=== PATIENT | female | born 1950 | race Caucasian/White ===

== ENCOUNTER 2016-09-19 14:07 | Emergency (ER) | payer OTHER ==
[2016-09-19 14:28] VITALS: BMI 34.7
--- NOTE | 2016-09-19 16:42 | PDOC ---
History of Present Illness - General History Source: Patient, Old Records, Primary Care Provider Exam Limitations: No Limitations - History of Present Illness Initial Comments: 09/19/16 17:47 The patient is a 65 year old female, with a significant past medical history of asthma, hypertension, hyperlipidemia, diabetes, pulmonary hypertension, COPD, coronary artery disease, Hodgkins lymphoma s/p chemotherapy and radiation, endometrial CA s/p chemotherapy and radiation, diabetic neuropathy, spinal stenosis, chronic back pain and carpal tunnel syndrome (wrists), who presents to the emergency department sent in by Dr. Santo with back pain for the past two months but worsening in the past week. The patient has a known compression fracture at L1, L3. The patient states that the pain initially started as dull and has now progressed to sharp. The patient reports that the back pain is exacerbated by any movement especially the twisting motion. The patient denies any radiation of the pain down her legs. The patient denies any saddle anesthesia. The patient denies any extremity weakness/numbness/tingling. The patient denies nausea, vomiting, diarrhea, constipation or abdominal pain. The patient has been taking Percocet every 4 hours for pain, with minimal relief. The patient reports that she uses a walker at baseline, but has been having difficulty ambulating over the past week. Allergies: Penicillins, Ibuprofen. Past Surgical History: Appendectomy. Social History: Non smoker. Denies alcohol or drug use. PCP: NORMAN Castillo Oncologist: Dr. Hansa Bee Open Developer Operator: Dr. Marcellus Meléndez <Fatmata Iqbal - Last Filed: 09/19/16 17:50> <Marylu Gallagher - Last Filed: 09/22/16 07:40> - General Chief Complaint: Back Pain Stated Complaint: LOWER BACK PAIN Time Seen by Provider: 09/19/16 16:14 Past History <Fatmata Iqbal - Last Filed: 09/19/16 17:50> - Past Medical History Anemia: No Asthma: Yes Cancer: Yes (Hodkins Lymphoma,uterine ca) Cardiac Disorders: Yes (tachycardia) CVA: No COPD: Yes (EMPHYSEMA.) CHF: No Dementia: No Diabetes: Yes GI Disorders: No Disorders: Yes (URGE INCONTINENCE) HTN: Yes (PULMONARY Hypertension) Hypercholesterolemia: Yes Kidney Stones: Yes Liver Disease: No Seizures: No Thyroid Disease: Yes (enlarged thyroid) - Surgical History Abdominal Surgery: Yes Appendectomy: Yes (AT 15 YRS OLD) Cardiac Surgery: No Cholecystectomy: No (gallstones) Lung Surgery: No Neurologic Surgery: No Orthopedic Surgery: No - Immunization History Td Vaccination: No Immunization Up to Date: Yes - Psycho/Social/Smoking Cessation Hx Anxiety: No Suicidal Ideation: No Smoking Status: Yes Smoking History: Never smoked Years of Tobacco Use: 40 Have you smoked in the past 12 months: No Number of Cigarettes Smoked Daily: 0 If you are a former smoker, when did you quit?: December 2013 Information on smoking cessation initiated: No 'Breaking Loose' booklet given: 11/10/13 Hx Alcohol Use: No Drug/Substance Use Hx: No Substance Use Type: None Hx Substance Use Treatment: No <Marylu Gallagher - Last Filed: 09/22/16 07:40> - Past Medical History Allergies/Adverse Reactions: Allergies Allergy/AdvReac Type Severity Reaction Status Date / Time Penicillins Allergy Verified 09/19/16 14:23 ibuprofen [From Motrin] AdvReac Verified 09/19/16 14:23 Home Medications: Ambulatory Orders Amlodipine Besylate [Norvasc -] 2.5 mg PO DAILY #0 tablet 12/20/12 Pantoprazole Sodium [Protonix -] 40 mg PO DAILY #30 tablet.ec 02/23/14 Aspirin [Aspirin EC] 81 mg PO DAILY #30 tablet. 04/23/14 Ondansetron [Zofran -] 8 mg PO Q6H PRN 04/29/15 Magnesium Oxide 800 mg PO BID 05/24/15 Bacitracin 1 applic TD DAILY 07/05/15 Cyclobenzaprine HCl [Flexeril -] 10 mg PO TID PRN #0 07/29/15 Sucralfate Oral Suspension [Carafate Oral Suspension -] 2 gm NR BID #1250 ml Oxycodone HCl/Acetaminophen [Percocet 5-325 mg Tablet] 1 - 2 tab PO Q6H #20 tablet MDD 4 09/19/16 Review of Systems - Review of Systems Able to Perform ROS?: Yes Comments:: 09/19/16 17:22 GENERAL/CONSTITUTIONAL: No fever or chills. No weakness. HEAD, EYES, EARS, NOSE AND THROAT: No change in vision. No ear pain or discharge. No sore throat. CARDIOVASCULAR: No chest pain or shortness of breath. RESPIRATORY: No cough, wheezing, or hemoptysis. GASTROINTESTINAL: No nausea, vomiting, diarrhea or constipation. GENITOURINARY: No dysuria, frequency, or change in urination. MUSCULOSKELETAL: +Back pain. No joint or muscle swelling or pain. No neck pain. SKIN: No rash. NEUROLOGIC: No headache, vertigo, loss of consciousness, or change in strength/ sensation. ENDOCRINE: No increased thirst. No abnormal weight change. HEMATOLOGIC/LYMPHATIC: No anemia, easy bleeding, or history of blood clots. ALLERGIC/IMMUNOLOGIC: No hives or skin allergy. <Fatmata Iqbal - Last Filed: 09/19/16 17:50> *Physical Exam - Vital Signs Last Vital Signs Temp Pulse Resp BP Pulse Ox 98.4 F 126 H 18 150/80 96 09/19/16 14:24 09/19/16 14:24 09/19/16 14:24 09/19/16 14:24 09/19/16 14:24 - Physical Exam Comments: 09/19/16 17:45 GENERAL: Awake, alert, and fully oriented, in no acute distress. HEAD: No signs of trauma. EYES: PERRLA, EOMI, sclera anicteric, conjunctiva clear. ENT: Auricles normal inspection, hearing grossly normal, nares patent, oropharynx clear without exudates. Moist mucosa. NECK: Normal ROM, supple, no lymphadenopathy, JVD, or masses. LUNGS: Breath sounds equal, clear to auscultation bilaterally. No wheezes, and no crackles. HEART: Regular rate and rhythm, normal S1 and S2, no murmurs, rubs or gallops. ABDOMEN: Soft, nontender, normoactive bowel sounds. No guarding, no rebound. No masses. SPINE: Tenderness to the L spine from L1-L3 in the midline. EXTREMITIES: 2+ pitting edema to the bilateral lower extremities. Normal range of motion. No clubbing or cyanosis. No cords, erythema, or tenderness. NEUROLOGICAL: Cranial nerves II through XII intact. Normal speech, gait deferred. SKIN: Warm, dry, normal turgor, no rashes or lesions noted. <Fatmata Iqbal - Last Filed: 09/19/16 17:50> - Vital Signs Last Vital Signs Temp Pulse Resp BP Pulse Ox 98.4 F 126 H 18 150/80 96 09/19/16 14:24 09/19/16 14:24 09/19/16 14:24 09/19/16 14:24 09/19/16 14:24 <Marylu Gallagher - Last Filed: 09/22/16 07:40> Heart Score/ECG Review - ECG Impressions Comment:: EKG read 17:42- NSR 90 bpm, no acute ST/T changes. +Motion artifact. <Marylu Gallagher - Last Filed: 09/22/16 07:40> ED Treatment Course - LABORATORY CBC & Chemistry Diagram: 09/19/16 17:30 09/19/16 17:30 <Fatmata Iqbal - Last Filed: 09/19/16 17:50> - LABORATORY CBC & Chemistry Diagram: 09/19/16 17:30 09/19/16 17:30 <Marylu Gallagher - Last Filed: 09/22/16 07:40> Medical Decision Making - Medical Decision Making 09/19/16 17:30 Connected and case discussed with Dr. Santo at 17:27. <Fatmata Iqbal - Last Filed: 09/19/16 17:50> - Medical Decision Making 09/19/16 19:[address] Levin at shift change. She was sent by Dr. Santo, she has history of compression fractures in the spine, has been unable to ambulate without a walker, has been unable to get to any appointments. She has been having progressively worsening low back pain since her diagnosis (rather than improving), and now radiating to the groin. Recommended CT a/p to r/o lymphadenopathy, concern for recurrence of cancer. <Marylu Gallagher - Last Filed: 09/22/16 07:40> *DC/Admit/Observation/Transfer - Attestations Scribe Attestion: 09/19/16 17:22 Documentation prepared by Fatmata Iqbal, acting as certified medical technician for Marylu Gallagher MD. <Fatmata Iqbal - Last Filed: 09/19/16 17:50> <Marylu Gallagher - Last Filed: 09/22/16 07:40> Diagnosis at time of Disposition: Back pain Qualifiers: Back pain location: low back pain Chronicity: chronic Back pain laterality: midline Sciatica presence: without sciatica Qualified Code(s): M54.5 - Low back pain - Discharge Dispostion Disposition: HOME Condition at time of disposition: Stable - Prescriptions Prescriptions: Oxycodone HCl/Acetaminophen [Percocet 5-325 mg Tablet] 1 - 2 tab PO Q6H #20 tablet MDD 4 - Referrals Referrals: Kyra Castillo [Primary Care Provider] - - Patient Instructions Printed Discharge Instructions: DI for Low Back Pain
[2016-09-19 17:39] LABS: BASOPHIL 0.7 % (0-2.0); EOSINOPHIL 5.9 % (0-4.5); MCH 29.9 pg (25.7-33.7); MCHC 32.7 g/dl (32.0-36.0); MEAN CELL VOLUME 91.3 fl (80-96); MEAN PLT VOLUME 8.2 fl (7.5-11.1); NEUTROPHILS 69.7 % (42.8-82.8); PLATELET COUNT 203 K/MM3 (134-434); RDW 14.4 % (11.6-15.6); WHITE BLOOD COUNT 6.3 K/mm3 (4.0-10.0)
[2016-09-19] MEDS ORDERED: morphine CARPU-JECT 2 MG/1 ML DISP.SYRIN ONE (17:45)
[2016-09-19] MEDS: morphine CARPU-JECT 2 MG/1 ML DISP.SYRIN IVPUSH ONE ×2 (17:46→17:55)
[2016-09-19] MEDS ORDERED: OXYCODONE/APAP 5/325MG COMBO TABLET PO ONE (17:48)
[2016-09-19 17:51] LABS: INR 1.13 (0.82-1.09); PROTHROMBIN TIME (PATIENT) 12.5 SEC (9.98-11.88)
[2016-09-19] MEDS ORDERED: OXYCODONE/APAP 5/325MG COMBO TABLET ONE (17:52)
[2016-09-19 18:10] LABS: ALBUMIN 3.9 g/dl (3.4-5.0); BILIRUBIN,TOTAL 0.6 mg/dL (0.2-1.0); CALCIUM 9.1 mg/dL (8.5-10.1); CREATININE 1.2 mg/dL (0.55-1.02); TOT PROT 6.9 g/dl (6.4-8.2)
[2016-09-19] MEDS ORDERED: methylPREDNISolone NA SUCC 125 MG/2 ML VIAL IVPB ONE (21:01)
--- NOTE | 2016-09-19 21:07 | PDOC ---
*Physical Exam - Vital Signs Last Vital Signs Temp Pulse Resp BP Pulse Ox 98.4 F 80 16 157/76 100 09/19/16 14:24 09/19/16 18:04 09/19/16 18:04 09/19/16 18:04 09/19/16 19:45 ED Treatment Course - LABORATORY CBC & Chemistry Diagram: 09/19/16 17:30 09/19/16 17:30 - ADDITIONAL ORDERS Additional order review: Laboratory Results 09/19/16 09/19/16 17:30 17:30 INR 1.13 Sodium 143 Potassium 3.6 Chloride 106 Carbon Dioxide 29 Anion Gap 8 BUN 20 H D Creatinine 1.2 H D Creat Clearance w eGFR 44.81 Random Glucose 104 D Calcium 9.1 Total Bilirubin 0.6 D AST 10 L ALT 13 Alkaline Phosphatase 122 H D Total Protein 6.9 D Albumin 3.9 D 09/19/16 17:30 RBC 3.48 L D MCV 91.3 MCHC 32.7 RDW 14.4 MPV 8.2 D Neutrophils % 69.7 D Lymphocytes % 17.8 D Monocytes % 5.9 Eosinophils % 5.9 H Basophils % 0.7 - Medications Given in the ED: ED Medications Discontinued Medications Generic Name Dose Route Start Last Admin Trade Name Freq PRN Reason Stop Dose Admin Morphine Sulfate 2 mg 09/19/16 17:43 09/19/16 17:55 Morphine Injection - IVPUSH 09/19/16 17:44 Not Given ONCE ONE Oxycodone/Acetaminophen 1 combo 09/19/16 17:48 09/19/16 17:54 Percocet 5/325 - PO 09/19/16 17:49 1 combo ONCE ONE Administration Medical Decision Making - Medical Decision Making 09/19/16 21:04 Pt told she was going to be admitted for procedure, but not arrangements made for the admission. Attempted to contact Dr. Santo, she couldn't be reached. spoke to Dr. Gravin, he had no idea of patient. Pt will go home and make arrangements for another day. for procedure *DC/Admit/Observation/Transfer Diagnosis at time of Disposition: Back pain Qualifiers: Back pain location: low back pain Chronicity: chronic Back pain laterality: midline Sciatica presence: without sciatica Qualified Code(s): M54.5 - Low back pain; G89.29 - Other chronic pain - Discharge Dispostion Disposition: HOME Condition at time of disposition: Stable Admit: No - Prescriptions Prescriptions: Oxycodone HCl/Acetaminophen [Percocet 5-325 mg Tablet] 1 - 2 tab PO Q6H #20 tablet MDD 4 - Referrals Referrals: Kyra Castillo [Primary Care Provider] - - Patient Instructions Printed Discharge Instructions: DI for Low Back Pain - Post Discharge Activity
[2016-09-19] MEDS ORDERED: methylPREDNISolone NA SUCC 125 MG/2 ML VIAL ONE (21:14)
[2016-09-19 21:18] VITALS: BP 154/80; PULSE 82; TEMP 98.2
--- NOTE | 2016-09-20 11:03 | EKG ---
Test Reason : Blood Pressure : / mmHG Vent. Rate : 090 BPM Atrial Rate : 090 BPM P-R Int : 146 ms QRS Dur : 074 ms QT Int : 362 ms P-R-T Axes : 094 -05 025 degrees QTc Int : 442 ms POOR DATA QUALITY, INTERPRETATION MAY BE ADVERSELY AFFECTED NORMAL SINUS RHYTHM NORMAL ECG WHEN COMPARED WITH ECG OF 12-OCT-2015 15:20, NO SIGNIFICANT CHANGE WAS FOUND Confirmed by SHELLY NATION MD ([id number]) on 09/20/2016 11:02:45 AM Referred By: Confirmed By:SHELLY NATION MD
== END 2016-09-19 21:27 | disposition home or self-care (01) ==
LOC: JER 14:07
PROC: 3E0333Z Introduction of Anti-inflammatory into Peripheral Vein, Percutaneous Approach (ICD-10-PCS; principal; 2016-09-19)
PROC: 3E033NZ Introduction of Analgesics, Hypnotics, Sedatives into Peripheral Vein, Percutaneous Approach (ICD-10-PCS; 2016-09-19)
DX: M54.5 Low back pain (principal); G89.29 Other chronic pain; Z87.311 Personal history of (healed) other pathological fracture; Z85.71 Personal history of Hodgkin lymphoma; Z85.41 Personal history of malignant neoplasm of cervix uteri; I10 Essential (primary) hypertension; E11.9 Type 2 diabetes mellitus without complications; J44.9 Chronic obstructive pulmonary disease, unspecified; J43.8 Other emphysema; E78.00 Pure hypercholesterolemia, unspecified; I27.2 Other secondary pulmonary hypertension
CPT/HCPCS: 36415; 74176-TC; 80053; 85025; 85610; 93005; 93010; 96374; 96375; 99283-25

== ENCOUNTER 2016-09-26 15:33 | Inpatient (IN) | payer OTHER ==
[2016-09-26 15:42] VITALS: BMI 33.9
[2016-09-26] MEDS ORDERED: HYDROmorphone HCL CARPU-JECT 2 MG/1 ML DISP.SYRIN IVPUSH ONE (16:19)
--- NOTE | 2016-09-26 16:53 | PDOC ---
History of Present Illness - General Chief Complaint: Back Pain Stated Complaint: BACK PAIN, PCP SENT FOR ADMIN Time Seen by Provider: 09/26/16 15:50 History Source: Patient Exam Limitations: No Limitations - History of Present Illness Initial Comments: 09/26/16 16:03 65-year-old female with history of Hodgkin's lymphoma, endometrial cancer , and compression fracture presents with worsening low back pain that radiates to her right groin and right leg for the past 2 months unrelieved with Percocet. Patient was due for an MRI today to rule out metastasis but was unable to sit more than 2 minutes for the exam and was told by her oncologist to go straight to the ER for admission under the hospitalist service for intractable back pain. Patient denies worsening incontinence, saddle anesthesia, or paresthesia distally. Occurred: reports: other Severity: reports: severe Pain Location: reports: back Method of Injury: Yes: unknown Modifying Factors: improves with: None Associated Symptoms (Fall): trouble walking Past History - Past Medical History Allergies/Adverse Reactions: Allergies Allergy/AdvReac Type Severity Reaction Status Date / Time Penicillins Allergy Verified 09/26/16 15:39 ibuprofen [From Motrin] AdvReac Verified 09/26/16 15:39 Home Medications: Ambulatory Orders Amlodipine Besylate [Norvasc -] 2.5 mg PO DAILY #0 tablet 12/20/12 Pantoprazole Sodium [Protonix -] 40 mg PO DAILY #30 tablet.ec 02/23/14 Aspirin [Aspirin EC] 81 mg PO DAILY #30 tablet. 04/23/14 Ondansetron [Zofran -] 8 mg PO Q6H PRN 04/29/15 Magnesium Oxide 800 mg PO BID 05/24/15 Bacitracin 1 applic TD DAILY 07/05/15 Cyclobenzaprine HCl [Flexeril -] 10 mg PO TID PRN #0 07/29/15 Sucralfate Oral Suspension [Carafate Oral Suspension -] 2 gm NR BID #1250 ml Oxycodone HCl/Acetaminophen [Percocet 5-325 mg Tablet] 1 - 2 tab PO Q6H #20 tablet MDD 4 09/19/16 Anemia: No Asthma: Yes Cancer: Yes (Hodkins Lymphoma,uterine ca) Cardiac Disorders: Yes (tachycardia) CVA: No COPD: Yes (EMPHYSEMA.) CHF: No Dementia: No Diabetes: Yes GI Disorders: No Disorders: Yes (URGE INCONTINENCE) HTN: Yes (PULMONARY Hypertension) Hypercholesterolemia: Yes Kidney Stones: Yes Liver Disease: No Seizures: No Thyroid Disease: Yes (enlarged thyroid) - Surgical History Abdominal Surgery: Yes Appendectomy: Yes (AT 15 YRS OLD) Cardiac Surgery: No Cholecystectomy: No (gallstones) Lung Surgery: No Neurologic Surgery: No Orthopedic Surgery: No - Immunization History Td Vaccination: No Immunization Up to Date: Yes - Psycho/Social/Smoking Cessation Hx Anxiety: No Suicidal Ideation: No Smoking Status: Yes Smoking History: Former smoker Years of Tobacco Use: 40 Have you smoked in the past 12 months: No Number of Cigarettes Smoked Daily: 0 If you are a former smoker, when did you quit?: December 2013 Information on smoking cessation initiated: No 'Breaking Loose' booklet given: 11/10/13 Hx Alcohol Use: No Drug/Substance Use Hx: No Substance Use Type: None Hx Substance Use Treatment: No Patient Lives Alone: No Review of Systems - Review of Systems Able to Perform ROS?: Yes Constitutional: No: Symptoms Reported HEENTM: No: Symptoms Reported Respiratory: No: Symptoms reported Cardiac (ROS): No: Symptoms Reported ABD/GI: No: Symptoms Reported : No: Symptoms Reported Musculoskeletal: Yes: Back Pain Integumentary: No: Symptoms Reported Neurological: No: Numbness, Paresthesia, Dizziness Hematologic/Lymphatic: Yes: See HPI *Physical Exam - Vital Signs Last Vital Signs Temp Pulse Resp BP Pulse Ox 99.1 F 113 H 24 149/81 97 09/26/16 15:39 09/26/16 15:39 09/26/16 15:39 09/26/16 15:39 09/26/16 15:39 - Physical Exam General Appearance: Yes: Nourished, Appropriately Dressed, Mild Distress Neck: positive: Supple. negative: Tender, Decreased range of motion Respiratory/Chest: positive: Lungs Clear, Normal Breath Sounds. negative: Chest Tender, Respiratory Distress, Accessory Muscle Use Cardiovascular: positive: Regular Rhythm, Tachycardia. negative: Murmur Gastrointestinal/Abdominal: positive: Soft. negative: Tenderness Musculoskeletal: negative: Vertebral Tenderness (no midline tenderness) Extremity: positive: Normal Capillary Refill, Normal Inspection, Normal Range of Motion. negative: Tender Integumentary: positive: Normal Color, Warm, Moist. negative: Rash Neurologic: positive: Normal Mood/Affect, Motor Strength 5/5 Heart Score/ECG Review - ECG Intrepretation Rhythm: Regular Rhythm (achycardia at 103. no ST-T wave abnormality) ED Treatment Course - RADIOLOGY Radiology Studies Ordered: Category Date Time Status CHEST X-RAY PORTABLE* [RAD] Stat Radiology 09/26/16 16:19 Taken Medical Decision Making - Medical Decision Making 09/26/16 16:58 Patient with history of Hodgkin's lymphoma was sent here by her oncologist for admission secondary to intractable back pain despite being on Percocet. Patient was due for an MRI today which she was unable to sit still for. Patient ordered for admission labs including Tylenol ordered IV. Patient also will be rescheduled for MRI today at around 8 PM as per [facility] technician terminal and repeater. Case discussed with hospitalist and accepted to service. *DC/Admit/Observation/Transfer Diagnosis at time of Disposition: Intractable back pain Hodgkin lymphoma Qualifiers: Hodgkin lymphoma type: unspecified type Lymphoma site: unspecified region Qualified Code(s): C81.90 - Hodgkin lymphoma, unspecified, unspecified site - Discharge Dispostion Admit: Yes
[2016-09-26] MEDS ORDERED: HYDROmorphone HCL CARPU-JECT 1 MG/1 ML DISP.SYRIN ONE ×2 (16:54→19:42)
--- NOTE | 2016-09-26 17:12 | HP ---
CHIEF COMPLAINT: I have back pain PCP: NORMAN [place]unac: Dr. Santo HISTORY OF PRESENT ILLNESS: 65 yo F h/o asthma, HTN, HLD, diet controlled diabetes, pulmonary hypertension, COPD, CAD, Hodgkins lymphoma and endometrial CA s/p chemotherapy (last 08/2015) and radiation (last 10/2015), diabetic neuropathy, spinal stenosis, chronic back pain and carpal tunnel syndrome, who presents to the emergency department sent in by Dr. Santo with back pain for the past two months but worsening in the past 2 week. The patient has a known compression fracture at L1, L3. Patient stated that the back pain started 2 months ago in the LL back medial to spine, stabbing like, used to be 10/10, constant, migrated from lower left back to lower right back 2 weeks ago now radiates to her R groin area, not relieved with percocet or rest, worse with lying on her L. Denies any radiation of the pain down her legs, saddle anesthesia, extremity weakness/numbness/tingling, nausea, vomiting, diarrhea, constipation or abdominal pain. ER course was notable for: (1) Dilaudid 0.5mg given for pain relief Recent Travel: Denies PAST MEDICAL HISTORY: As above PAST SURGICAL HISTORY: Hysterectomy Left leg femoral bypass (Dr. Quiroz) Social History: Smoking: Denies Alcohol: Denies Drugs: Denies Family History: Non-contributory Allergies Penicillins Allergy (Verified 09/26/16 15:39) ibuprofen [From Motrin] Adverse Reaction (Verified 09/26/16 15:39) HOME MEDICATIONS: Home Medications Medication Instructions Recorded Amlodipine Besylate [Norvasc -] 2.5 mg PO DAILY #0 tablet 12/20/12 Pantoprazole Sodium [Protonix -] 40 mg PO DAILY #30 tablet.ec 02/23/14 Aspirin [Aspirin EC] 81 mg PO DAILY #30 tablet. 04/23/14 Ondansetron [Zofran -] 8 mg PO Q6H PRN 04/29/15 Magnesium Oxide 800 mg PO BID 05/24/15 Bacitracin 1 applic TD DAILY 07/05/15 Cyclobenzaprine HCl [Flexeril -] 10 mg PO TID PRN #0 07/29/15 Sucralfate Oral Suspension 2 gm NR BID #1250 ml 10/15/15 [Carafate Oral Suspension -] Oxycodone HCl/Acetaminophen 1 - 2 tab PO Q6H #20 tablet MDD 4 09/19/16 [Percocet 5-325 mg Tablet] REVIEW OF SYSTEMS CONSTITUTIONAL: Absent: fever, chills, diaphoresis, generalized weakness, malaise, loss of appetite, weight change HEENT: Absent: rhinorrhea, nasal congestion, throat pain, throat swelling, difficulty swallowing, mouth swelling, ear pain, eye pain, visual changes CARDIOVASCULAR: Absent: chest pain, syncope, palpitations, irregular heart rate, lightheadedness , peripheral edema RESPIRATORY: Absent: cough, shortness of breath, dyspnea with exertion, orthopnea, wheezing, stridor, hemoptysis GASTROINTESTINAL: Absent: abdominal pain, abdominal distension, nausea, vomiting, diarrhea, constipation, melena, hematochezia GENITOURINARY: Absent: dysuria, frequency, urgency, hesitancy, hematuria, flank pain, genital pain MUSCULOSKELETAL: back pain Absent: myalgia, arthralgia, joint swelling, neck pain SKIN: non-healing blisters on b/l lower legs Absent: rash, itching, pallor HEMATOLOGIC/IMMUNOLOGIC: Absent: easy bleeding, easy bruising, lymphadenopathy, frequent infections ENDOCRINE: Absent: unexplained weight gain, unexplained weight loss, heat intolerance, cold intolerance NEUROLOGIC: Absent: headache, focal weakness or paresthesias, dizziness, unsteady gait, seizure, mental status changes, bladder or bowel incontinence PSYCHIATRIC: Absent: anxiety, depression, suicidal or homicidal ideation, hallucinations. PHYSICAL EXAMINATION Last Vital Signs Temp Pulse Resp BP Pulse Ox 99.1 F 113 H 24 149/81 97 09/26/16 15:39 09/26/16 15:39 09/26/16 15:39 09/26/16 15:39 09/26/16 15:39 GENERAL: AAO x 3, Not in any distress HEAD: Normal with no signs of trauma. EYES: Pupils equal, round and reactive to light, EARS, NOSE, THROAT: oropharynx clear without exudates NECK: Normal range of motion, supple without lymphadenopathy LUNGS: Breath sounds equal, clear to auscultation bilaterally. No wheezes, and no crackles. No accessory muscle use. HEART: Regular rate and rhythm, normal S1 and S2 without murmur, rub or gallop. ABDOMEN: Soft, nontender, not distended, normoactive bowel sounds, no guarding, no rebound, no masses. Surgical scar. MUSCULOSKELETAL: Lower R back tenderness upon pressing around L1-L5 LOWER EXTREMITIES: Surgical scar on L medial leg, deborah bandages wrap around bilateral lower legs NEUROLOGICAL: Cranial nerves II-XII intact. Gait not observed ASSESSMENT/PLAN: 65 yo F h/o asthma, HTN, HLD, diet controlled diabetes, pulmonary hypertension, COPD, CAD, Hodgkins lymphoma and endometrial CA s/p chemotherapy (last 08/2015) and radiation (last 10/2015), diabetic neuropathy, spinal stenosis, chronic back pain and carpal tunnel syndrome admitted for acute on chronic back pain. Acute on chronic back pain - Mets vs. L1-L2 compression fracture vs. worsening spinal stenosis - MRI w and w/o contrast - Dilaudid 0.5mg Q4H PRN for pain relief - Neurology and neurosurgery consults Hodgkin's lymphoma and endometrial CA - s/p radiation and chemotherapy - Outpatient management by Dr. Santo h/o CAD - Cont. asa HTN - Cont. norvasc Diet controlled DM2 - Sliding scale - BGM FEN - IVF not indicated - Cont. to monitor lytes - Diabetic diet Prophylaxis - DVT: heparin SQ - GI: on home protonix Disposition - Admit to med-surg Code status - Full code Visit type - Emergency Visit Emergency Visit: Yes Care time: The patient presented to the Emergency Department on the above date and was hospitalized for further evaluation of their emergent condition. - New Patient This patient is new to me today: Yes Date on this admission: 09/26/16 - Critical Care Critical Care patient: No
[2016-09-26 17:20] LABS: BASOPHIL 0.5 % (0-2.0); EOSINOPHIL 6.4 % (0-4.5); MCH 29.8 pg (25.7-33.7); MCHC 32.4 g/dl (32.0-36.0); MEAN CELL VOLUME 91.8 fl (80-96); MEAN PLT VOLUME 8.1 fl (7.5-11.1); NEUTROPHILS 71.3 % (42.8-82.8); PLATELET COUNT 236 K/MM3 (134-434); RDW 14.7 % (11.6-15.6); WHITE BLOOD COUNT 7.1 K/mm3 (4.0-10.0)
[2016-09-26 17:22] LABS: URINE APPEARANCE CLOUDY; URINE BILIRUBIN NEGATIVE (NEGATIVE); URINE COLOR AMBER; URINE GLUCOSE (UA) NEGATIVE (NEGATIVE); URINE KETONE TRACE (NEGATIVE); URINE NITRITE NEGATIVE (NEGATIVE); URINE UROBILINOGEN 2.0 E.U/dl E.U./dl (0.2-1.0)
[2016-09-26 17:41] LABS: ALBUMIN 3.7 g/dl (3.4-5.0); CALCIUM 9.1 mg/dL (8.5-10.1); COCKROFT - GAULT 51.306; CREATININE 1.6 mg/dL (0.55-1.02)
[2016-09-26 17:42] LABS: BILIRUBIN,TOTAL 0.9 mg/dL (0.2-1.0); TOT PROT 6.9 g/dl (6.4-8.2)
[2016-09-26] MEDS ORDERED: ONDANSETRON 4 MG TABLET PO PRN (17:43)
[2016-09-26 17:44] LABS: URINE BLOOD 1+ (NEGATIVE); URINE LEUK ESTERASE 3+ (NEGATIVE); URINE PROTEIN 2+ (NEGATIVE)
[2016-09-26 17:44] LABS: MAGNESIUM 1.8 mg/dL (1.8-2.4)
[2016-09-26 17:45] LABS: URINE BACTERIA RARE /hpf (NONE SEEN); URINE MUCUS RARE; URINE RBC 4 /hpf (0-3); URINE WBC 443 /hpf (3-5)
[2016-09-26 18:01] LABS: INR 1.14 (0.82-1.09); PROTHROMBIN TIME (PATIENT) 12.6 SEC (9.98-11.88)
--- NOTE | 2016-09-26 18:07 | PN ---
Teaching Attending Note Name of Resident: Juan Ortiz ATTENDING PHYSICIAN STATEMENT I saw and evaluated the patient. I reviewed the resident's note and discussed the case with the resident. I agree with the resident's findings and plan as documented. SUBJECTIVE: This is a 65-year-old woman with a history of Hodgkin lymphoma, metastatic endometrial cancer, L1 and L3 compression fractures, HTN, pulmonary HTN, essential tremor, CAD, spinal stenosis, neurogenic bladder, type 2 DM with neuropathy, RA, depression, anxiety, PAD, COPD, anemia, hypothyroidism, stage 3 CKD who presents to the ER complaining of worsening low back pain radiating to her right groin and down her right leg. She went for an MRI today but could not do it because of the pain, so she was advised to go to the ER. OBJECTIVE: Vital Signs Period Temp Pulse Resp BP Sys/Peguero Pulse Ox Last 24 Hr 99.1 F 113 24 149/81 97 HEART: S1S2, tachycardic LUNGS: Clear ABDOMEN: Obese, soft, non-tender, non-distended, normal BS EXTREMITIES: Both legs wrapped BACK: Right lumbar paraspinal tenderness ASSESSMENT AND PLAN: This is a 65-year-old woman with a history of Hodgkin lymphoma, metastatic endometrial cancer, L1 and L3 compression fractures, HTN, pulmonary HTN, essential tremor, CAD, spinal stenosis, neurogenic bladder, type 2 DM with neuropathy, RA, depression, anxiety, PAD, COPD, anemia, hypothyroidism, stage 3 CKD who came to the ER with worsening low back pain radiating to her right groin and down her right leg. 1. Low back pain with right lumbar radiculopathy, likely secondary to lumbar compression fractures and spinal stenosis, possibly metastatic disease - MRI of LS-spine - Pain control - Continue Flexeril as needed 2. Metastatic endometrial cancer 3. Hodgkin lymphoma 4. HTN - Continue Norvasc 5. CAD - Continue aspirin 6. Pulmonary HTN 7. Type 2 DM with diabetic peripheral neuropathy and neurogenic bladder - Diet controlled - Fingersticks with Novolog sliding scale 8. RA 9. Depression and anxiety 10. Hypothyroidism 11. Stage 3 CKD 12. COPD 13. PAD 14. Anemia
--- NOTE | 2016-09-26 18:27 | PDOC ---
*Physical Exam - Vital Signs Last Vital Signs Temp Pulse Resp BP Pulse Ox 99.1 F 113 H 24 149/81 97 09/26/16 15:39 09/26/16 15:39 09/26/16 15:39 09/26/16 15:39 09/26/16 15:39 ED Treatment Course - LABORATORY CBC & Chemistry Diagram: 09/26/16 16:52 09/27/16 07:03 - ADDITIONAL ORDERS Additional order review: Laboratory Results 09/26/16 09/26/16 09/26/16 16:52 16:52 16:50 INR 1.14 Sodium 140 Potassium 4.4 D Chloride 104 Carbon Dioxide 25 Anion Gap 11 BUN 17 Creatinine 1.6 H D Creat Clearance w eGFR 32.15 Random Glucose 133 H D Calcium 9.1 Magnesium 1.8 Total Bilirubin 0.9 D AST 19 D ALT 12 Alkaline Phosphatase 109 Total Protein 6.9 Albumin 3.7 Urine Color Rosalva Urine Appearance Cloudy Urine pH 5.0 Urine Protein 2+ H Urine Glucose (UA) Negative Urine Ketones Trace H Urine Blood 1+ H Urine Nitrite Negative Urine Bilirubin Negative Urine Urobilinogen 2.0 e.u/dl H Ur Leukocyte Esterase 3+ H Urine RBC 4 Urine WBC 443 Ur Epithelial Cells Rare Urine Bacteria Rare Urine Mucus Rare 09/26/16 16:52 RBC 3.67 MCV 91.8 MCHC 32.4 RDW 14.7 MPV 8.1 Neutrophils % 71.3 Lymphocytes % 13.9 D Monocytes % 7.9 Eosinophils % 6.4 H Basophils % 0.5 - Medications Given in the ED: ED Medications Discontinued Medications Generic Name Dose Route Start Last Admin Trade Name Nanette PRN Reason Stop Dose Admin Hydromorphone HCl 0.5 mg 09/26/16 16:19 09/26/16 17:04 Dilaudid Injection - IVPUSH 09/26/16 16:20 0.5 mg ONCE ONE Administration Medical Decision Making - Medical Decision Making 09/26/16 18:26 Pt seen by Midlevel Provider under my direct supervision Ancillary studies reviewed I agree with plan as outlined by Midlevel Provider *DC/Admit/Observation/Transfer Diagnosis at time of Disposition: Intractable back pain Hodgkin lymphoma Qualifiers: Hodgkin lymphoma type: unspecified type Lymphoma site: unspecified region Qualified Code(s): C81.90 - Hodgkin lymphoma, unspecified, unspecified site
[2016-09-26] MEDS: HYDROmorphone HCL CARPU-JECT 1 MG/1 ML DISP.SYRIN IVPB PRN (19:50)
[2016-09-26] MEDS: MAGNESIUM OXIDE 400 MG TABLET (FP) PO SCH (22:50)
[2016-09-26] MEDS: CYCLOBENZAPRINE HCL 10 MG TABLET (FP) PO PRN (22:50)
[2016-09-26] MEDS: INSULIN SLIDING SCALE (NOVOLOG) 1 VIAL SQ SCH (22:51)
[2016-09-26] MEDS: SUCRALFATE 1 GM/10 ML UNIT DOSE CUPS PO SCH (22:59)
[2016-09-26] MEDS: HEPARIN NA (PORCINE) 5,000 UNITS/ML 1ML VIAL SQ SCH (23:00)
[2016-09-27] MEDS: HEPARIN NA (PORCINE) 5,000 UNITS/ML 1ML VIAL SQ SCH ×3 (06:19→22:26)
[2016-09-27] MEDS: INSULIN SLIDING SCALE (NOVOLOG) 1 VIAL SQ SCH ×4 (06:19→21:30)
[2016-09-27] MEDS ORDERED: LORAZEPAM CARPU-JECT 2 MG/ML DISP.SYRIN IVPUSH ONE ×2 (07:48→18:30)
--- NOTE | 2016-09-27 08:32 | PN ---
Progress Note (short form) - Note Progress Note: NEUROSURGERY CONSULT DICTATED Chart reviewed CT/MRI Spine reviewed Pt examined h/o asthma, HTN, HLD, DM, neuropathy (chemo vs DM), pulmonary hypertension, COPD, CAD, Hodgkins lymphoma and endometrial CA s/p chemotherapy in 2016, spinal stenosis, chronic back pain c/o two months of increased LBP which accelerated in the past 2 week. The patient has a known compression fracture at L1 and L3 from a July MRI. Patient stated that the back pain started 2 months ago radiating to her R groin area and ant thigh. Pain now also goes down below her R knee. H/O R sciatica for 6 + years. No B/B incontinence. Unable to get to PT because of lack of transportation PE: Tmax 98.2, VSS; sitting up in commode HEENT- NC/AT; Neck- supple; Cor- RR; Lungs- CTA B; Abd-benign, obese; Ext- B LE edema- symmetric, negative Beverley's Back- tender R > L LB A/A/Ox4 CN- intact; Motor- 5/5 except R EHL/in 3- and R TA/ev/Quad 4; Sensation- intact LT/vibration; DTR- hyporeflexic WBC 7.1; INR 1.14; Cr 1.6 LS spine MRI (07/2016): L1 and L3 acute compression fx, L1 sup and inf endplate fx and L3 sup endplate fx; L4-5 grade I spondylolisthesis with facet hypertrophy and marked central canal and lateral recess stenosis; multilevel DDD CT Abd- lymphadenopathy; L adrenal adenoma; chornic L1 (slightly progressed as expected since July) and L3 fx; osteoporosis L4-5 spondylolisthesis/stenosis with R L4-5 radiculopathy including R DF weakness L1 and L3 compression fx (osteoporotic and post-radiation), with possible worsening of L1 fracture Concur with repeat LS spine MRI (contrast held given borderline Cr and eGFR) Start Lyrica Pain management, seen Dr Job Tolentino previously PT Pros and cons of treatment options discussed No neurosurgical intervention recommended given extensive medical co-morbidities
[2016-09-27 08:54] LABS: CALCIUM 8.5 mg/dL (8.5-10.1); COCKROFT - GAULT 54.723; CREATININE 1.5 mg/dL (0.55-1.02); PHOSPHOROUS 3.2 mg/dL (2.5-4.9)
[2016-09-27] MEDS ORDERED: PT OWN MED DRAWER 7, Y5N ONE (10:10)
[2016-09-27] MEDS: MAGNESIUM OXIDE 400 MG TABLET (FP) PO SCH ×2 (10:13→22:30)
[2016-09-27] MEDS: ASPIRIN COATED 81 MG TABLET.EC PO SCH (10:13)
[2016-09-27] MEDS: amLODIPine BESYLATE 2.5 MG TABLET (FP) PO SCH (10:13)
[2016-09-27] MEDS: SUCRALFATE 1 GM/10 ML UNIT DOSE CUPS PO SCH ×2 (10:14→22:29)
[2016-09-27] MEDS: BACITRACIN 15 GM TUBE TOPICAL OINTMENT TP SCH (10:29)
[2016-09-27] MEDS: HYDROmorphone HCL CARPU-JECT 1 MG/1 ML DISP.SYRIN IVPB PRN ×2 (12:48→18:58)
--- NOTE | 2016-09-27 13:27 | EKG ---
Test Reason : Blood Pressure : / mmHG Vent. Rate : 102 BPM Atrial Rate : 102 BPM P-R Int : 140 ms QRS Dur : 074 ms QT Int : 346 ms P-R-T Axes : 059 005 031 degrees QTc Int : 450 ms SINUS TACHYCARDIA WITH PREMATURE ATRIAL COMPLEXES OTHERWISE NORMAL ECG WHEN COMPARED WITH ECG OF 19-SEP-2016 17:33, PREMATURE ATRIAL COMPLEXES ARE NOW PRESENT Confirmed by RIOS BROWN, SHELLY ([id number]) on 09/27/2016 1:27:41 PM Referred By: Confirmed By:SHELLY NATION MD
--- NOTE | 2016-09-27 14:34 | CONS ---
DATE OF CONSULTATION: 09/27/2016 CHIEF COMPLAINT: Lower back pain, right lower extremity radiculopathy. REFERRING PHYSICIANS: Benny Forst MD, and Hansa Bee MD HISTORY OF PRESENT ILLNESS: The patient is a 65-year-old right-handed female with a history of endometrial CA status post chemotherapy and radiation treatment in 2016, a history of Hodgkin lymphoma, COPD, pulmonary hypertension, hypertension, coronary artery disease, hypercholesterolemia, diabetes and lumbar spinal stenosis. She has complained of 2+-month history of increasing right-sided lower back pain radiating down her right groin and right lower abdomen. The pain also radiates down to the tops of her thighs. Over the past 2 weeks, the pain has intensified. For the past couple of days, the pain has been radiating down below the right knee. The patient has a history of lower back pain and sciatica of the right lower extremity in the past secondary to lumbar spinal stenosis. She had prior CT scan and MRI examinations dating back at least 6 years showing the same. Because of her increased pain 2 months ago, she had an MRI examination in July which demonstrated, in addition to the chronic degenerative changes, an L4-L5 spondylolisthesis and L1 and L3 acute compression fractures. Presently, the patient denies any leg weakness, numbness or tingling. She has no bowel or bladder incontinence. Her pain is worse with straining. PAST MEDICAL HISTORY: Significant for diabetes, hypertension, coronary artery disease, pulmonary hypertension, Hodgkin lymphoma, endometrial CA, COPD, asthma, peripheral neuropathy. CURRENT MEDICATIONS: Zofran, bacitracin, subcutaneous heparin, Flexeril, Norvasc, insulin, Ecotrin, hydrocodone and sucralfate. ALLERGIES: PENICILLIN and IBUPROFEN. SOCIAL HISTORY: She lives at home alone. She smoked until 2013 when she quit. She was a 1 pack-a-day smoker. She drinks alcohol socially. She is retired. REVIEW OF SYSTEMS: Otherwise negative for other major cardiovascular, pulmonary , gastrointestinal, genitourinary, endocrinologic, neurologic or psychologic problems. FAMILY HISTORY: Noncontributory in terms of spinal disease. PHYSICAL EXAMINATION: Vital Signs: Temperature is 98.2, blood pressure is 145/66 with a pulse rate of 81, O2 saturation 94% on room air. HEENT: Examination shows her to be normocephalic, atraumatic, anicteric. Neck: Supple with no carotid bruit. Coronary: Examination demonstrated a regular rhythm. Lungs: Clear to auscultation bilaterally. Abdomen: Obese but benign. Extremities: Examination shows 1-2+ edema of both lower extremities distally. She had a negative Homans sign. Neurologic: She is awake and alert and oriented x4. Cranial nerve examination is intact 2-12. Motor examination shows 5/5 strength through the upper and lower extremities, except the right extensor hallucis longus has inversion which is 4 - and right tibialis anterior full eversion right quadriceps which is 4/5. Sensory examination intact to light touch and vibratory sensation. Deep tendon reflexes are hypo-reflexive throughout. There is no pathological long tract sign. Examination of the lower back shows tenderness on the right side of the spine and the mid lower lumbar spine. There is mild to moderate paraspinal muscle spasm. Cerebellar exam today shows a mild resting bilateral tremor. She has an intact [id number] examination. LABORATORY EXAMINATION: Shows the white blood cell count to be 7100, hemoglobin is 10.9, platelet count is 236,000. INR is 1.14. Serum sodium is 140, potassium is 4.4, BUN is 17, creatinine is 1.6, estimated GFR is 32.15, random glucose 133. CT scan of the lumbar spine from 2012 demonstrated grade 1 L4-L5 spondylolisthesis with facet hypertrophy. There is marked central canal lateral recess stenosis. There is facet hypertrophy at multiple levels. An MRI of the lumbar spine from July of this year demonstrated L4-L5 spondylolisthesis with marked canal recess and foraminal stenosis. There was also facet hypertrophy at multiple levels, including L3-L4, with mild lateral recess stenosis at this level. There are associated acute L1 and L3 compression fractures with the L1 compression fracture being more notable. There was no significant retropulsion in the bone fragments of the spinal canal at that time. MRI of the thoracic spine demonstrated degenerative kyphosis with degenerative disk disease but there is significant canal compromise. CT scan of the abdomen and pelvis performed one week earlier demonstrated some abdominal lymphadenopathy and a small, stable, left adrenal adenoma. There is chronic diverticulosis as well as a small to moderate ventral hernia. The CT scan also demonstrates the previously mentioned L1 to L3 vertebral compression fractures with the L1 fracture being slightly more compressed than it was previously. There was slight retropulsion of the superior end-plate at L1. The L4-L5 spondylolisthesis was once again demonstrated. There is osteopenia throughout the entire visualized spine in the lower thoracic and lumber regions. IMPRESSION: 1. Chronic L4-L5 grade 1 spondylolisthesis with marked spinal stenosis and a history of right-hand lower extremity radiculopathy, predominantly L4 and L5. 2. L1 and L3 fractures, osteoporotic and post-radiation. 3. Diabetes. 4. History of endometrial cancer status post chemotherapy and radiation. 5. Hodgkin lymphoma. 6. Hypertension/coronary artery disease. 7. Chronic obstructive pulmonary disease. RECOMMENDATIONS: The patient presents with a 2-month history of increasing back pain, likely initially secondary to her fractures at L1 and L3. She also had a preexisting condition of L4-L5 spondylolisthesis with spinal stenosis. She had been intermittently symptomatic from that condition in the past. On my examination today, she has weakness in right foot dorsiflexion more likely related to the L4-L5 spondylolisthesis. That may be the generator of her pain at this time. She previously complained of increasing pain to the right groin and right abdomen which could be related to the L1 fracture. The patient has been treated in the past by Dr. Clifford Tolentino, her pain management physician, and plans to follow up with him. An MRI of the lumbar spine with and without gadolinium would be ideal but the patient has borderline renal function likely secondary to her diabetes. She also has peripheral neuropathy, likely as a complication of her diabetes and her prior chemotherapy regimen. I took the liberty of putting her on Lyrica 20 mg p.o. t.i.d. She already has peripheral neuropathy and Lyrica would be preferred over Neurontin at this time. She has also been ordered to undergo a lower extremity Doppler to rule out DVT, which is reasonable, given her immobility and higher propensity of developing DVTs. No neurosurgical intervention is recommended at this time, even though the patient does have some neurological deficit with right foot dorsiflexion related to the L4 and L5 distribution. This might have been chronic and the patient had not noticed the weakness herself. The above was discussed with the patient at the bedside. The pros and cons of the different treatment approaches were discussed, including physical therapy and pain management injections, especially in light of her extensive medical history. ROSE MARIE TOLENTINO M.D. [id number] MTDD
[2016-09-27] MEDS: PREGABALIN 25 MG CAPSULE PO SCH ×2 (14:45→22:30)
--- NOTE | 2016-09-27 17:53 | PN ---
Teaching Attending Note Name of Resident: Juan Ortiz ATTENDING PHYSICIAN STATEMENT I saw and evaluated the patient. I reviewed the resident's note and discussed the case with the resident. I agree with the resident's findings and plan as documented. SUBJECTIVE: Patient complains of back and right leg pain. OBJECTIVE: Vital Signs Period Temp Pulse Resp BP Sys/Peguero Pulse Ox Last 24 Hr 97.9 F-98.7 F 81-95 18-22 138-148/58-78 94-97 HEART: S1S2, tachycardic LUNGS: Clear ABDOMEN: Obese, soft, non-tender, non-distended, normal BS EXTREMITIES: Both legs wrapped BACK: Right lumbar paraspinal tenderness ASSESSMENT AND PLAN: This is a 65-year-old woman with a history of Hodgkin lymphoma, metastatic endometrial cancer, L1 and L3 compression fractures, HTN, pulmonary HTN, essential tremor, CAD, spinal stenosis, neurogenic bladder, type 2 DM with neuropathy, RA, depression, anxiety, PAD, COPD, anemia, hypothyroidism, stage 3 CKD who came to the ER with worsening low back pain radiating to her right groin and down her right leg. 1. Low back pain with right lumbar radiculopathy, likely secondary to lumbar compression fractures and spinal stenosis, possibly metastatic disease - MRI of LS-spine pending - Pain control - Continue Flexeril as needed - Neurosurgery consult appreciated - Start Lyrica 2. Metastatic endometrial cancer 3. Hodgkin lymphoma 4. HTN - Continue Norvasc 5. CAD - Continue aspirin 6. Pulmonary HTN 7. Type 2 DM with diabetic peripheral neuropathy and neurogenic bladder - Diet controlled - Fingersticks with Novolog sliding scale 8. RA 9. Depression and anxiety 10. Hypothyroidism 11. Stage 3 CKD 12. COPD 13. PAD 14. Anemia
[2016-09-27] MEDS: CYCLOBENZAPRINE HCL 10 MG TABLET (FP) PO PRN (20:41)
--- NOTE | 2016-09-27 20:52 | CONSULT ---
Consult - text type - Consultation Consultation Note: NEUROLOGY CONSULTATION is greatly appreciated: Events reviewed, Patient examined. Case discussed with Dr. Senior. This 65 yo RH woman has PMH sig for DM, HTN, Chol, GERD, PVD and is s/p Fem-Pop bypass. On insulins, norvasc, zofran, Lyrica, cyclobenzaprine and dilaudid. Complicated oncological history of Hodgekins Lymphoma and Endometrial Ca. Followed by me as outPt with: Migraine headaches, peripheral neuropathy, LS spinal stenosis and severe Right carpal tunnel syndrome. Chronic back and leg pains, worst at night and with prolonged sitting. Back and leg pains increased a few months ago and MRI of LS spine (08/07/16) showed chronic L1 and partial L3 vertebral collapse. Now admitted for pain management. Repeat MRI of thoracic and LS spine just completed and reviewed by me: No change from the prior study of 08/07/16. Pt found sitting comfortably after dilaudid Rx. In NAD. Neg SLR. Diffuse spinal and muscle palpation tenderness. Atrophic changes both legs. Decreased distal pusles. NEURO: Awake, alert cooperative. Concerned about inconveniencing her son. MS/ Speech: Normal. CN II-XII: Normal Motor: + sustention tremor. No cogwheeling. Normal strength except R APB (atrophic). Normal KJ's. Absent AJ's. Plantars silent. Coord: No FTN dystaxia Sensory: Slight reduced vib fet. Romberg -. Decreased pin R median distribution. Gait: Shuffling gait. IMP: L1 vertebral collapse. (No change from July, but not given contrast for today's study). Moderate peripheral neuropathy (Diabetes +/- ChemoRx). R Carpal Tunnel syndrome. Migraine Headaches. Possible contribution of RLS to chronic pain. Depression. SUGGEST: Check B12, TSH, CRP, ESR, Fe++, TIBC, Ferritin Continue dilaudid for now. Add pramipexole 0.125 mg BID after food x 2 days then .25 mg PO BID after food. Add wellbutrin XL 150 mg PO q AM. Neuro f/u as out patient. Thank you very much, Florentino Chao MD
--- NOTE | 2016-09-27 23:43 | PN ---
Physical Exam: SUBJECTIVE: Patient seen and examined at bedside. Patient c/o new onset of L leg pain. Denies fever, chills, sob, chest pain, urinary or bowel sx. OBJECTIVE: Vital Signs Period Temp Pulse Resp BP Sys/Peguero Pulse Ox Last 24 Hr 97.9 F-98.7 F 81-95 18-21 124-148/66-95 97-98 GENERAL: AAO x 3, Not in any distress HEAD: Normal with no signs of trauma. EYES: Pupils equal, round and reactive to light, EARS, NOSE, THROAT: oropharynx clear without exudates NECK: Normal range of motion, supple without lymphadenopathy LUNGS: Breath sounds equal, clear to auscultation bilaterally. No wheezes, and no crackles. No accessory muscle use. HEART: Regular rate and rhythm, normal S1 and S2 without murmur, rub or gallop. ABDOMEN: Soft, nontender, not distended, normoactive bowel sounds, no guarding, no rebound, no masses. Surgical scar. MUSCULOSKELETAL: Lower R back tenderness upon pressing around L1-L5 LOWER EXTREMITIES: Surgical scar on L medial leg; bilateral leg swelling with erythema NEUROLOGICAL: Cranial nerves II-XII intact. Gait not observed Laboratory Results - last 24 hr 09/27/16 09/27/16 09/27/16 05:59 07:03 11:42 Sodium 143 Potassium 3.4 L D Chloride 105 Carbon Dioxide 27 Anion Gap 11 BUN 17 Creatinine 1.5 H POC Glucometer 111 108 Random Glucose 99 D Calcium 8.5 Phosphorus 3.2 09/27/16 09/27/16 16:41 20:52 Sodium Potassium Chloride Carbon Dioxide Anion Gap BUN Creatinine POC Glucometer 107 137 Random Glucose Calcium Phosphorus Active Medications Generic Name Dose Route Start Last Admin Trade Name Freq PRN Reason Stop Dose Admin Amlodipine Besylate 2.5 mg 09/27/16 10:00 09/27/16 10:13 Norvasc - PO 2.5 mg DAILY CRISTOFER Administration Aspirin 81 mg 09/27/16 10:00 09/27/16 10:13 Ecotrin - PO 81 mg DAILY CRISTOFER Administration Bacitracin 1 applic 09/27/16 10:00 09/27/16 10:29 Bacitracin - TP 1 applic DAILY CRISTOFER Administration Cyclobenzaprine HCl 10 mg 09/26/16 17:43 09/27/16 20:41 Flexeril - PO 10 mg TID PRN Administration BACK PAIN Heparin Sodium (Porcine) 5,000 unit 09/26/16 22:00 09/27/16 22:26 Heparin - SQ 5,000 unit TID CRISTOFER Administration Hydromorphone HCl 0.5 mg 09/26/16 17:39 09/27/16 18:58 Dilaudid Injection - IVPB 0.5 mg Q4H PRN Administration PAIN Insulin Aspart 1 vial 09/26/16 22:00 09/27/16 21:30 Novolog Vial Sliding Scale - SQ Not Given ACHS [facility] Protocol Magnesium Oxide 800 mg 09/26/16 22:00 09/27/16 22:30 Mag-Ox - PO Not Given BID [facility] Ondansetron HCl 8 mg 09/26/16 17:43 Zofran - PO Q6H PRN NAUSEA AND/OR VOMITING Pregabalin 25 mg 09/27/16 14:00 09/27/16 22:30 Lyrica - PO Not Given TID [facility] Sucralfate 2 gm 09/26/16 22:00 09/27/16 22:29 Carafate Oral Suspension - PO Not Given BID [facility] Imaging Duplex lower extremity on 09/27: negative for DVT ASSESSMENT/PLAN: 65 yo F h/o asthma, HTN, HLD, diet controlled diabetes, pulmonary hypertension, COPD, CAD, Hodgkins lymphoma and endometrial CA s/p chemotherapy (last 08/2015) and radiation (last 10/2015), diabetic neuropathy, spinal stenosis, chronic back pain and carpal tunnel syndrome admitted for acute on chronic back pain. Acute on chronic back pain - Likely 2/2 L1-L3 compression fracture - F/u official report on MRI - Dilaudid 0.5mg Q4H PRN for pain relief - No surgical intervention per neurosurgery Hodgkin's lymphoma and endometrial CA - s/p radiation and chemotherapy - Outpatient management by Dr. Santo Depression - Start wellbutrin XL 150 mg PO q AM - Start pramipexole 0.125 mg BID x 2 days then .25 mg PO BID h/o CAD - Cont. asa HTN - Cont. norvasc Diet controlled DM2 - Sliding scale - BGM FEN - IVF not indicated - Cont. to monitor lytes - Diabetic diet Prophylaxis - DVT: heparin SQ - GI: on home protonix Disposition - Discharge planning Code status - Full code Visit type - Emergency Visit Emergency Visit: No - New Patient This patient is new to me today: No - Critical Care Critical Care patient: No
--- NOTE | 2016-09-28 00:01 | PN ---
Progress Note (short form) - Note Progress Note: 65 yo F h/o asthma, HTN, HLD, diet controlled diabetes, pulmonary hypertension, COPD, CAD, Hodgkins lymphoma and endometrial CA s/p chemotherapy (last 08/2015) and radiation (last 10/2015), diabetic neuropathy, spinal stenosis, chronic back pain and carpal tunnel syndrome, who presents to the emergency department with back pain for the past two months but worsening in the past 2 week. The patient has a known compression fracture at L1, L3. Patient stated that the back pain started 2 months ago in the LL back medial to spine, stabbing like, used to be 10/10, constant, migrated from lower left back to lower right back 2 weeks ago now radiates to her R groin area, not relieved with percocet or rest, worse with lying on her L. Denies any radiation of the pain down her legs, saddle anesthesia, extremity weakness/numbness/tingling, nausea, vomiting, diarrhea, constipation or abdominal pain. She was asked to be admitted on several occasions in the past for pain control. Patient finally came in 10days ago to the ER. CT revealed chronic compression. she was discharged home. She comes back with severe pain, uncontrolled . PAST MEDICAL HISTORY: Obesity Osteoarthritis DJD Hodgkins disease endometrial cancer Hyperlipidemia HTN DM PVD PAST SURGICAL HISTORY: Hysterectomy Left leg femoral bypass (Dr. Quiroz) Social History: Smoking: Denies Alcohol: Denies Drugs: Denies Family History: Non-contributory Allergies Penicillins Allergy (Verified 09/26/16 15:39) ibuprofen [From Motrin] Adverse Reaction (Verified 09/26/16 15:39) HOME MEDICATIONS: Home Medications Medication Instructions Recorded Amlodipine Besylate [Norvasc -] 2.5 mg PO DAILY #0 tablet 12/20/12 Pantoprazole Sodium [Protonix -] 40 mg PO DAILY #30 tablet.ec 02/23/14 Aspirin [Aspirin EC] 81 mg PO DAILY #30 tablet. 04/23/14 Ondansetron [Zofran -] 8 mg PO Q6H PRN 04/29/15 Magnesium Oxide 800 mg PO BID 05/24/15 Bacitracin 1 applic TD DAILY 07/05/15 Cyclobenzaprine HCl [Flexeril -] 10 mg PO TID PRN #0 07/29/15 Sucralfate Oral Suspension 2 gm NR BID #1250 ml 10/15/15 [Carafate Oral Suspension -] Oxycodone HCl/Acetaminophen 1 - 2 tab PO Q6H #20 tablet MDD 4 09/19/16 [Percocet 5-325 mg Tablet] Current Medications Generic Name Dose Route Start Last Admin Trade Name Freq PRN Reason Stop Dose Admin Amlodipine Besylate 2.5 mg 09/27/16 10:00 09/27/16 10:13 Norvasc - PO 2.5 mg DAILY [facility] Administration Aspirin 81 mg 09/27/16 10:00 09/27/16 10:13 Ecotrin - PO 81 mg DAILY [facility] Administration Bacitracin 1 applic 09/27/16 10:00 09/27/16 10:29 Bacitracin - TP 1 applic DAILY [facility] Administration Bupropion HCl 150 mg 09/28/16 10:00 Wellbutrin Xl - PO DAILY [facility] Cyclobenzaprine HCl 10 mg 09/26/16 17:43 09/28/16 05:45 Flexeril - PO 10 mg TID PRN Administration BACK PAIN Heparin Sodium (Porcine) 5,000 unit 09/26/16 22:00 09/28/16 05:43 Heparin - SQ 5,000 unit TID [facility] Administration Hydromorphone HCl 0.5 mg 09/26/16 17:39 09/28/16 03:14 Dilaudid Injection - IVPB 0.5 mg Q4H PRN Administration PAIN Insulin Aspart 1 vial 09/26/16 22:00 09/28/16 06:15 Novolog Vial Sliding Scale - SQ Not Given ACHS [facility] Protocol Magnesium Oxide 800 mg 09/26/16 22:00 09/27/16 22:30 Mag-Ox - PO Not Given BID [facility] Ondansetron HCl 8 mg 09/26/16 17:43 Zofran - PO Q6H PRN NAUSEA AND/OR VOMITING Pramipexole Dihydrochloride 0.125 mg 09/28/16 10:00 Mirapex - PO 09/29/16 22:01 BID [facility] Pramipexole Dihydrochloride 0.25 mg 09/30/16 10:00 Mirapex - PO BID [facility] Pregabalin 25 mg 09/27/16 14:00 09/27/16 22:30 Lyrica - PO Not Given TID [facility] Sucralfate 2 gm 09/26/16 22:00 09/27/16 22:29 Carafate Oral Suspension - PO Not Given BID [facility] Last Vital Signs Temp Pulse Resp BP Pulse Ox 98.0 F 96 H 20 156/84 98 09/28/16 06:00 09/28/16 06:00 09/28/16 06:00 09/28/16 06:00 09/27/16 20:34 Cor: RSR, No murmurs, No gallops Lungs: Clear to P&A Abd: Soft, Normal bowel sounds, No organomegaly Ext:No significant edema Abnormal Lab Results 09/27/16 07:03 Potassium 3.4 L D Creatinine 1.5 H ASSESSMENT/PLAN: 65 yo F h/o asthma, HTN, HLD, diet controlled diabetes, pulmonary hypertension, COPD, CAD, Hodgkins lymphoma and endometrial CA s/p chemotherapy (last 08/2015) and radiation (last 10/2015), diabetic neuropathy, spinal stenosis, chronic back pain and carpal tunnel syndrome admitted for acute on chronic back pain. ? compression fx CT a/o showed no obvious recurrence of disease Neurology/neurosurgery input appreciated f/u MRI check CT rt. hip/lower extremity check bone scan pain control physical therapy check CA 125
[2016-09-28] MEDS: HYDROmorphone HCL CARPU-JECT 1 MG/1 ML DISP.SYRIN IVPB PRN ×2 (03:14→15:20)
[2016-09-28] MEDS: HEPARIN NA (PORCINE) 5,000 UNITS/ML 1ML VIAL SQ SCH ×3 (05:43→21:51)
[2016-09-28] MEDS: CYCLOBENZAPRINE HCL 10 MG TABLET (FP) PO PRN ×2 (05:45→21:51)
[2016-09-28] MEDS: INSULIN SLIDING SCALE (NOVOLOG) 1 VIAL SQ SCH ×4 (06:15→21:52)
[2016-09-28 08:34] LABS: C-REACTIVE PROTEIN 2.2 MG/DL (0.00-0.3); CALCIUM 8.5 mg/dL (8.5-10.1)
[2016-09-28 08:45] LABS: COCKROFT - GAULT 63.138; CREATININE 1.3 mg/dL (0.55-1.02); FERRITIN 378.262 ng/ml (6.9-282.5); THYROID STIMULATING HORMONE 0.87 uIU/ml (0.358-3.74)
[2016-09-28] MEDS ORDERED: PRAMIPEXOLE DIHYDROCHLORIDE 0.125 MG TABLET PO SCH (10:00)
[2016-09-28] MEDS ORDERED: PT OWN MED DRAWER 7, Y5N ONE ×2 (11:13→12:23)
[2016-09-28] MEDS: amLODIPine BESYLATE 2.5 MG TABLET (FP) PO SCH (11:15)
[2016-09-28] MEDS: SUCRALFATE 1 GM/10 ML UNIT DOSE CUPS PO SCH ×2 (11:16→21:50)
[2016-09-28] MEDS: ASPIRIN COATED 81 MG TABLET.EC PO SCH (11:16)
[2016-09-28] MEDS: PRAMIPEXOLE DIHYDROCHLORIDE 0.125 MG TABLET PO SCH ×2 (11:17→22:25)
[2016-09-28] MEDS: BACITRACIN 15 GM TUBE TOPICAL OINTMENT TP SCH (11:26)
[2016-09-28] MEDS: MAGNESIUM OXIDE 400 MG TABLET (FP) PO SCH ×2 (11:26→22:20)
--- NOTE | 2016-09-28 11:43 | PN ---
Physical Exam: SUBJECTIVE: Patient seen and examined at bedside. Patient still c/o R leg pain, radiates from R knee to foot, stabbing like, continuous. Denies fever, chills, sob, chest pain, urinary or bowel sx. OBJECTIVE: Vital Signs Period Temp Pulse Resp BP Sys/Peguero Pulse Ox Last 24 Hr 97.9 F-98.4 F 92-98 20-21 124-156/71-95 98-98 GENERAL: AAO x 3, Not in any distress HEAD: Normal with no signs of trauma. EYES: Pupils equal, round and reactive to light, EARS, NOSE, THROAT: oropharynx clear without exudates NECK: Normal range of motion, supple without lymphadenopathy LUNGS: Breath sounds equal, clear to auscultation bilaterally. No wheezes, and no crackles. No accessory muscle use. HEART: Regular rate and rhythm, normal S1 and S2 without murmur, rub or gallop. ABDOMEN: Soft, nontender, not distended, normoactive bowel sounds, no guarding, no rebound, no masses. Surgical scar. MUSCULOSKELETAL: Lower R back tenderness upon pressing around L1-L5 LOWER EXTREMITIES: Surgical scar on L medial leg; bilateral leg swelling with erythema NEUROLOGICAL: Cranial nerves II-XII intact. Gait not observed CMP Sodium 142 mmol/L (136-145) 09/28/16 06:30 Potassium 4.0 mmol/L (3.5-5.1) 09/28/16 06:30 Chloride 102 mmol/L (98-107) 09/28/16 06:30 Carbon Dioxide 29 mmol/L (21-32) 09/28/16 06:30 Anion Gap 11 (8-16) 09/28/16 06:30 BUN 16 mg/dL (7-18) 09/28/16 06:30 Creatinine 1.3 mg/dL (0.55-1.02) H 09/28/16 06:30 Creat Clearance w eGFR 32.15 (>60) 09/26/16 16:52 Calcium 8.5 mg/dL (8.5-10.1) 09/28/16 06:30 Total Bilirubin 0.9 mg/dL (0.2-1.0) D 09/26/16 16:52 AST 19 U/L (15-37) D 09/26/16 16:52 ALT 12 U/L (12-78) 09/26/16 16:52 Alkaline Phosphatase 109 U/L (45-117) 09/26/16 16:52 Total Protein 6.9 g/dl (6.4-8.2) 09/26/16 16:52 Albumin 3.7 g/dl (3.4-5.0) 09/26/16 16:52 Active Medications Generic Name Dose Route Start Last Admin Trade Name Freq PRN Reason Stop Dose Admin Amlodipine Besylate 2.5 mg 09/27/16 10:00 09/28/16 11:15 Norvasc - PO 2.5 mg DAILY [facility] Administration Aspirin 81 mg 09/27/16 10:00 09/28/16 11:16 Ecotrin - PO 81 mg DAILY [facility] Administration Bacitracin 1 applic 09/27/16 10:00 09/28/16 11:26 Bacitracin - TP 1 applic DAILY [facility] Administration Bupropion HCl 150 mg 09/28/16 10:00 09/28/16 11:15 Wellbutrin Xl - PO 150 mg DAILY [facility] Administration Cyclobenzaprine HCl 10 mg 09/26/16 17:43 09/28/16 05:45 Flexeril - PO 10 mg TID PRN Administration BACK PAIN Heparin Sodium (Porcine) 5,000 unit 09/26/16 22:00 09/28/16 05:43 Heparin - SQ 5,000 unit TID [facility] Administration Hydromorphone HCl 0.5 mg 09/26/16 17:39 09/28/16 03:14 Dilaudid Injection - IVPB 0.5 mg Q4H PRN Administration PAIN Insulin Aspart 1 vial 09/26/16 22:00 09/28/16 06:15 Novolog Vial Sliding Scale - SQ Not Given ACHS [facility] Protocol Magnesium Oxide 800 mg 09/26/16 22:00 09/28/16 11:26 Mag-Ox - PO 800 mg BID [facility] Administration Ondansetron HCl 8 mg 09/26/16 17:43 Zofran - PO Q6H PRN NAUSEA AND/OR VOMITING Pramipexole Dihydrochloride 0.125 mg 09/28/16 10:00 09/28/16 11:17 Mirapex - PO 09/29/16 22:01 0.125 mg BID [facility] Administration Pramipexole Dihydrochloride 0.25 mg 09/30/16 10:00 Mirapex - PO BID [facility] Pregabalin 25 mg 09/27/16 14:00 09/27/16 22:30 Lyrica - PO Not Given TID [facility] Sucralfate 2 gm 09/26/16 22:00 09/28/16 11:16 Carafate Oral Suspension - PO Not Given BID [facility] Imaging MRI thoracic spine on 09/27: No acute compression deformities are seen. No evidence of bone marrow edema. T9-T10. Broad-based disc protrusion is seen on the sagittal images encroaching on the ventral subarachnoid space, without mass effect on the spinal cord, or cord compression. MRI lumbar spine on 09/27: L1. Subacute compression fracture of L1 vertebral body with progressive loss of vertical height, retropulsion of the superior posterior corner. Overall decreased signal intensity of the bone marrow is seen on T1-weighted images with bone marrow edema on STIR. L3. Compression deformity involving the superior endplate of L3 vertebral body is noted with resolved bone marrow edema. The posterior cortex is intact. No evidence of retropulsion. No new compression deformities are seen Duplex lower extremity on 09/27: negative for DVT ASSESSMENT/PLAN: 65 yo F h/o asthma, HTN, HLD, diet controlled diabetes, pulmonary hypertension, COPD, CAD, Hodgkins lymphoma and endometrial CA s/p chemotherapy (last 08/2015) and radiation (last 10/2015), diabetic neuropathy, spinal stenosis, chronic back pain and carpal tunnel syndrome admitted for acute on chronic back pain. Acute on chronic back pain - MRI confirms L1, L3 compression fracture - Dilaudid 0.5mg Q4H PRN for pain relief - Patient refuses lyrica - Pending neurosurgery re-eval R leg pain - Duplex negative for DVT - F/u CT scan - Consider vascular consult if not improving Hodgkin's lymphoma and endometrial CA - s/p radiation and chemotherapy - F/u bone scan Depression - Patient refuses wellbutrin XL and pramipexole h/o CAD - Cont. asa HTN - Cont. norvasc Diet controlled DM2 - Sliding scale - BGM FEN - IVF not indicated - Cont. to monitor lytes - Diabetic diet Prophylaxis - DVT: heparin SQ - GI: on home protonix Disposition - Awaits bone scan and CT scan of R leg Code status - Full code Visit type - Emergency Visit Emergency Visit: No - New Patient This patient is new to me today: No - Critical Care Critical Care patient: No
--- NOTE | 2016-09-28 13:53 | PN ---
Progress Note (short form) - Note Progress Note: NEUROSURGERY Some back pain and sciatica Does not look uncomfortable PE: Tmax 98.2, VSS; sitting up in commode HEENT- NC/AT; Neck- supple; Cor- RR; Lungs- CTA B; Abd-benign, obese; Ext- B LE edema- symmetric, negative Beverley's A/A/Ox4 CN- intact; Motor- 5/5 except R EHL/in 3- and R TA/ev/Quad 4; Sensation- intact LT/vibration; DTR- hyporeflexic WBC 7.1; INR 1.14; Cr 1.6 LS spine MRI (07/2016): L1 and L3 acute compression fx, L1 sup and inf endplate fx and L3 sup endplate fx; L4-5 grade I spondylolisthesis with facet hypertrophy and marked central canal and lateral recess stenosis; multilevel DDD CT Abd- lymphadenopathy; L adrenal adenoma; chornic L1 (slightly progressed as expected since July) and L3 fx; osteoporosis L4-5 spondylolisthesis/stenosis with R L4-5 radiculopathy including R DF weakness L1 and L3 compression fx (osteoporotic and post-radiation), with possible worsening of L1 fracture New MRI- T9-10 disc bulge, kyphosis; no cord impingement; L1 subacute sup endplate fx with mild retropulsion; L3 subacute sup endplate fx without canal involvement Started Lyrica Pros and cons of treatment options discussed No neurosurgical intervention recommended given extensive medical co-morbidities
--- NOTE | 2016-09-28 17:23 | PN ---
Teaching Attending Note Name of Resident: Juan Ortiz ATTENDING PHYSICIAN STATEMENT I saw and evaluated the patient. I reviewed the resident's note and discussed the case with the resident. I agree with the resident's findings and plan as documented. SUBJECTIVE: Patient complains of pain down her right leg. OBJECTIVE: Vital Signs Period Temp Pulse Resp BP Sys/Peguero Pulse Ox Last 24 Hr 98.0 F-98.4 F 96-98 20-20 135-156/71-84 98-98 HEART: S1S2, RRR LUNGS: Clear ABDOMEN: Obese, soft, non-tender, non-distended, normal BS EXTREMITIES: Both legs wrapped BACK: Right lumbar paraspinal tenderness ASSESSMENT AND PLAN: This is a 65-year-old woman with a history of Hodgkin lymphoma, metastatic endometrial cancer, L1 and L3 compression fractures, HTN, pulmonary HTN, essential tremor, CAD, spinal stenosis, neurogenic bladder, type 2 DM with neuropathy, RA, depression, anxiety, PAD, COPD, anemia, hypothyroidism, stage 3 CKD who came to the ER with worsening low back pain radiating to her right groin and down her right leg. 1. Low back pain with right lumbar radiculopathy, likely secondary to lumbar compression fractures and spinal stenosis, possibly metastatic disease - MRI of LS-spine pending - Pain control - Continue Flexeril as needed - Neurosurgery and neurology consults appreciated - Patient refused Lyrica - MRI thoracic spine: No acute compression deformities are seen. No evidence of bone marrow edema. T9-T10. Broad-based disc protrusion is seen on the sagittal images encroaching on the ventral subarachnoid space, without mass effect on the spinal cord, or cord compression. - MRI lumbar spine: Subacute compression fracture of L1 vertebral body with progressive loss of vertical height, retropulsion of the superior posterior corner. Overall decreased signal intensity of the bone marrow is seen on T1- weighted images with bone marrow edema on STIR. L3. Compression deformity involving the superior endplate of L3 vertebral body is noted with resolved bone marrow edema. The posterior cortex is intact. No evidence of retropulsion. No new compression deformities are seen 2. Possible RLS - Mirapex started 3. Metastatic endometrial cancer 4. Hodgkin lymphoma 5. HTN - Continue Norvasc 6. CAD - Continue aspirin 7. Pulmonary HTN 8. Type 2 DM with diabetic peripheral neuropathy and neurogenic bladder - Diet controlled - Fingersticks with Novolog sliding scale 9. RA 10. Depression and anxiety - Wellbutrin started 11. Hypothyroidism 12. Stage 3 CKD - Stable 13. COPD - Stable 14. PAD 15. Anemia secondary to chronic illness - Hemoglobin stable
[2016-09-28] MEDS ORDERED: INSULIN (NOVOLOG) ASPART 100 UNITS/ML 10ML VIAL ONE (18:44)
--- NOTE | 2016-09-28 21:16 | PN ---
Progress Note (short form) - Note Progress Note: 65 yo F h/o asthma, HTN, HLD, diet controlled diabetes, pulmonary hypertension, COPD, CAD, Hodgkins lymphoma and endometrial CA s/p chemotherapy (last 08/2015) and radiation (last 10/2015), diabetic neuropathy, spinal stenosis, chronic back pain and carpal tunnel syndrome, who presents to the emergency department with back pain for the past two months but worsening in the past 2 week. The patient has a known compression fracture at L1, L3. Patient stated that the back pain started 2 months ago in the LL back medial to spine, stabbing like, used to be 10/10, constant, migrated from lower left back to lower right back 2 weeks ago now radiates to her R groin area, not relieved with percocet or rest, worse with lying on her L. Denies any radiation of the pain down her legs, saddle anesthesia, extremity weakness/numbness/tingling, nausea, vomiting, diarrhea, constipation or abdominal pain. She was asked to be admitted on several occasions in the past for pain control. Patient finally came in 10days ago to the ER. CT revealed chronic compression. she was discharged home. She comes back with severe pain, uncontrolled . PAST MEDICAL HISTORY: Obesity Osteoarthritis DJD Hodgkins disease endometrial cancer Hyperlipidemia HTN DM PVD PAST SURGICAL HISTORY: Hysterectomy Left leg femoral bypass (Dr. Quiroz) Social History: Smoking: Denies Alcohol: Denies Drugs: Denies Family History: Non-contributory Allergies Penicillins Allergy (Verified 09/26/16 15:39) ibuprofen [From Motrin] Adverse Reaction (Verified 09/26/16 15:39) HOME MEDICATIONS: Home Medications Medication Instructions Recorded Amlodipine Besylate [Norvasc -] 2.5 mg PO DAILY #0 tablet 12/20/12 Pantoprazole Sodium [Protonix -] 40 mg PO DAILY #30 tablet.ec 02/23/14 Aspirin [Aspirin EC] 81 mg PO DAILY #30 tablet. 04/23/14 Ondansetron [Zofran -] 8 mg PO Q6H PRN 04/29/15 Magnesium Oxide 800 mg PO BID 05/24/15 Bacitracin 1 applic TD DAILY 07/05/15 Cyclobenzaprine HCl [Flexeril -] 10 mg PO TID PRN #0 07/29/15 Sucralfate Oral Suspension 2 gm NR BID #1250 ml 10/15/15 [Carafate Oral Suspension -] Oxycodone HCl/Acetaminophen 1 - 2 tab PO Q6H #20 tablet MDD 4 09/19/16 [Percocet 5-325 mg Tablet] Current Medications Generic Name Dose Route Start Last Admin Trade Name Freq PRN Reason Stop Dose Admin Amlodipine Besylate 2.5 mg 09/27/16 10:00 09/27/16 10:13 Norvasc - PO 2.5 mg DAILY [facility] Administration Aspirin 81 mg 09/27/16 10:00 09/27/16 10:13 Ecotrin - PO 81 mg DAILY [facility] Administration Bacitracin 1 applic 09/27/16 10:00 09/27/16 10:29 Bacitracin - TP 1 applic DAILY [facility] Administration Bupropion HCl 150 mg 09/28/16 10:00 Wellbutrin Xl - PO DAILY [facility] Cyclobenzaprine HCl 10 mg 09/26/16 17:43 09/28/16 05:45 Flexeril - PO 10 mg TID PRN Administration BACK PAIN Heparin Sodium (Porcine) 5,000 unit 09/26/16 22:00 09/28/16 05:43 Heparin - SQ 5,000 unit TID [facility] Administration Hydromorphone HCl 0.5 mg 09/26/16 17:39 09/28/16 03:14 Dilaudid Injection - IVPB 0.5 mg Q4H PRN Administration PAIN Insulin Aspart 1 vial 09/26/16 22:00 09/28/16 06:15 Novolog Vial Sliding Scale - SQ Not Given ACHS [facility] Protocol Magnesium Oxide 800 mg 09/26/16 22:00 09/27/16 22:30 Mag-Ox - PO Not Given BID [facility] Ondansetron HCl 8 mg 09/26/16 17:43 Zofran - PO Q6H PRN NAUSEA AND/OR VOMITING Pramipexole Dihydrochloride 0.125 mg 09/28/16 10:00 Mirapex - PO 09/29/16 22:01 BID [facility] Pramipexole Dihydrochloride 0.25 mg 09/30/16 10:00 Mirapex - PO BID [facility] Pregabalin 25 mg 09/27/16 14:00 09/27/16 22:30 Lyrica - PO Not Given TID [facility] Sucralfate 2 gm 09/26/16 22:00 09/27/16 22:29 Carafate Oral Suspension - PO Not Given BID [facility] Last Vital Signs Temp Pulse Resp BP Pulse Ox 98.0 F 96 H 20 156/84 98 09/28/16 06:00 09/28/16 06:00 09/28/16 06:00 09/28/16 06:00 09/27/16 20:34 Cor: RSR, No murmurs, No gallops Lungs: Clear to P&A Abd: Soft, Normal bowel sounds, No organomegaly Ext:No significant edema Abnormal Lab Results 09/27/16 07:03 Potassium 3.4 L D Creatinine 1.5 H ASSESSMENT/PLAN: 65 yo F h/o asthma, HTN, HLD, diet controlled diabetes, pulmonary hypertension, COPD, CAD, Hodgkins lymphoma and endometrial CA s/p chemotherapy (last 08/2015) and radiation (last 10/2015), diabetic neuropathy, spinal stenosis, chronic back pain and carpal tunnel syndrome admitted for acute on chronic back pain. ? compression fx CT a/o showed no obvious recurrence of disease Neurology/neurosurgery input appreciated f/u MRI check CT rt. hip/lower extremity check bone scan pain control physical therapy check CA 125
--- NOTE | 2016-09-28 23:16 | PN ---
Progress Note (short form) - Note Progress Note: Patient seen and examined severe back pain ASSESSMENT/PLAN: 65 yo F h/o asthma, HTN, HLD, diet controlled diabetes, pulmonary hypertension, COPD, CAD, Hodgkins lymphoma and endometrial CA s/p chemotherapy (last 08/2015) and radiation (last 10/2015), diabetic neuropathy, spinal stenosis, chronic back pain and carpal tunnel syndrome admitted for acute on chronic back pain. ? compression fx CT and mri /bone scan showed no obvious recurrence of disease Neurology/neurosurgery input appreciated mri discussed with dr. marvin ----l1 fx with post. displacement, chronic l3 fx. no obvious mets. osteoporosis check CT rt. hip/lower extremity pain control physical therapy CA 125 is normal Bone scan no definite e/o metastatic disease, needs f/u on rt. sacroiliac joint Would consider rehab placement discussed with neurosurgery will discuss with neurology --- ?? benefit of steroid shots
[2016-09-29] MEDS: HYDROmorphone HCL CARPU-JECT 1 MG/1 ML DISP.SYRIN IVPB PRN ×3 (05:51→20:30)
[2016-09-29] MEDS: HEPARIN NA (PORCINE) 5,000 UNITS/ML 1ML VIAL SQ SCH ×3 (05:52→21:30)
[2016-09-29] MEDS: CYCLOBENZAPRINE HCL 10 MG TABLET (FP) PO PRN (05:52)
[2016-09-29 06:07] LABS: SERUM IRON 28 ug/dL (27-139); TOTAL IRON BINDING CAPACITY 138 ug/dL (250-450); UIBC 110 ug/dL (118-369)
[2016-09-29] MEDS: INSULIN SLIDING SCALE (NOVOLOG) 1 VIAL SQ SCH ×4 (06:26→21:32)
[2016-09-29 07:59] LABS: CALCIUM 8.5 mg/dL (8.5-10.1)
[2016-09-29] MEDS ORDERED: PT OWN MED DRAWER 7, Y5N ONE ×2 (09:36→20:45)
[2016-09-29] MEDS: MAGNESIUM OXIDE 400 MG TABLET (FP) PO SCH ×2 (09:38→21:35)
[2016-09-29] MEDS: SUCRALFATE 1 GM/10 ML UNIT DOSE CUPS PO SCH ×2 (09:38→21:34)
[2016-09-29] MEDS: amLODIPine BESYLATE 2.5 MG TABLET (FP) PO SCH (09:39)
[2016-09-29] MEDS: PRAMIPEXOLE DIHYDROCHLORIDE 0.125 MG TABLET PO SCH ×2 (09:39→21:32)
[2016-09-29] MEDS: BACITRACIN 15 GM TUBE TOPICAL OINTMENT TP SCH (09:40)
--- NOTE | 2016-09-29 11:37 | PN ---
Physical Exam: SUBJECTIVE: Patient seen and examined at bedside. R leg pain still not improving. Denies fever, chills, sob, chest pain, urinary or bowel sx. OBJECTIVE: Vital Signs Period Temp Pulse Resp BP Sys/Peguero Pulse Ox Last 24 Hr 98.4 F-98.5 F 89-102 18-20 135-149/54-80 100 GENERAL: AAO x 3, Not in any distress HEAD: Normal with no signs of trauma. EYES: Pupils equal, round and reactive to light, EARS, NOSE, THROAT: oropharynx clear without exudates NECK: Normal range of motion, supple without lymphadenopathy LUNGS: Breath sounds equal, clear to auscultation bilaterally. No wheezes, and no crackles. No accessory muscle use. HEART: Regular rate and rhythm, normal S1 and S2 without murmur, rub or gallop. ABDOMEN: Soft, nontender, not distended, normoactive bowel sounds, no guarding, no rebound, no masses. Surgical scar. MUSCULOSKELETAL: Lower R back tenderness upon pressing around L1-L5 LOWER EXTREMITIES: Surgical scar on L medial leg; bilateral leg swelling with erythema NEUROLOGICAL: Cranial nerves II-XII intact. Gait not observed CMP Sodium 141 mmol/L (136-145) 09/29/16 06:00 Potassium 4.1 mmol/L (3.5-5.1) 09/29/16 06:00 Chloride 102 mmol/L (98-107) 09/29/16 06:00 Carbon Dioxide 28 mmol/L (21-32) 09/29/16 06:00 Anion Gap 11 (8-16) 09/29/16 06:00 BUN 15 mg/dL (7-18) 09/29/16 06:00 Creatinine 1.0 mg/dL (0.55-1.02) D 09/29/16 06:00 Creat Clearance w eGFR 32.15 (>60) 09/26/16 16:52 Calcium 8.5 mg/dL (8.5-10.1) 09/29/16 06:00 Total Bilirubin 0.9 mg/dL (0.2-1.0) D 09/26/16 16:52 AST 19 U/L (15-37) D 09/26/16 16:52 ALT 12 U/L (12-78) 09/26/16 16:52 Alkaline Phosphatase 109 U/L (45-117) 09/26/16 16:52 Total Protein 6.9 g/dl (6.4-8.2) 09/26/16 16:52 Albumin 3.7 g/dl (3.4-5.0) 09/26/16 16:52 Active Medications Generic Name Dose Route Start Last Admin Trade Name Freq PRN Reason Stop Dose Admin Amlodipine Besylate 2.5 mg 09/27/16 10:00 09/29/16 09:39 Norvasc - PO 2.5 mg DAILY [facility] Administration Aspirin 81 mg 09/27/16 10:00 09/28/16 11:16 Ecotrin - PO 81 mg DAILY [facility] Administration Bacitracin 1 applic 09/27/16 10:00 09/29/16 09:40 Bacitracin - TP Not Given DAILY [facility] Bupropion HCl 150 mg 09/28/16 10:00 09/29/16 09:39 Wellbutrin Xl - PO 150 mg DAILY [facility] Administration Cyclobenzaprine HCl 10 mg 09/26/16 17:43 09/29/16 05:52 Flexeril - PO 10 mg TID PRN Administration BACK PAIN Heparin Sodium (Porcine) 5,000 unit 09/26/16 22:00 09/29/16 05:52 Heparin - SQ 5,000 unit TID [facility] Administration Hydromorphone HCl 0.5 mg 09/26/16 17:39 09/29/16 05:51 Dilaudid Injection - IVPB 0.5 mg Q4H PRN Administration PAIN Insulin Aspart 1 vial 09/26/16 22:00 09/29/16 06:26 Novolog Vial Sliding Scale - SQ Not Given ACHS [facility] Protocol Magnesium Oxide 800 mg 09/26/16 22:00 09/29/16 09:38 Mag-Ox - PO Not Given BID [facility] Ondansetron HCl 8 mg 09/26/16 17:43 Zofran - PO Q6H PRN NAUSEA AND/OR VOMITING Pramipexole Dihydrochloride 0.125 mg 09/28/16 10:00 09/29/16 09:39 Mirapex - PO 09/29/16 22:01 0.125 mg BID [facility] Administration Pramipexole Dihydrochloride 0.25 mg 09/30/16 10:00 Mirapex - PO BID [facility] Pregabalin 25 mg 09/27/16 14:00 09/27/16 22:30 Lyrica - PO Not Given TID [facility] Sucralfate 2 gm 09/26/16 22:00 09/29/16 09:38 Carafate Oral Suspension - PO Not Given BID [facility] Imaging Bone scan on 09/28: There is no definite scintigraphic pattern of osteoblastic bony metastasis. Degenerative uptake in the thoracolumbar spine and both knees. Mild uptake in L1 and L3 vertebral bodies corresponding to areas of fractures seen on MRI and CT scan suggestive of subacute to chronic process. Focal uptake in the anterior right seventh rib corresponding to an old fracture seen on CT scan of September 19, 2016. Mild asymmetric uptake in the right sacroiliac joint region is possibly positional however early metastatic process, felt unlikely, cannot be completely excluded MRI thoracic spine on 09/27: No acute compression deformities are seen. No evidence of bone marrow edema. T9-T10. Broad-based disc protrusion is seen on the sagittal images encroaching on the ventral subarachnoid space, without mass effect on the spinal cord, or cord compression. MRI lumbar spine on 09/27: L1. Subacute compression fracture of L1 vertebral body with progressive loss of vertical height, retropulsion of the superior posterior corner. Overall decreased signal intensity of the bone marrow is seen on T1-weighted images with bone marrow edema on STIR. L3. Compression deformity involving the superior endplate of L3 vertebral body is noted with resolved bone marrow edema. The posterior cortex is intact. No evidence of retropulsion. No new compression deformities are seen Duplex lower extremity on 09/27: negative for DVT ASSESSMENT/PLAN: 65 yo F h/o asthma, HTN, HLD, diet controlled diabetes, pulmonary hypertension, COPD, CAD, Hodgkins lymphoma and endometrial CA s/p chemotherapy (last 08/2015) and radiation (last 10/2015), diabetic neuropathy, spinal stenosis, chronic back pain and carpal tunnel syndrome admitted for acute on chronic back pain. UTI, uncomplicated - Lower abd tenderness - UC grew siu-sensitive E. coli - Start levaquin 500mg PO x 3 days Acute on chronic back pain - MRI confirms L1, L3 compression fracture - Dilaudid 0.5mg Q4H PRN for pain relief - Neurology followup R leg pain - Duplex negative for DVT - F/u CT scan - Consider vascular consult if not improving Hodgkin's lymphoma and endometrial CA - s/p radiation and chemotherapy - Bone scan cannot r/o mets Depression - On wellbutrin XL and pramipexole h/o CAD - Cont. asa HTN - Cont. norvasc Diet controlled DM2 - Sliding scale - BGM FEN - IVF not indicated - Cont. to monitor lytes - Diabetic diet Prophylaxis - DVT: heparin SQ - GI: on home protonix Disposition - Awaits bone scan and CT scan of R leg and neurology input - Discharge planning Code status - Full code Visit type - Emergency Visit Emergency Visit: No - New Patient This patient is new to me today: No - Critical Care Critical Care patient: No
[2016-09-29] MEDS: LEVOFLOXACIN 500 MG TABLET (FP) PO SCH (16:03)
--- NOTE | 2016-09-29 17:00 | PN ---
Teaching Attending Note Name of Resident: Juan Ortiz ATTENDING PHYSICIAN STATEMENT I saw and evaluated the patient. I reviewed the resident's note and discussed the case with the resident. I agree with the resident's findings and plan as documented. SUBJECTIVE: Patient continues to complain of low back pain radiating to her right groin and down her right leg. OBJECTIVE: Vital Signs Period Temp Pulse Resp BP Sys/Peguero Pulse Ox Last 24 Hr 98.4 F-98.5 F 76-102 18-20 135-149/54-80 100-100 HEART: S1S2, RRR LUNGS: Clear ABDOMEN: Obese, soft, non-tender, non-distended, normal BS EXTREMITIES: 1+ edema ASSESSMENT AND PLAN: This is a 65-year-old woman with a history of Hodgkin lymphoma, metastatic endometrial cancer, L1 and L3 compression fractures, HTN, pulmonary HTN, essential tremor, CAD, spinal stenosis, neurogenic bladder, type 2 DM with neuropathy, RA, depression, anxiety, PAD, COPD, anemia, hypothyroidism, stage 3 CKD who came to the ER with worsening low back pain radiating to her right groin and down her right leg. 1. Low back pain with right lumbar radiculopathy secondary to lumbar compression fractures and spinal stenosis - No evidence of metastatic disease on MRI - Bone scan:There is no definite scintigraphic pattern of osteoblastic bony metastasis. Degenerative uptake in the thoracolumbar spine and both knees. Mild uptake in L1 and L3 vertebral bodies corresponding to areas of fractures seen on MRI and CT scan suggestive of subacute to chronic process. Focal uptake in the anterior right seventh rib corresponding to an old fracture seen on CT scan of September 19, 2016. Mild asymmetric uptake in the right sacroiliac joint region is possibly positional however early metastatic process, felt unlikely, cannot be completely excluded - Continue Dilaudid as needed for pain - Continue Flexeril as needed - Continue Wellbutrin - Refused Lyrica - IR evaluation for kyphoplasty 2. UTI - Urine culture growing gram negative rods - Levaquin started 3. Possible RLS - Continue Mirapex 4. Metastatic endometrial cancer 5. Hodgkin lymphoma 6. HTN - Continue Norvasc 7. CAD - Continue aspirin 8. Pulmonary HTN 9. 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 RA 11. Depression and anxiety - Continue Wellbutrin 12. Hypothyroidism 13. Stage 3 CKD - Stable 14. COPD - Stable 15. PAD 16. Anemia secondary to chronic illness - Hemoglobin stable 17. Hypokalemia - Improved 18. Osteoporosis 19. Osteoarthritis
--- NOTE | 2016-09-29 18:49 | PN ---
Progress Note (short form) - Note Progress Note: Patient seen and examined. Still complains of lower radiating back pain. ?? of vertebroplasty being entertained Last Vital Signs Temp Pulse Resp BP Pulse Ox 98.4 F 76 20 135/70 100 09/29/16 14:00 09/29/16 14:00 09/29/16 14:00 09/29/16 09:42 09/29/16 10:00 HEENT: ROBER, EOM Intact Oropharynx: No thrush, No mucositis Cor: RSR, No murmurs, No gallops Lungs: Clear to P&A Abd: Soft, Normal bowel sounds, No organomegaly Ext:LE edema, erythema Skin: No rashes, Integument intact CBC, BMP 09/26/16 16:52 09/29/16 06:00 Current Medications Generic Name Dose Route Start Last Admin Trade Name Freq PRN Reason Stop Dose Admin Amlodipine Besylate 2.5 mg 09/27/16 10:00 09/29/16 09:39 Norvasc - PO 2.5 mg DAILY [facility] Administration Aspirin 81 mg 09/27/16 10:00 09/28/16 11:16 Ecotrin - PO 81 mg DAILY [facility] Administration Bacitracin 1 applic 09/27/16 10:00 09/29/16 09:40 Bacitracin - TP Not Given DAILY [facility] Bupropion HCl 150 mg 09/28/16 10:00 09/29/16 09:39 Wellbutrin Xl - PO 150 mg DAILY [facility] Administration Cephalexin HCl 500 mg 09/29/16 11:45 Keflex - PO 09/30/16 11:44 BID [facility] Cyclobenzaprine HCl 10 mg 09/26/16 17:43 09/29/16 05:52 Flexeril - PO 10 mg TID PRN Administration BACK PAIN Heparin Sodium (Porcine) 5,000 unit 09/26/16 22:00 09/29/16 13:28 Heparin - SQ 5,000 unit TID [facility] Administration Hydromorphone HCl 0.5 mg 09/26/16 17:39 09/29/16 13:29 Dilaudid Injection - IVPB 0.5 mg Q4H PRN Administration PAIN Insulin Aspart 1 vial 09/26/16 22:00 09/29/16 16:05 Novolog Vial Sliding Scale - SQ Not Given ACHS [facility] Protocol Levofloxacin 500 mg 09/29/16 15:00 09/29/16 16:03 Levaquin - PO 09/30/16 14:59 500 mg DAILY@0600 [facility] Administration Magnesium Oxide 800 mg 09/26/16 22:00 09/29/16 09:38 Mag-Ox - PO Not Given BID [facility] Ondansetron HCl 8 mg 09/26/16 17:43 Zofran - PO Q6H PRN NAUSEA AND/OR VOMITING Pramipexole Dihydrochloride 0.125 mg 09/28/16 10:00 09/29/16 09:39 Mirapex - PO 09/29/16 22:01 0.125 mg BID [facility] Administration Pramipexole Dihydrochloride 0.25 mg 09/30/16 10:00 Mirapex - PO BID [facility] Pregabalin 25 mg 09/27/16 14:00 09/27/16 22:30 Lyrica - PO Not Given TID [facility] Sucralfate 2 gm 09/26/16 22:00 09/29/16 09:38 Carafate Oral Suspension - PO Not Given BID [facility] Impression: Hx of Hodgkins/endometrial ca Compression FX seem to be osteoporotic , not metastatic Back pains Plan:: ??vertebroplasy
[2016-09-29] MEDS: CEPHALEXIN MONOHYDRATE 500 MG CAPSULE (UD) PO SCH (21:31)
[2016-09-30] MEDS: LEVOFLOXACIN 500 MG TABLET (FP) PO SCH (05:44)
[2016-09-30] MEDS: HEPARIN NA (PORCINE) 5,000 UNITS/ML 1ML VIAL SQ SCH ×3 (05:44→22:12)
[2016-09-30] MEDS: CYCLOBENZAPRINE HCL 10 MG TABLET (FP) PO PRN ×2 (05:46→22:12)
[2016-09-30] MEDS: INSULIN SLIDING SCALE (NOVOLOG) 1 VIAL SQ SCH ×4 (06:35→22:06)
[2016-09-30] MEDS ORDERED: PT OWN MED DRAWER 7, Y5N ONE (10:34)
[2016-09-30] MEDS: BACITRACIN 15 GM TUBE TOPICAL OINTMENT TP SCH (10:38)
[2016-09-30] MEDS: CEPHALEXIN MONOHYDRATE 500 MG CAPSULE (UD) PO SCH ×2 (10:39→22:12)
[2016-09-30] MEDS: SUCRALFATE 1 GM/10 ML UNIT DOSE CUPS PO SCH ×2 (10:39→22:06)
[2016-09-30] MEDS: MAGNESIUM OXIDE 400 MG TABLET (FP) PO SCH ×2 (10:39→22:21)
[2016-09-30] MEDS: PRAMIPEXOLE DIHYDROCHLORIDE 0.25 MG TABLET PO SCH ×2 (10:39→22:20)
[2016-09-30] MEDS: amLODIPine BESYLATE 2.5 MG TABLET (FP) PO SCH (10:39)
--- NOTE | 2016-09-30 11:16 | PN ---
Physical Exam: SUBJECTIVE: Patient seen and examined. Back and right leg pain are less severe. OBJECTIVE: Vital Signs Period Temp Pulse Resp BP Sys/Peguero Pulse Ox Last 24 Hr 98.2 F-98.4 F 76-109 19-20 138-148/75-76 100-100 GENERAL: The patient is awake, alert, and fully oriented, in no acute distress. LUNGS: Breath sounds equal, clear to auscultation bilaterally, no wheezes, no crackles, no accessory muscle use. HEART: Regular rate and rhythm, S1, S2 without murmur, rub or gallop. ABDOMEN: Obese, soft, nontender, nondistended, normoactive bowel sounds, no guarding, no rebound, no hepatosplenomegaly, no masses. EXTREMITIES: 2+ pulses, warm, well-perfused, trace edema. Laboratory Results - last 24 hr 09/29/16 09/29/16 09/29/16 11:56 16:04 21:12 POC Glucometer 90 95 106 09/30/16 05:30 POC Glucometer 91 Active Medications Generic Name Dose Route Start Last Admin Trade Name Freq PRN Reason Stop Dose Admin Amlodipine Besylate 2.5 mg 09/27/16 10:00 09/30/16 10:39 Norvasc - PO 2.5 mg DAILY [facility] Administration Aspirin 81 mg 09/27/16 10:00 09/28/16 11:16 Ecotrin - PO 81 mg DAILY [facility] Administration Bacitracin 1 applic 09/27/16 10:00 09/30/16 10:38 Bacitracin - TP Not Given DAILY [facility] Bupropion HCl 150 mg 09/28/16 10:00 09/30/16 10:39 Wellbutrin Xl - PO 150 mg DAILY [facility] Administration Cephalexin HCl 500 mg 09/29/16 22:00 09/30/16 10:39 Keflex - PO 500 mg BID [facility] Administration Cyclobenzaprine HCl 10 mg 09/26/16 17:43 09/30/16 05:46 Flexeril - PO 10 mg TID PRN Administration BACK PAIN Heparin Sodium (Porcine) 5,000 unit 09/26/16 22:00 09/30/16 05:44 Heparin - SQ 5,000 unit TID [facility] Administration Hydromorphone HCl 0.5 mg 09/26/16 17:39 09/29/16 20:30 Dilaudid Injection - IVPB 0.5 mg Q4H PRN Administration PAIN Insulin Aspart 1 vial 09/26/16 22:00 09/30/16 06:35 Novolog Vial Sliding Scale - SQ Not Given ACHS [facility] Protocol Levofloxacin 500 mg 09/29/16 15:00 09/30/16 05:44 Levaquin - PO 09/30/16 14:59 500 mg DAILY@0600 [facility] Administration Magnesium Oxide 800 mg 09/26/16 22:00 09/30/16 10:39 Mag-Ox - PO 800 mg BID [facility] Administration Ondansetron HCl 8 mg 09/26/16 17:43 Zofran - PO Q6H PRN NAUSEA AND/OR VOMITING Pramipexole Dihydrochloride 0.25 mg 09/30/16 10:00 09/30/16 10:39 Mirapex - PO 0.25 mg BID [facility] Administration Pregabalin 25 mg 09/27/16 14:00 09/27/16 22:30 Lyrica - PO Not Given TID [facility] Sucralfate 2 gm 09/26/16 22:00 09/30/16 10:39 Carafate Oral Suspension - PO Not Given BID [facility] ASSESSMENT/PLAN: This is a 65-year-old woman with a history of Hodgkin lymphoma, metastatic endometrial cancer, L1 and L3 compression fractures, HTN, pulmonary HTN, essential tremor, CAD, spinal stenosis, neurogenic bladder, type 2 DM with neuropathy, RA, depression, anxiety, PAD, COPD, anemia, hypothyroidism, stage 3 CKD who came to the ER with worsening low back pain radiating to her right groin and down her right leg. 1. Low back pain with right lumbar radiculopathy secondary to lumbar compression fractures and spinal stenosis - No evidence of metastatic disease on MRI - Continue Dilaudid as needed for pain - Continue Flexeril as needed - Continue Wellbutrin - Refused Lyrica - IR evaluation for kyphoplasty - Physical therapy 2. E. coli UTI - Continue Keflex (day 2) 3. Possible RLS - Continue Mirapex 4. Metastatic endometrial cancer - Bone scan: There is no definite scintigraphic pattern of osteoblastic bony metastasis. Degenerative uptake in the thoracolumbar spine and both knees. Mild uptake in L1 and L3 vertebral bodies corresponding to areas of fractures seen on MRI and CT scan suggestive of subacute to chronic process. Focal uptake in the anterior right seventh rib corresponding to an old fracture seen on CT scan of September 19, 2016. Mild asymmetric uptake in the right sacroiliac joint region is possibly positional however early metastatic process, felt unlikely, cannot be completely excluded 5. Hodgkin lymphoma 6. HTN - Continue Norvasc 7. CAD - Continue aspirin 8. Pulmonary HTN 9. 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 RA 11. Depression and anxiety - Continue Wellbutrin 12. Hypothyroidism 13. Stage 3 CKD - Stable 14. COPD - Stable 15. PAD 16. Anemia secondary to chronic illness - Hemoglobin stable 17. Hypokalemia - Improved 18. Osteoporosis 19. Osteoarthritis Visit type - Emergency Visit Emergency Visit: Yes ED Registration Date: 09/26/16 Care time: The patient presented to the Emergency Department on the above date and was hospitalized for further evaluation of their emergent condition. - New Patient This patient is new to me today: No - Critical Care Critical Care patient: No - Discharge Referral Referred to [facility] Med P.C.: No
[2016-09-30] MEDS: HYDROmorphone HCL CARPU-JECT 1 MG/1 ML DISP.SYRIN IVPB PRN ×2 (15:00→22:13)
--- NOTE | 2016-09-30 15:48 | PN ---
Progress Note (short form) - Note Progress Note: Progress Note: Patient seen in follow up. No events overnight. Ongoing pain/discomfort, with some relief from Dilaudid. Meds reviewed. Current Medications Generic Name Dose Route Start Last Admin Trade Name Freq PRN Reason Stop Dose Admin Amlodipine Besylate 2.5 mg 09/27/16 10:00 09/30/16 10:39 Norvasc - PO 2.5 mg DAILY [facility] Administration Aspirin 81 mg 09/27/16 10:00 09/28/16 11:16 Ecotrin - PO 81 mg DAILY [facility] Administration Bacitracin 1 applic 09/27/16 10:00 09/30/16 10:38 Bacitracin - TP Not Given DAILY [facility] Bupropion HCl 150 mg 09/28/16 10:00 09/30/16 10:39 Wellbutrin Xl - PO 150 mg DAILY [facility] Administration Cephalexin HCl 500 mg 09/29/16 22:00 09/30/16 10:39 Keflex - PO 500 mg BID [facility] Administration Cyclobenzaprine HCl 10 mg 09/26/16 17:43 09/30/16 05:46 Flexeril - PO 10 mg TID PRN Administration BACK PAIN Heparin Sodium (Porcine) 5,000 unit 09/26/16 22:00 09/30/16 14:04 Heparin - SQ 5,000 unit TID [facility] Administration Hydromorphone HCl 0.5 mg 09/26/16 17:39 09/30/16 15:00 Dilaudid Injection - IVPB 0.5 mg Q4H PRN Administration PAIN Insulin Aspart 1 vial 09/26/16 22:00 09/30/16 11:51 Novolog Vial Sliding Scale - SQ Not Given ACHS [facility] Protocol Magnesium Oxide 800 mg 09/26/16 22:00 09/30/16 10:39 Mag-Ox - PO 800 mg BID [facility] Administration Ondansetron HCl 8 mg 09/26/16 17:43 Zofran - PO Q6H PRN NAUSEA AND/OR VOMITING Pramipexole Dihydrochloride 0.25 mg 09/30/16 10:00 09/30/16 10:39 Mirapex - PO 0.25 mg BID [facility] Administration Pregabalin 25 mg 09/27/16 14:00 09/27/16 22:30 Lyrica - PO Not Given TID [facility] Sucralfate 2 gm 09/26/16 22:00 09/30/16 10:39 Carafate Oral Suspension - PO Not Given BID [facility] On examination: Last Vital Signs Temp Pulse Resp BP Pulse Ox 97.8 F 97 H 20 154/78 100 09/30/16 14:54 09/30/16 14:54 09/30/16 14:54 09/30/16 14:54 09/30/16 09:00 General: Supine in bed, in no acute distress. Oropharyngeal: Clear, no mucosal lesions. Extremities: No pallor, no icterus. Chest:Clear Abdomen: Soft Neuro: Alert and oriented, non-focal. CVS: Normal sinus rhythm, S1, S2, no gallop or murmur. Skin: No rash. Labs reviewed: CBC, BMP 09/26/16 16:52 09/29/16 06:00 Assessment: Subacute L1 compression fracture - does not appear to be pathological - attributed to osteoporosis. Awaiting verterbroplasty. [facility] in interim.
[2016-10-01] MEDS: INSULIN SLIDING SCALE (NOVOLOG) 1 VIAL SQ SCH ×4 (06:40→21:47)
[2016-10-01] MEDS: HEPARIN NA (PORCINE) 5,000 UNITS/ML 1ML VIAL SQ SCH ×3 (06:50→21:54)
[2016-10-01 08:38] LABS: BASOPHIL 0.5 % (0-2.0); EOSINOPHIL 5.4 % (0-4.5); MCH 29.9 pg (25.7-33.7); MCHC 32.8 g/dl (32.0-36.0); MEAN CELL VOLUME 91.1 fl (80-96); MEAN PLT VOLUME 8.3 fl (7.5-11.1); NEUTROPHILS 68.8 % (42.8-82.8); PLATELET COUNT 222 K/MM3 (134-434); RDW 14.5 % (11.6-15.6)
[2016-10-01] MEDS ORDERED: PT OWN MED DRAWER 7, Y5N ONE (09:02)
[2016-10-01] MEDS: CEPHALEXIN MONOHYDRATE 500 MG CAPSULE (UD) PO SCH ×2 (09:04→21:54)
[2016-10-01] MEDS: SUCRALFATE 1 GM/10 ML UNIT DOSE CUPS PO SCH ×2 (09:04→21:42)
[2016-10-01 09:05] LABS: COCKROFT - GAULT 68.408; CREATININE 1.2 mg/dL (0.55-1.02)
[2016-10-01] MEDS: MAGNESIUM OXIDE 400 MG TABLET (FP) PO SCH ×2 (09:05→21:42)
[2016-10-01] MEDS: amLODIPine BESYLATE 2.5 MG TABLET (FP) PO SCH (09:06)
[2016-10-01] MEDS: PRAMIPEXOLE DIHYDROCHLORIDE 0.25 MG TABLET PO SCH ×2 (09:06→21:54)
[2016-10-01] MEDS: BACITRACIN 15 GM TUBE TOPICAL OINTMENT TP SCH (09:07)
--- NOTE | 2016-10-01 11:44 | PN ---
Progress Note (short form) - Note Progress Note: Progress Note: Patient seen in follow up. No events overnight. Ongoing pain/discomfort, with some relief from Dilaudid. Meds reviewed. Current Medications Generic Name Dose Route Start Last Admin Trade Name Freq PRN Reason Stop Dose Admin Amlodipine Besylate 2.5 mg 09/27/16 10:00 10/01/16 09:06 Norvasc - PO 2.5 mg DAILY [facility] Administration Aspirin 81 mg 09/27/16 10:00 09/28/16 11:16 Ecotrin - PO 81 mg DAILY [facility] Administration Bacitracin 1 applic 09/27/16 10:00 10/01/16 09:07 Bacitracin - TP Not Given DAILY [facility] Bupropion HCl 150 mg 09/28/16 10:00 10/01/16 09:06 Wellbutrin Xl - PO 150 mg DAILY [facility] Administration Cephalexin HCl 500 mg 09/29/16 22:00 10/01/16 09:04 Keflex - PO 500 mg BID [facility] Administration Cyclobenzaprine HCl 10 mg 09/26/16 17:43 09/30/16 22:12 Flexeril - PO 10 mg TID PRN Administration BACK PAIN Heparin Sodium (Porcine) 5,000 unit 09/26/16 22:00 10/01/16 06:50 Heparin - SQ 5,000 unit TID [facility] Administration Hydromorphone HCl 0.5 mg 09/26/16 17:39 09/30/16 15:00 Dilaudid Injection - IVPB 0.5 mg Q4H PRN Administration PAIN Insulin Aspart 1 vial 09/26/16 22:00 10/01/16 10:41 Novolog Vial Sliding Scale - SQ Not Given ACHS [facility] Protocol Magnesium Oxide 800 mg 09/26/16 22:00 10/01/16 09:05 Mag-Ox - PO 800 mg BID [facility] Administration Ondansetron HCl 8 mg 09/26/16 17:43 Zofran - PO Q6H PRN NAUSEA AND/OR VOMITING Pramipexole Dihydrochloride 0.25 mg 09/30/16 10:00 10/01/16 09:06 Mirapex - PO 0.25 mg BID [facility] Administration Pregabalin 25 mg 09/27/16 14:00 09/27/16 22:30 Lyrica - PO Not Given TID [facility] Sucralfate 2 gm 09/26/16 22:00 10/01/16 09:04 Carafate Oral Suspension - PO Not Given BID [facility] On examination: Last Vital Signs Temp Pulse Resp BP Pulse Ox 98.6 F 107 H 18 146/76 100 10/01/16 09:00 10/01/16 09:00 10/01/16 09:00 10/01/16 09:00 10/01/16 08:28 General: Supine in bed, in no acute distress. Oropharyngeal: Clear, no mucosal lesions. Extremities: No pallor, no icterus. Chest:Clear Abdomen: Soft Neuro: Alert and oriented, non-focal. CVS: Normal sinus rhythm, S1, S2, no gallop or murmur. Skin: No rash. Labs reviewed: CBC, BMP 10/01/16 05:40 10/01/16 05:40 Assessment: Subacute L1 compression fracture - does not appear to be pathological - attributed to osteoporosis. Awaiting verterbroplasty. Analagesia in interim.
[2016-10-01] MEDS: HYDROmorphone HCL CARPU-JECT 1 MG/1 ML DISP.SYRIN IVPB PRN ×2 (13:39→23:26)
--- NOTE | 2016-10-01 15:23 | PN ---
Physical Exam: SUBJECTIVE: Patient seen and examined OBJECTIVE: Vital Signs Period Temp Pulse Resp BP Sys/Peguero Pulse Ox Last 24 Hr 98.0 F-98.6 F 88-107 18-20 133-146/60-76 100 GENERAL: The patient is awake, alert, and fully oriented, in no acute distress. LUNGS: Breath sounds equal, clear to auscultation bilaterally, no wheezes, no crackles, no accessory muscle use. HEART: Regular rate and rhythm, S1, S2 without murmur, rub or gallop. ABDOMEN: Obese, soft, nontender, nondistended, normoactive bowel sounds, no guarding, no rebound, no hepatosplenomegaly, no masses. EXTREMITIES: 2+ pulses, warm, well-perfused, trace edema. Laboratory Results - last 24 hr 09/30/16 09/30/16 10/01/16 16:54 22:04 05:40 WBC 6.0 RBC 3.49 L Hgb 10.4 L Hct 31.8 L MCV 91.1 MCHC 32.8 RDW 14.5 Plt Count 222 MPV 8.3 Neutrophils % 68.8 Lymphocytes % 18.3 D Monocytes % 7.0 Eosinophils % 5.4 H Basophils % 0.5 Sodium Potassium Chloride Carbon Dioxide Anion Gap BUN Creatinine POC Glucometer 104 87 Random Glucose Calcium 10/01/16 10/01/16 10/01/16 05:40 06:12 10:39 WBC RBC Hgb Hct MCV MCHC RDW Plt Count MPV Neutrophils % Lymphocytes % Monocytes % Eosinophils % Basophils % Sodium 140 Potassium 3.9 Chloride 101 Carbon Dioxide 26 Anion Gap 13 BUN 15 Creatinine 1.2 H POC Glucometer 101 125 Random Glucose 93 Calcium 9.0 Active Medications Generic Name Dose Route Start Last Admin Trade Name Freq PRN Reason Stop Dose Admin Amlodipine Besylate 2.5 mg 09/27/16 10:00 10/01/16 09:06 Norvasc - PO 2.5 mg DAILY CRISTOFER Administration Aspirin 81 mg 09/27/16 10:00 09/28/16 11:16 Ecotrin - PO 81 mg DAILY CRISTOFER Administration Bacitracin 1 applic 09/27/16 10:00 10/01/16 09:07 Bacitracin - TP Not Given DAILY CRISTOFER Bupropion HCl 150 mg 09/28/16 10:00 10/01/16 09:06 Wellbutrin Xl - PO 150 mg DAILY CRISTOFER Administration Cephalexin HCl 500 mg 09/29/16 22:00 10/01/16 09:04 Keflex - PO 500 mg BID CRISTOFER Administration Cyclobenzaprine HCl 10 mg 09/26/16 17:43 09/30/16 22:12 Flexeril - PO 10 mg TID PRN Administration BACK PAIN Heparin Sodium (Porcine) 5,000 unit 09/26/16 22:00 10/01/16 13:09 Heparin - SQ 5,000 unit TID [facility] Administration Hydromorphone HCl 0.5 mg 09/26/16 17:39 10/01/16 13:39 Dilaudid Injection - IVPB 0.5 mg Q4H PRN Administration PAIN Insulin Aspart 1 vial 09/26/16 22:00 10/01/16 10:41 Novolog Vial Sliding Scale - SQ Not Given ACHS [facility] Protocol Magnesium Oxide 800 mg 09/26/16 22:00 10/01/16 09:05 Mag-Ox - PO 800 mg BID [facility] Administration Ondansetron HCl 8 mg 09/26/16 17:43 Zofran - PO Q6H PRN NAUSEA AND/OR VOMITING Pramipexole Dihydrochloride 0.25 mg 09/30/16 10:00 10/01/16 09:06 Mirapex - PO 0.25 mg BID [facility] Administration Pregabalin 25 mg 09/27/16 14:00 09/27/16 22:30 Lyrica - PO Not Given TID [facility] Sucralfate 2 gm 09/26/16 22:00 10/01/16 09:04 Carafate Oral Suspension - PO Not Given BID [facility] ASSESSMENT/PLAN: This is a 65-year-old woman with a history of Hodgkin lymphoma, metastatic endometrial cancer, L1 and L3 compression fractures, HTN, pulmonary HTN, essential tremor, CAD, spinal stenosis, neurogenic bladder, type 2 DM with neuropathy, RA, depression, anxiety, PAD, COPD, anemia, hypothyroidism, stage 3 CKD who came to the ER with worsening low back pain radiating to her right groin and down her right leg. 1. Low back pain with right lumbar radiculopathy secondary to lumbar compression fractures and spinal stenosis - No evidence of metastatic disease on MRI - Continue Dilaudid as needed for pain - Continue Flexeril as needed - Continue Wellbutrin - Refused Lyrica - IR evaluation for kyphoplasty - Physical therapy 2. E. coli UTI - Continue Keflex (day 3) 3. Possible RLS - Continue Mirapex 4. Metastatic endometrial cancer - Bone scan: There is no definite scintigraphic pattern of osteoblastic bony metastasis. Degenerative uptake in the thoracolumbar spine and both knees. Mild uptake in L1 and L3 vertebral bodies corresponding to areas of fractures seen on MRI and CT scan suggestive of subacute to chronic process. Focal uptake in the anterior right seventh rib corresponding to an old fracture seen on CT scan of September 19, 2016. Mild asymmetric uptake in the right sacroiliac joint region is possibly positional however early metastatic process, felt unlikely, cannot be completely excluded - CT of right leg: No bony metastases. Severe degenerative arthritis of both knees with moderate effusions. Loose bodies in right knee. 5. Hodgkin lymphoma 6. HTN - Continue Norvasc 7. CAD - Continue aspirin 8. Pulmonary HTN 9. 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 RA 11. Depression and anxiety - Continue Wellbutrin 12. Hypothyroidism 13. Stage 3 CKD - Stable 14. COPD - Stable 15. PAD 16. Anemia secondary to chronic illness - Hemoglobin stable 17. Hypokalemia - Improved 18. Osteoporosis 19. Osteoarthritis Visit type - Emergency Visit Emergency Visit: Yes ED Registration Date: 09/26/16 Care time: The patient presented to the Emergency Department on the above date and was hospitalized for further evaluation of their emergent condition. - New Patient This patient is new to me today: No - Critical Care Critical Care patient: No - Discharge Referral Referred to [facility] Med P.C.: No
[2016-10-01] MEDS: CYCLOBENZAPRINE HCL 10 MG TABLET (FP) PO PRN (21:54)
[2016-10-02] MEDS: PREGABALIN 25 MG CAPSULE PO SCH ×2 (06:00→13:44)
[2016-10-02] MEDS: INSULIN SLIDING SCALE (NOVOLOG) 1 VIAL SQ SCH ×2 (06:00→11:44)
[2016-10-02] MEDS: CYCLOBENZAPRINE HCL 10 MG TABLET (FP) PO PRN (06:00)
[2016-10-02] MEDS: HEPARIN NA (PORCINE) 5,000 UNITS/ML 1ML VIAL SQ SCH ×2 (06:01→13:44)
[2016-10-02 06:05] VITALS: TEMP 97.8
[2016-10-02] MEDS ORDERED: PT OWN MED DRAWER 7, Y5N ONE ×2 (10:11→13:43)
[2016-10-02] MEDS: BACITRACIN 15 GM TUBE TOPICAL OINTMENT TP SCH (10:16)
[2016-10-02] MEDS: SUCRALFATE 1 GM/10 ML UNIT DOSE CUPS PO SCH (10:16)
[2016-10-02] MEDS: MAGNESIUM OXIDE 400 MG TABLET (FP) PO SCH (10:16)
[2016-10-02] MEDS: PRAMIPEXOLE DIHYDROCHLORIDE 0.25 MG TABLET PO SCH (10:17)
[2016-10-02] MEDS: CEPHALEXIN MONOHYDRATE 500 MG CAPSULE (UD) PO SCH (10:17)
[2016-10-02] MEDS: amLODIPine BESYLATE 2.5 MG TABLET (FP) PO SCH (10:17)
[2016-10-02 12:31] VITALS: BP 145/70; PULSE 90
--- NOTE | 2016-10-02 14:27 | PN ---
Teaching Attending Note Name of Resident: Juan Ortiz ATTENDING PHYSICIAN STATEMENT I saw and evaluated the patient. I reviewed the resident's note and discussed the case with the resident. I agree with the resident's findings and plan as documented. SUBJECTIVE: Back and right leg pain is less severe. OBJECTIVE: Vital Signs Period Temp Pulse Resp BP Sys/Peguero Pulse Ox Last 24 Hr 97.8 F-98.9 F 88-101 18-20 141-145/70-78 98 GENERAL: The patient is awake, alert, and fully oriented, in no acute distress. LUNGS: Breath sounds equal, clear to auscultation bilaterally, no wheezes, no crackles, no accessory muscle use. HEART: Regular rate and rhythm, S1, S2 without murmur, rub or gallop. ABDOMEN: Obese, soft, nontender, nondistended, normoactive bowel sounds, no guarding, no rebound, no hepatosplenomegaly, no masses. EXTREMITIES: 2+ pulses, warm, well-perfused, trace edema. ASSESSMENT AND PLAN: This is a 65-year-old woman with a history of Hodgkin lymphoma, metastatic endometrial cancer, L1 and L3 compression fractures, HTN, pulmonary HTN, essential tremor, CAD, spinal stenosis, neurogenic bladder, type 2 DM with neuropathy, RA, depression, anxiety, PAD, COPD, anemia, hypothyroidism, stage 3 CKD who came to the ER with worsening low back pain radiating to her right groin and down her right leg. 1. Low back pain with right lumbar radiculopathy secondary to lumbar compression fractures and spinal stenosis - No evidence of metastatic disease on MRI - Continue Dilaudid as needed for pain - Continue Flexeril as needed - Continue Wellbutrin - Refused Lyrica - Per IR, no indication for kyphoplasty - Physical therapy 2. E. coli UTI - Continue Keflex (day 3) 3. Possible RLS - Continue Mirapex 4. Metastatic endometrial cancer - Bone scan: There is no definite scintigraphic pattern of osteoblastic bony metastasis. Degenerative uptake in the thoracolumbar spine and both knees. Mild uptake in L1 and L3 vertebral bodies corresponding to areas of fractures seen on MRI and CT scan suggestive of subacute to chronic process. Focal uptake in the anterior right seventh rib corresponding to an old fracture seen on CT scan of September 19, 2016. Mild asymmetric uptake in the right sacroiliac joint region is possibly positional however early metastatic process, felt unlikely, cannot be completely excluded - CT of right leg: No bony metastases. Severe degenerative arthritis of both knees with moderate effusions. Loose bodies in right knee. 5. Hodgkin lymphoma 6. HTN - Continue Norvasc 7. CAD - Continue aspirin 8. Pulmonary HTN 9. 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 RA 11. Depression and anxiety - Continue Wellbutrin 12. Hypothyroidism 13. Stage 3 CKD - Stable 14. COPD - Stable 15. PAD 16. Anemia secondary to chronic illness - Hemoglobin stable 17. Hypokalemia - Improved 18. Osteoporosis 19. Osteoarthritis 20. Disposition - Patient does not want subacute rehab - Ok for discharge home with follow-up with pain management, ortho (for OA of knees), oncology and PCP
--- NOTE | 2016-10-02 16:11 | PN ---
Progress Note (short form) - Note Progress Note: discussed with neurology-- At this time patient with L1 vertebral ccollapse, neuropathy, RLS, depression will need to closely follow up with Dr. Chao as outpatient Pain meds valarie to be titrated left message with her son
--- NOTE | 2016-10-02 22:41 | DS ---
Physical Exam: SUBJECTIVE: Patient seen and examined at bedside. She still c/o R leg pain but no other new complaint. Denies fever, chills, chest pain, sob, dysuria. OBJECTIVE: Vital Signs Period Temp Pulse Resp BP Sys/Peguero Pulse Ox Last 24 Hr 97.8 F 90-97 20 144-145/70-76 PHYSICAL EXAM GENERAL: AAO x 3, Not in any distress HEAD: Normal with no signs of trauma. EYES: Pupils equal, round and reactive to light, EARS, NOSE, THROAT: oropharynx clear without exudates NECK: Normal range of motion, supple without lymphadenopathy LUNGS: Breath sounds equal, clear to auscultation bilaterally. No wheezes, and no crackles. No accessory muscle use. HEART: Regular rate and rhythm, normal S1 and S2 without murmur, rub or gallop. ABDOMEN: Soft, nontender, not distended, normoactive bowel sounds, no guarding, no rebound, no masses. Surgical scar. MUSCULOSKELETAL: Lower R back tenderness upon pressing around L1-L5 LOWER EXTREMITIES: Surgical scar on L medial leg; bilateral leg swelling with erythema NEUROLOGICAL: Cranial nerves II-XII intact. Gait not observed LABS Laboratory Results - last 24 hr 10/02/16 05:52 POC Glucometer 93 HOSPITAL COURSE: Date of Admission:09/26/16 65 yo F h/o asthma, HTN, HLD, diet controlled diabetes, pulmonary hypertension, COPD, CAD, Hodgkins lymphoma and endometrial CA s/p chemotherapy (last 08/2015) and radiation (last 10/2015), diabetic neuropathy, spinal stenosis, chronic back pain and carpal tunnel syndrome admitted for acute on chronic back pain. Her MRI confirms L1, L3 compression fracture and bone scan is not remarkable for metastasis. During her stay, she was given Dilaudid 0.5mg Q4H PRN for pain relief. She also found to have UTI which was treated with short course of abx. For her R leg pain, Duplex negative for DVT and CT shows severe degenerative disease. She's now in stable condition to be discharged and follow up as outpatient. She's instructed to continue followups with her [facility] doctor, primary doctor, and pain specialist to better manage her chronic pain. Date of Discharge: 10/02/16 Minutes to complete discharge: 30 Discharge Summary Reason For Visit: INTRACTABLE BACK PAIN Condition: Stable - Instructions Diet, Activity, Other Instructions: Instruction for continuing care: You were admitted to the hospital because of acute on chronic lower back pain. MRI showed L1 and L3 compression fracture which was again seen and neurosurgery recommends pain management for now and no interventional procedure. You should make an appointment with your pain specialist for an optimal pain regiment and continue to follow up with your neurologist, neurosurgeon and blood/cancer doctor. Referrals: Florentino Chao MD [Staff Physician] - Kyra Castillo [Primary Care Provider] - Jacoby Tolentino MD [Staff Physician] - Hansa Bee MD [Staff Physician] - Disposition: HOME - Home Medications Comprehensive Discharge Medication List: Ambulatory Orders Amlodipine Besylate [Norvasc -] 2.5 mg PO DAILY #0 tablet 12/20/12 Pantoprazole Sodium [Protonix -] 40 mg PO DAILY #30 tablet.ec 02/23/14 Aspirin [Aspirin EC] 81 mg PO DAILY #30 tablet.dr 04/23/14 Magnesium Oxide 800 mg PO BID 05/24/15 Cyclobenzaprine HCl [Flexeril -] 10 mg PO TID PRN #0 07/29/15 Sucralfate Oral Suspension [Carafate Oral Suspension -] 2 gm NR BID #1250 ml Oxycodone HCl/Acetaminophen [Percocet 5-325 mg Tablet] 1 - 2 tab PO Q6H #20 tablet MDD 4 09/19/16 Atorvastatin Ca [Lipitor] 10 mg PO HS 09/26/16 Bupropion HCl [Wellbutrin Xl -] 150 mg PO DAILY #30 tab 10/02/16 Pramipexole Dihydrochloride [Mirapex -] 0.25 mg PO BID #60 tablet 10/02/16 This patient is new to me today: No Emergency Visit: No Critical Care patient: No - Discharge Referral Referred to [facility] Med P.C.: No
--- NOTE | 2016-11-09 10:31 | PN ---
Progress Note (short form) - Note Progress Note: gave patients son contact nos. to dr. fry and dr. urban Santo
== END 2016-10-02 15:30 | disposition home or self-care (01) | DRG 347 ==
LOC: JER 15:33 → JERBED 17:00 → J6S 21:01
PROVIDERS: ADMIT Internal Medicine; ATTEND Internal Medicine
DX: M48.56XS Collapsed vertebra, not elsewhere classified, lumbar region, sequela of fracture (principal); E11.40 Type 2 diabetes mellitus with diabetic neuropathy, unspecified; C81.90 Hodgkin lymphoma, unspecified, unspecified site; C54.1 Malignant neoplasm of endometrium; I10 Essential (primary) hypertension; E78.5 Hyperlipidemia, unspecified; N39.0 Urinary tract infection, site not specified; B96.20 Unspecified Escherichia coli [E. coli] as the cause of diseases classified elsewhere; I27.2 Other secondary pulmonary hypertension; J43.9 Emphysema, unspecified; E78.00 Pure hypercholesterolemia, unspecified; Z87.442 Personal history of urinary calculi; R23.8 Other skin changes; E11.22 Type 2 diabetes mellitus with diabetic chronic kidney disease; I12.9 Hypertensive chronic kidney disease with stage 1 through stage 4 chronic kidney disease, or unspecified chronic kidney disease; N18.3 Chronic kidney disease, stage 3 (moderate); I73.9 Peripheral vascular disease, unspecified; D64.9 Anemia, unspecified; E03.9 Hypothyroidism, unspecified; N31.9 Neuromuscular dysfunction of bladder, unspecified; M48.06 Spinal stenosis, lumbar region; G56.01 Carpal tunnel syndrome, right upper limb; G43.909 Migraine, unspecified, not intractable, without status migrainosus; M54.16 Radiculopathy, lumbar region; E87.6 Hypokalemia; E66.9 Obesity, unspecified; Z68.33 Body mass index [BMI] 33.0-33.9, adult
CPT/HCPCS: 36415; 71010-TC; 72146-TC; 72148-TC; 73700-TC-RT; 78306-TC; 80048; 80053; 81003; 81015; 82607; 82728; 83540; 83550; 83735; 84100; 84443; 85025; 85610; 85651; 86140; 86304; 87040; 87086; 87186; 93005; 93010; 93970-TC; 97116-GP; 97161-GP; 99282-25; A9503; J1644

== ENCOUNTER 2017-05-11 09:19 | Inpatient (IN) | payer OTHER ==
[2017-05-11 09:29] VITALS: BMI 37.1
[2017-05-11] MEDS ORDERED: SODIUM CHLORIDE 1,000 ML IV STA (09:46)
[2017-05-11] MEDS ORDERED: dilTIAZem HCL 50 MG/10 ML - 10 ML VIAL IVPUSH ONE (09:47)
[2017-05-11] MEDS ORDERED: dilTIAZem HCL 30 MG TABLET (FP) PO ONE (09:47)
[2017-05-11] MEDS ORDERED: dilTIAZem HCL 30 MG TABLET (FP) ONE (10:33)
[2017-05-11] MEDS ORDERED: dilTIAZem HCL 125 MG/25 ML - 25 ML VIAL ONE (10:34)
[2017-05-11 10:45] LABS: BASO % 0.5 % (0-2.0); EOS % 2.3 % (0-4.5); HEMATOCRIT 30.3 % (32.4-45.2); HEMOGLOBIN 9.4 GM/dL (10.7-15.3); LYMPH % 17.7 % (8-40); MCH 27.2 pg (25.7-33.7); MCHC 31.1 g/dl (32.0-36.0); MEAN CELL VOLUME 87.4 fl (80-96); MEAN PLT VOLUME 8.8 fl (7.5-11.1); NEUT % 71.5 % (42.8-82.8); PLATELET COUNT 215 K/MM3 (134-434); RBC 3.47 M/mm3 (3.60-5.2); RDW 15.9 % (11.6-15.6); WHITE BLOOD COUNT 6.2 K/mm3 (4.0-10.0)
--- NOTE | 2017-05-11 11:04 | PDOC ---
History of Present Illness - General Chief Complaint: Pain Stated Complaint: BACK/ABDOMINAL PAIN Time Seen by Provider: 05/11/17 09:26 - History of Present Illness Initial Comments: 05/11/17 10:59 "The patient is a 65 year old female with a significant PMH of Afib, asthma, hypertension, hyperlipidemia, diabetes, pulmonary hypertension, COPD, coronary artery diease, Hodgkin's lymphoma s/p chemotherapy and radiation, endometrial cancer s/p chemotherapy and radiation, diabetic neuropathy, spinal stenosis, chronic back pain, and carpal tunnel syndrome (wrists) who presents to the emergency department sent in by Dr. Santo with worsening abdominal pain for a couple of weeks. Pt states that the pain is constant, localized to RLQ, non- radiating. Endorses nausea after eating with a few episodes of emesis, nonbloody. Pt reports constipation for several days, denies diarrhea. Reports subjective fevers as well. The patient states she has not seen her PCP since October due to a shooting pain down her legs from her known compression fxs that prevented her from leaving home. She also notes she has stopped taking all her medications as of January because she was unable to get refills. The patient denies chest pain, shortness of breath, headache and dizziness. Denies dysuria, frequency, urgency and hematuria. Allergies: Penicillins, Ibuprofen Past surgical history: Appendectomy, hysterectomy, femur bypass (left leg) Social history: No reported cigarette, drug, or alcohol use. 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 Hansa Bee PCP: NROMAN Castillo" Past History - Past Medical History Allergies/Adverse Reactions: Allergies Allergy/AdvReac Type Severity Reaction Status Date / Time Penicillins Allergy Verified 05/11/17 09:29 ibuprofen [From Motrin] AdvReac Verified 05/11/17 09:29 morphine AdvReac Verified 05/11/17 09:29 Home Medications: Ambulatory Orders Amlodipine Besylate [Norvasc -] 2.5 mg PO DAILY #0 tablet 12/20/12 Pantoprazole Sodium [Protonix -] 40 mg PO DAILY #30 tablet.ec 02/23/14 Aspirin [Aspirin EC] 81 mg PO DAILY #30 tablet. 04/23/14 Magnesium Oxide 800 mg PO BID 05/24/15 Cyclobenzaprine HCl [Flexeril -] 10 mg PO TID PRN #0 07/29/15 Sucralfate Oral Suspension [Carafate Oral Suspension -] 2 gm NR BID #1250 ml Oxycodone HCl/Acetaminophen [Percocet 5-325 mg Tablet] 1 - 2 tab PO Q6H #20 tablet MDD 4 09/19/16 Atorvastatin Ca [Lipitor] 10 mg PO HS 09/26/16 Bupropion HCl [Wellbutrin Xl -] 150 mg PO DAILY #30 tab 10/02/16 Pramipexole Dihydrochloride [Mirapex -] 0.25 mg PO BID #60 tablet 10/02/16 Anemia: No Asthma: Yes Cancer: Yes (Hodkins Lymphoma,uterine ca) Cardiac Disorders: Yes (tachycardia, a fib) CVA: No COPD: Yes (EMPHYSEMA.) CHF: No Dementia: No Diabetes: Yes GI Disorders: No Disorders: Yes (URGE INCONTINENCE) HTN: Yes (PULMONARY Hypertension) Hypercholesterolemia: Yes Kidney Stones: Yes Liver Disease: No Seizures: No Thyroid Disease: Yes (enlarged thyroid) - Surgical History Abdominal Surgery: Yes Appendectomy: Yes (AT 15 YRS OLD) Cardiac Surgery: No Cholecystectomy: (gallstones) Lung Surgery: No Neurologic Surgery: No Orthopedic Surgery: No - Immunization History Td Vaccination: No Immunization Up to Date: Yes - Suicide/Smoking/Psychosocial Hx Smoking Status: Yes Smoking History: Former smoker Years of Tobacco Use: 40 Have you smoked in the past 12 months: Yes Number of Cigarettes Smoked Daily: 0 If you are a former smoker, when did you quit?: December 2013 Information on smoking cessation initiated: No 'Breaking Loose' booklet given: 11/10/13 Hx Alcohol Use: No Drug/Substance Use Hx: No Substance Use Type: None Hx Substance Use Treatment: No Review of Systems - Review of Systems Comments:: 05/11/17 11:03 " GENERAL/CONSTITUTIONAL: (+) fever, weakness. HEAD, EYES, EARS, NOSE AND THROAT: No change in vision. No ear pain or discharge. No sore throat. CARDIOVASCULAR: No chest pain or shortness of breath. RESPIRATORY: No cough, wheezing, or hemoptysis. GASTROINTESTINAL: (+) Right lower quadrant pain. No nausea, vomiting, diarrhea or constipation. GENITOURINARY: No dysuria, frequency, or change in urination. MUSCULOSKELETAL: (+) Back pain. No joint or muscle swelling or pain. No neck pain. SKIN: No rash NEUROLOGIC: No headache, vertigo, loss of consciousness, or change in strength/ sensation. ENDOCRINE: No increased thirst. No abnormal weight change. HEMATOLOGIC/LYMPHATIC: No anemia, easy bleeding, or history of blood clots. ALLERGIC/IMMUNOLOGIC: No hives or skin allergy. " *Physical Exam - Vital Signs Last Vital Signs Temp Pulse Resp BP Pulse Ox 175 H 20 167/124 100 05/11/17 09:25 05/11/17 09:25 05/11/17 09:25 05/11/17 09:25 - Physical Exam Comments: 05/11/17 11:04 "GENERAL: Awake, alert, and fully oriented, in no acute distress HEAD: No signs of trauma EYES: PERRLA, EOMI, sclera anicteric, conjunctiva clear ENT: Auricles normal inspection, hearing grossly normal, nares patent, oropharynx clear without exudates. Moist mucosa NECK: Nontender, no stepoffs, Normal ROM, supple, no lymphadenopathy, JVD, or masses LUNGS: Breath sounds equal, clear to auscultation bilaterally. No wheezes, and no crackles HEART: (+) Tachycardic, irregular. Normal S1 and S2, no murmurs, rubs or gallops ABDOMEN: (+) RLQ tenderness. Soft, normoactive bowel sounds. No guarding, no rebound. No masses EXTREMITIES: Normal range of motion, no edema. No clubbing or cyanosis. No cords, erythema, or tenderness NEUROLOGICAL: Cranial nerves II through XII intact. 5/5 strength and sensation in all extremities, Normal speech, normal gait SKIN: Warm, Dry, normal turgor, no rashes or lesions noted." Heart Score/ECG Review - ECG Impressions Comment:: 05/11/17 11:04 afib with RVR, rate 168, no MICHAEL/STDs, no TWIs ED Treatment Course - LABORATORY CBC & Chemistry Diagram: 05/12/17 05:48 05/12/17 05:48 - ADDITIONAL ORDERS Additional order review: 05/11/17 10:40 RBC 3.47 L MCV 87.4 MCHC 31.1 L RDW 15.9 H MPV 8.8 Neutrophils % 71.5 Lymphocytes % 17.7 Monocytes % 8.0 Eosinophils % 2.3 Basophils % 0.5 - RADIOLOGY Radiology Studies Ordered: Category Date Time Status ABDOMEN & PELVIS CT WITH CONTR [CT] Stat CT Scan 05/11/17 09:44 Ordered CHEST X-RAY PORTABLE* [RAD] Stat Radiology 05/11/17 09:44 Completed - Medications Given in the ED: ED Medications Discontinued Medications Generic Name Dose Route Start Last Admin Trade Name Freq PRN Reason Stop Dose Admin Diltiazem HCl 20 mg 05/11/17 09:47 05/11/17 10:20 Cardizem Injection - IVPUSH 05/11/17 09:48 20 mg ONCE ONE Administration Diltiazem HCl 30 mg 05/11/17 09:47 05/11/17 10:20 Cardizem - PO 05/11/17 09:48 30 mg ONCE ONE Administration Sodium Chloride 1,000 mls @ 1,000 mls/hr 05/11/17 09:46 05/11/17 10:20 Normal Saline - IV 05/11/17 10:45 1,000 mls/hr ASDIR STA Administration Medical Decision Making - Medical Decision Making 05/11/17 11:04 66 F with abdominal pain x weeks, found to be extremely tachycardic to 175. Pt' s tachycardia likely multifactorial - noncompliance with meds (amlodipine), dehydration 2/2 vomiting, as well as possible sepsis given subjective fevers. - Labs, cultures, cardiac enzymes - CXR, UA - CT abdomen/pelvis w/ IV contrast - IVF - rate control - Admit tele 05/11/17 13:42 CBC,CMP WBC 6.2 K/mm3 (4.0-10.0) 05/11/17 10:40 RBC 3.47 M/mm3 (3.60-5.2) L 05/11/17 10:40 Hgb 9.4 GM/dL (10.7-15.3) L 05/11/17 10:40 Hct 30.3 % (32.4-45.2) L 05/11/17 10:40 MCV 87.4 fl (80-96) 05/11/17 10:40 MCH 27.2 pg (25.7-33.7) 05/11/17 10:40 MCHC 31.1 g/dl (32.0-36.0) L 05/11/17 10:40 RDW 15.9 % (11.6-15.6) H 05/11/17 10:40 Plt Count 215 K/MM3 (134-434) 05/11/17 10:40 MPV 8.8 fl (7.5-11.1) 05/11/17 10:40 Absolute Neuts (auto) 4.5 # (42.8-82.8) L 05/11/17 10:40 Absolute Lymphs (auto) 1.1 (8-40) L 05/11/17 10:40 Absolute Monos (auto) 0.5 # (3.8-10.2) L 05/11/17 10:40 Absolute Eos (auto) 0.1 # (0-4.5) 05/11/17 10:40 Absolute Basos (auto) 0.0 # (0.1-1) L 05/11/17 10:40 Neutrophils % 71.5 % (42.8-82.8) 05/11/17 10:40 Lymphocytes % 17.7 % (8-40) 05/11/17 10:40 Monocytes % 8.0 % (3.8-10.2) 05/11/17 10:40 Eosinophils % 2.3 % (0-4.5) 05/11/17 10:40 Basophils % 0.5 % (0-2.0) 05/11/17 10:40 Sodium 138 mmol/L (136-145) 05/11/17 10:40 Potassium 4.5 mmol/L (3.5-5.1) 05/11/17 10:40 Chloride 103 mmol/L (98-107) 05/11/17 10:40 Carbon Dioxide 24 mmol/L (21-32) 05/11/17 10:40 Anion Gap 11 (8-16) 05/11/17 10:40 BUN 15 mg/dL (7-18) 05/11/17 10:40 Creatinine 0.9 mg/dL (0.55-1.02) D 05/11/17 10:40 Creat Clearance w eGFR > 60 (>60) 05/11/17 10:40 Random Glucose 103 mg/dL (74-106) 05/11/17 10:40 Calcium 9.1 mg/dL (8.5-10.1) 05/11/17 10:40 Total Bilirubin 0.7 mg/dL (0.2-1.0) D 05/11/17 10:40 AST 12 U/L (15-37) L D 05/11/17 10:40 ALT 14 U/L (12-78) 05/11/17 10:40 Alkaline Phosphatase 96 U/L (45-117) 05/11/17 10:40 Creatine Kinase 45 IU/L (26-192) 05/11/17 09:58 Troponin I 0.02 ng/ml (0.00-0.05) 05/11/17 09:58 B-Natriuretic Peptide 6276.89 pg/ml (5-125) H 05/11/17 09:58 Total Protein 6.9 g/dl (6.4-8.2) 05/11/17 10:40 Albumin 3.2 g/dl (3.4-5.0) L 05/11/17 10:40 Lipase 86 U/L (73-393) 05/11/17 10:40 TSH < 0.01 uIU/ml (0.358-3.74) L D 05/11/17 10:40 CTAP with gallstones and gallbladder wall thickening, no other acute pathology. RUQ sono ordered to r/o cholecystitis. Pt was initially given dilt for rate control, as she was previously on amlodipine. Pt received diltiazem IV + PO, with improvement in HR from 170 to 140. Labs notable for TSH of <0.01, concerning for possible thyrotoxicosis. Will administer propranolol 1mg IV and 60mg PO. Pt given lovenox for anticoagulation for afib. Pt to be admitted to inpatient tele for further work up of thyroid disorder, as well as continued rate control and sepsis work up. Case discussed in detail with admitting physician including history, physical exam and ancillary studies. Admitting physician has assumed care for the patient and will follow all pending diagnostics and complete the evaluation and treatment. *DC/Admit/Observation/Transfer Diagnosis at time of Disposition: Atrial fibrillation with RVR - Discharge Dispostion Admit: Yes - Referrals - Patient Instructions - Post Discharge Activity - Attestations Physician Attestion: 05/11/17 14:36 I, Dr. Sherwin Long MD, attest that this document has been prepared under my direction and personally reviewed by me in its entirety. I further attest, that it accurately reflects all work, treatment, procedures and medical decision -making performed by me.
[2017-05-11 11:08] LABS: INR 1.26 (0.82-1.09); PROTHROMBIN TIME (PATIENT) 14.2 SEC (9.98-11.88)
[2017-05-11 11:09] LABS: ALBUMIN 3.2 g/dl (3.4-5.0); ANION GAP 11 (8-16); BILIRUBIN,TOTAL 0.7 mg/dL (0.2-1.0); BLOOD UREA NITROGEN 15 mg/dL (7-18); CALCIUM 9.1 mg/dL (8.5-10.1); CHLORIDE 103 mmol/L (98-107); CO2 24 mmol/L (21-32); CREATININE 0.9 mg/dL (0.55-1.02); GLUCOSE,RANDOM 103 mg/dL (74-106); LIPASE 86 U/L (73-393); SGPT/ALT 14 U/L (12-78); SODIUM 138 mmol/L (136-145); TOT PROT 6.9 g/dl (6.4-8.2)
[2017-05-11 11:11] LABS: N-TERMINAL BNP 6276.89 pg/ml (5-125)
[2017-05-11 11:19] LABS: ALK PHOS 96 U/L (45-117)
[2017-05-11 11:20] LABS: POTASSIUM 4.5 mmol/L (3.5-5.1)
[2017-05-11 11:21] LABS: SGOT/AST 12 U/L (15-37)
--- NOTE | 2017-05-11 13:42 | EKG ---
Test Reason : Blood Pressure : / mmHG Vent. Rate : 168 BPM Atrial Rate : 197 BPM P-R Int : 000 ms QRS Dur : 072 ms QT Int : 278 ms P-R-T Axes : 000 044 065 degrees QTc Int : 464 ms ATRIAL FIBRILLATION WITH RAPID VENTRICULAR RESPONSE ABNORMAL ECG WHEN COMPARED WITH ECG OF 26-SEP-2016 16:06, ATRIAL FIBRILLATION HAS REPLACED SINUS RHYTHM VENT. RATE HAS INCREASED BY [address] MURO MD ([id number]) on 05/11/2017 1:42:32 PM Referred By: Confirmed By:LANE MURO MD
[2017-05-11] MEDS ORDERED: PROPRANOLOL HCL 40 MG TABLET PO ONE (13:44)
[2017-05-11] MEDS ORDERED: PROPRANOLOL HCL 1 MG/1 ML VIAL IVPUSH ONE (13:45)
[2017-05-11] MEDS ORDERED: PROPRANOLOL HCL 1 MG/1 ML VIAL ONE (14:34)
[2017-05-11] MEDS ORDERED: PROPRANOLOL HCL 40 MG TABLET ONE ×2 (14:34→14:41)
--- NOTE | 2017-05-11 16:08 | HP ---
CHIEF COMPLAINT: " Abdominal pain" PCP: TABITHA Castillo Machinist Mate: Dr. Nye Oncologist: Dr. Santo Vascular: Dr. Camarillo. HISTORY OF PRESENT ILLNESS: Patient is a 66 year old female presented to the ED via EMS with the chief complaint of "abdominal pain x 10days". As per the patient, she has been having diffuse abdominal pain, mostly located in the right upper quadrant and b/l lower quadrant, 6/10 in intensity, intermittent in nature, cramping in quality, associated with nausea and few episodes of vomiting. Vomitus contained mainly food particles, non bilious, non bloody mainly associated with food intake. Patient also reports to have constipation and her last bowel movement was 10 days ago. Due to her above problems, she called Dr. Santo who recommended her to go to the ED. Also mentions to have low grade fever around 99.9F since 2 weeks. Denies runny nose, cough, chest pain, sob, cough, palpitation, loc, dizziness. Has incontinence of urine but denies dysuria or increased frequency. Her last visit at Dr. Santo's office was in October and she didn't follow up with her and hasn't followed up with her PMD since December,. Hasn't renewed her medication since January, and is unknown if she ever took anticoagulation for the Afib. Last hospitalization at [facility] was on 09/26/16 for UTI and acute on chronic back pain due to L1 and L3 compression fracture. Appetite decreased. Sleep disturbed since the illness. During evaluation in the ED, her abdominal pain subsided but she was perisistently tachycardic on monitor hence admitting in Tele. ER course was notable for: (1) Tachycardia to 175; Hb 9.4; TSH:0.01 (2) EKG: Atrial fibrillation with RVR (3) Cardizem IV + PO and HR improved to 140; Propanolol 1mg IV and 80mg PO. Recent Travel: None PAST MEDICAL HISTORY: Asthma, HTN, HLD, diet controlled diabetes, pulmonary hypertension, COPD, CAD, Hodgkins lymphoma (Dx in 2013 s/p chemo and radiation until 2014) and endometrial CA s/p chemotherapy (last 08/2015)and radiation ( last 10/2015) with metastasis, diabetic neuropathy, spinal stenosis, chronic back pain with compression fracure to L1 and L3. and carpal tunnel syndrome. PAST SURGICAL HISTORY: Hysterectomy 2013 Social History: Smoking: Former smoker 43 pack years, quit in 2013 Alcohol: Occasional, last drink 3 yrs ago Drugs: Denies Family History: Non contributory Allergies Penicillins Allergy (Verified 05/11/17 09:29) ibuprofen [From Motrin] Adverse Reaction (Verified 05/11/17 09:29) morphine Adverse Reaction (Verified 05/11/17 09:29) HOME MEDICATIONS: Home Medications Medication Instructions Recorded Amlodipine Besylate [Norvasc -] 2.5 mg PO DAILY #0 tablet 12/20/12 Pantoprazole Sodium [Protonix -] 40 mg PO DAILY #30 tablet.ec 02/23/14 Aspirin [Aspirin EC] 81 mg PO DAILY #30 tablet.dr 04/23/14 Magnesium Oxide 800 mg PO BID 05/24/15 Cyclobenzaprine HCl [Flexeril -] 10 mg PO TID PRN #0 07/29/15 Sucralfate Oral Suspension 2 gm NR BID #1250 ml 10/15/15 [Carafate Oral Suspension -] Oxycodone HCl/Acetaminophen 1 - 2 tab PO Q6H #20 tablet MDD 4 09/19/16 [Percocet 5-325 mg Tablet] Atorvastatin Ca [Lipitor] 10 mg PO HS 09/26/16 Bupropion HCl [Wellbutrin Xl -] 150 mg PO DAILY #30 tab 10/02/16 Pramipexole Dihydrochloride 0.25 mg PO BID #60 tablet 10/02/16 [Mirapex -] REVIEW OF SYSTEMS CONSTITUTIONAL: Present: generalized weakness, loss of appetite Absent: fever, chills, diaphoresis, malaise, weight change HEENT: Absent: rhinorrhea, nasal congestion, throat pain, throat swelling, difficulty swallowing, mouth swelling, ear pain, eye pain, visual changes CARDIOVASCULAR: Absent: chest pain, syncope, palpitations, irregular heart rate, lightheadedness , peripheral edema RESPIRATORY: Absent: cough, shortness of breath, dyspnea with exertion, orthopnea, wheezing, stridor, hemoptysis GASTROINTESTINAL: Present: abdominal pain Absent: abdominal distension, nausea, vomiting, diarrhea, constipation, melena , hematochezia GENITOURINARY: Absent: dysuria, frequency, urgency, hesitancy, hematuria, flank pain, genital pain MUSCULOSKELETAL: Absent: myalgia, arthralgia, joint swelling, back pain, neck pain SKIN: Absent: rash, itching, pallor HEMATOLOGIC/IMMUNOLOGIC: Absent: easy bleeding, easy bruising, lymphadenopathy, frequent infections ENDOCRINE: Absent: unexplained weight gain, unexplained weight loss, heat intolerance, cold intolerance NEUROLOGIC: Absent: headache, focal weakness or paresthesias, dizziness, unsteady gait, seizure, mental status changes, bladder or bowel incontinence PSYCHIATRIC: Absent: anxiety, depression, suicidal or homicidal ideation, hallucinations. PHYSICAL EXAMINATION Vital Signs - 24 hr 05/11/17 05/11/17 05/11/17 09:25 12:00 14:35 Temperature 98.3 F Pulse Rate 175 H Pulse Rate [ 140 H Apical] Respiratory 20 20 Rate Blood Pressure 167/124 Blood Pressure 141/94 [Left Arm] O2 Sat by Pulse 100 96 98 Oximetry (%) GENERAL: Patient lying in bed, Awake, alert, and fully oriented, in no acute distress. HEAD: Normal with no signs of trauma. EYES: EOM intact, no pallor, no icterus. EARS, NOSE, THROAT: Ears normal. Moist mucous membranes. NECK: Supple. LUNGS: Breath sounds equal, clear to auscultation bilaterally. No wheezes, and no crackles. No accessory muscle use. HEART: Tachycardia, Regular rate and rhythm, normal S1 and S2 with systolic murmur. ABDOMEN: Soft, tenderness in RUQ and B/L lower quadrant, not distended, normoactive bowel sounds, no guarding, no rebound, no masses. Hepatosplenomegaly couldn't be appreciated. MUSCULOSKELETAL: Normal range of motion at all joints. No bony deformities or tenderness. No CVA tenderness. UPPER EXTREMITIES: 2+ pulses, warm, well-perfused. No cyanosis. No clubbing. No peripheral edema. LOWER EXTREMITIES: 2+ pulses, warm, well-perfused. B/L calf tenderness. B/L pitting peripheral edema, B/L lower extremity ulcers B/L Foot- skin looks very dry, cracking, Onychomycosis ?. NEUROLOGICAL: No facial droop, power 4/5 in upper and lower extremities, Cranial nerves II-XII intact. Normal speech. Gait not observed. PSYCHIATRIC: Cooperative. Good eye contact. Appropriate mood and affect. SKIN: Warm, dry, normal turgor, no rashes or lesions noted, normal capillary refill. Laboratory Results - last 24 hr 05/11/17 05/11/17 05/11/17 09:58 10:27 10:40 WBC RBC Hgb Hct MCV MCH MCHC RDW Plt Count MPV Absolute Neuts (auto) Absolute Lymphs (auto) Absolute Monos (auto) Absolute Eos (auto) Absolute Basos (auto) Neutrophils % Lymphocytes % Monocytes % Eosinophils % Basophils % PT with INR INR PTT (Actin FS) 31.8 Sodium Potassium Chloride Carbon Dioxide Anion Gap BUN Creatinine Creat Clearance w eGFR Random Glucose Lactic Acid Calcium Total Bilirubin AST ALT Alkaline Phosphatase Creatine Kinase 45 Troponin I 0.02 B-Natriuretic Peptide 6276.89 H Total Protein Albumin Lipase TSH Free T4 Blood Type O POSITIVE Antibody Screen Negative 05/11/17 05/11/17 05/11/17 10:40 10:40 10:40 WBC 6.2 RBC 3.47 L Hgb 9.4 L Hct 30.3 L MCV 87.4 MCH 27.2 MCHC 31.1 L RDW 15.9 H Plt Count 215 MPV 8.8 Absolute Neuts (auto) 4.5 L Absolute Lymphs (auto) 1.1 L Absolute Monos (auto) 0.5 L Absolute Eos (auto) 0.1 Absolute Basos (auto) 0.0 L Neutrophils % 71.5 Lymphocytes % 17.7 Monocytes % 8.0 Eosinophils % 2.3 Basophils % 0.5 PT with INR 14.20 H INR 1.26 H PTT (Actin FS) Sodium 138 Potassium 4.5 Chloride 103 Carbon Dioxide 24 Anion Gap 11 BUN 15 Creatinine 0.9 D Creat Clearance w eGFR > 60 Random Glucose 103 Lactic Acid Calcium 9.1 Total Bilirubin 0.7 D AST 12 L D ALT 14 Alkaline Phosphatase 96 Creatine Kinase Troponin I B-Natriuretic Peptide Total Protein 6.9 Albumin 3.2 L Lipase 86 TSH < 0.01 L D Free T4 Blood Type Antibody Screen 05/11/17 05/11/17 12:22 13:47 WBC RBC Hgb Hct MCV MCH MCHC RDW Plt Count MPV Absolute Neuts (auto) Absolute Lymphs (auto) Absolute Monos (auto) Absolute Eos (auto) Absolute Basos (auto) Neutrophils % Lymphocytes % Monocytes % Eosinophils % Basophils % PT with INR INR PTT (Actin FS) Sodium Potassium Chloride Carbon Dioxide Anion Gap BUN Creatinine Creat Clearance w eGFR Random Glucose Lactic Acid 1.4 Calcium Total Bilirubin AST ALT Alkaline Phosphatase Creatine Kinase Troponin I B-Natriuretic Peptide Total Protein Albumin Lipase TSH Free T4 3.81 H Blood Type Antibody Screen Abdominal CT with IV contrast: 1. Small right pleural effusion and basilar atelectasis. 2. Diffuse fatty infiltration of the liver and splenomegaly. 3. Cholelithiasis and with slightly thickened gallbladder. 4. Hypodense mass anterior to the lower abdominal aorta that may represent an enlarged lymph node. The mass has increased in size since 09/19/2016. 5. No acute pathology within the abdomen or pelvis. ASSESSMENT/PLAN: Patient is a 66 year old female with past medical history of Asthma, HTN, HLD, diet controlled diabetes, pulmonary hypertension, COPD, CAD, Hodgkins lymphoma (Dx in 2013 s/p chemo and radiation until 2014) and endometrial CA s/p chemotherapy (last 08/2015)and radiation (last 10/2015) with metastasis, diabetic neuropathy, spinal stenosis, chronic back pain with compression fracure to L1 and L3. and carpal tunnel syndrome. was sent in to the ED by Dr. Santo for further evaluation of abdominal pain. # Atrial fibrillation with RVR ON arrival, HR-175 bpm Received IV and PO diltiazem in the ED along with IV 1mg Propanolol + 80mg PO Propanolol and HR improved to 140 Afib could have been aggravated by her ? undiagnosed Hyperthyroidism due to IV contrast (TSH <0.01) Discussed with Dr. Nye who agrees to continue Propanolol 20mg Q6H melida. If needed can use IV Metoprolol 2.5 mg Q4H PRN if BP is controlled. CHADSVASC Score-4 Lovenox 100mg sq BID (1mg/kg) Troponin x 1 negative , trend troponins and EKG Dr. Nye consult requested. # Hyperthyroidism- possibly could be in thyrotoxicosis On admission, TSH-<0.01. Free T4-3.81, Free T3 pending. Could have been aggravated by the use of IV contrast. Discussed with Dr. Weeks, started Methimazole 20mg PO BID. # Abdominal pain-likely due to constipation c/o abd pain since 10days, last Bowel movement was 10 days ago. Per rectal exam deferred. CTAP: Cholelithiasis but no acute pathology Plan: Glycerin suppository, Colace, Senna. If she doesn't move her bowel then manual fecal disimpaction might be needed. # Lower extremity swelling and calf pain- likely due to venous stasis to r/o DVT Given the h/o malignancy and mostly bed bound, highly likely to have thromboembolism. Duplex of b/l lower extremity ordered. # B/L lower extremity wound wound dressing daily, as per Dr. Camarillo Lotion application in the foot area. # Hodgkins lymphoma and endometrial CA with mets s/p chemo and radiation Hypodense mass anterior to the lower abdominal aorta that may represent an enlarged lymph node. The mass has increased in size since 09/19/2016 Management as per oncology Discussed with Dr. Bray. # Hypertension-uncontrolled Amlodipine held, started on Propanolol for rate control. Medication to be adjusted as needed. Low salt diet # Diabetes Mellitus Not on any medications at home. A1c ordered Insulin sliding scale Finger stick glucose monitoring Watch for hypoglycemic episodes # Normocytic anemia Hb-9.4, baseline around 9-10. Iron work up done in the past No active bleeding at this time. # Chronic low back pain-due to compression # in L1 and L3 Tylenol PRN # FEN Not on IV fluids Electrolytes to be repeated in am. Sodium controlled/Diabetic diet # Prophylaxis For DVT: On lovenox sq For GI: Not indicated # Code Status: Full code # Dispo: Admitted in Tele. Duration of stay unknown. Needs PT eval once stable. Illness, Investigation and Plan of care explained to the patient. She verbalized understanding. Case discussed with Dr. Mota, Dr. Nye, Dr. Garcia and Dr. Weeks. Visit type - Emergency Visit Emergency Visit: Yes ED Registration Date: 05/11/17 Care time: The patient presented to the Emergency Department on the above date and was hospitalized for further evaluation of their emergent condition. - New Patient This patient is new to me today: Yes Date on this admission: 05/11/17 - Critical Care Critical Care patient: No
--- NOTE | 2017-05-11 16:11 | PN ---
Teaching Attending Note Name of Resident: Eliana Bridges ATTENDING PHYSICIAN STATEMENT I saw and evaluated the patient. I reviewed the resident's note and discussed the case with the resident. I agree with the resident's findings and plan as documented. SUBJECTIVE: Patient is a 66 year old female with past medical history of Asthma, HTN, HLD, diet controlled diabetes, pulmonary hypertension, COPD, CAD, Hodgkins lymphoma (Dx in 2013 s/p chemo and radiation until 2014) and endometrial CA s/p chemotherapy (last 08/2015)and radiation (last 10/2015) with metastasis, diabetic neuropathy, spinal stenosis, chronic back pain with compression fracure to L1 and L3. and carpal tunnel syndrome. was sent in to the ED by Dr. Santo for further evaluation of abdominal pain. Patient was found to be tachycardic. OBJECTIVE: Vital Signs Temperature 98.3 F 05/11/17 14:35 Pulse Rate 140 H 05/11/17 14:35 Respiratory Rate 20 05/11/17 14:35 Blood Pressure 141/94 05/11/17 14:35 O2 Sat by Pulse Oximetry (%) 98 05/11/17 14:35 CBCD WBC 6.2 K/mm3 (4.0-10.0) 05/11/17 10:40 RBC 3.47 M/mm3 (3.60-5.2) L 05/11/17 10:40 Hgb 9.4 GM/dL (10.7-15.3) L 05/11/17 10:40 Hct 30.3 % (32.4-45.2) L 05/11/17 10:40 MCV 87.4 fl (80-96) 05/11/17 10:40 MCHC 31.1 g/dl (32.0-36.0) L 05/11/17 10:40 RDW 15.9 % (11.6-15.6) H 05/11/17 10:40 Plt Count 215 K/MM3 (134-434) 05/11/17 10:40 MPV 8.8 fl (7.5-11.1) 05/11/17 10:40 CMP Sodium 138 mmol/L (136-145) 05/11/17 10:40 Potassium 4.5 mmol/L (3.5-5.1) 05/11/17 10:40 Chloride 103 mmol/L (98-107) 05/11/17 10:40 Carbon Dioxide 24 mmol/L (21-32) 05/11/17 10:40 Anion Gap 11 (8-16) 05/11/17 10:40 BUN 15 mg/dL (7-18) 05/11/17 10:40 Creatinine 0.9 mg/dL (0.55-1.02) D 05/11/17 10:40 Creat Clearance w eGFR > 60 (>60) 05/11/17 10:40 Random Glucose 103 mg/dL (74-106) 05/11/17 10:40 Calcium 9.1 mg/dL (8.5-10.1) 05/11/17 10:40 Total Bilirubin 0.7 mg/dL (0.2-1.0) D 05/11/17 10:40 AST 12 U/L (15-37) L D 05/11/17 10:40 ALT 14 U/L (12-78) 05/11/17 10:40 Alkaline Phosphatase 96 U/L (45-117) 05/11/17 10:40 Total Protein 6.9 g/dl (6.4-8.2) 05/11/17 10:40 Albumin 3.2 g/dl (3.4-5.0) L 05/11/17 10:40 CARDIAC ENZYMES Creatine Kinase 45 IU/L (26-192) 05/11/17 09:58 Troponin I 0.02 ng/ml (0.00-0.05) 05/11/17 09:58 Current Medications Generic Name Dose Route Start Last Admin Trade Name Dongq PRN Reason Stop Dose Admin Heparin Sodium (Porcine) 5,000 unit 05/11/17 22:00 Heparin - SQ TID [facility] Home Medications Medication Instructions Recorded Amlodipine Besylate [Norvasc -] 2.5 mg PO DAILY #0 tablet 12/20/12 Pantoprazole Sodium [Protonix -] 40 mg PO DAILY #30 tablet.ec 02/23/14 Aspirin [Aspirin EC] 81 mg PO DAILY #30 tablet.dr 04/23/14 Magnesium Oxide 800 mg PO BID 05/24/15 Cyclobenzaprine HCl [Flexeril -] 10 mg PO TID PRN #0 07/29/15 Sucralfate Oral Suspension 2 gm NR BID #1250 ml 10/15/15 [Carafate Oral Suspension -] Oxycodone HCl/Acetaminophen 1 - 2 tab PO Q6H #20 tablet MDD 4 09/19/16 [Percocet 5-325 mg Tablet] Atorvastatin Ca [Lipitor] 10 mg PO HS 09/26/16 Bupropion HCl [Wellbutrin Xl -] 150 mg PO DAILY #30 tab 10/02/16 Pramipexole Dihydrochloride 0.25 mg PO BID #60 tablet 10/02/16 [Mirapex -] Laboratory Tests 05/11/17 05/11/17 05/11/17 09:58 10:40 13:47 B-Natriuretic Peptide 6276.89 H TSH < 0.01 L D Free T4 3.81 H Free T3 05/11/17 14:15 B-Natriuretic Peptide TSH Free T4 Free T3 Pending PE: per resident's note Chest: tachycardic ; Irregularly-Irregular CTAP: Cholelithiasis but no acute pathology ASSESSMENT AND PLAN: Patient is a 66 year old female with past medical history of Asthma, HTN, HLD, diet controlled diabetes, pulmonary hypertension, COPD, CAD, Hodgkins lymphoma (Dx in 2013 s/p chemo and radiation until 2014) and endometrial CA s/p chemotherapy (last 08/2015)and radiation (last 10/2015) with metastasis, diabetic neuropathy, spinal stenosis, chronic back pain with compression fracure to L1 and L3. and carpal tunnel syndrome. was sent in to the ED by Dr. Santo for further evaluation of abdominal pain. # Atrial fibrillation with RVR with HR of 175 on arrival CHADSVASC Score-4, Lovenox 100mg sq BID (1mg/kg) Dr. Nye consult requested. # Hyperthyroidism- will start Methimazole 20mg po bid, for consult , on admission, TSH-<0.01. Free T4-3.81, Free T3 pending. # Abdominal pain-likely due to constipation c/o abd pain since 10days, last Bowel movement was 10 days ago. Per rectal exam deferred. Glycerin suppository, Colace, Senna. If she doesn't move her bowel then manual fecal disimpaction might be needed. # Lower extremity swelling and calf pain- likely due to venous stasis to r/o DVT # B/L lower extremity wound dressing daily, as per Dr. Camarillo # Hodgkins lymphoma and endometrial CA with mets s/p chemo and radiation , increased in size since 09/19/2016 hypodense mass anterior to the lower abdominal aorta that may represent an enlarged lymph node. mangement as per oncology Dr. Bray. # Hypertension-uncontrolled started on Propanolol for rate control. # Diabetes Mellitus ISS with coverage # Normocytic anemia Hb-9.4, baseline around 9-10. # Chronic low back pain-due to compression # in L1 and L3, Tylenol PRN # DVT px: On lovenox sq # Code Status: Full code
[2017-05-11] MEDS ORDERED: buPROPion HCL 100 MG TABLET ONE (16:43)
[2017-05-11] MEDS ORDERED: ASPIRIN 81 MG CHEWABLE TABLETS ONE (16:43)
[2017-05-11] MEDS ORDERED: GLYCERIN 1 RECTAL SUPPOSITORY, ADULT RC ONE ×2 (16:46→20:06)
[2017-05-11] MEDS ORDERED: SENNOSIDES 8.6MG TABLET (FP) PO PRN (16:46)
[2017-05-11] MEDS: ASPIRIN COATED 81 MG TABLET.EC PO SCH (16:48)
--- NOTE | 2017-05-11 16:56 | OP ---
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
--- NOTE | 2017-05-11 17:12 | CONSULT ---
Consult Consult Specialty:: Oncology - History of Present Illness History of Present Illness: 65 year old female with a significant PMH of ?Afib, asthma, hypertension, hyperlipidemia, diabetes, pulmonary hypertension, COPD, coronary artery diease, Hodgkin's lymphoma s/p chemotherapy and radiation, endometrial cancer s/p chemotherapy and radiation, diabetic neuropathy, spinal stenosis, chronic back pain, and carpal tunnel syndrome (wrists) who presents to the emergency department sent in by Dr. Santo with worsening abdominal pain for a couple of weeks. stopped following in our office post October 2016. patient seen and examined. - History Source History Provided By: Patient, Medical Record - Past Medical History RN HOME CARE: Yes: Other (essential tremor) Cardio/Vascular: Yes: CAD, HTN, Pulmonary Hypertension, Other (PVD S/P STENTS AND GRAFTS BY DR CHRISTENSEN) Pulmonary: Yes: Bronchitis Gastrointestinal: Yes: Constipation, Other (NO HISTORY OF COLONOSCOPY) Renal/: Yes: Renal Inusuff, Neurogenic Bladder Psych: Yes: Anxiety, Depression Musculoskeletal: Yes: Chronic low back pain, Other (spinal stenosis) Rheumatology: Yes: Rheumatoid Arthritis Endocrine: Yes: Diabetes Mellitus - Past Surgical History Past Surgical History: Yes: Appendectomy, Bypass, Hysterectomy - Alcohol/Substance Use Hx Alcohol Use: No History of Substance Use: reports: None - Smoking History Smoking history: Former smoker Have you smoked in the past 12 months: Yes Aproximately how many cigarettes per day: 0 If you are a former smoker, when did you quit?: December 2013 - Social History Usual Living Arrangement: Alone ADL: Independent Occupation: retired, , no pets History of Recent Travel: No Home Medications - Allergies Allergies/Adverse Reactions: Allergies Allergy/AdvReac Type Severity Reaction Status Date / Time Penicillins Allergy Verified 05/11/17 09:29 ibuprofen [From Motrin] AdvReac Verified 05/11/17 09:29 morphine AdvReac Verified 05/11/17 09:29 - Home Medications Home Medications: Ambulatory Orders Amlodipine Besylate [Norvasc -] 2.5 mg PO DAILY #0 tablet 12/20/12 Pantoprazole Sodium [Protonix -] 40 mg PO DAILY #30 tablet.ec 02/23/14 Aspirin [Aspirin EC] 81 mg PO DAILY #30 tablet. 04/23/14 Magnesium Oxide 800 mg PO BID 05/24/15 Cyclobenzaprine HCl [Flexeril -] 10 mg PO TID PRN #0 07/29/15 Sucralfate Oral Suspension [Carafate Oral Suspension -] 2 gm NR BID #1250 ml Oxycodone HCl/Acetaminophen [Percocet 5-325 mg Tablet] 1 - 2 tab PO Q6H #20 tablet MDD 4 09/19/16 Atorvastatin Ca [Lipitor] 10 mg PO HS 09/26/16 Bupropion HCl [Wellbutrin Xl -] 150 mg PO DAILY #30 tab 10/02/16 Pramipexole Dihydrochloride [Mirapex -] 0.25 mg PO BID #60 tablet 10/02/16 Family Disease History - Family Disease History Family Disease History: Heart Disease: Mother (mi at 66y/o), Other: Father ( renal mass and from sepsis) Review of Systems - Review of Systems Constitutional: reports: Weakness. denies: Fever, Lethargy, Loss of Appetite, Unintentional Wgt. Loss Gastrointestinal: reports: Constipation Genitourinary: reports: Incontinence Musculoskeletal: denies: Back Pain Integumentary: reports: Blister, Erythema Neurological: reports: No Symptoms Hematology/Lymphatic: reports: No Symptoms Physical Exam Vital Signs: Vital Signs Temperature 98.2 F 05/11/17 15:30 Pulse Rate 111 H 05/11/17 15:30 Respiratory Rate 20 05/11/17 15:30 Blood Pressure 123/70 05/11/17 15:30 O2 Sat by Pulse Oximetry (%) 95 05/11/17 15:30 Constitutional: Yes: Well Nourished Eyes: Yes: Conjunctiva Clear HENT: Yes: Atraumatic, Normocephalic Neck: Yes: Supple, Trachea Midline, Tenderness Respiratory: Yes: Regular, CTA Bilaterally Gastrointestinal: Yes: Normal Bowel Sounds, Soft Extremities: Yes: Erythema, Other (chronic skin changes) Edema: Yes (tenderness R>L) Neurological: Yes: Oriented Labs: CBC, BMP 05/11/17 10:40 05/11/17 10:40 Imaging - Results Cat Scan: Report Reviewed Ultrasound: Report Reviewed Assessment/Plan Afib w/ RVR likely in the setting of Hypothyroidism ( ?etiology) -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 H/O HL/endometrial -reportedly in CR, will need OP f/u with PETCT -explained to the patient. H/o compression fractures: -presently pt asymptomatic d.w admitting resident.
[2017-05-11] MEDS ORDERED: ENOXAPARIN NA (PORCINE) 100 MG/1 ML DISP.SYRIN SQ ONE (19:21)
[2017-05-11] MEDS: ENOXAPARIN NA (PORCINE) 100 MG/1 ML DISP.SYRIN SQ SCH ×2 (20:36→23:25)
[2017-05-11] MEDS ORDERED: HEPARIN NA (PORCINE) 5,000 UNITS/ML 1ML VIAL SQ SCH (22:00)
[2017-05-11] MEDS ORDERED: MAGNESIUM OXIDE 400 MG TABLET (FP) PO SCH (22:00)
[2017-05-11] MEDS ORDERED: ENOXAPARIN NA (PORCINE) 100 MG/1 ML DISP.SYRIN SQ SCH (22:00)
[2017-05-11] MEDS ORDERED: PT OWN MED DRAWER 7, Y5N ONE (23:01)
[2017-05-11] MEDS: INSULIN SLIDING SCALE (NOVOLOG) 1 VIAL SQ SCH (23:24)
[2017-05-11] MEDS: ATORVASTATIN CA 10 MG TABLET (FP) PO SCH (23:25)
[2017-05-11] MEDS: METHIMAZOLE 10 MG TABLET (FP) PO SCH (23:25)
[2017-05-11] MEDS: MAGNESIUM OXIDE 400 MG TABLET (FP) PO SCH (23:26)
[2017-05-11] MEDS ORDERED: CYCLOBENZAPRINE HCL 5 MG TABLET PO SCH (23:45)
[2017-05-11] MEDS ORDERED: CYCLOBENZAPRINE HCL 10 MG TABLET (FP) PO SCH (23:51)
[2017-05-12] MEDS: INSULIN SLIDING SCALE (NOVOLOG) 1 VIAL SQ SCH ×4 (06:04→22:16)
[2017-05-12] MEDS: CYCLOBENZAPRINE HCL 10 MG TABLET (FP) PO SCH ×4 (06:36→22:10)
[2017-05-12] MEDS: PROPRANOLOL HCL 20 MG TABLET PO SCH ×2 (06:37)
[2017-05-12 08:05] LABS: BASO % 0.4 % (0-2.0); EOS % 2.8 % (0-4.5); HEMATOCRIT 27.1 % (32.4-45.2); HEMOGLOBIN 8.4 GM/dL (10.7-15.3); MCH 27.3 pg (25.7-33.7); MCHC 31.2 g/dl (32.0-36.0); MEAN CELL VOLUME 87.8 fl (80-96); MEAN PLT VOLUME 8.8 fl (7.5-11.1); MONO % 9.7 % (3.8-10.2); NEUT % 64.1 % (42.8-82.8); PLATELET COUNT 197 K/MM3 (134-434); RBC 3.09 M/mm3 (3.60-5.2); RDW 15.9 % (11.6-15.6); WHITE BLOOD COUNT 6.7 K/mm3 (4.0-10.0)
[2017-05-12 08:34] LABS: ALBUMIN 2.8 g/dl (3.4-5.0); ANION GAP 8 (8-16); CHLORIDE 106 mmol/L (98-107); CO2 26 mmol/L (21-32); POTASSIUM 3.9 mmol/L (3.5-5.1); SODIUM 140 mmol/L (136-145)
[2017-05-12 08:43] LABS: ALK PHOS 82 U/L (45-117); BILIRUBIN,TOTAL 0.8 mg/dL (0.2-1.0); BLOOD UREA NITROGEN 17 mg/dL (7-18); CALCIUM 8.8 mg/dL (8.5-10.1); CHOLESTEROL 76 mg/dL (50-200); GLUCOSE,RANDOM 72 mg/dL (74-106); HDL CHOLESTEROL 38 mg/dL (40-60); LDH 145 U/L (84-246); LDL CHOLESTEROL (ONLY SJRH) 33 mg/dL (5-100); MAGNESIUM 1.8 mg/dL (1.8-2.4); PHOSPHOROUS 3.9 mg/dL (2.5-4.9); SGOT/AST 10 U/L (15-37); SGPT/ALT 12 U/L (12-78); TOT PROT 5.9 g/dl (6.4-8.2); TRIGLYCERIDES 94 mg/dL (35-160)
[2017-05-12] MEDS ORDERED: PT OWN MED DRAWER 7, Y5N ONE (08:45)
[2017-05-12] MEDS: ASPIRIN COATED 81 MG TABLET.EC PO SCH (09:06)
[2017-05-12] MEDS: METHIMAZOLE 10 MG TABLET (FP) PO SCH ×2 (09:06→22:16)
[2017-05-12] MEDS: DOCUSATE SODIUM 100 MG CAPSULE (FP) PO PRN (09:06)
[2017-05-12] MEDS: ENOXAPARIN NA (PORCINE) 100 MG/1 ML DISP.SYRIN SQ SCH ×2 (09:06→22:16)
--- NOTE | 2017-05-12 11:33 | CON.CARD ---
Consult Consult Specialty:: cardiology Reason for Consultation:: AF; CHF - History of Present Illness Chief Complaint: Pt alert; dyspnea on mild exertion History of Present Illness: "The patient is a 65 year old white female with a significant PMH of Afib, CHF ( low normal LVEF), asthma, hypertension, hyperlipidemia, diabetes, pulmonary hypertension, COPD, coronary artery diease, Hodgkin's lymphoma s/p chemotherapy and radiation, endometrial cancer s/p chemotherapy and radiation, diabetic neuropathy, spinal stenosis, chronic back pain, and carpal tunnel syndrome ( wrists) who presents to the emergency department sent in by Dr. Santo with worsening abdominal pain for a couple of weeks. Pt states that the pain is constant, localized to RLQ, non-radiating. Endorses nausea after eating with a few episodes of emesis, nonbloody. Pt reports constipation for several days, denies diarrhea. Reports subjective fevers as well. The patient states she has not seen her PCP since October due to a shooting pain down her legs from her known compression fxs that prevented her from leaving home. She also notes she has stopped taking all her medications as of January because she was unable to get refills. The patient denies chest pain, shortness of breath, headache and dizziness. Denies dysuria, frequency, urgency and hematuria. Allergies: Penicillins, Ibuprofen Past surgical history: Appendectomy, hysterectomy, femur bypass (left leg) Social history: No reported cigarette, drug, or alcohol use. Furnace Combustion Tester: Dr. Hansen Oncologist: Dr. 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: Other (essential tremor) Cardio/Vascular: Yes: CAD, HTN, Pulmonary Hypertension, Other (PVD S/P STENTS AND GRAFTS BY DR CHRISTENSEN) Pulmonary: Yes: Bronchitis Gastrointestinal: Yes: Constipation, Other (NO HISTORY OF COLONOSCOPY) Renal/: Yes: Renal Inusuff, Neurogenic Bladder Reproductive: Yes: Postmenopausal ...: No Psych: Yes: Anxiety, Depression Musculoskeletal: Yes: Chronic low back pain, Other (spinal stenosis) Rheumatology: Yes: Rheumatoid Arthritis Endocrine: Yes: Diabetes Mellitus - Past Surgical History Past Surgical History: Yes: Appendectomy, Bypass, Hysterectomy - Alcohol/Substance Use Hx Alcohol Use: No History of Substance Use: reports: None - Smoking History Smoking history: Former smoker Have you smoked in the past 12 months: Yes Aproximately how many cigarettes per day: 0 If you are a former smoker, when did you quit?: December 2013 - Social History Usual Living Arrangement: Alone ADL: Independent Occupation: retired, , no pets History of Recent Travel: No Home Medications - Allergies Allergies/Adverse Reactions: Allergies Allergy/AdvReac Type Severity Reaction Status Date / Time Penicillins Allergy Verified 05/11/17 09:29 ibuprofen [From Motrin] AdvReac Verified 05/11/17 09:29 morphine AdvReac Verified 05/11/17 09:29 - Home Medications Home Medications: Ambulatory Orders Amlodipine Besylate [Norvasc -] 2.5 mg PO DAILY #0 tablet 12/20/12 Pantoprazole Sodium [Protonix -] 40 mg PO DAILY #30 tablet.ec 02/23/14 Aspirin [Aspirin EC] 81 mg PO DAILY #30 tablet. 04/23/14 Magnesium Oxide 800 mg PO BID 05/24/15 Cyclobenzaprine HCl [Flexeril -] 10 mg PO TID PRN #0 07/29/15 Sucralfate Oral Suspension [Carafate Oral Suspension -] 2 gm NR BID #1250 ml Oxycodone HCl/Acetaminophen [Percocet 5-325 mg Tablet] 1 - 2 tab PO Q6H #20 tablet MDD 4 09/19/16 Atorvastatin Ca [Lipitor] 10 mg PO HS 09/26/16 Bupropion HCl [Wellbutrin Xl -] 150 mg PO DAILY #30 tab 10/02/16 Pramipexole Dihydrochloride [Mirapex -] 0.25 mg PO BID #60 tablet 10/02/16 Family Disease History - Family Disease History Family Disease History: Heart Disease: Mother (mi at 66y/o), Other: Father ( renal mass and from sepsis) Review of Systems - Review of Systems Constitutional: reports: Weakness Eyes: reports: No Symptoms HENT: reports: No Symptoms Neck: reports: No Symptoms Cardiovascular: reports: Palpitations, Shortness of Breath Respiratory: reports: Exercise Intolerance, SOB on Exertion Gastrointestinal: reports: Indigestion Genitourinary: reports: No Symptoms Breasts: reports: No Symptoms Reported Musculoskeletal: reports: Muscle Pain, Muscle Weakness Integumentary: reports: Lesions, Other (excortions with weeping (multiple bilateral LE wounds)) Endocrine: reports: Intolerance to Cold Hematology/Lymphatic: reports: Other Psychiatric: reports: Anxiety - Risk Factors Known Risk Factors: Yes: Age, Hypertension, Physical Inactivity, Smoking (former ), Other (AF; CHF miils systolic; diastolic)) Vital Signs: Vital Signs Temperature 99.3 F 05/12/17 05:51 Pulse Rate 125 H 05/12/17 05:51 Respiratory Rate 20 05/12/17 05:51 Blood Pressure 112/58 05/12/17 05:51 O2 Sat by Pulse Oximetry (%) 96 05/12/17 00:00 Constitutional: Yes: Anxious Eyes: Yes: WNL HENT: Yes: WNL Neck: Yes: WNL Respiratory: Yes: Diminished Gastrointestinal: Yes: Soft Renal/: No: Anuria Cardiovascular: Yes: Tachycardia, Pulse Irregular JVD: No Carotid Bruit: No Heart Sounds: Yes: S1 (varies in intensity) Murmur: Yes: Systolic Murmur, Grade 2 Musculoskeletal: Yes: Back Pain, Muscle Pain, Muscle Weakness Edema: Yes Edema: LLE: Trace, RLE: Trace Peripheral Pulses WNL: No Peripheral Pulses: 1+ Left Doralis Pedis, 1+ Right Dorsalis Pedis Integumentary: Yes: Venous Stasis Changes, Other (excoriations) Neurological: Yes: Alert, Oriented, Weakness Psychiatric: Yes: Alert, Oriented - Other Data Labs, Other Data: CBC, BMP 05/12/17 05:48 05/12/17 05:48 INR, PTT INR 1.26 (0.82-1.09) H 05/11/17 10:40 Troponin, BNP 05/11/17 21:40 Troponin I 0.02 Troponin, BNP 05/11/17 21:40 Troponin I 0.02 Ejection Fraction %: LVEF > or = 40 % Imaging - Results Chest X-ray: Image Reviewed (no acute pathology) EKG: Image Reviewed (AF with RVR) Problem List - Problems (1) Atrial fibrillation with RVR Assessment/Plan: Changed from diltiazem to propranolol becasue of hyperthyroidism may use metoprolol IVP prn for HR and BP control. IV heoain or Lovenox for Anticoagulation; disucss with hem/onc regarding PO choice of anticoagulation. F/u ECHO results for LVEF, valve status. Code(s): I48.91 - UNSPECIFIED ATRIAL FIBRILLATION (2) Intractable back pain Code(s): M54.9 - DORSALGIA, UNSPECIFIED (3) PAD (peripheral artery disease) Assessment/Plan: F/u with vascular surgeon; wound management. Code(s): I73.9 - PERIPHERAL VASCULAR DISEASE, UNSPECIFIED (4) Anemia Code(s): D64.9 - ANEMIA, UNSPECIFIED Qualifiers: Other causes of anemia: chronic disease, neoplastic (5) Hodgkin lymphoma Assessment/Plan: f/u with hem/oncologist. Code(s): C81.90 - HODGKIN LYMPHOMA, UNSPECIFIED, UNSPECIFIED SITE Qualifiers: Hodgkin lymphoma type: unspecified type Lymphoma site: unspecified region Qualified Code(s): C81.90 - Hodgkin lymphoma, unspecified, unspecified site (6) Pulmonary hypertension Code(s): I27.2 - OTHER SECONDARY PULMONARY HYPERTENSION * DO NOT USE * (7) Type 2 diabetes mellitus Assessment/Plan: start ACEI or ARB for HTN, renal [id number], low-normal LVEF. Code(s): E11.9 - TYPE 2 DIABETES MELLITUS WITHOUT COMPLICATIONS Qualifiers: Diabetes mellitus complication status: with neurologic complications Diabetes mellitus complication detail: with polyneuropathy (8) Hyperthyroidism Code(s): E05.90 - THYROTOXICOSIS, UNSP WITHOUT THYROTOXIC CRISIS OR STORM (9) Chronic combined systolic and diastolic CHF (congestive heart failure) Assessment/Plan: On propranolol. Add ACEI or ARB. F/u BUN/Cr, electrolytes, Is and Os, daily weight. Code(s): I50.42 - CHRONIC COMBINED SYSTOLIC AND DIASTOLIC HRT FAIL
[2017-05-12] MEDS ORDERED: PROPRANOLOL HCL 10 MG TABLET (FP) PO ONE (12:00)
--- NOTE | 2017-05-12 12:09 | PN ---
Progress Note, Physician Chief Complaint: Pt A&Ox3; back pain, leg pain on minimal movement (she says she has been unable to walk for a few months due to the pain and weakness). + Palpitations; dyspnea on mild exertion. History of Present Illness: "The patient is a 65 year old white female with a significant PMH of Afib, CHF ( low normal LVEF), asthma, hypertension, hyperlipidemia, diabetes, pulmonary hypertension, COPD, coronary artery diease, Hodgkin's lymphoma s/p chemotherapy and radiation, endometrial cancer s/p chemotherapy and radiation, diabetic neuropathy, spinal stenosis, chronic back pain, and carpal tunnel syndrome ( wrists) who presents to the emergency department sent in by Dr. Santo with worsening abdominal pain for a couple of weeks. Pt states that the pain is constant, localized to RLQ, non-radiating. Endorses nausea after eating with a few episodes of emesis, nonbloody. Pt reports constipation for several days, denies diarrhea. Reports subjective fevers as well. The patient states she has not seen her PCP since October due to a shooting pain down her legs from her known compression fxs that prevented her from leaving home. She also notes she has stopped taking all her medications as of January because she was unable to get refills. The patient denies chest pain, shortness of breath, headache and dizziness. Denies dysuria, frequency, urgency and hematuria. Allergies: Penicillins, Ibuprofen Past surgical history: Appendectomy, hysterectomy, femur bypass (left leg) Social history: No reported cigarette, drug, or alcohol use. Mechanical Designer: Dr. Hansen Oncologist: Dr. Hansa Bee PCP: NORMAN Castillo" - Current Medication List Current Medications: Active Medications Aspirin (Ecotrin -) 81 mg PO DAILY [facility] Last Admin: 05/12/17 09:06 Dose: 81 mg Atorvastatin Calcium (Lipitor -) 10 mg PO HS [facility] Last Admin: 05/11/17 23:25 Dose: 10 mg Bupropion HCl (Wellbutrin Xl -) 150 mg PO DAILY [facility] Last Admin: 05/12/17 09:07 Dose: 150 mg Cyclobenzaprine HCl (Flexeril -) 10 mg PO TID [facility] Last Admin: 05/12/17 06:36 Dose: 10 mg Docusate Sodium (Colace -) 100 mg PO BID PRN PRN Reason: CONSTIPATION Enoxaparin Sodium (Lovenox -) 100 mg SQ BID [facility] Last Admin: 05/12/17 09:06 Dose: 100 mg Insulin Aspart (Novolog Vial Sliding Scale -) 1 vial SQ ACHS [facility] PRN Reason: Protocol Last Admin: 05/12/17 06:04 Dose: Not Given Magnesium Oxide (Mag-Ox -) 400 mg PO Q2D@1000 [facility] Magnesium Oxide (Mag-Ox -) 400 mg PO Q2D@2200 [facility] Last Admin: 05/11/17 23:26 Dose: 400 mg Methimazole (Tapazole -) 20 mg PO BID [facility] Last Admin: 05/12/17 09:06 Dose: 20 mg Metoprolol Tartrate (Lopressor Injection -) 2.5 mg IVPUSH Q4H PRN PRN Reason: HYPERTENSION Propranolol HCl (Inderal -) 30 mg PO TID [facility] Senna (Senna -) 2 tab PO HS PRN PRN Reason: CONSTIPATION - Objective Vital Signs: Vital Signs Temperature 99.3 F 05/12/17 05:51 Pulse Rate 125 H 05/12/17 05:51 Respiratory Rate 20 05/12/17 05:51 Blood Pressure 112/58 05/12/17 05:51 O2 Sat by Pulse Oximetry (%) 96 05/12/17 00:00 Constitutional: Yes: Calm Eyes: Yes: WNL HENT: Yes: WNL Neck: Yes: WNL Cardiovascular: Yes: Pulse Irregular, S1 (varies in intensity) Labs: CBC, BMP 05/12/17 05:48 05/12/17 05:48 INR, PTT INR 1.26 (0.82-1.09) H 05/11/17 10:40 Problem List - Problems (1) Atrial fibrillation with RVR Assessment/Plan: Increase propranolol to 30 mg q8h; f/u HR and BP. ECHO: low-normal LVEF. Start ACEI or ARB if BP allows. Code(s): I48.91 - UNSPECIFIED ATRIAL FIBRILLATION (2) Intractable back pain Code(s): M54.9 - DORSALGIA, UNSPECIFIED (3) PAD (peripheral artery disease) Assessment/Plan: F/u with vascular surgeon; wound management. Code(s): I73.9 - PERIPHERAL VASCULAR DISEASE, UNSPECIFIED (4) Anemia Code(s): D64.9 - ANEMIA, UNSPECIFIED Qualifiers: Other causes of anemia: chronic disease, neoplastic (5) Hodgkin lymphoma Assessment/Plan: f/u with hem/oncologist. Code(s): C81.90 - HODGKIN LYMPHOMA, UNSPECIFIED, UNSPECIFIED SITE Qualifiers: Hodgkin lymphoma type: unspecified type Lymphoma site: unspecified region Qualified Code(s): C81.90 - Hodgkin lymphoma, unspecified, unspecified site (6) Pulmonary hypertension Code(s): I27.2 - OTHER SECONDARY PULMONARY HYPERTENSION * DO NOT USE * (7) Type 2 diabetes mellitus Code(s): E11.9 - TYPE 2 DIABETES MELLITUS WITHOUT COMPLICATIONS Qualifiers: Diabetes mellitus complication status: with neurologic complications Diabetes mellitus complication detail: with polyneuropathy (8) Hyperthyroidism Code(s): E05.90 - THYROTOXICOSIS, UNSP WITHOUT THYROTOXIC CRISIS OR STORM (9) Chronic combined systolic and diastolic CHF (congestive heart failure) Assessment/Plan: On propranolol. Add ACEI or ARB. F/u BUN/Cr, electrolytes, Is and Os, daily weight. Code(s): I50.42 - CHRONIC COMBINED SYSTOLIC AND DIASTOLIC HRT FAIL
--- NOTE | 2017-05-12 12:28 | CONSULT ---
Consult - History of Present Illness History of Present Illness: 66 year old woman with history of left peroneal bypass 2014. Last office visit 1 year ago. She has chronic leg swelling and pain in right calf. SHe reports drainage from both calves. She is admitted with abdominal pain and weakness. 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 (essential tremor) Cardio/Vascular: Yes: CAD, HTN, Pulmonary Hypertension, Other (PVD S/P STENTS AND GRAFTS BY DR CHRISTENSEN) Pulmonary: Yes: Bronchitis Gastrointestinal: Yes: Constipation, Other (NO HISTORY OF COLONOSCOPY) Renal/: Yes: Renal Inusuff, Neurogenic Bladder ...: No Psych: Yes: Anxiety, Depression Musculoskeletal: Yes: Chronic low back pain, Other (spinal stenosis) Rheumatology: Yes: Rheumatoid Arthritis Endocrine: Yes: Diabetes Mellitus - Past Surgical History Past Surgical History: Yes: Appendectomy, Bypass, Hysterectomy - Alcohol/Substance Use Hx Alcohol Use: No History of Substance Use: reports: None - Smoking History Smoking history: Former smoker Have you smoked in the past 12 months: Yes Aproximately how many cigarettes per day: 0 If you are a former smoker, when did you quit?: December 2013 - Social History Usual Living Arrangement: Alone ADL: Independent Occupation: retired, , no pets History of Recent Travel: No Home Medications - Allergies Allergies/Adverse Reactions: Allergies Allergy/AdvReac Type Severity Reaction Status Date / Time Penicillins Allergy Verified 05/11/17 09:29 ibuprofen [From Motrin] AdvReac Verified 05/11/17 09:29 morphine AdvReac Verified 05/11/17 09:29 - Home Medications Home Medications: Ambulatory Orders Amlodipine Besylate [Norvasc -] 2.5 mg PO DAILY #0 tablet 12/20/12 Pantoprazole Sodium [Protonix -] 40 mg PO DAILY #30 tablet.ec 02/23/14 Aspirin [Aspirin EC] 81 mg PO DAILY #30 tablet. 04/23/14 Magnesium Oxide 800 mg PO BID 05/24/15 Cyclobenzaprine HCl [Flexeril -] 10 mg PO TID PRN #0 07/29/15 Sucralfate Oral Suspension [Carafate Oral Suspension -] 2 gm NR BID #1250 ml Oxycodone HCl/Acetaminophen [Percocet 5-325 mg Tablet] 1 - 2 tab PO Q6H #20 tablet MDD 4 09/19/16 Atorvastatin Ca [Lipitor] 10 mg PO HS 09/26/16 Bupropion HCl [Wellbutrin Xl -] 150 mg PO DAILY #30 tab 10/02/16 Pramipexole Dihydrochloride [Mirapex -] 0.25 mg PO BID #60 tablet 10/02/16 Family Disease History - Family Disease History Family Disease History: Heart Disease: Mother (mi at 66y/o), Other: Father ( renal mass and from sepsis) Physical Exam Vital Signs: Vital Signs Temperature 99.3 F 05/12/17 05:51 Pulse Rate 125 H 05/12/17 05:51 Respiratory Rate 20 05/12/17 05:51 Blood Pressure 112/58 05/12/17 05:51 O2 Sat by Pulse Oximetry (%) 96 05/12/17 00:00 Constitutional: Yes: No Distress Edema: Yes Edema: LLE: 3+, RLE: 3+ Peripheral Pulses WNL: No Integumentary: Yes: Onychomycosis, Other (Skin of feet and ankles thickened) Wound/Incision: Yes: Other (No open wounds, thin epithelium on posterior calves - no active drainage.) Labs: CBC, BMP 05/12/17 05:48 05/12/17 05:48 Problem List - Problems (1) Peripheral arterial occlusive disease Assessment/Plan: No active symptoms of PAD. Chronic edema and stasis skin changes in both legs. Rec: Moisturizer to skin. Bacitracin ointment to calves. Code(s): I77.9 - DISORDER OF ARTERIES AND ARTERIOLES, UNSPECIFIED
[2017-05-12] MEDS: PROPRANOLOL HCL 10 MG TABLET (FP) PO SCH ×3 (12:33→22:11)
--- NOTE | 2017-05-12 13:37 | CONSULT ---
Consult Consult Specialty:: Endocrinology Referred by:: Dr Mota Reason for Consultation:: Hyperthyroidism - History of Present Illness Chief Complaint: Abd pain History of Present Illness: This is a 65 year old female with h/o of Afib, asthma, hypertension, hyperlipidemia, T2DM currently on diet, pulmonary hypertension, COPD, coronary artery diease, Hodgkin's lymphoma s/p chemotherapy and radiation, endometrial cancer s/p chemotherapy and radiation, diabetic neuropathy, spinal stenosis, chronic back pain, and carpal tunnel syndrome (wrists) who presented to the emergency department sent in by Dr. Santo with worsening abdominal pain for a couple of weeks. Pt stateed that the pain was constant, localized to RLQ, non- radiating. Endorses nausea after eating with a few episodes of emesis, nonbloody. Pt reports constipation for several days, denies diarrhea. She also notes she has stopped taking all her medications as of January because she was unable to get refills. Pt found have abnormal TFTs and referred for evaluation. Denies any recent change in wt. No palpitations. Has tremors of hands which she attributes to essential tremors she has for more than 20 years. Has cold intolerance. Family h /o of thyroid disorder ?Graves in father and sister. Was told she has a few years ago by her green coffee blender. She was also treated for hypothyroidism in 1982 for a few months. 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 (essential tremor) Cardio/Vascular: Yes: CAD, HTN, Pulmonary Hypertension, Other (PVD S/P STENTS AND GRAFTS BY DR CHRISTENSEN) Pulmonary: Yes: Bronchitis Gastrointestinal: Yes: Constipation, Other (NO HISTORY OF COLONOSCOPY) Renal/: Yes: Renal Inusuff, Neurogenic Bladder ...: No Psych: Yes: Anxiety, Depression Musculoskeletal: Yes: Chronic low back pain, Other (spinal stenosis) Rheumatology: Yes: Rheumatoid Arthritis Endocrine: Yes: Diabetes Mellitus, Other (Goiter) - Past Surgical History Past Surgical History: Yes: Appendectomy, Bypass, Hysterectomy - Alcohol/Substance Use Hx Alcohol Use: No History of Substance Use: reports: None - Smoking History Smoking history: Former smoker Have you smoked in the past 12 months: Yes Aproximately how many cigarettes per day: 0 If you are a former smoker, when did you quit?: December 2013 - Social History Usual Living Arrangement: Alone ADL: Independent Occupation: retired, , no pets History of Recent Travel: No Home Medications - Allergies Allergies/Adverse Reactions: Allergies Allergy/AdvReac Type Severity Reaction Status Date / Time Penicillins Allergy Verified 05/11/17 09:29 ibuprofen [From Motrin] AdvReac Verified 05/11/17 09:29 morphine AdvReac Verified 05/11/17 09:29 - Home Medications Home Medications: Ambulatory Orders Amlodipine Besylate [Norvasc -] 2.5 mg PO DAILY #0 tablet 12/20/12 Pantoprazole Sodium [Protonix -] 40 mg PO DAILY #30 tablet.ec 02/23/14 Aspirin [Aspirin EC] 81 mg PO DAILY #30 tablet.dr 04/23/14 Magnesium Oxide 800 mg PO BID 05/24/15 Cyclobenzaprine HCl [Flexeril -] 10 mg PO TID PRN #0 07/29/15 Sucralfate Oral Suspension [Carafate Oral Suspension -] 2 gm NR BID #1250 ml Oxycodone HCl/Acetaminophen [Percocet 5-325 mg Tablet] 1 - 2 tab PO Q6H #20 tablet MDD 4 09/19/16 Atorvastatin Ca [Lipitor] 10 mg PO HS 09/26/16 Bupropion HCl [Wellbutrin Xl -] 150 mg PO DAILY #30 tab 10/02/16 Pramipexole Dihydrochloride [Mirapex -] 0.25 mg PO BID #60 tablet 10/02/16 Family Disease History - Family Disease History Family Disease History: Heart Disease: Mother (mi at 66y/o), Other: Father ( renal mass and from sepsis) Other Family History: Hyperthyroidism in Father and Sister ?Graves Review of Systems - Review of Systems Constitutional: reports: Weakness Eyes: reports: No Symptoms HENT: reports: No Symptoms Cardiovascular: reports: No Symptoms Respiratory: reports: No Symptoms Gastrointestinal: reports: Abdominal Pain Genitourinary: reports: No Symptoms Musculoskeletal: reports: No Symptoms Neurological: reports: No Symptoms Endocrine: reports: No Symptoms Hematology/Lymphatic: reports: No Symptoms Physical Exam Vital Signs: Vital Signs Temperature 99.3 F 05/12/17 05:51 Pulse Rate 121 H 05/12/17 12:00 Respiratory Rate 20 05/12/17 05:51 Blood Pressure 121/72 12/23/17 12:00 O2 Sat by Pulse Oximetry (%) 96 05/12/17 00:00 Constitutional: Yes: No Distress, Calm Eyes: Yes: Conjunctiva Clear, EOM Intact HENT: Yes: Atraumatic, Normocephalic Neck: Yes: Supple, Trachea Midline Cardiovascular: Yes: Pulse Irregular Gastrointestinal: Yes: Normal Bowel Sounds, Soft Renal/: Yes: WNL Extremities: Yes: WNL, Other (Stasis changes of legs) Neurological: Yes: Alert, Oriented Labs: CBC, BMP 05/12/17 05:48 05/12/17 05:48 Problem List - Problems (1) Atrial fibrillation with RVR Code(s): I48.91 - UNSPECIFIED ATRIAL FIBRILLATION (2) Hyperthyroidism Code(s): E05.90 - THYROTOXICOSIS, UNSP WITHOUT THYROTOXIC CRISIS OR STORM (3) H/O malignant neoplasm of endometrium Code(s): Z85.42 - PERSONAL HISTORY OF MALIGNANT NEOPLASM OF OTH PRT UTERUS (4) Hodgkin lymphoma Code(s): C81.90 - HODGKIN LYMPHOMA, UNSPECIFIED, UNSPECIFIED SITE Qualifiers: Hodgkin lymphoma type: unspecified type Lymphoma site: unspecified region Qualified Code(s): C81.90 - Hodgkin lymphoma, unspecified, unspecified site (5) Type 2 diabetes mellitus Code(s): E11.9 - TYPE 2 DIABETES MELLITUS WITHOUT COMPLICATIONS Qualifiers: Diabetes mellitus complication status: with neurologic complications Diabetes mellitus complication detail: with polyneuropathy Assessment/Plan AP; Hyperthyroidism H/O Goiter ?Nodules A Fib DM H/O Hodgkin's Lymphoma H/O Endometrial Ca Stasis changes of lege PAD Fatty Liver on ultrasound continue Propranolol Methimazole 20mg BID Monitor TFT, IV contrast could make the hyperthyroidism worse FT4, FT3, TSI, TPO in a.m. Thyroid ultrasound Cardiology, Hem/Onc and vascular surgery consults noted Will F/u
[2017-05-12] MEDS: BACITRACIN 15 GM TUBE TOPICAL OINTMENT TP SCH (13:43)
--- NOTE | 2017-05-12 13:45 | PN ---
Progress Note (short form) - Note Progress Note: Seen in follow up. No new complaints. Pain / weakness lower extremities - baseline. Meds reviewed. Current Medications Generic Name Dose Route Start Last Admin Trade Name Freq PRN Reason Stop Dose Admin Aspirin 81 mg 05/11/17 16:30 05/12/17 09:06 Ecotrin - PO 81 mg DAILY CRISTOFER Administration Atorvastatin Calcium 10 mg 05/11/17 22:00 05/11/17 23:25 Lipitor - PO 10 mg HS CRISTOFER Administration Bacitracin 1 applic 05/12/17 12:30 05/12/17 13:43 Bacitracin - TP 1 applic DAILY CRISTOFER Administration Bupropion HCl 150 mg 05/11/17 16:30 05/12/17 09:07 Wellbutrin Xl - PO 150 mg DAILY CRISTOFER Administration Cyclobenzaprine HCl 10 mg 05/11/17 23:45 05/12/17 13:42 Flexeril - PO 10 mg TID CRISTOFER Administration Docusate Sodium 100 mg 05/11/17 16:46 Colace - PO BID PRN CONSTIPATION Enoxaparin Sodium 100 mg 05/11/17 16:45 05/12/17 09:06 Lovenox - SQ 100 mg BID CRISTOFER Administration Insulin Aspart 1 vial 05/11/17 22:00 05/12/17 12:10 Novolog Vial Sliding Scale - SQ Not Given [facility] Protocol Magnesium Oxide 400 mg 05/13/17 10:00 Mag-Ox - PO Q2D@1000 CRISTOFER Magnesium Oxide 400 mg 05/11/17 22:00 05/11/17 23:26 Mag-Ox - PO 400 mg Q2D@2200 CRISTOFER Administration Methimazole 20 mg 05/11/17 22:00 05/12/17 09:06 Tapazole - PO 20 mg BID CRISTOFER Administration Metoprolol Tartrate 2.5 mg 05/11/17 16:32 Lopressor Injection - IVPUSH Q4H PRN HYPERTENSION Propranolol HCl 30 mg 05/12/17 14:00 05/12/17 12:33 Inderal - PO 30 mg TID CRISTOFER Administration Senna 2 tab 05/11/17 16:46 Senna - PO HS PRN CONSTIPATION On exam: Last Vital Signs Temp Pulse Resp BP Pulse Ox 98.2 F 96 H 113 H 107/72 95 01/28/17 11:00 01/28/17 11:00 01/28/17 11:00 01/27/17 22:00 01/27/17 21:00 General: Looks well, supine in bed, but ambulant. CVS: s1, S2, no gallop or murmur. Extremities: No pallor, no icterus. Chest:breathing comfortably, clear. Abdomen: Not distended, non-tender, normal bowel sounds. Neuro: Alert, oriented, non-focal. CBC, BMP 05/12/17 05:48 05/12/17 05:48 Assessment. Patient with complicated oncology history - previous Hodgkins, previosus endometrial ca, believed to be in remission, presently here with AF with RVR, and hyperthyroidism. Management as per endocrinology and cardiology. Noted chronic mild anemia, but currently below baseline, observe. Check stools for occult blood. Concern about 3cm mass anterior to abdominal aorta, seen on CT scan 05/10 - new - possible lymph node. Will require PET following discharged to better characterize.
--- NOTE | 2017-05-12 20:35 | PN ---
Physical Exam: SUBJECTIVE: Patient seen and examined Patient is still tachycardic. Patient feels tired. Denies any palpitations. No chest pain. OBJECTIVE: Vital Signs Temperature 98.8 F 05/12/17 17:00 Pulse Rate 118 H 05/12/17 17:00 Respiratory Rate 18 05/12/17 17:00 Blood Pressure 118/53 05/12/17 17:00 O2 Sat by Pulse Oximetry (%) 96 05/12/17 09:00 GENERAL: The patient is awake, alert, and fully oriented, in no acute distress. HEAD: Normal with no signs of trauma. EYES: PERRL, extraocular movements intact, sclera anicteric, conjunctiva clear. ENT: Ears normal, oropharynx clear without exudates, moist mucous membranes. NECK: Trachea midline, full range of motion, supple. LUNGS: Breath sounds equal, clear to auscultation bilaterally, no wheezes, no crackles, no accessory muscle use. HEART: irregularly irregular, rate of 118, S1, S2 positive , no murmur appreciated , rub or gallop. ABDOMEN: Soft, nontender, nondistended, normoactive bowel sounds, no guarding, no rebound, no hepatosplenomegaly, no masses. EXTREMITIES: 2+ pulses, warm, well-perfused, no edema. NEUROLOGICAL: Cranial nerves II through XII grossly intact. Normal speech, gait not observed. PSYCH: Normal mood, normal affect. SKIN: Warm, dry, normal turgor, no rashes or lesions noted. Laboratory Results - last 24 hr 05/11/17 05/11/17 05/11/17 14:15 21:40 23:23 WBC RBC Hgb Hct MCV MCH MCHC RDW Plt Count MPV Neutrophils % Lymphocytes % Monocytes % Eosinophils % Basophils % ESR Sodium Potassium Chloride Carbon Dioxide Anion Gap BUN Creatinine Creat Clearance w eGFR POC Glucometer 102 Random Glucose Hemoglobin A1c % Calcium Phosphorus Magnesium Total Bilirubin AST ALT Alkaline Phosphatase LD Total Troponin I 0.02 Total Protein Albumin Triglycerides Cholesterol Total LDL Cholesterol HDL Cholesterol Free T3 8.2 H 05/12/17 05/12/17 05/12/17 05:30 05:48 05:48 WBC 6.7 RBC 3.09 L Hgb 8.4 L D Hct 27.1 L MCV 87.8 MCH 27.3 MCHC 31.2 L RDW 15.9 H Plt Count 197 MPV 8.8 Neutrophils % 64.1 Lymphocytes % 23.0 D Monocytes % 9.7 Eosinophils % 2.8 Basophils % 0.4 ESR Sodium 140 Potassium 3.9 Chloride 106 Carbon Dioxide 26 Anion Gap 8 BUN 17 Creatinine 1.0 Creat Clearance w eGFR 55.14 POC Glucometer 95 Random Glucose 72 L D Hemoglobin A1c % Calcium 8.8 Phosphorus 3.9 D Magnesium 1.8 Total Bilirubin 0.8 AST 10 L ALT 12 Alkaline Phosphatase 82 LD Total 145 D Troponin I Total Protein 5.9 L Albumin 2.8 L Triglycerides 94 D Cholesterol 76 D Total LDL Cholesterol 33 HDL Cholesterol 38 L Free T3 05/12/17 05/12/17 05/12/17 05:48 05:48 11:55 WBC RBC Hgb Hct MCV MCH MCHC RDW Plt Count MPV Neutrophils % Lymphocytes % Monocytes % Eosinophils % Basophils % ESR 70 H Sodium Potassium Chloride Carbon Dioxide Anion Gap BUN Creatinine Creat Clearance w eGFR POC Glucometer 121 Random Glucose Hemoglobin A1c % 5.1 D Calcium Phosphorus Magnesium Total Bilirubin AST ALT Alkaline Phosphatase LD Total Troponin I Total Protein Albumin Triglycerides Cholesterol Total LDL Cholesterol HDL Cholesterol Free T3 05/12/17 17:45 WBC RBC Hgb Hct MCV MCH MCHC RDW Plt Count MPV Neutrophils % Lymphocytes % Monocytes % Eosinophils % Basophils % ESR Sodium Potassium Chloride Carbon Dioxide Anion Gap BUN Creatinine Creat Clearance w eGFR POC Glucometer 98 Random Glucose Hemoglobin A1c % Calcium Phosphorus Magnesium Total Bilirubin AST ALT Alkaline Phosphatase LD Total Troponin I Total Protein Albumin Triglycerides Cholesterol Total LDL Cholesterol HDL Cholesterol Free T3 Active Medications Generic Name Dose Route Start Last Admin Trade Name Freq PRN Reason Stop Dose Admin Aspirin 81 mg 05/11/17 16:30 05/12/17 09:06 Ecotrin - PO 81 mg DAILY CRISTOFER Administration Atorvastatin Calcium 10 mg 05/11/17 22:00 05/11/17 23:25 Lipitor - PO 10 mg HS CRISTOFER Administration Bacitracin 1 applic 05/12/17 12:30 05/12/17 13:43 Bacitracin - TP 1 applic DAILY CRISTOFER Administration Bupropion HCl 150 mg 05/11/17 16:30 05/12/17 09:07 Wellbutrin Xl - PO 150 mg DAILY CRISTOFER Administration Cyclobenzaprine HCl 10 mg 05/11/17 23:45 05/12/17 13:43 Flexeril - PO Not Given TID CRISTOFER Docusate Sodium 100 mg 05/11/17 16:46 Colace - PO BID PRN CONSTIPATION Enoxaparin Sodium 100 mg 05/11/17 16:45 05/12/17 09:06 Lovenox - SQ 100 mg BID CRISTOFER Administration Insulin Aspart 1 vial 05/11/17 22:00 05/12/17 19:35 Novolog Vial Sliding Scale - SQ Not Given ACHS CRISTOFER Protocol Magnesium Oxide 400 mg 05/13/17 10:00 Mag-Ox - PO Q2D@1000 CRISTOFER Magnesium Oxide 400 mg 05/11/17 22:00 05/11/17 23:26 Mag-Ox - PO 400 mg Q2D@2200 CRISTOFER Administration Methimazole 20 mg 05/11/17 22:00 05/12/17 09:06 Tapazole - PO 20 mg BID CRISTOFER Administration Metoprolol Tartrate 2.5 mg 05/11/17 16:32 Lopressor Injection - IVPUSH Q4H PRN HYPERTENSION Propranolol HCl 30 mg 05/12/17 14:00 05/12/17 13:44 Inderal - PO Not Given TID CRISTOFER Senna 2 tab 05/11/17 16:46 Senna - PO HS PRN CONSTIPATION Laboratory Tests 05/11/17 05/11/17 05/11/17 09:58 10:40 13:47 B-Natriuretic Peptide 6276.89 H TSH < 0.01 L D Free T4 3.81 H Free T3 05/11/17 14:15 B-Natriuretic Peptide TSH Free T4 Free T3 8.2 H ASSESSMENT/PLAN: Patient is a 66 year old female with past medical history of Asthma, HTN, HLD, diet controlled diabetes, pulmonary hypertension, COPD, CAD, Hodgkins lymphoma (Dx in 2013 s/p chemo and radiation until 2014) and endometrial CA s/p chemotherapy (last 08/2015)and radiation (last 10/2015) with metastasis, diabetic neuropathy, spinal stenosis, chronic back pain with compression fracure to L1 and L3. and carpal tunnel syndrome. was sent in to the ED by Dr. Santo for further evaluation of abdominal pain. # Atrial fibrillation with RVR triggerd by hyperthyroidism with HR 118 presented with a rate of 175; CHADSVASC Score-4, Lovenox 100mg sq BID (1mg/kg) Dr. Nye cardiology consult appreciated. # Newly diagnosed Hyperthyroidism- started on Methimazole 20mg po bid, is consulted & appreciated , TSH-<0.01. Free T4-3.81, FT3-8.2 # Abdominal pain-likely due to constipation c/o abd pain since 10days, last Bowel movement was 10 days ago. Glycerin suppository, Colace, Senna. If she doesn't move her bowel then manual fecal disimpaction might be needed. # Lower extremity swelling and calf pain- likely due to venous stasis , DVT w/ u is negative # B/L lower extremity wound dressing daily, as per Dr. Camarillo # Hodgkins lymphoma and endometrial CA with mets s/p chemo and radiation , increased in size since 09/19/2016 hypodense mass anterior to the lower abdominal aorta that may represent an enlarged lymph node. management as per oncology Dr. Bray. # Hypertension-uncontrolled started on Propanolol titrate up as needed for rate control. # Diabetes Mellitus ISS with coverage # Normocytic anemia Hb-9.4, baseline around 9-10. # Chronic low back pain-due to compression # in L1 and L3, Tylenol PRN # DVT px: On lovenox sq full dose # Code Status: Full code Visit type - Emergency Visit Emergency Visit: Yes ED Registration Date: 05/11/17 Care time: The patient presented to the Emergency Department on the above date and was hospitalized for further evaluation of their emergent condition. - New Patient This patient is new to me today: No - Critical Care Critical Care patient: No
[2017-05-12] MEDS: ATORVASTATIN CA 10 MG TABLET (FP) PO SCH (22:11)
[2017-05-13] MEDS: METOPROLOL TARTRATE 5 MG/5 ML VIAL IVPUSH PRN (01:22)
[2017-05-13] MEDS: CYCLOBENZAPRINE HCL 10 MG TABLET (FP) PO SCH ×3 (06:44→22:20)
[2017-05-13] MEDS: INSULIN SLIDING SCALE (NOVOLOG) 1 VIAL SQ SCH (06:45)
[2017-05-13] MEDS: PROPRANOLOL HCL 10 MG TABLET (FP) PO SCH (06:45)
[2017-05-13 07:58] LABS: EOS % 4.5 % (0-4.5); HEMATOCRIT 26.6 % (32.4-45.2); HEMOGLOBIN 8.2 GM/dL (10.7-15.3); LYMPH % 22.5 % (8-40); MCH 27.2 pg (25.7-33.7); MCHC 30.9 g/dl (32.0-36.0); MEAN CELL VOLUME 87.8 fl (80-96); MONO % 10.7 % (3.8-10.2); NEUT % 61.3 % (42.8-82.8); PLATELET COUNT 181 K/MM3 (134-434); RBC 3.03 M/mm3 (3.60-5.2); RDW 15.9 % (11.6-15.6); WHITE BLOOD COUNT 6.2 K/mm3 (4.0-10.0)
[2017-05-13 08:36] LABS: ALBUMIN 2.7 g/dl (3.4-5.0); ANION GAP 7 (8-16); BLOOD UREA NITROGEN 19 mg/dL (7-18); CALCIUM 8.4 mg/dL (8.5-10.1); CHLORIDE 106 mmol/L (98-107); CO2 27 mmol/L (21-32); GLUCOSE,RANDOM 89 mg/dL (74-106); MAGNESIUM 1.8 mg/dL (1.8-2.4); SODIUM 140 mmol/L (136-145)
[2017-05-13 08:40] LABS: ALK PHOS 76 U/L (45-117); BILIRUBIN,TOTAL 0.6 mg/dL (0.2-1.0); CREATININE 0.9 mg/dL (0.55-1.02); PHOSPHOROUS 3.9 mg/dL (2.5-4.9); SGOT/AST 8 U/L (15-37); SGPT/ALT 11 U/L (12-78); TOT PROT 5.7 g/dl (6.4-8.2)
--- NOTE | 2017-05-13 09:01 | PN ---
Physical Exam: SUBJECTIVE: Patient seen and examined at bed side this morning. Complaints of chronic low back pain and b/l leg pain. Pt said she had disturbed sleep last night and decreased appetite this morning. Denies chest pain, sob, cough, palpitation, nausea or vomiting. Abdominal pain has resolved. As per RN, no acute overnight events. Yesterday, she refused suppository and colace. Hasn't moved her bowels yet. OBJECTIVE: Vital Signs Period Temp Pulse Resp BP Sys/Peguero Pulse Ox Last 24 Hr 97.8 F-99.6 F 112-133 18-20 101-121/50-72 97 GENERAL: Patient lying in bed, Awake, alert, and fully oriented, in no acute distress. HEAD: Normal with no signs of trauma. EYES: EOM intact, no pallor, no icterus. EARS, NOSE, THROAT: Ears normal. Moist mucous membranes. NECK: Supple. LUNGS: Breath sounds equal, clear to auscultation bilaterally. No wheezes, and no crackles. No accessory muscle use. HEART: Tachycardia, Regular rate and rhythm, normal S1 and S2 with systolic murmur + ABDOMEN: Soft, non tender , not distended, normoactive bowel sounds, no guarding , no rebound, no masses. Hepatosplenomegaly couldn't be appreciated. MUSCULOSKELETAL: Normal range of motion at all joints. No bony deformities or tenderness. No CVA tenderness. UPPER EXTREMITIES: 2+ pulses, warm, well-perfused. No cyanosis. No clubbing. No peripheral edema. LOWER EXTREMITIES: 2+ pulses, warm, well-perfused. B/L calf tenderness. B/L pitting peripheral edema, B/L lower extremity superficial ulcers with minimal drainage, fowl smelling +. B/L Foot- skin looks very dry, cracking, Onychomycosis ?. NEUROLOGICAL: No facial droop, power 4/5 in upper and lower extremities, Cranial nerves II-XII intact. Normal speech. Gait not observed. Mild extremity tremor. PSYCHIATRIC: Cooperative. Good eye contact. Appropriate mood and affect. SKIN: Warm, dry, normal turgor, no rashes or lesions noted, normal capillary refill. Laboratory Results - last 24 hr 05/12/17 05/12/17 05/12/17 05:48 05:48 05:48 WBC RBC Hgb Hct MCV MCH MCHC RDW Plt Count MPV Neutrophils % Lymphocytes % Monocytes % Eosinophils % Basophils % ESR 70 H Sodium Potassium Chloride Carbon Dioxide Anion Gap BUN Creatinine Creat Clearance w eGFR POC Glucometer Random Glucose Hemoglobin A1c % 5.1 D Calcium Phosphorus Magnesium Total Bilirubin AST ALT Alkaline Phosphatase Total Protein Albumin CA 125 Antigen 36.1 Free T4 05/12/17 05/12/17 05/12/17 11:55 17:45 22:00 WBC RBC Hgb Hct MCV MCH MCHC RDW Plt Count MPV Neutrophils % Lymphocytes % Monocytes % Eosinophils % Basophils % ESR Sodium Potassium Chloride Carbon Dioxide Anion Gap BUN Creatinine Creat Clearance w eGFR POC Glucometer 121 98 110 Random Glucose Hemoglobin A1c % Calcium Phosphorus Magnesium Total Bilirubin AST ALT Alkaline Phosphatase Total Protein Albumin CA 125 Antigen Free T4 05/13/17 05/13/17 05/13/17 05:45 05:45 06:42 WBC 6.2 RBC 3.03 L Hgb 8.2 L Hct 26.6 L MCV 87.8 MCH 27.2 MCHC 30.9 L RDW 15.9 H Plt Count 181 MPV 9.0 Neutrophils % 61.3 Lymphocytes % 22.5 Monocytes % 10.7 H Eosinophils % 4.5 Basophils % 1.0 ESR Sodium 140 Potassium 4.0 Chloride 106 Carbon Dioxide 27 Anion Gap 7 L BUN 19 H Creatinine 0.9 Creat Clearance w eGFR > 60 POC Glucometer 112 Random Glucose 89 D Hemoglobin A1c % Calcium 8.4 L Phosphorus 3.9 Magnesium 1.8 Total Bilirubin 0.6 D AST 8 L ALT 11 L Alkaline Phosphatase 76 Total Protein 5.7 L Albumin 2.7 L CA 125 Antigen Free T4 2.56 H D Active Medications Generic Name Dose Route Start Last Admin Trade Name Dongq PRN Reason Stop Dose Admin Aspirin 81 mg 05/11/17 16:30 05/12/17 09:06 Ecotrin - PO 81 mg DAILY CRISTOFER Administration Atorvastatin Calcium 10 mg 05/11/17 22:00 05/12/17 22:11 Lipitor - PO 10 mg HS CRISTOFER Administration Bacitracin 1 applic 05/12/17 12:30 05/12/17 13:43 Bacitracin - TP 1 applic DAILY CRISTOFER Administration Bupropion HCl 150 mg 05/11/17 16:30 05/12/17 09:07 Wellbutrin Xl - PO 150 mg DAILY CRISTOFER Administration Cyclobenzaprine HCl 10 mg 05/11/17 23:45 05/13/17 06:44 Flexeril - PO 10 mg TID CRISTOFER Administration Docusate Sodium 100 mg 05/11/17 16:46 Colace - PO BID PRN CONSTIPATION Enoxaparin Sodium 100 mg 05/11/17 16:45 05/12/17 22:16 Lovenox - SQ 100 mg BID CRISTOFER Administration Magnesium Oxide 400 mg 05/13/17 10:00 Mag-Ox - PO Q2D@1000 CRISTOFER Magnesium Oxide 400 mg 05/11/17 22:00 05/11/17 23:26 Mag-Ox - PO 400 mg Q2D@2200 CRISTOFER Administration Methimazole 20 mg 05/11/17 22:00 05/12/17 22:16 Tapazole - PO 20 mg BID CRISTOFER Administration Metoprolol Tartrate 2.5 mg 05/11/17 16:32 05/13/17 01:22 Lopressor Injection - IVPUSH 2.5 mg Q4H PRN Administration HYPERTENSION Propranolol HCl 30 mg 05/12/17 14:00 05/13/17 06:45 Inderal - PO 30 mg TID CRISTOFER Administration Senna 2 tab 05/11/17 16:46 Senna - PO HS PRN CONSTIPATION ASSESSMENT/PLAN: Patient is a 66 year old female with past medical history of Asthma, HTN, HLD, diet controlled diabetes, pulmonary hypertension, COPD, CAD, Hodgkins lymphoma (Dx in 2013 s/p chemo and radiation until 2014) and endometrial CA s/p chemotherapy (last 08/2015)and radiation (last 10/2015) with metastasis, diabetic neuropathy, spinal stenosis, chronic back pain with compression fracure to L1 and L3. and carpal tunnel syndrome. was sent in to the ED by Dr. Santo for further evaluation of abdominal pain. # Atrial fibrillation with RVR Tele monitor reviewed-still in afib, HR around 110-116 bpm this morning. Propanolol increased to 30mg TID since yesterday. If needed can use IV Metoprolol 2.5 mg Q4H PRN if BP is controlled. CHADSVASC Score-4 Lovenox 100mg sq BID (1mg/kg) # Hyperthyroidism- possibly could be in thyrotoxicosis Free T4-3.81--> 2.56 , Free T3 8.2---> pending Could have been aggravated by the use of IV contrast. On Methimazole 20mg PO BID. # Abdominal pain-likely due to constipation Last Bowel movement was 14 days ago. Per rectal exam deferred. She refused suppository and Colace. Counselled pt to take meds. # Lower extremity swelling and calf pain- DVT ruled out # B/L lower extremity wound wound dressing daily, as per Dr. Camarillo Has allergies to lotion. Application of Eucerin in the foot area. Podiatry consult to be requested. # Fungal inf in right inguinal region Nystatin TP # Hodgkins lymphoma and endometrial CA with mets s/p chemo and radiation Management as per oncology # Hypertension-uncontrolled On Propanolol for rate control. Low salt diet # H/O Diabetes Mellitus A1c in 2011 7.2, this admission it is 5.1 Insulin sliding scale Finger stick glucose monitoring Watch for hypoglycemic episodes Diabetic diet # Normocytic anemia Hb-8.2, baseline around 9-10. Iron work up done in the past No active bleeding at this time. # Chronic low back pain-due to compression # in L1 and L3 Tylenol PRN # FEN Not on IV fluids Electrolytes to be repeated in am. Sodium controlled/Diabetic diet # Prophylaxis For DVT: On lovenox sq For GI: Not indicated # Code Status: Full code # Dispo: Admitted in Tele. Duration of stay unknown. Needs PT eval once stable. Illness, Investigation and Plan of care explained to the patient. She verbalized understanding. Case discussed with Dr. Mota. Visit type - Emergency Visit Emergency Visit: Yes ED Registration Date: 05/11/17 Care time: The patient presented to the Emergency Department on the above date and was hospitalized for further evaluation of their emergent condition. - New Patient This patient is new to me today: No - Critical Care Critical Care patient: No
[2017-05-13] MEDS ORDERED: PT OWN MED DRAWER 7, Y5N ONE (09:47)
[2017-05-13] MEDS: METHIMAZOLE 10 MG TABLET (FP) PO SCH ×2 (10:30→22:23)
[2017-05-13] MEDS: BACITRACIN 15 GM TUBE TOPICAL OINTMENT TP SCH (10:31)
[2017-05-13] MEDS: ENOXAPARIN NA (PORCINE) 100 MG/1 ML DISP.SYRIN SQ SCH ×2 (10:31→22:21)
[2017-05-13] MEDS: DOCUSATE SODIUM 100 MG CAPSULE (FP) PO PRN (10:31)
[2017-05-13] MEDS: MAGNESIUM OXIDE 400 MG TABLET (FP) PO SCH ×2 (10:31→22:21)
[2017-05-13] MEDS: ASPIRIN COATED 81 MG TABLET.EC PO SCH (10:31)
--- NOTE | 2017-05-13 12:08 | PN ---
Progress Note, Physician Chief Complaint: Pt A&Ox3; back pain, leg pain on minimal movement (she says she has been unable to walk for a few months due to the pain and weakness). + Palpitations; dyspnea on mild exertion. History of Present Illness: "The patient is a 65 year old white female with a significant PMH of Afib, CHF ( low normal LVEF), asthma, hypertension, hyperlipidemia, diabetes, pulmonary hypertension, COPD, coronary artery diease, Hodgkin's lymphoma s/p chemotherapy and radiation, endometrial cancer s/p chemotherapy and radiation, diabetic neuropathy, spinal stenosis, chronic back pain, and carpal tunnel syndrome ( wrists) who presents to the emergency department sent in by Dr. Santo with worsening abdominal pain for a couple of weeks. Pt states that the pain is constant, localized to RLQ, non-radiating. Endorses nausea after eating with a few episodes of emesis, nonbloody. Pt reports constipation for several days, denies diarrhea. Reports subjective fevers as well. The patient states she has not seen her PCP since October due to a shooting pain down her legs from her known compression fxs that prevented her from leaving home. She also notes she has stopped taking all her medications as of January because she was unable to get refills. The patient denies chest pain, shortness of breath, headache and dizziness. Denies dysuria, frequency, urgency and hematuria. Allergies: Penicillins, Ibuprofen Past surgical history: Appendectomy, hysterectomy, femur bypass (left leg) Social history: No reported cigarette, drug, or alcohol use. Direct Mail Coordinator: Dr. Hansen Oncologist: Dr. Hansa Bee PCP: NORMAN Castillo" - Current Medication List Current Medications: Active Medications Aspirin (Ecotrin -) 81 mg PO DAILY [facility] Last Admin: 05/13/17 10:31 Dose: 81 mg Atorvastatin Calcium (Lipitor -) 10 mg PO HS [facility] Last Admin: 05/12/17 22:11 Dose: 10 mg Bacitracin (Bacitracin -) 1 applic TP DAILY [facility] Last Admin: 05/13/17 10:31 Dose: 1 applic Bupropion HCl (Wellbutrin Xl -) 150 mg PO DAILY [facility] Last Admin: 05/13/17 10:33 Dose: 150 mg Cyclobenzaprine HCl (Flexeril -) 10 mg PO TID [facility] Last Admin: 05/13/17 06:44 Dose: 10 mg Docusate Sodium (Colace -) 100 mg PO BID PRN PRN Reason: CONSTIPATION Enoxaparin Sodium (Lovenox -) 100 mg SQ BID [facility] Last Admin: 05/13/17 10:31 Dose: 100 mg Magnesium Oxide (Mag-Ox -) 400 mg PO Q2D@1000 [facility] Last Admin: 05/13/17 10:31 Dose: 400 mg Magnesium Oxide (Mag-Ox -) 400 mg PO Q2D@2200 [facility] Last Admin: 05/11/17 23:26 Dose: 400 mg Methimazole (Tapazole -) 20 mg PO BID [facility] Last Admin: 05/13/17 10:30 Dose: 20 mg Metoprolol Tartrate (Lopressor Injection -) 2.5 mg IVPUSH Q4H PRN PRN Reason: HYPERTENSION Last Admin: 05/13/17 01:22 Dose: 2.5 mg Propranolol HCl (Inderal -) 30 mg PO TID [facility] Last Admin: 05/13/17 06:45 Dose: 30 mg Senna (Senna -) 2 tab PO HS PRN PRN Reason: CONSTIPATION - Objective Vital Signs: Vital Signs Temperature 97.8 F 05/13/17 05:34 Pulse Rate 128 H 05/13/17 05:34 Respiratory Rate 20 05/13/17 05:34 Blood Pressure 110/57 05/13/17 05:34 O2 Sat by Pulse Oximetry (%) 97 05/12/17 21:00 Labs: CBC, BMP 05/13/17 05:45 05/13/17 05:45 INR, PTT INR 1.26 (0.82-1.09) H 05/11/17 10:40 Problem List - Problems (1) Atrial fibrillation with RVR Code(s): I48.91 - UNSPECIFIED ATRIAL FIBRILLATION (2) Intractable back pain Code(s): M54.9 - DORSALGIA, UNSPECIFIED (3) PAD (peripheral artery disease) Code(s): I73.9 - PERIPHERAL VASCULAR DISEASE, UNSPECIFIED (4) Anemia Code(s): D64.9 - ANEMIA, UNSPECIFIED Qualifiers: Other causes of anemia: chronic disease, neoplastic (5) Hodgkin lymphoma Code(s): C81.90 - HODGKIN LYMPHOMA, UNSPECIFIED, UNSPECIFIED SITE Qualifiers: Hodgkin lymphoma type: unspecified type Lymphoma site: unspecified region Qualified Code(s): C81.90 - Hodgkin lymphoma, unspecified, unspecified site (6) Pulmonary hypertension Code(s): I27.2 - OTHER SECONDARY PULMONARY HYPERTENSION * DO NOT USE * (7) Type 2 diabetes mellitus Code(s): E11.9 - TYPE 2 DIABETES MELLITUS WITHOUT COMPLICATIONS Qualifiers: Diabetes mellitus complication status: with neurologic complications Diabetes mellitus complication detail: with polyneuropathy (8) Hyperthyroidism Code(s): E05.90 - THYROTOXICOSIS, UNSP WITHOUT THYROTOXIC CRISIS OR STORM (9) Chronic combined systolic and diastolic CHF (congestive heart failure) Code(s): I50.42 - CHRONIC COMBINED SYSTOLIC AND DIASTOLIC HRT FAIL
--- NOTE | 2017-05-13 13:13 | PN ---
Progress Note (short form) - Note Progress Note: Seen in follow up. No new complaints. Pain / weakness lower extremities - baseline. Meds reviewed. Current Medications Generic Name Dose Route Start Last Admin Trade Name Freq PRN Reason Stop Dose Admin Aspirin 81 mg 05/11/17 16:30 05/13/17 10:31 Ecotrin - PO 81 mg DAILY CRISTOFER Administration Atorvastatin Calcium 10 mg 05/11/17 22:00 05/12/17 22:11 Lipitor - PO 10 mg HS CRISTOFER Administration Bacitracin 1 applic 05/12/17 12:30 05/13/17 10:31 Bacitracin - TP 1 applic DAILY CRISTOFER Administration Bupropion HCl 150 mg 05/11/17 16:30 05/13/17 10:33 Wellbutrin Xl - PO 150 mg DAILY CRISTOFER Administration Cyclobenzaprine HCl 10 mg 05/11/17 23:45 05/13/17 06:44 Flexeril - PO 10 mg TID CRISTOFER Administration Docusate Sodium 100 mg 05/11/17 16:46 Colace - PO BID PRN CONSTIPATION Enoxaparin Sodium 100 mg 05/11/17 16:45 05/13/17 10:31 Lovenox - SQ 100 mg BID CRISTOFER Administration Magnesium Oxide 400 mg 05/13/17 10:00 05/13/17 10:31 Mag-Ox - PO 400 mg Q2D@1000 CRISTOFER Administration Magnesium Oxide 400 mg 05/11/17 22:00 05/11/17 23:26 Mag-Ox - PO 400 mg Q2D@2200 CRISTOFER Administration Methimazole 20 mg 05/11/17 22:00 05/13/17 10:30 Tapazole - PO 20 mg BID CRISTOFER Administration Metoprolol Tartrate 2.5 mg 05/11/17 16:32 05/13/17 01:22 Lopressor Injection - IVPUSH 2.5 mg Q4H PRN Administration HYPERTENSION Propranolol HCl 40 mg 05/13/17 14:00 Inderal - PO TID CRISTOFER Senna 2 tab 05/11/17 16:46 Senna - PO HS PRN CONSTIPATION On exam: Last Vital Signs Temp Pulse Resp BP Pulse Ox 98.0 F 122 H 20 123/82 97 05/13/17 09:00 05/13/17 09:00 05/13/17 09:00 05/13/17 09:00 05/13/17 09:00 General: Looks well, supine in bed, but ambulant. Extremities: No pallor, no icterus, bilateral pedal edema, changes of chronic vascular insufficiency Chest:breathing comfortably, Abdomen: Not distended, non-tender Neuro: Alert, oriented, non-focal. CBC, BMP 05/13/17 05:45 05/13/17 05:45 Assessment. Patient with complicated oncology history - previous Hodgkins, previosus endometrial ca, believed to be in remission, presently here with AF with RVR, and hyperthyroidism. Management as per endocrinology and cardiology. Noted chronic mild anemia, but currently below baseline, observe. Check stools for occult blood. Concern about 3cm mass anterior to abdominal aorta, seen on CT scan 05/10 - new - possible lymph node. Will require PET following discharged to better characterize.
[2017-05-13] MEDS: PROPRANOLOL HCL 40 MG TABLET PO SCH ×2 (13:30→22:20)
--- NOTE | 2017-05-13 14:10 | PN ---
Progress Note (short form) - Note Progress Note: no new changes. Vital Signs Temperature 98.0 F 05/13/17 09:00 Pulse Rate 122 H 05/13/17 09:00 Respiratory Rate 20 05/13/17 09:00 Blood Pressure 123/82 05/13/17 09:00 O2 Sat by Pulse Oximetry (%) 97 05/13/17 09:00 GENERAL: The patient is awake, alert, and fully oriented, in no acute distress. HEAD: Normal with no signs of trauma. EYES: PERRL, extraocular movements intact, sclera anicteric, conjunctiva clear. No ptosis. ENT: Ears normal, nares patent, oropharynx clear without exudates, moist mucous membranes. NECK: Trachea midline, full range of motion, supple. LUNGS: Breath sounds equal, clear to auscultation bilaterally, no wheezes, no crackles, no accessory muscle use. HEART: irregularly irregular rate of 122, S1, S2 positive, no murmur, rub or gallop. ABDOMEN: Soft, nontender, nondistended, normoactive bowel sounds, no guarding, no rebound, no hepatosplenomegaly, no masses. EXTREMITIES: 2+ pulses, warm, well-perfused, positive for venous stasis NEUROLOGICAL: Cranial nerves II through XII grossly intact. Normal speech, gait not observed. PSYCH: Normal mood, normal affect. SKIN: Warm, dry, normal turgor, no rashes or lesions noted CBCD WBC 6.2 K/mm3 (4.0-10.0) 05/13/17 05:45 RBC 3.03 M/mm3 (3.60-5.2) L 05/13/17 05:45 Hgb 8.2 GM/dL (10.7-15.3) L 05/13/17 05:45 Hct 26.6 % (32.4-45.2) L 05/13/17 05:45 MCV 87.8 fl (80-96) 05/13/17 05:45 MCHC 30.9 g/dl (32.0-36.0) L 05/13/17 05:45 RDW 15.9 % (11.6-15.6) H 05/13/17 05:45 Plt Count 181 K/MM3 (134-434) 05/13/17 05:45 MPV 9.0 fl (7.5-11.1) 05/13/17 05:45 CMP Sodium 140 mmol/L (136-145) 05/13/17 05:45 Potassium 4.0 mmol/L (3.5-5.1) 05/13/17 05:45 Chloride 106 mmol/L (98-107) 05/13/17 05:45 Carbon Dioxide 27 mmol/L (21-32) 05/13/17 05:45 Anion Gap 7 (8-16) L 05/13/17 05:45 BUN 19 mg/dL (7-18) H 05/13/17 05:45 Creatinine 0.9 mg/dL (0.55-1.02) 05/13/17 05:45 Creat Clearance w eGFR > 60 (>60) 05/13/17 05:45 Random Glucose 89 mg/dL (74-106) D 05/13/17 05:45 Calcium 8.4 mg/dL (8.5-10.1) L 05/13/17 05:45 Total Bilirubin 0.6 mg/dL (0.2-1.0) D 05/13/17 05:45 AST 8 U/L (15-37) L 05/13/17 05:45 ALT 11 U/L (12-78) L 05/13/17 05:45 Alkaline Phosphatase 76 U/L (45-117) 05/13/17 05:45 Total Protein 5.7 g/dl (6.4-8.2) L 05/13/17 05:45 Albumin 2.7 g/dl (3.4-5.0) L 05/13/17 05:45 CARDIAC ENZYMES Creatine Kinase 45 IU/L (26-192) 05/11/17 09:58 Troponin I 0.02 ng/ml (0.00-0.05) 05/11/17 21:40 Current Medications Generic Name Dose Route Start Last Admin Trade Name Freq PRN Reason Stop Dose Admin Aspirin 81 mg 05/11/17 16:30 05/13/17 10:31 Ecotrin - PO 81 mg DAILY CRISTOFER Administration Atorvastatin Calcium 10 mg 05/11/17 22:00 05/12/17 22:11 Lipitor - PO 10 mg HS CRISTOFER Administration Bacitracin 1 applic 05/12/17 12:30 05/13/17 10:31 Bacitracin - TP 1 applic DAILY CRISTOFER Administration Bupropion HCl 150 mg 05/11/17 16:30 05/13/17 10:33 Wellbutrin Xl - PO 150 mg DAILY CRISTOFER Administration Cyclobenzaprine HCl 10 mg 05/11/17 23:45 05/13/17 13:31 Flexeril - PO 10 mg TID CRISTOFER Administration Docusate Sodium 100 mg 05/11/17 16:46 Colace - PO BID PRN CONSTIPATION Enoxaparin Sodium 100 mg 05/11/17 16:45 05/13/17 10:31 Lovenox - SQ 100 mg BID CRISTOFER Administration Magnesium Oxide 400 mg 05/13/17 10:00 05/13/17 10:31 Mag-Ox - PO 400 mg Q2D@1000 CRISTOFER Administration Magnesium Oxide 400 mg 05/11/17 22:00 05/11/17 23:26 Mag-Ox - PO 400 mg Q2D@2200 CRISTOFER Administration Methimazole 20 mg 05/11/17 22:00 05/13/17 10:30 Tapazole - PO 20 mg BID CRISTOFER Administration Metoprolol Tartrate 2.5 mg 05/11/17 16:32 05/13/17 01:22 Lopressor Injection - IVPUSH 2.5 mg Q4H PRN Administration HYPERTENSION Propranolol HCl 40 mg 05/13/17 14:00 05/13/17 13:30 Inderal - PO 40 mg TID CRISTOFER Administration Senna 2 tab 05/11/17 16:46 Senna - PO HS PRN CONSTIPATION Home Medications Medication Instructions Recorded Amlodipine Besylate [Norvasc -] 2.5 mg PO DAILY #0 tablet 12/20/12 Pantoprazole Sodium [Protonix -] 40 mg PO DAILY #30 tablet.ec 02/23/14 Aspirin [Aspirin EC] 81 mg PO DAILY #30 tablet.dr 04/23/14 Magnesium Oxide 800 mg PO BID 05/24/15 Cyclobenzaprine HCl [Flexeril -] 10 mg PO TID PRN #0 07/29/15 Sucralfate Oral Suspension 2 gm NR BID #1250 ml 10/15/15 [Carafate Oral Suspension -] Oxycodone HCl/Acetaminophen 1 - 2 tab PO Q6H #20 tablet MDD 4 09/19/16 [Percocet 5-325 mg Tablet] Atorvastatin Ca [Lipitor] 10 mg PO HS 09/26/16 Bupropion HCl [Wellbutrin Xl -] 150 mg PO DAILY #30 tab 10/02/16 Pramipexole Dihydrochloride 0.25 mg PO BID #60 tablet 10/02/16 [Mirapex -] A/P: Patient is a 66 year old female with past medical history of Asthma, HTN, HLD, diet controlled diabetes, pulmonary hypertension, COPD, CAD, Hodgkins lymphoma (Dx in 2013 s/p chemo and radiation until 2014) and endometrial CA s/p chemotherapy (last 08/2015)and radiation (last 10/2015) with metastasis, diabetic neuropathy, spinal stenosis, chronic back pain with compression fracure to L1 and L3. and carpal tunnel syndrome. was sent in to the ED by Dr. Santo for further evaluation of abdominal pain. # Atrial fibrillation with RVR triggerd by hyperthyroidism with HR 122 presented with a rate of 175; CHADSVASC Score-4, Lovenox 100mg sq BID (1mg/kg) Dr. Nye cardiology consult appreciated. # Newly diagnosed Hyperthyroidism- started on Methimazole 20mg po bid, is consulted & appreciated , TSH-<0.01. Free T4-3.81, FT3-8.2 # Venous stasis of Lower extremities DVT w/u is negative, and B/L lower extremity wound dressing daily, as per Dr. Camarillo # Hodgkins lymphoma and endometrial CA with mets s/p chemo and radiation , increased in size since 09/19/2016 hypodense mass anterior to the lower abdominal aorta that may represent an enlarged lymph node. management as per oncology Dr. Bray. # Hypertension-controlled started on Propanolol titrate up as needed for rate control. # Diabetes Mellitus ISS with coverage # Normocytic anemia Hb-9.4, baseline around 9-10. # Chronic low back pain-due to compression # in L1 and L3 # DVT px: On lovenox sq full dose Visit type - Emergency Visit Emergency Visit: Yes ED Registration Date: 05/11/17 Care time: The patient presented to the Emergency Department on the above date and was hospitalized for further evaluation of their emergent condition. - New Patient This patient is new to me today: No - Critical Care Critical Care patient: No
--- NOTE | 2017-05-13 14:37 | PN ---
Progress Note (short form) - Note Progress Note: Feels better but still weak No palpitations Vital Signs Period Temp Pulse Resp BP Sys/Peguero Pulse Ox Last 24 Hr 97.8 F-99.6 F 112-133 18-20 107-123/50-82 97-97 PE: Awake, alert Neck: Supple, No JVD HEENT: PERRL Eomi Lungs: CTA CVS: S1S2 Abd: Benign EXt: +Edema CMP Sodium 140 mmol/L (136-145) 05/13/17 05:45 Potassium 4.0 mmol/L (3.5-5.1) 05/13/17 05:45 Chloride 106 mmol/L (98-107) 05/13/17 05:45 Carbon Dioxide 27 mmol/L (21-32) 05/13/17 05:45 Anion Gap 7 (8-16) L 05/13/17 05:45 BUN 19 mg/dL (7-18) H 05/13/17 05:45 Creatinine 0.9 mg/dL (0.55-1.02) 05/13/17 05:45 Creat Clearance w eGFR > 60 (>60) 05/13/17 05:45 POC Glucometer 112 UNITS (80-120) 05/13/17 06:42 Random Glucose 89 mg/dL (74-106) D 05/13/17 05:45 Hemoglobin A1c % 5.1 % (4.8-6.0) D 05/12/17 05:48 Lactic Acid 1.4 mmol/L (0.4-2.0) 05/11/17 12:22 Calcium 8.4 mg/dL (8.5-10.1) L 05/13/17 05:45 Phosphorus 3.9 mg/dL (2.5-4.9) 05/13/17 05:45 Magnesium 1.8 mg/dL (1.8-2.4) 05/13/17 05:45 Total Bilirubin 0.6 mg/dL (0.2-1.0) D 05/13/17 05:45 AST 8 U/L (15-37) L 05/13/17 05:45 ALT 11 U/L (12-78) L 05/13/17 05:45 Alkaline Phosphatase 76 U/L (45-117) 05/13/17 05:45 LD Total 145 U/L (84-246) D 05/12/17 05:48 Creatine Kinase 45 IU/L (26-192) 05/11/17 09:58 Troponin I 0.02 ng/ml (0.00-0.05) 05/11/17 21:40 B-Natriuretic Peptide 6276.89 pg/ml (5-125) H 05/11/17 09:58 Total Protein 5.7 g/dl (6.4-8.2) L 05/13/17 05:45 Albumin 2.7 g/dl (3.4-5.0) L 05/13/17 05:45 Triglycerides 94 mg/dL (35-160) D 05/12/17 05:48 Cholesterol 76 mg/dL (50-200) D 05/12/17 05:48 Total LDL Cholesterol 33 mg/dL (5-100) 05/12/17 05:48 HDL Cholesterol 38 mg/dL (40-60) L 05/12/17 05:48 Lipase 86 U/L (73-393) 05/11/17 10:40 CA 125 Antigen 36.1 U/mL (0.0-38.1) 05/12/17 05:48 TSH < 0.01 uIU/ml (0.358-3.74) L D 05/11/17 10:40 Free T4 2.56 ng/dl (0.76-1.46) H D 05/13/17 05:45 Free T3 8.2 pg/ml (2.0-4.4) H 05/11/17 14:15 Current Medications Generic Name Dose Route Start Last Admin Trade Name Nanette PRN Reason Stop Dose Admin Aspirin 81 mg 05/11/17 16:30 05/13/17 10:31 Ecotrin - PO 81 mg DAILY CRISTOFER Administration Atorvastatin Calcium 10 mg 05/11/17 22:00 05/12/17 22:11 Lipitor - PO 10 mg HS CRISTOFER Administration Bacitracin 1 applic 05/12/17 12:30 05/13/17 10:31 Bacitracin - TP 1 applic DAILY CRISTOFER Administration Bupropion HCl 150 mg 05/11/17 16:30 05/13/17 10:33 Wellbutrin Xl - PO 150 mg DAILY CRISTOFER Administration Cyclobenzaprine HCl 10 mg 05/11/17 23:45 05/13/17 13:31 Flexeril - PO 10 mg TID CRISTOFER Administration Docusate Sodium 100 mg 05/11/17 16:46 Colace - PO BID PRN CONSTIPATION Enoxaparin Sodium 100 mg 05/11/17 16:45 05/13/17 10:31 Lovenox - SQ 100 mg BID CRISTOFER Administration Magnesium Oxide 400 mg 05/13/17 10:00 05/13/17 10:31 Mag-Ox - PO 400 mg Q2D@1000 CRISTOFER Administration Magnesium Oxide 400 mg 05/11/17 22:00 05/11/17 23:26 Mag-Ox - PO 400 mg Q2D@2200 CRISTOFER Administration Methimazole 20 mg 05/11/17 22:00 05/13/17 10:30 Tapazole - PO 20 mg BID CRISTOFER Administration Metoprolol Tartrate 2.5 mg 05/11/17 16:32 05/13/17 01:22 Lopressor Injection - IVPUSH 2.5 mg Q4H PRN Administration HYPERTENSION Propranolol HCl 40 mg 05/13/17 14:00 05/13/17 13:30 Inderal - PO 40 mg TID CRISTOFER Administration Senna 2 tab 05/11/17 16:46 Senna - PO HS PRN CONSTIPATION AP; Hyperthyroidism: improving, FT4 2.56 H/O Goiter ?Nodules A Fib DM H/O Hodgkin's Lymphoma H/O Endometrial Ca Stasis changes of lege PAD Fatty Liver on ultrasound continue Propranolol Methimazole 20mg BID Monitor TFT, IV contrast could make the hyperthyroidism worse FT3, Pending Check TSI, TPO Thyroid ultrasound Will F/u Problem List - Problems (1) Atrial fibrillation with RVR Code(s): I48.91 - UNSPECIFIED ATRIAL FIBRILLATION (2) Hyperthyroidism Code(s): E05.90 - THYROTOXICOSIS, UNSP WITHOUT THYROTOXIC CRISIS OR STORM (3) H/O malignant neoplasm of endometrium Code(s): Z85.42 - PERSONAL HISTORY OF MALIGNANT NEOPLASM OF OTH PRT UTERUS (4) Hodgkin lymphoma Code(s): C81.90 - HODGKIN LYMPHOMA, UNSPECIFIED, UNSPECIFIED SITE Qualifiers: Hodgkin lymphoma type: unspecified type Lymphoma site: unspecified region Qualified Code(s): C81.90 - Hodgkin lymphoma, unspecified, unspecified site (5) Type 2 diabetes mellitus Code(s): E11.9 - TYPE 2 DIABETES MELLITUS WITHOUT COMPLICATIONS Qualifiers: Diabetes mellitus complication status: with neurologic complications Diabetes mellitus complication detail: with polyneuropathy
[2017-05-13] MEDS: ATORVASTATIN CA 10 MG TABLET (FP) PO SCH (22:21)
[2017-05-13] MEDS: MINERAL OIL/PETROLAT/WATER TOPICAL CREAM 113 GM JAR TP SCH ×2 (22:22→22:44)
[2017-05-13] MEDS: NYSTATIN 100,000 UNIT/GM TOPICAL CREAM 15 GM TUBE TP SCH (22:23)
[2017-05-14] MEDS: PROPRANOLOL HCL 40 MG TABLET PO SCH ×3 (06:40→21:17)
[2017-05-14] MEDS: CYCLOBENZAPRINE HCL 10 MG TABLET (FP) PO SCH ×3 (06:40→21:19)
[2017-05-14 07:48] LABS: HEMATOCRIT 27.9 % (32.4-45.2); HEMOGLOBIN 8.8 GM/dL (10.7-15.3); MCH 27.4 pg (25.7-33.7); MCHC 31.6 g/dl (32.0-36.0); MEAN CELL VOLUME 86.7 fl (80-96); MEAN PLT VOLUME 8.8 fl (7.5-11.1); PLATELET COUNT 192 K/MM3 (134-434); RBC 3.22 M/mm3 (3.60-5.2); RDW 16.4 % (11.6-15.6); WHITE BLOOD COUNT 5.7 K/mm3 (4.0-10.0)
[2017-05-14 08:19] LABS: ALBUMIN 2.9 g/dl (3.4-5.0); ANION GAP 10 (8-16); BILIRUBIN,TOTAL 0.7 mg/dL (0.2-1.0); BLOOD UREA NITROGEN 17 mg/dL (7-18); CALCIUM 8.7 mg/dL (8.5-10.1); CHLORIDE 104 mmol/L (98-107); CO2 26 mmol/L (21-32); CREATININE 0.9 mg/dL (0.55-1.02); GLUCOSE,RANDOM 83 mg/dL (74-106); POTASSIUM 4.1 mmol/L (3.5-5.1); SGOT/AST 7 U/L (15-37); SGPT/ALT 12 U/L (12-78); SODIUM 140 mmol/L (136-145); TOT PROT 6.1 g/dl (6.4-8.2)
[2017-05-14 08:20] LABS: ALK PHOS 81 U/L (45-117)
[2017-05-14] MEDS: METHIMAZOLE 10 MG TABLET (FP) PO SCH ×2 (10:24→21:19)
[2017-05-14] MEDS: METOPROLOL TARTRATE 5 MG/5 ML VIAL IVPUSH PRN (10:24)
[2017-05-14] MEDS: ASPIRIN COATED 81 MG TABLET.EC PO SCH (10:24)
[2017-05-14] MEDS: ENOXAPARIN NA (PORCINE) 100 MG/1 ML DISP.SYRIN SQ SCH ×2 (10:24→21:20)
[2017-05-14] MEDS: BACITRACIN 15 GM TUBE TOPICAL OINTMENT TP SCH (10:26)
[2017-05-14] MEDS: NYSTATIN 100,000 UNIT/GM TOPICAL CREAM 15 GM TUBE TP SCH ×2 (10:27→21:27)
[2017-05-14] MEDS: MINERAL OIL/PETROLAT/WATER TOPICAL CREAM 113 GM JAR TP SCH ×2 (10:27→21:26)
--- NOTE | 2017-05-14 13:29 | PN ---
Teaching Attending Note Name of Resident: Ismael Simpson ATTENDING PHYSICIAN STATEMENT I saw and evaluated the patient. I reviewed the resident's note and discussed the case with the resident. I agree with the resident's findings and plan as documented. SUBJECTIVE: No new changes. OBJECTIVE: Vital Signs Temperature 98.2 F 05/14/17 08:10 Pulse Rate 128 H 05/14/17 10:24 Respiratory Rate 18 05/14/17 08:10 Blood Pressure 104/64 05/14/17 10:24 O2 Sat by Pulse Oximetry (%) 99 05/13/17 20:59 CBCD WBC 5.7 K/mm3 (4.0-10.0) 05/14/17 05:45 RBC 3.22 M/mm3 (3.60-5.2) L 05/14/17 05:45 Hgb 8.8 GM/dL (10.7-15.3) L 05/14/17 05:45 Hct 27.9 % (32.4-45.2) L 05/14/17 05:45 MCV 86.7 fl (80-96) 05/14/17 05:45 MCHC 31.6 g/dl (32.0-36.0) L 05/14/17 05:45 RDW 16.4 % (11.6-15.6) H 05/14/17 05:45 Plt Count 192 K/MM3 (134-434) 05/14/17 05:45 MPV 8.8 fl (7.5-11.1) 05/14/17 05:45 CMP Sodium 140 mmol/L (136-145) 05/14/17 05:45 Potassium 4.1 mmol/L (3.5-5.1) 05/14/17 05:45 Chloride 104 mmol/L (98-107) 05/14/17 05:45 Carbon Dioxide 26 mmol/L (21-32) 05/14/17 05:45 Anion Gap 10 (8-16) 05/14/17 05:45 BUN 17 mg/dL (7-18) 05/14/17 05:45 Creatinine 0.9 mg/dL (0.55-1.02) 05/14/17 05:45 Creat Clearance w eGFR > 60 (>60) 05/14/17 05:45 Random Glucose 83 mg/dL (74-106) 05/14/17 05:45 Calcium 8.7 mg/dL (8.5-10.1) 05/14/17 05:45 Total Bilirubin 0.7 mg/dL (0.2-1.0) 05/14/17 05:45 AST 7 U/L (15-37) L 05/14/17 05:45 ALT 12 U/L (12-78) 05/14/17 05:45 Alkaline Phosphatase 81 U/L (45-117) 05/14/17 05:45 Total Protein 6.1 g/dl (6.4-8.2) L 05/14/17 05:45 Albumin 2.9 g/dl (3.4-5.0) L 05/14/17 05:45 CARDIAC ENZYMES Creatine Kinase 45 IU/L (26-192) 05/11/17 09:58 Troponin I 0.02 ng/ml (0.00-0.05) 05/11/17 21:40 Current Medications Generic Name Dose Route Start Last Admin Trade Name Freq PRN Reason Stop Dose Admin Aspirin 81 mg 05/11/17 16:30 05/14/17 10:24 Ecotrin - PO 81 mg DAILY CRISTOFER Administration Atorvastatin Calcium 10 mg 05/11/17 22:00 05/13/17 22:21 Lipitor - PO 10 mg HS CRISTOFER Administration Bacitracin 1 applic 05/12/17 12:30 05/14/17 10:26 Bacitracin - TP 1 applic DAILY CRISTOFER Administration Bupropion HCl 150 mg 05/11/17 16:30 05/14/17 10:25 Wellbutrin Xl - PO 150 mg DAILY CRISTOFER Administration Cyclobenzaprine HCl 10 mg 05/11/17 23:45 05/14/17 06:40 Flexeril - PO 10 mg TID CRISTOFER Administration Docusate Sodium 100 mg 05/11/17 16:46 Colace - PO BID PRN CONSTIPATION Enoxaparin Sodium 100 mg 05/11/17 16:45 05/14/17 10:24 Lovenox - SQ 100 mg BID CRISTOFER Administration Magnesium Oxide 400 mg 05/13/17 10:00 05/13/17 10:31 Mag-Ox - PO 400 mg Q2D@1000 CRISTOFER Administration Magnesium Oxide 400 mg 05/11/17 22:00 05/13/17 22:21 Mag-Ox - PO 400 mg Q2D@2200 CRISTOFER Administration Methimazole 20 mg 05/11/17 22:00 05/14/17 10:24 Tapazole - PO 20 mg BID CRISTOFER Administration Metoprolol Tartrate 2.5 mg 05/11/17 16:32 05/14/17 10:24 Lopressor Injection - IVPUSH 2.5 mg Q4H PRN Administration HYPERTENSION Multi-Ingredient Lotion 1 applic 05/13/17 22:00 05/14/17 10:27 Eucerin (Small Jar) - TP Not Given BID [facility] Nystatin 1 applic 05/13/17 22:00 05/14/17 10:27 Mycostatin Cream - TP Not Given BID [facility] Propranolol HCl 40 mg 05/13/17 14:00 05/14/17 06:40 Inderal - PO 40 mg TID CRISTOFER Administration Senna 2 tab 05/11/17 16:46 Senna - PO HS PRN CONSTIPATION Home Medications Medication Instructions Recorded Amlodipine Besylate [Norvasc -] 2.5 mg PO DAILY #0 tablet 12/20/12 Pantoprazole Sodium [Protonix -] 40 mg PO DAILY #30 tablet.ec 02/23/14 Aspirin [Aspirin EC] 81 mg PO DAILY #30 tablet. 04/23/14 Magnesium Oxide 800 mg PO BID 05/24/15 Cyclobenzaprine HCl [Flexeril -] 10 mg PO TID PRN #0 07/29/15 Sucralfate Oral Suspension 2 gm NR BID #1250 ml 10/15/15 [Carafate Oral Suspension -] Oxycodone HCl/Acetaminophen 1 - 2 tab PO Q6H #20 tablet MDD 4 09/19/16 [Percocet 5-325 mg Tablet] Atorvastatin Ca [Lipitor] 10 mg PO HS 09/26/16 Bupropion HCl [Wellbutrin Xl -] 150 mg PO DAILY #30 tab 10/02/16 Pramipexole Dihydrochloride 0.25 mg PO BID #60 tablet 10/02/16 [Mirapex -] PE: irregularly irregular rate of 128 LE: BL venous stasis rest of PE per resident's note. ASSESSMENT AND PLAN: Patient is a 66 year old female with past medical history of Asthma, HTN, HLD, diet controlled diabetes, pulmonary hypertension, COPD, CAD, Hodgkins lymphoma (Dx in 2013 s/p chemo and radiation until 2014) and endometrial CA s/p chemotherapy (last 08/2015)and radiation (last 10/2015) with metastasis, diabetic neuropathy, spinal stenosis, chronic back pain with compression fracure to L1 and L3. and carpal tunnel syndrome. was sent in to the ED by Dr. Santo for further evaluation of abdominal pain. # Atrial fibrillation with RVR triggerd by hyperthyroidism with HR 128 today presented with a rate of 175; CHADSVASC Score-4, Lovenox 100mg sq BID (1mg/kg) Dr. Nye cardiology consult appreciated. On propranolol 40mg TID for rate control. also on Metimazole for her hyperthyroidism. # Newly diagnosed Hyperthyroidism- started on Methimazole 20mg po bid, is consulted & appreciated , TSH-<0.01. Free T4-3.81, FT3-8.2. Also on Inderal for rate control and Lopressor IV prn # Hx of constipation continue Colace, Senna. 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 DVT w/u is negative B/L lower extremity wound dressing daily, as per Dr. Camarillo # Hodgkins lymphoma and endometrial CA with mets s/p chemo and radiation , increased in size since 09/19/2016 hypodense mass anterior to the lower abdominal aorta that may represent an enlarged lymph node. management as per oncology Dr. Bray. # Hypertension controlled on Propanolol 40mg tid. # Diabetes Mellitus ISS with coverage # Normocytic anemia Hb-9.4, baseline around 9-10. # Chronic low back pain-due to compression # in L1 and L3, on Ultram PRN # DVT px: On lovenox sq full dose
[2017-05-14 14:39] LABS: MAGNESIUM 1.9 mg/dL (1.8-2.4)
[2017-05-14] MEDS ORDERED: PROPRANOLOL HCL 10 MG TABLET (FP) PO ONE (15:00)
--- NOTE | 2017-05-14 16:11 | PN ---
Physical Exam: SUBJECTIVE: Patient seen and examined. No acute events overnight. Pt denies chest pain, SOB, abdominal pain, n/v/d/c, and dysuria. OBJECTIVE: Vital Signs Period Temp Pulse Resp BP Sys/Peguero Pulse Ox Last 24 Hr 98.1 F-99.0 F 117-132 18-20 104-129/51-66 99-99 GENERAL: Patient lying in bed, awake, alert, and fully oriented, in no acute distress. HEENT: NC, AT NECK: Supple. LUNGS: CTAB, no wheezing or rales HEART: Tachycardia, Regular rate and rhythm, systolic murmur ABDOMEN: Soft, non tender , not distended, normoactive bowel sounds, no guarding , no rebound, no masses MUSCULOSKELETAL: b/l calf tenderness, pitting peripheral edema, lower extremity superficial ulcers with minimal drainage, foul smelling, dry cracked skin, onychomycosis NEUROLOGICAL: Cranial nerves II-XII intact. Normal speech. Gait not observed. Laboratory Results - last 24 hr 05/13/17 05/14/17 05/14/17 15:00 05:45 05:45 WBC 5.7 RBC 3.22 L Hgb 8.8 L Hct 27.9 L MCV 86.7 MCH 27.4 MCHC 31.6 L RDW 16.4 H Plt Count 192 MPV 8.8 Sodium 140 Potassium 4.1 Chloride 104 Carbon Dioxide 26 Anion Gap 10 BUN 17 Creatinine 0.9 Creat Clearance w eGFR > 60 Random Glucose 83 Calcium 8.7 Magnesium 1.9 Total Bilirubin 0.7 AST 7 L ALT 12 Alkaline Phosphatase 81 Total Protein 6.1 L Albumin 2.9 L Stool Occult Blood Negative Active Medications Generic Name Dose Route Start Last Admin Trade Name Freq PRN Reason Stop Dose Admin Aspirin 81 mg 05/11/17 16:30 05/14/17 10:24 Ecotrin - PO 81 mg DAILY CRISTOFER Administration Atorvastatin Calcium 10 mg 05/11/17 22:00 05/13/17 22:21 Lipitor - PO 10 mg HS CRISTOFER Administration Bacitracin 1 applic 05/12/17 12:30 05/14/17 10:26 Bacitracin - TP 1 applic DAILY CRISTOFER Administration Bupropion HCl 150 mg 05/11/17 16:30 05/14/17 10:25 Wellbutrin Xl - PO 150 mg DAILY CRISTOFER Administration Cyclobenzaprine HCl 10 mg 05/11/17 23:45 05/14/17 14:57 Flexeril - PO 10 mg TID CRISTOFER Administration Docusate Sodium 100 mg 05/11/17 16:46 Colace - PO BID PRN CONSTIPATION Enoxaparin Sodium 100 mg 05/11/17 16:45 05/14/17 10:24 Lovenox - SQ 100 mg BID CRISTOFER Administration Magnesium Oxide 400 mg 05/13/17 10:00 05/13/17 10:31 Mag-Ox - PO 400 mg Q2D@1000 CRISTOFER Administration Magnesium Oxide 400 mg 05/11/17 22:00 05/13/17 22:21 Mag-Ox - PO 400 mg Q2D@2200 CRISTOFER Administration Methimazole 20 mg 05/11/17 22:00 05/14/17 10:24 Tapazole - PO 20 mg BID CRISTOFER Administration Metoprolol Tartrate 2.5 mg 05/11/17 16:32 05/14/17 10:24 Lopressor Injection - IVPUSH 2.5 mg Q4H PRN Administration HYPERTENSION Multi-Ingredient Lotion 1 applic 05/13/17 22:00 05/14/17 10:27 Eucerin (Small Jar) - TP Not Given BID CRISTOFER Nystatin 1 applic 05/13/17 22:00 05/14/17 10:27 Mycostatin Cream - TP Not Given BID [facility] Propranolol HCl 60 mg 05/14/17 22:00 Inderal - PO TID CRISTOFER Senna 2 tab 05/11/17 16:46 Senna - PO HS PRN CONSTIPATION ASSESSMENT/PLAN: 66F w/ hx of asthma, HTN, HLD, NIDDM, pulmonary hypertension, COPD, CAD, Hodgkin s lymphoma (Dx in 2013 s/p chemo and radiation until 2014) and endometrial CA s /p chemotherapy (last 08/2015)and radiation (last 10/2015) with metastasis, diabetic neuropathy, spinal stenosis, chronic back pain with compression fracture to L1 and L3, and carpal tunnel syndrome who was sent to ED by Dr. Santo for further evaluation of abdominal pain. # Atrial fibrillation with RVR -HR around 115-130 overnight -Propanolol 60mg TID Per cards -IV Metoprolol 2.5 mg Q4H PRN -CHADSVASC Score-4 -Lovenox 100mg sq BID # Hyperthyroidism- possibly could be in thyrotoxicosis -Free T4- 3.81--> 2.56 , Free T3 8.2---> pending -Could have been aggravated by the use of IV contrast. -continue Methimazole 20mg PO BID -f/u thyroid US -f/u thyroid Ab studies # Abdominal pain- resolved -BM yesterday # B/L lower extremity wound -wound dressing daily, as per Dr. Camarillo -Has allergies to lotion. Application of Eucerin in the foot area. -Podiatry consult, f/u recs # Fungal infection in right inguinal region -Nystatin TP # Hodgkins lymphoma and endometrial CA with mets s/p chemo and radiation -Management as per oncology # Hypertension-uncontrolled -On Propanolol for rate control. -Low salt diet # H/O Diabetes Mellitus -A1c of 5.1 # Normocytic anemia -Hb-8.8, baseline around 9-10. -Iron work up done in the past -No active bleeding at this time. # Chronic low back pain-due to compression # in L1 and L3 -Tylenol PRN # FEN -Not on IV fluids -Electrolytes wnl -Sodium controlled diet # Prophylaxis -For DVT: On lovenox sq -For GI: Not indicated # Code Status: Full code -Ismael Simpson MD PGY1 Visit type - Emergency Visit Emergency Visit: Yes ED Registration Date: 05/11/17 Care time: The patient presented to the Emergency Department on the above date and was hospitalized for further evaluation of their emergent condition. - New Patient This patient is new to me today: Yes Date on this admission: 05/14/17 - Critical Care Critical Care patient: No
--- NOTE | 2017-05-14 17:29 | PN ---
Progress Note (short form) - Note Progress Note: Patient seen and examined. c/o dry cough, family at bedside General: Looks well, supine in bed, but ambulant. CVS: s1, S2, no gallop or murmur. Extremities: chronic skin changes. Chest:breathing comfortably, clear. Abdomen: Not distended, non-tender, normal bowel sounds. Neuro: Alert, oriented, non-focal. Temp Pulse Resp BP Pulse Ox 98.6 F 121 H 20 114/57 99 05/14/17 14:00 05/14/17 14:00 05/14/17 14:00 05/14/17 14:00 05/14/17 09:00 CBC, BMP 05/14/17 05:45 05/14/17 05:45 Current Medications Generic Name Dose Route Start Last Admin Trade Name Freq PRN Reason Stop Dose Admin Aspirin 81 mg 05/11/17 16:30 05/14/17 10:24 Ecotrin - PO 81 mg DAILY CRISTOFER Administration Atorvastatin Calcium 10 mg 05/11/17 22:00 05/13/17 22:21 Lipitor - PO 10 mg HS CRISTOFER Administration Bacitracin 1 applic 05/12/17 12:30 05/14/17 10:26 Bacitracin - TP 1 applic DAILY CRISTOFER Administration Bupropion HCl 150 mg 05/11/17 16:30 05/14/17 10:25 Wellbutrin Xl - PO 150 mg DAILY CRISTOFER Administration Cyclobenzaprine HCl 10 mg 05/11/17 23:45 05/14/17 14:57 Flexeril - PO 10 mg TID CRISTOFER Administration Docusate Sodium 100 mg 05/11/17 16:46 Colace - PO BID PRN CONSTIPATION Enoxaparin Sodium 100 mg 05/11/17 16:45 05/14/17 10:24 Lovenox - SQ 100 mg BID CRISTOFER Administration Magnesium Oxide 400 mg 05/13/17 10:00 05/13/17 10:31 Mag-Ox - PO 400 mg Q2D@1000 CRISTOFER Administration Magnesium Oxide 400 mg 05/11/17 22:00 05/13/17 22:21 Mag-Ox - PO 400 mg Q2D@2200 CRISTOFER Administration Methimazole 20 mg 05/11/17 22:00 05/14/17 10:24 Tapazole - PO 20 mg BID CRISTOFER Administration Metoprolol Tartrate 2.5 mg 05/11/17 16:32 05/14/17 10:24 Lopressor Injection - IVPUSH 2.5 mg Q4H PRN Administration HYPERTENSION Multi-Ingredient Lotion 1 applic 05/13/17 22:00 05/14/17 10:27 Eucerin (Small Jar) - TP Not Given BID [facility] Nystatin 1 applic 05/13/17 22:00 05/14/17 10:27 Mycostatin Cream - TP Not Given BID [facility] Propranolol HCl 60 mg 05/14/17 22:00 Inderal - PO TID CRISTOFER Senna 2 tab 05/11/17 16:46 Senna - PO HS PRN CONSTIPATION Afib w/ RVR likely in the setting of Hyperthyroidism complicated oncology history - previous Hodgkins, previosus endometrial ca, believed to be in remission cardiology/endo/vascular c/s appreciated Noted chronic mild anemia, but currently below baseline, observe. Check stools for occult blood. Monitor CBC , as pt is on methimazole Concern about 3cm mass anterior to abdominal aorta, seen on CT scan 05/10 - new - possible lymph node. Will require PET following discharged to better characterize. Have explained this in detail to the pt and pts son/daughter in law chronic back pain, compression fractures, ?need for re-imaging, will consult neurology for input (pts preference ) PT eval , ?benefit from a short term rehab, pt agreeing, d/w pt/family and hospitalist. will follow
[2017-05-14] MEDS: ATORVASTATIN CA 10 MG TABLET (FP) PO SCH (21:19)
[2017-05-15] MEDS: CYCLOBENZAPRINE HCL 10 MG TABLET (FP) PO SCH ×3 (05:32→21:38)
[2017-05-15] MEDS: PROPRANOLOL HCL 40 MG TABLET PO SCH ×3 (05:33→21:36)
[2017-05-15 07:01] LABS: HEMOGLOBIN 8.4 GM/dL (10.7-15.3); MCH 28.2 pg (25.7-33.7); MCHC 32.4 g/dl (32.0-36.0); MEAN PLT VOLUME 9.1 fl (7.5-11.1); PLATELET COUNT 212 K/MM3 (134-434); RBC 2.99 M/mm3 (3.60-5.2)
[2017-05-15 07:27] LABS: CHLORIDE 104 mmol/L (98-107); SODIUM 140 mmol/L (136-145)
[2017-05-15 07:36] LABS: ANION GAP 12 (8-16); BLOOD UREA NITROGEN 17 mg/dL (7-18); CALCIUM 8.9 mg/dL (8.5-10.1); CO2 24 mmol/L (21-32); GLUCOSE,RANDOM 80 mg/dL (74-106)
--- NOTE | 2017-05-15 09:02 | CON.NEURO ---
Consult - Past Medical History [employer]FA[employer]ING [employer]GER: Yes: Other (essential tremor) Cardio/Vascular: Yes: CAD, HTN, Pulmonary Hypertension, Other (PVD S/P STENTS AND GRAFTS BY DR CHRISTENSEN) Pulmonary: Yes: Bronchitis Gastrointestinal: Yes: Constipation, Other (NO HISTORY OF COLONOSCOPY) Renal/: Yes: Renal Inusuff, Neurogenic Bladder ...: No Psych: Yes: Anxiety, Depression Musculoskeletal: Yes: Chronic low back pain, Other (spinal stenosis) Rheumatology: Yes: Rheumatoid Arthritis Endocrine: Yes: Diabetes Mellitus, Other (Goiter) - Past Surgical History Past Surgical History: Yes: Appendectomy, Bypass, Hysterectomy - Alcohol/Substance Use Hx Alcohol Use: No History of Substance Use: reports: None - Smoking History Smoking history: Former smoker Have you smoked in the past 12 months: Yes Aproximately how many cigarettes per day: 0 If you are a former smoker, when did you quit?: December 2013 - Social History Usual Living Arrangement: Alone ADL: Independent Occupation: retired, , no pets History of Recent Travel: No Home Medications - Allergies Allergies/Adverse Reactions: Allergies Allergy/AdvReac Type Severity Reaction Status Date / Time Penicillins Allergy Verified 05/11/17 09:29 ibuprofen [From Motrin] AdvReac Verified 05/11/17 09:29 morphine AdvReac Verified 05/11/17 09:29 - Home Medications Home Medications: Ambulatory Orders Amlodipine Besylate [Norvasc -] 2.5 mg PO DAILY #0 tablet 12/20/12 Pantoprazole Sodium [Protonix -] 40 mg PO DAILY #30 tablet.ec 02/23/14 Aspirin [Aspirin EC] 81 mg PO DAILY #30 tablet. 04/23/14 Magnesium Oxide 800 mg PO BID 05/24/15 Cyclobenzaprine HCl [Flexeril -] 10 mg PO TID PRN #0 07/29/15 Sucralfate Oral Suspension [Carafate Oral Suspension -] 2 gm NR BID #1250 ml Oxycodone HCl/Acetaminophen [Percocet 5-325 mg Tablet] 1 - 2 tab PO Q6H #20 tablet MDD 4 09/19/16 Atorvastatin Ca [Lipitor] 10 mg PO HS 09/26/16 Bupropion HCl [Wellbutrin Xl -] 150 mg PO DAILY #30 tab 10/02/16 Pramipexole Dihydrochloride [Mirapex -] 0.25 mg PO BID #60 tablet 10/02/16 Family Disease History - Family Disease History Family Disease History: Heart Disease: Mother (mi at 66y/o), Other: Father ( renal mass and from sepsis) Other Family History: Hyperthyroidism in Father and Sister ?Graves Physical Exam-Neuro Vital Signs: Vital Signs Temperature 98.2 F 05/15/17 08:03 Pulse Rate 104 H 05/15/17 08:03 Respiratory Rate 16 05/15/17 08:03 Blood Pressure 114/82 05/15/17 08:03 O2 Sat by Pulse Oximetry (%) 98 05/14/17 21:00 Labs: CBC, BMP 05/15/17 06:40 05/15/17 06:40 INR, PTT INR 1.26 (0.82-1.09) H 05/11/17 10:40 Assessment/Plan cc Back pain and pain in lower extremity x since February 04 HPI 66 year old female history of HTN,HLD, DM,Pullmonary hypertension, copd,cad , hodgkins lymphoma. Patient has history of Diabetic Neuropathy , spinal stenosis and compression fracture. Patient is not any pain meidcaiton and has not been seeing PT in hospital I was asked to eval for back pain. She do have chronic low back pain , she never had any epidural procedure or injection in past She also have history of venous stasis and also diabetic neuroapthy. Her pain is in feet and goes upto bothy legs . She do have low back pain, and it does not travel down. She describes as moderate to severe intensity. Past Medical History as above. She smoked for a long time, ROS,SH,FH reviewed in chart PAST SURGICAL HISTORY: Hysterectomy 2013 Allergies Penicillins Allergy (Verified 05/11/17 09:29) ibuprofen [From Motrin] Adverse Reaction (Verified 05/11/17 09:29) morphine Adverse Reaction (Verified 05/11/17 09:29) HOME MEDICATIONS: Home Medications Medication Instructions Recorded Amlodipine Besylate [Norvasc -] 2.5 mg PO DAILY #0 tablet 12/20/12 Pantoprazole Sodium [Protonix -] 40 mg PO DAILY #30 tablet.ec 02/23/14 Aspirin [Aspirin EC] 81 mg PO DAILY #30 tablet. 04/23/14 Magnesium Oxide 800 mg PO BID 05/24/15 Cyclobenzaprine HCl [Flexeril -] 10 mg PO TID PRN #0 07/29/15 Sucralfate Oral Suspension 2 gm NR BID #1250 ml 10/15/15 [Carafate Oral Suspension -] Oxycodone HCl/Acetaminophen 1 - 2 tab PO Q6H #20 tablet MDD 4 09/19/16 [Percocet 5-325 mg Tablet] Atorvastatin Ca [Lipitor] 10 mg PO HS 09/26/16 Bupropion HCl [Wellbutrin Xl -] 150 mg PO DAILY #30 tab 10/02/16 Pramipexole Dihydrochloride 0.25 mg PO BID #60 tablet 10/02/16 [Mirapex -] Neurological Examination Alert able to communicate, follow command CN all intact upper extremity no senosry loss and strength is normal Lower extremity she is severely decnditioned. There is good strength distally planter extension. THere is mild weakness bilateral proximally and knee extension( as she has not been walking) There is mild localized back tendreness There is diminished sensation in lower extremity Upper extremity reflex are grade 1 lower extremity reflex are absent Assessment- 1. Non radicular low back pain ( History of compression fracture), was seen by neurosurgeon in september 2016 was told not a surgical candiddate 2. Diabetic Poly Neuropathy carrying long standing diagnosis of neuropathy and current clinical feature are also suggestive of neuropathy Plan -- It is unliklely that she would be a candidate for any surgical intervnetion for lower back)( given her current medication condition , previously not a canndidate and non radicular low back pain ), MRI of L spine would not benefit . Suggest to start gabapentin 300 mg po bid , and take tramadol prn. PT can be started once she can tolerate 2. Neuropathy-- start gabapentin and tramadol Thank you so much Jean Carlos Clemens MD
[2017-05-15] MEDS: BACITRACIN 15 GM TUBE TOPICAL OINTMENT TP SCH (10:08)
[2017-05-15] MEDS: NYSTATIN 100,000 UNIT/GM TOPICAL CREAM 15 GM TUBE TP SCH ×2 (10:08→21:39)
[2017-05-15] MEDS: MINERAL OIL/PETROLAT/WATER TOPICAL CREAM 113 GM JAR TP SCH ×2 (10:08→21:38)
[2017-05-15] MEDS: MAGNESIUM OXIDE 400 MG TABLET (FP) PO SCH ×2 (10:08→21:37)
[2017-05-15] MEDS: ASPIRIN COATED 81 MG TABLET.EC PO SCH (10:08)
[2017-05-15] MEDS: ENOXAPARIN NA (PORCINE) 100 MG/1 ML DISP.SYRIN SQ SCH ×2 (10:08→21:39)
[2017-05-15] MEDS: METHIMAZOLE 10 MG TABLET (FP) PO SCH ×2 (10:08→21:38)
[2017-05-15] MEDS: GABAPENTIN 300 MG CAPSULE (FP) PO SCH ×2 (10:08→21:37)
--- NOTE | 2017-05-15 13:53 | CONSULT ---
Consult - text type - Consultation Consultation Note: Podiatry Consultation: 66 year old F, multiple medical comorbidities, presents to hospital with abdominal pain. Denies F/V/N/C/SOB/CP currently. Podiatry consultation requested for venous stasis ulcer on lower legs. Currently afebrile, VSS. PMHx: CAD, HLP, COPD, Hodgkin's lymphoma, endometrial CA, NIDDM, spinal stenosis , chronic back pain Meds: noted ALL: PCN, ibuprofen, morphine PAZ: Pedal pulses 1/4, TG wnl, CFT brisk to all toes. There are bilateral lower leg venous stasis changes with superficial ulcers, no purulence, no fluctuance, no probing to bone, no acute signs of infection. Mild erythema to lower legs. No ischemic changes to the foot. Nails are elongated, discolored, thickened, tender x 10. WBC: 5.0 Imp: 66 year old DM F with venous stasis changes B/L LEs 1. Recommended local wound care and leg elevation 2. No acute intervention at this time. Can f/u in wound healing center upon discharge, [phone]. 3. Diabetic foot care reviewed. 4. Thank you for the courtesy of this consultation. Prudencio Alexander DPM
--- NOTE | 2017-05-15 14:43 | PN ---
Progress Note (short form) - Note Progress Note: C/o feeling tired No palpitations Vital Signs Period Temp Pulse Resp BP Sys/Peguero Pulse Ox Last 24 Hr 98.1 F-98.9 F 104-118 16-20 110-125/57-82 98-98 PE: Awake, alert Neck: Supple, No JVD HEENT: PERRL Eomi Lungs: CTA CVS: S1S2 Abd: Benign EXt: +Edema CMP Sodium 140 mmol/L (136-145) 05/15/17 06:40 Potassium 4.0 mmol/L (3.5-5.1) 05/15/17 06:40 Chloride 104 mmol/L (98-107) 05/15/17 06:40 Carbon Dioxide 24 mmol/L (21-32) 05/15/17 06:40 Anion Gap 12 (8-16) 05/15/17 06:40 BUN 17 mg/dL (7-18) 05/15/17 06:40 Creatinine 1.0 mg/dL (0.55-1.02) 05/15/17 06:40 Creat Clearance w eGFR > 60 (>60) 05/14/17 05:45 POC Glucometer 112 UNITS (80-120) 05/13/17 06:42 Random Glucose 80 mg/dL (74-106) 05/15/17 06:40 Hemoglobin A1c % 5.1 % (4.8-6.0) D 05/12/17 05:48 Lactic Acid 1.4 mmol/L (0.4-2.0) 05/11/17 12:22 Calcium 8.9 mg/dL (8.5-10.1) 05/15/17 06:40 Phosphorus 3.9 mg/dL (2.5-4.9) 05/13/17 05:45 Magnesium 1.9 mg/dL (1.8-2.4) 05/14/17 05:45 Total Bilirubin 0.7 mg/dL (0.2-1.0) 05/14/17 05:45 AST 7 U/L (15-37) L 05/14/17 05:45 ALT 12 U/L (12-78) 05/14/17 05:45 Alkaline Phosphatase 81 U/L (45-117) 05/14/17 05:45 LD Total 145 U/L (84-246) D 05/12/17 05:48 Creatine Kinase 45 IU/L (26-192) 05/11/17 09:58 Troponin I 0.02 ng/ml (0.00-0.05) 05/11/17 21:40 B-Natriuretic Peptide 6276.89 pg/ml (5-125) H 05/11/17 09:58 Total Protein 6.1 g/dl (6.4-8.2) L 05/14/17 05:45 Albumin 2.9 g/dl (3.4-5.0) L 05/14/17 05:45 Triglycerides 94 mg/dL (35-160) D 05/12/17 05:48 Cholesterol 76 mg/dL (50-200) D 05/12/17 05:48 Total LDL Cholesterol 33 mg/dL (5-100) 05/12/17 05:48 HDL Cholesterol 38 mg/dL (40-60) L 05/12/17 05:48 Lipase 86 U/L (73-393) 05/11/17 10:40 CA 125 Antigen 36.1 U/mL (0.0-38.1) 05/12/17 05:48 TSH < 0.01 uIU/ml (0.358-3.74) L D 05/11/17 10:40 Free T4 2.56 ng/dl (0.76-1.46) H D 05/13/17 05:45 Free T3 8.2 pg/ml (2.0-4.4) H 05/11/17 14:15 Current Medications Generic Name Dose Route Start Last Admin Trade Name Dongq PRN Reason Stop Dose Admin Aspirin 81 mg 05/11/17 16:30 05/15/17 10:08 Ecotrin - PO 81 mg DAILY CRISTOFER Administration Atorvastatin Calcium 10 mg 05/11/17 22:00 05/14/17 21:19 Lipitor - PO 10 mg HS CRISTOFER Administration Bacitracin 1 applic 05/12/17 12:30 05/15/17 10:08 Bacitracin - TP 1 applic DAILY CRISTOFER Administration Bupropion HCl 150 mg 05/11/17 16:30 05/15/17 10:09 Wellbutrin Xl - PO 150 mg DAILY CRISTOFER Administration Cyclobenzaprine HCl 10 mg 05/11/17 23:45 05/15/17 05:32 Flexeril - PO 10 mg TID CRISTOFER Administration Docusate Sodium 100 mg 05/11/17 16:46 Colace - PO BID PRN CONSTIPATION Enoxaparin Sodium 100 mg 05/11/17 16:45 05/15/17 10:08 Lovenox - SQ 100 mg BID CRISTOFER Administration Gabapentin 300 mg 05/15/17 10:00 05/15/17 10:08 Neurontin - PO 300 mg BID CRISTOFER Administration Magnesium Oxide 400 mg 05/13/17 10:00 05/15/17 10:08 Mag-Ox - PO 400 mg Q2D@1000 CRISTOFER Administration Magnesium Oxide 400 mg 05/11/17 22:00 05/13/17 22:21 Mag-Ox - PO 400 mg Q2D@2200 CRISTOFER Administration Methimazole 20 mg 05/11/17 22:00 05/15/17 10:08 Tapazole - PO 20 mg BID CRISTOFER Administration Metoprolol Tartrate 2.5 mg 05/11/17 16:32 05/14/17 10:24 Lopressor Injection - IVPUSH 2.5 mg Q4H PRN Administration HYPERTENSION Multi-Ingredient Lotion 1 applic 05/13/17 22:00 05/15/17 10:08 Eucerin (Small Jar) - TP Not Given BID [facility] Nystatin 1 applic 05/13/17 22:00 05/15/17 10:08 Mycostatin Cream - TP Not Given BID [facility] Propranolol HCl 60 mg 05/14/17 22:00 05/15/17 05:33 Inderal - PO 60 mg TID CRISTOFER Administration Senna 2 tab 05/11/17 16:46 Senna - PO HS PRN CONSTIPATION Tramadol HCl 50 mg 05/15/17 09:02 Ultram - PO Q8H PRN PAIN AP; Hyperthyroidism: improving, FT4 2.56 H/O Goiter ?Nodules A Fib DM H/O Hodgkin's Lymphoma H/O Endometrial Ca Stasis changes of lege PAD Fatty Liver on ultrasound continue Propranolol Methimazole 20mg BID FT4 and FT3 today, IV contrast could make the hyperthyroidism worse FT3, Pending TSI, TPO pending Thyroid ultrasound Will F/u Problem List - Problems (1) Atrial fibrillation with RVR Code(s): I48.91 - UNSPECIFIED ATRIAL FIBRILLATION (2) Hyperthyroidism Code(s): E05.90 - THYROTOXICOSIS, UNSP WITHOUT THYROTOXIC CRISIS OR STORM (3) H/O malignant neoplasm of endometrium Code(s): Z85.42 - PERSONAL HISTORY OF MALIGNANT NEOPLASM OF OTH PRT UTERUS (4) Hodgkin lymphoma Code(s): C81.90 - HODGKIN LYMPHOMA, UNSPECIFIED, UNSPECIFIED SITE Qualifiers: Hodgkin lymphoma type: unspecified type Lymphoma site: unspecified region Qualified Code(s): C81.90 - Hodgkin lymphoma, unspecified, unspecified site (5) Type 2 diabetes mellitus Code(s): E11.9 - TYPE 2 DIABETES MELLITUS WITHOUT COMPLICATIONS Qualifiers: Diabetes mellitus complication status: with neurologic complications Diabetes mellitus complication detail: with polyneuropathy
--- NOTE | 2017-05-15 15:47 | PN ---
Physical Exam: SUBJECTIVE: Patient seen and examined. No acute events overnight. Pt endorses worsening b/l LE pain and back pain. She denies fevers, chills, SOB, chest pain, abdominal pain, n/v/d/c, and dysuria. OBJECTIVE: Vital Signs Period Temp Pulse Resp BP Sys/Peguero Pulse Ox Last 24 Hr 98.1 F-98.9 F 104-118 16-20 110-125/57-82 98-98 GENERAL: Patient lying in bed, awake, alert, and fully oriented, in mild distress. HEENT: NC, AT NECK: Supple. LUNGS: CTAB, no wheezing or rales HEART: Tachycardia, Regular rate and rhythm, systolic murmur ABDOMEN: Soft, non tender , not distended, normoactive bowel sounds, no guarding , no rebound, no masses MUSCULOSKELETAL: b/l severe LE tenderness, pitting peripheral edema, lower extremity superficial ulcers with minimal drainage, foul smelling, dry cracked skin, onychomycosis NEUROLOGICAL: Cranial nerves II-XII intact. Normal speech. Gait not observed. Laboratory Results - last 24 hr 05/15/17 05/15/17 06:40 06:40 WBC 5.0 RBC 2.99 L Hgb 8.4 L Hct 26.0 L MCV 87.0 MCH 28.2 MCHC 32.4 RDW 16.0 H Plt Count 212 MPV 9.1 Sodium 140 Potassium 4.0 Chloride 104 Carbon Dioxide 24 Anion Gap 12 BUN 17 Creatinine 1.0 Random Glucose 80 Calcium 8.9 Active Medications Generic Name Dose Route Start Last Admin Trade Name Freq PRN Reason Stop Dose Admin Aspirin 81 mg 05/11/17 16:30 05/15/17 10:08 Ecotrin - PO 81 mg DAILY CRISTOFER Administration Atorvastatin Calcium 10 mg 05/11/17 22:00 05/14/17 21:19 Lipitor - PO 10 mg HS CRISTOFER Administration Bacitracin 1 applic 05/12/17 12:30 05/15/17 10:08 Bacitracin - TP 1 applic DAILY CRISTOFER Administration Bupropion HCl 150 mg 05/11/17 16:30 05/15/17 10:09 Wellbutrin Xl - PO 150 mg DAILY CRISTOFER Administration Cyclobenzaprine HCl 10 mg 05/11/17 23:45 05/15/17 15:02 Flexeril - PO 10 mg TID CRISTOFER Administration Docusate Sodium 100 mg 05/11/17 16:46 Colace - PO BID PRN CONSTIPATION Enoxaparin Sodium 100 mg 05/11/17 16:45 05/15/17 10:08 Lovenox - SQ 100 mg BID CRISTOFER Administration Gabapentin 300 mg 05/15/17 10:00 05/15/17 10:08 Neurontin - PO 300 mg BID CRISTOFER Administration Magnesium Oxide 400 mg 05/13/17 10:00 05/15/17 10:08 Mag-Ox - PO 400 mg Q2D@1000 CRISTOFER Administration Magnesium Oxide 400 mg 05/11/17 22:00 05/13/17 22:21 Mag-Ox - PO 400 mg Q2D@2200 CRISTOFER Administration Methimazole 20 mg 05/11/17 22:00 05/15/17 10:08 Tapazole - PO 20 mg BID CRISTOFER Administration Metoprolol Tartrate 2.5 mg 05/11/17 16:32 05/14/17 10:24 Lopressor Injection - IVPUSH 2.5 mg Q4H PRN Administration HYPERTENSION Multi-Ingredient Lotion 1 applic 05/13/17 22:00 05/15/17 10:08 Eucerin (Small Jar) - TP Not Given BID [facility] Nystatin 1 applic 05/13/17 22:00 05/15/17 10:08 Mycostatin Cream - TP Not Given BID [facility] Propranolol HCl 60 mg 05/14/17 22:00 05/15/17 15:02 Inderal - PO 60 mg TID CRISTOFER Administration Senna 2 tab 05/11/17 16:46 Senna - PO HS PRN CONSTIPATION Tramadol HCl 50 mg 05/15/17 09:02 Ultram - PO Q8H PRN PAIN ASSESSMENT/PLAN: 66F w/ hx of asthma, HTN, HLD, NIDDM, pulmonary hypertension, COPD, CAD, Hodgkin s lymphoma (Dx in 2013 s/p chemo and radiation until 2014) and endometrial CA s /p chemotherapy (last 08/2015)and radiation (last 10/2015) with metastasis, diabetic neuropathy, spinal stenosis, chronic back pain with compression fracture to L1 and L3, and carpal tunnel syndrome who was sent to ED by Dr. Santo for further evaluation of abdominal pain. # Atrial fibrillation with RVR -HR around 110-120 overnight -Propanolol 60mg TID per cards -IV Metoprolol 2.5 mg Q4H PRN -CHADSVASC Score-4 -Lovenox 100mg sq BID # Hyperthyroidism- possibly could be in thyrotoxicosis -Free T4- 3.81--> 2.56 , Free T3 8.2---> pending -Could have been aggravated by the use of IV contrast. -continue Methimazole 20mg PO BID -won't do thyroid US as inpatient, so will do as outpt -f/u thyroid Ab studies # B/L lower extremity venous stasis -wound dressing daily, as per Dr. Camarillo -Has allergies to lotion. Application of Eucerin in the foot area. -Podiatry consult, recs appreciated: local wound care, leg elevation, f/u in wound care upon D/C # Fungal infection in right inguinal region -Nystatin TP # Hodgkins lymphoma and endometrial CA with mets s/p chemo and radiation -Management as per oncology -new 3cm mass anterior to abdominal aorta to be evaluated with PET scan as outpt, possibly lymph node # Hypertension- controlled -BP of 110-125/60s overnight -continue propranolol -Low salt diet # H/O Diabetes Mellitus -A1c of 5.1 # Normocytic anemia -Hb-8.4, baseline around 9-10. -Iron work up done in the past -No active bleeding at this time -FOBT negative # Chronic low back pain/neuropathy -neuro on board, recs appreciated: start gabapentin and tramadol # FEN/ppx -Not on IV fluids -Electrolytes wnl -Sodium controlled diet -For DVT: On lovenox 100mg BID -For GI: Not indicated # Code Status: Full code -Ismael Simpson MD PGY1 Visit type - Emergency Visit Emergency Visit: Yes ED Registration Date: 05/11/17 Care time: The patient presented to the Emergency Department on the above date and was hospitalized for further evaluation of their emergent condition. - New Patient This patient is new to me today: No - Critical Care Critical Care patient: No
[2017-05-15] MEDS: ATORVASTATIN CA 10 MG TABLET (FP) PO SCH (21:37)
--- NOTE | 2017-05-15 23:23 | PN ---
Teaching Attending Note Name of Resident: Ismael Simpson ATTENDING PHYSICIAN STATEMENT I saw and evaluated the patient. I reviewed the resident's note and discussed the case with the resident. I agree with the resident's findings and plan as documented. SUBJECTIVE: Patient c/o having worsening b/l LE pain and back pain. No fever or chills, otherwise comfortable, denies any palpitations. OBJECTIVE: Vital Signs Temperature 99.1 F 05/15/17 21:00 Pulse Rate 106 H 05/15/17 21:00 Respiratory Rate 18 05/15/17 21:00 Blood Pressure 109/58 05/15/17 21:00 O2 Sat by Pulse Oximetry (%) 96 05/15/17 21:00 CBCD WBC 5.0 K/mm3 (4.0-10.0) 05/15/17 06:40 RBC 2.99 M/mm3 (3.60-5.2) L 05/15/17 06:40 Hgb 8.4 GM/dL (10.7-15.3) L 05/15/17 06:40 Hct 26.0 % (32.4-45.2) L 05/15/17 06:40 MCV 87.0 fl (80-96) 05/15/17 06:40 MCHC 32.4 g/dl (32.0-36.0) 05/15/17 06:40 RDW 16.0 % (11.6-15.6) H 05/15/17 06:40 Plt Count 212 K/MM3 (134-434) 05/15/17 06:40 MPV 9.1 fl (7.5-11.1) 05/15/17 06:40 CMP Sodium 140 mmol/L (136-145) 05/15/17 06:40 Potassium 4.0 mmol/L (3.5-5.1) 05/15/17 06:40 Chloride 104 mmol/L (98-107) 05/15/17 06:40 Carbon Dioxide 24 mmol/L (21-32) 05/15/17 06:40 Anion Gap 12 (8-16) 05/15/17 06:40 BUN 17 mg/dL (7-18) 05/15/17 06:40 Creatinine 1.0 mg/dL (0.55-1.02) 05/15/17 06:40 Creat Clearance w eGFR > 60 (>60) 05/14/17 05:45 Random Glucose 80 mg/dL (74-106) 05/15/17 06:40 Calcium 8.9 mg/dL (8.5-10.1) 05/15/17 06:40 Total Bilirubin 0.7 mg/dL (0.2-1.0) 05/14/17 05:45 AST 7 U/L (15-37) L 05/14/17 05:45 ALT 12 U/L (12-78) 05/14/17 05:45 Alkaline Phosphatase 81 U/L (45-117) 05/14/17 05:45 Total Protein 6.1 g/dl (6.4-8.2) L 05/14/17 05:45 Albumin 2.9 g/dl (3.4-5.0) L 05/14/17 05:45 CARDIAC ENZYMES Creatine Kinase 45 IU/L (26-192) 05/11/17 09:58 Troponin I 0.02 ng/ml (0.00-0.05) 05/11/17 21:40 Current Medications Generic Name Dose Route Start Last Admin Trade Name Freq PRN Reason Stop Dose Admin Aspirin 81 mg 05/11/17 16:30 05/15/17 10:08 Ecotrin - PO 81 mg DAILY CRISTOFER Administration Atorvastatin Calcium 10 mg 05/11/17 22:00 05/15/17 21:37 Lipitor - PO 10 mg HS CRISTOFER Administration Bacitracin 1 applic 05/12/17 12:30 05/15/17 10:08 Bacitracin - TP 1 applic DAILY CRISTOFER Administration Bupropion HCl 150 mg 05/11/17 16:30 05/15/17 10:09 Wellbutrin Xl - PO 150 mg DAILY CRISTOFER Administration Cyclobenzaprine HCl 10 mg 05/11/17 23:45 05/15/17 21:38 Flexeril - PO 10 mg TID CRISTOFER Administration Docusate Sodium 100 mg 05/11/17 16:46 Colace - PO BID PRN CONSTIPATION Enoxaparin Sodium 100 mg 05/11/17 16:45 05/15/17 21:39 Lovenox - SQ 100 mg BID CRISTOFER Administration Gabapentin 300 mg 05/15/17 10:00 05/15/17 21:37 Neurontin - PO 300 mg BID CRISTOFER Administration Magnesium Oxide 400 mg 05/13/17 10:00 05/15/17 10:08 Mag-Ox - PO 400 mg Q2D@1000 CRISTOFER Administration Magnesium Oxide 400 mg 05/11/17 22:00 05/15/17 21:37 Mag-Ox - PO 400 mg Q2D@2200 CRISTOFER Administration Methimazole 20 mg 05/11/17 22:00 05/15/17 21:38 Tapazole - PO 20 mg BID CRISTOFER Administration Metoprolol Tartrate 2.5 mg 05/11/17 16:32 05/14/17 10:24 Lopressor Injection - IVPUSH 2.5 mg Q4H PRN Administration HYPERTENSION Multi-Ingredient Lotion 1 applic 05/13/17 22:00 05/15/17 21:38 Eucerin (Small Jar) - TP Not Given BID [facility] Nystatin 1 applic 05/13/17 22:00 05/15/17 21:39 Mycostatin Cream - TP Not Given BID [facility] Propranolol HCl 60 mg 05/14/17 22:00 05/15/17 21:36 Inderal - PO 60 mg TID CRISTOFER Administration Senna 2 tab 05/11/17 16:46 Senna - PO HS PRN CONSTIPATION Tramadol HCl 50 mg 05/15/17 09:02 Ultram - PO Q8H PRN PAIN Home Medications Medication Instructions Recorded Amlodipine Besylate [Norvasc -] 2.5 mg PO DAILY #0 tablet 12/20/12 Pantoprazole Sodium [Protonix -] 40 mg PO DAILY #30 tablet.ec 02/23/14 Aspirin [Aspirin EC] 81 mg PO DAILY #30 tablet. 04/23/14 Magnesium Oxide 800 mg PO BID 05/24/15 Cyclobenzaprine HCl [Flexeril -] 10 mg PO TID PRN #0 07/29/15 Sucralfate Oral Suspension 2 gm NR BID #1250 ml 10/15/15 [Carafate Oral Suspension -] Oxycodone HCl/Acetaminophen 1 - 2 tab PO Q6H #20 tablet MDD 4 09/19/16 [Percocet 5-325 mg Tablet] Atorvastatin Ca [Lipitor] 10 mg PO HS 09/26/16 Bupropion HCl [Wellbutrin Xl -] 150 mg PO DAILY #30 tab 10/02/16 Pramipexole Dihydrochloride 0.25 mg PO BID #60 tablet 10/02/16 [Mirapex -] PE: irregularly irregular rate of 106 LE: BL venous stasis rest of PE per resident's note. ASSESSMENT AND PLAN: Patient is a 66 year old female with past medical history of Asthma, HTN, HLD, diet controlled diabetes, pulmonary hypertension, COPD, CAD, Hodgkins lymphoma (Dx in 2013 s/p chemo and radiation until 2014) and endometrial CA s/p chemotherapy (last 08/2015)and radiation (last 10/2015) with metastasis, diabetic neuropathy, spinal stenosis, chronic back pain with compression fracure to L1 and L3. and carpal tunnel syndrome. was sent in to the ED by Dr. Santo for further evaluation of abdominal pain. # Atrial fibrillation with RVR triggerd by hyperthyroidism with HR 106 today presented with a rate of 175; CHADSVASC Score-4, Lovenox 100mg sq BID (1mg/kg) Dr. Nye cardiology consult appreciated. On propranolol 60mg TID increased from 40mg for rate control. also on Metimazole for her hyperthyroidism. # Newly diagnosed Hyperthyroidism- started on Methimazole 20mg po bid, is consulted & appreciated , TSH-<0.01. Free T4-3.81, FT3-8.2. Also on Inderal for rate control and Lopressor IV prn # Hx of constipation continue Colace, Senna. 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 DVT w/u is negative B/L lower extremity wound dressing daily, as per Dr. Camarillo # Hodgkins lymphoma and endometrial CA with mets s/p chemo and radiation , increased in size since 09/19/2016 hypodense mass anterior to the lower abdominal aorta that may represent an enlarged lymph node. management as per oncology Dr. Bray. # Hypertension controlled on Propanolol 60mg tid. # Diabetes Mellitus ISS with coverage # Normocytic anemia Hb-9.4, baseline around 9-10. # Chronic low back pain-due to compression # in L1 and L3, on Ultram PRN # DVT px: On lovenox sq full dose
[2017-05-16] MEDS: CYCLOBENZAPRINE HCL 10 MG TABLET (FP) PO SCH ×3 (06:38→21:55)
[2017-05-16] MEDS: PROPRANOLOL HCL 40 MG TABLET PO SCH ×3 (06:38→21:55)
[2017-05-16 07:54] LABS: BASO % 0.3 % (0-2.0); EOS % 7.5 % (0-4.5); HEMATOCRIT 25.2 % (32.4-45.2); HEMOGLOBIN 7.9 GM/dL (10.7-15.3); LYMPH % 22.9 % (8-40); MCH 27.4 pg (25.7-33.7); MCHC 31.4 g/dl (32.0-36.0); MEAN PLT VOLUME 8.9 fl (7.5-11.1); MONO % 9.4 % (3.8-10.2); NEUT % 59.9 % (42.8-82.8); PLATELET COUNT 183 K/MM3 (134-434); RDW 16.2 % (11.6-15.6); WHITE BLOOD COUNT 4.6 K/mm3 (4.0-10.0)
[2017-05-16 08:03] LABS: ALBUMIN 2.6 g/dl (3.4-5.0); ANION GAP 7 (8-16); BLOOD UREA NITROGEN 16 mg/dL (7-18); CALCIUM 8.2 mg/dL (8.5-10.1); CHLORIDE 104 mmol/L (98-107); CO2 29 mmol/L (21-32); GLUCOSE,RANDOM 83 mg/dL (74-106); POTASSIUM 3.9 mmol/L (3.5-5.1); SODIUM 140 mmol/L (136-145)
[2017-05-16 08:06] LABS: ALK PHOS 69 U/L (45-117); BILIRUBIN,TOTAL 0.7 mg/dL (0.2-1.0); SGOT/AST 10 U/L (15-37); SGPT/ALT 11 U/L (12-78); TOT PROT 5.6 g/dl (6.4-8.2)
--- NOTE | 2017-05-16 08:20 | PN ---
Progress Note, Physician - Current Medication List Current Medications: Active Medications Aspirin (Ecotrin -) 81 mg PO DAILY [facility] Last Admin: 05/15/17 10:08 Dose: 81 mg Atorvastatin Calcium (Lipitor -) 10 mg PO HS [facility] Last Admin: 05/15/17 21:37 Dose: 10 mg Bacitracin (Bacitracin -) 1 applic TP DAILY [facility] Last Admin: 05/15/17 10:08 Dose: 1 applic Bupropion HCl (Wellbutrin Xl -) 150 mg PO DAILY [facility] Last Admin: 05/15/17 10:09 Dose: 150 mg Cyclobenzaprine HCl (Flexeril -) 10 mg PO TID [facility] Last Admin: 05/16/17 06:38 Dose: 10 mg Docusate Sodium (Colace -) 100 mg PO BID PRN PRN Reason: CONSTIPATION Enoxaparin Sodium (Lovenox -) 100 mg SQ BID [facility] Last Admin: 05/15/17 21:39 Dose: 100 mg Gabapentin (Neurontin -) 300 mg PO BID [facility] Last Admin: 05/15/17 21:37 Dose: 300 mg Magnesium Oxide (Mag-Ox -) 400 mg PO Q2D@1000 [facility] Last Admin: 05/15/17 10:08 Dose: 400 mg Magnesium Oxide (Mag-Ox -) 400 mg PO Q2D@2200 [facility] Last Admin: 05/15/17 21:37 Dose: 400 mg Methimazole (Tapazole -) 20 mg PO BID [facility] Last Admin: 05/15/17 21:38 Dose: 20 mg Metoprolol Tartrate (Lopressor Injection -) 2.5 mg IVPUSH Q4H PRN PRN Reason: HYPERTENSION Last Admin: 05/14/17 10:24 Dose: 2.5 mg Multi-Ingredient Lotion (Eucerin (Small Jar) -) 1 applic TP BID [facility] Last Admin: 05/15/17 21:38 Dose: Not Given Nystatin (Mycostatin Cream -) 1 applic TP BID [facility] Last Admin: 05/15/17 21:39 Dose: Not Given Propranolol HCl (Inderal -) 60 mg PO TID [facility] Last Admin: 05/16/17 06:38 Dose: 60 mg Senna (Senna -) 2 tab PO HS PRN PRN Reason: CONSTIPATION Tramadol HCl (Ultram -) 50 mg PO Q8H PRN PRN Reason: PAIN - Objective Vital Signs: Vital Signs Temperature 98.5 F 05/16/17 06:00 Pulse Rate 111 H 05/16/17 06:00 Respiratory Rate 17 05/16/17 06:00 Blood Pressure 98/55 05/16/17 06:00 O2 Sat by Pulse Oximetry (%) 96 05/15/17 21:00 Labs: CBC, BMP 05/16/17 05:05 05/16/17 05:05 INR, PTT INR 1.26 (0.82-1.09) H 05/11/17 10:40 Problem List - Problems (1) Atrial fibrillation with RVR Code(s): I48.91 - UNSPECIFIED ATRIAL FIBRILLATION (2) Intractable back pain Code(s): M54.9 - DORSALGIA, UNSPECIFIED (3) PAD (peripheral artery disease) Code(s): I73.9 - PERIPHERAL VASCULAR DISEASE, UNSPECIFIED (4) Anemia Code(s): D64.9 - ANEMIA, UNSPECIFIED Qualifiers: Other causes of anemia: chronic disease, neoplastic (5) Hodgkin lymphoma Code(s): C81.90 - HODGKIN LYMPHOMA, UNSPECIFIED, UNSPECIFIED SITE Qualifiers: Hodgkin lymphoma type: unspecified type Lymphoma site: unspecified region Qualified Code(s): C81.90 - Hodgkin lymphoma, unspecified, unspecified site (6) Pulmonary hypertension Code(s): I27.2 - OTHER SECONDARY PULMONARY HYPERTENSION * DO NOT USE * (7) Type 2 diabetes mellitus Code(s): E11.9 - TYPE 2 DIABETES MELLITUS WITHOUT COMPLICATIONS Qualifiers: Diabetes mellitus complication status: with neurologic complications Diabetes mellitus complication detail: with polyneuropathy (8) Hyperthyroidism Code(s): E05.90 - THYROTOXICOSIS, UNSP WITHOUT THYROTOXIC CRISIS OR STORM (9) Chronic combined systolic and diastolic CHF (congestive heart failure) Code(s): I50.42 - CHRONIC COMBINED SYSTOLIC AND DIASTOLIC HRT FAIL
--- NOTE | 2017-05-16 08:21 | PN ---
Progress Note, Physician Chief Complaint: Pt A&Ox3; back pain, leg pain on minimal movement, but able to sit up. Pt's son is visiting. + Palpitations; dyspnea on mild exertion. History of Present Illness: "The patient is a 65 year old white female with a significant PMH of Afib, CHF ( low normal LVEF), asthma, hypertension, hyperlipidemia, diabetes, pulmonary hypertension, COPD, coronary artery diease, Hodgkin's lymphoma s/p chemotherapy and radiation, endometrial cancer s/p chemotherapy and radiation, diabetic neuropathy, spinal stenosis, chronic back pain, and carpal tunnel syndrome ( wrists) who presents to the emergency department sent in by Dr. Santo with worsening abdominal pain for a couple of weeks. Pt states that the pain is constant, localized to RLQ, non-radiating. Endorses nausea after eating with a few episodes of emesis, nonbloody. Pt reports constipation for several days, denies diarrhea. Reports subjective fevers as well. The patient states she has not seen her PCP since October due to a shooting pain down her legs from her known compression fxs that prevented her from leaving home. She also notes she has stopped taking all her medications as of January because she was unable to get refills. The patient denies chest pain, shortness of breath, headache and dizziness. Denies dysuria, frequency, urgency and hematuria. Allergies: Penicillins, Ibuprofen Past surgical history: Appendectomy, hysterectomy, femur bypass (left leg) Social history: No reported cigarette, drug, or alcohol use. Sports Information Director: Dr. Hansen Oncologist: Dr. Hansa Bee PCP: NORMAN Castillo" - Current Medication List Current Medications: Active Medications Aspirin (Ecotrin -) 81 mg PO DAILY [facility] Last Admin: 05/15/17 10:08 Dose: 81 mg Atorvastatin Calcium (Lipitor -) 10 mg PO HS [facility] Last Admin: 05/15/17 21:37 Dose: 10 mg Bacitracin (Bacitracin -) 1 applic TP DAILY [facility] Last Admin: 05/15/17 10:08 Dose: 1 applic Bupropion HCl (Wellbutrin Xl -) 150 mg PO DAILY [facility] Last Admin: 05/15/17 10:09 Dose: 150 mg Cyclobenzaprine HCl (Flexeril -) 10 mg PO TID [facility] Last Admin: 05/16/17 06:38 Dose: 10 mg Docusate Sodium (Colace -) 100 mg PO BID PRN PRN Reason: CONSTIPATION Enoxaparin Sodium (Lovenox -) 100 mg SQ BID [facility] Last Admin: 05/15/17 21:39 Dose: 100 mg Gabapentin (Neurontin -) 300 mg PO BID [facility] Last Admin: 05/15/17 21:37 Dose: 300 mg Magnesium Oxide (Mag-Ox -) 400 mg PO Q2D@1000 [facility] Last Admin: 05/15/17 10:08 Dose: 400 mg Magnesium Oxide (Mag-Ox -) 400 mg PO Q2D@2200 [facility] Last Admin: 05/15/17 21:37 Dose: 400 mg Methimazole (Tapazole -) 20 mg PO BID [facility] Last Admin: 05/15/17 21:38 Dose: 20 mg Metoprolol Tartrate (Lopressor Injection -) 2.5 mg IVPUSH Q4H PRN PRN Reason: HYPERTENSION Last Admin: 05/14/17 10:24 Dose: 2.5 mg Multi-Ingredient Lotion (Eucerin (Small Jar) -) 1 applic TP BID [facility] Last Admin: 05/15/17 21:38 Dose: Not Given Nystatin (Mycostatin Cream -) 1 applic TP BID [facility] Last Admin: 05/15/17 21:39 Dose: Not Given Propranolol HCl (Inderal -) 60 mg PO TID [facility] Last Admin: 05/16/17 06:38 Dose: 60 mg Senna (Senna -) 2 tab PO HS PRN PRN Reason: CONSTIPATION Tramadol HCl (Ultram -) 50 mg PO Q8H PRN PRN Reason: PAIN - Objective Vital Signs: Vital Signs Temperature 98.5 F 05/16/17 06:00 Pulse Rate 111 H 05/16/17 06:00 Respiratory Rate 17 05/16/17 06:00 Blood Pressure 98/55 05/16/17 06:00 O2 Sat by Pulse Oximetry (%) 96 05/15/17 21:00 Constitutional: Yes: Calm Eyes: Yes: WNL HENT: Yes: WNL Neck: Yes: WNL Cardiovascular: Yes: Pulse Irregular Respiratory: Yes: Diminished Gastrointestinal: Yes: Soft ...Rectal Exam: Yes: Deferred Genitourinary: No: Anuria Breast(s): Yes: WNL Musculoskeletal: Yes: Muscle Weakness Extremities: Yes: Cool Edema: Yes Edema: LLE: 1+, RLE: 1+ Peripheral Pulses WNL: No Peripheral Pulses: Left Doralis Pedis: 1+, Right Dorsalis Pedis: 1+ Integumentary: Yes: Venous Stasis Changes, Other (biltater LE wounds) Wound/Incision: Yes: Dressing Dry and Intact Neurological: Yes: Alert, Oriented, Weakness Psychiatric: Yes: Other Labs: CBC, BMP 05/16/17 05:05 05/16/17 05:05 INR, PTT INR 1.26 (0.82-1.09) H 05/11/17 10:40 Problem List - Problems (1) Atrial fibrillation with RVR Assessment/Plan: Increased propranolol to 60 mg q8h; f/u HR and BP. ECHO: low-normal LVEF. Start ACEI or ARB if BP allows. Code(s): I48.91 - UNSPECIFIED ATRIAL FIBRILLATION (2) Intractable back pain Code(s): M54.9 - DORSALGIA, UNSPECIFIED (3) PAD (peripheral artery disease) Assessment/Plan: F/u with vascular surgeon; wound management. Code(s): I73.9 - PERIPHERAL VASCULAR DISEASE, UNSPECIFIED (4) Anemia Code(s): D64.9 - ANEMIA, UNSPECIFIED Qualifiers: Other causes of anemia: chronic disease, neoplastic (5) Hodgkin lymphoma Assessment/Plan: f/u with hem/oncologist. Code(s): C81.90 - HODGKIN LYMPHOMA, UNSPECIFIED, UNSPECIFIED SITE Qualifiers: Hodgkin lymphoma type: unspecified type Lymphoma site: unspecified region Qualified Code(s): C81.90 - Hodgkin lymphoma, unspecified, unspecified site (6) Pulmonary hypertension Code(s): I27.2 - OTHER SECONDARY PULMONARY HYPERTENSION * DO NOT USE * (7) Type 2 diabetes mellitus Code(s): E11.9 - TYPE 2 DIABETES MELLITUS WITHOUT COMPLICATIONS Qualifiers: Diabetes mellitus complication status: with neurologic complications Diabetes mellitus complication detail: with polyneuropathy (8) Hyperthyroidism Code(s): E05.90 - THYROTOXICOSIS, UNSP WITHOUT THYROTOXIC CRISIS OR STORM (9) Chronic combined systolic and diastolic CHF (congestive heart failure) Code(s): I50.42 - CHRONIC COMBINED SYSTOLIC AND DIASTOLIC HRT FAIL
[2017-05-16] MEDS: ENOXAPARIN NA (PORCINE) 100 MG/1 ML DISP.SYRIN SQ SCH (10:50)
[2017-05-16] MEDS: GABAPENTIN 300 MG CAPSULE (FP) PO SCH ×3 (10:50→21:56)
[2017-05-16] MEDS: METHIMAZOLE 10 MG TABLET (FP) PO SCH ×2 (10:50→21:55)
[2017-05-16] MEDS: BACITRACIN 15 GM TUBE TOPICAL OINTMENT TP SCH (10:51)
[2017-05-16] MEDS: ASPIRIN COATED 81 MG TABLET.EC PO SCH (10:51)
[2017-05-16] MEDS: MINERAL OIL/PETROLAT/WATER TOPICAL CREAM 113 GM JAR TP SCH ×2 (10:51→21:47)
[2017-05-16] MEDS: NYSTATIN 100,000 UNIT/GM TOPICAL CREAM 15 GM TUBE TP SCH ×2 (10:52→21:56)
--- NOTE | 2017-05-16 15:12 | PN ---
Progress Note (short form) - Note Progress Note: No new complaints No palpitations Vital Signs Period Temp Pulse Resp BP Sys/Peguero Pulse Ox Last 24 Hr 98.2 F-99.1 F 106-111 17-18 98-119/55-68 96 PE: Awake, alert Neck: Supple, No JVD HEENT: PERRL Eomi Lungs: CTA CVS: S1S2 Abd: Benign EXt: +Edema, stasis changes CMP Sodium 140 mmol/L (136-145) 05/16/17 05:05 Potassium 3.9 mmol/L (3.5-5.1) 05/16/17 05:05 Chloride 104 mmol/L (98-107) 05/16/17 05:05 Carbon Dioxide 29 mmol/L (21-32) D 05/16/17 05:05 Anion Gap 7 (8-16) L 05/16/17 05:05 BUN 16 mg/dL (7-18) 05/16/17 05:05 Creatinine 1.0 mg/dL (0.55-1.02) 05/16/17 05:05 Creat Clearance w eGFR 55.14 (>60) 05/16/17 05:05 POC Glucometer 112 UNITS (80-120) 05/13/17 06:42 Random Glucose 83 mg/dL (74-106) 05/16/17 05:05 Hemoglobin A1c % 5.1 % (4.8-6.0) D 05/12/17 05:48 Lactic Acid 1.4 mmol/L (0.4-2.0) 05/11/17 12:22 Calcium 8.2 mg/dL (8.5-10.1) L 05/16/17 05:05 Phosphorus 3.9 mg/dL (2.5-4.9) 05/13/17 05:45 Magnesium 1.9 mg/dL (1.8-2.4) 05/14/17 05:45 Total Bilirubin 0.7 mg/dL (0.2-1.0) 05/16/17 05:05 AST 10 U/L (15-37) L D 05/16/17 05:05 ALT 11 U/L (12-78) L 05/16/17 05:05 Alkaline Phosphatase 69 U/L (45-117) 05/16/17 05:05 LD Total 145 U/L (84-246) D 05/12/17 05:48 Creatine Kinase 45 IU/L (26-192) 05/11/17 09:58 Troponin I 0.02 ng/ml (0.00-0.05) 05/11/17 21:40 B-Natriuretic Peptide 6276.89 pg/ml (5-125) H 05/11/17 09:58 Total Protein 5.6 g/dl (6.4-8.2) L 05/16/17 05:05 Albumin 2.6 g/dl (3.4-5.0) L 05/16/17 05:05 Triglycerides 94 mg/dL (35-160) D 05/12/17 05:48 Cholesterol 76 mg/dL (50-200) D 05/12/17 05:48 Total LDL Cholesterol 33 mg/dL (5-100) 05/12/17 05:48 HDL Cholesterol 38 mg/dL (40-60) L 05/12/17 05:48 Lipase 86 U/L (73-393) 05/11/17 10:40 CA 125 Antigen 36.1 U/mL (0.0-38.1) 05/12/17 05:48 TSH < 0.01 uIU/ml (0.358-3.74) L D 05/11/17 10:40 Free T4 2.06 ng/dl (0.76-1.46) H D 05/16/17 05:05 Free T3 4.2 pg/ml (2.0-4.4) 05/13/17 05:45 Current Medications Generic Name Dose Route Start Last Admin Trade Name Nanette PRN Reason Stop Dose Admin Aspirin 81 mg 05/11/17 16:30 05/16/17 10:51 Ecotrin - PO 81 mg DAILY CRISTOFER Administration Atorvastatin Calcium 10 mg 05/11/17 22:00 05/15/17 21:37 Lipitor - PO 10 mg HS CRISTOFER Administration Bacitracin 1 applic 05/12/17 12:30 05/16/17 10:51 Bacitracin - TP 1 applic DAILY CRISTOFER Administration Bupropion HCl 150 mg 05/11/17 16:30 05/16/17 10:52 Wellbutrin Xl - PO 150 mg DAILY CRISTOFER Administration Cyclobenzaprine HCl 10 mg 05/11/17 23:45 05/16/17 06:38 Flexeril - PO 10 mg TID CRISTOFER Administration Docusate Sodium 100 mg 05/11/17 16:46 Colace - PO BID PRN CONSTIPATION Enoxaparin Sodium 100 mg 05/11/17 16:45 05/16/17 10:50 Lovenox - SQ 100 mg BID CRISTOFER Administration Gabapentin 300 mg 05/15/17 10:00 05/16/17 10:54 Neurontin - PO Not Given BID CRISTOFER Magnesium Oxide 400 mg 05/13/17 10:00 05/15/17 10:08 Mag-Ox - PO 400 mg Q2D@1000 CRISTOFER Administration Magnesium Oxide 400 mg 05/11/17 22:00 05/15/17 21:37 Mag-Ox - PO 400 mg Q2D@2200 CRISTOFER Administration Methimazole 20 mg 05/11/17 22:00 05/16/17 10:50 Tapazole - PO 20 mg BID CRISTOFER Administration Metoprolol Tartrate 2.5 mg 05/11/17 16:32 05/14/17 10:24 Lopressor Injection - IVPUSH 2.5 mg Q4H PRN Administration HYPERTENSION Multi-Ingredient Lotion 1 applic 05/13/17 22:00 05/16/17 10:51 Eucerin (Small Jar) - TP Not Given BID CRISTOFER Nystatin 1 applic 05/13/17 22:00 05/16/17 10:52 Mycostatin Cream - TP 1 applic BID CRISTOFER Administration Propranolol HCl 80 mg 05/16/17 14:00 Inderal - PO TID CRISTOFER Senna 2 tab 05/11/17 16:46 Senna - PO HS PRN CONSTIPATION Tramadol HCl 50 mg 05/15/17 09:02 Ultram - PO Q8H PRN PAIN AP; Hyperthyroidism: improving, FT4 2.06 H/O Goiter ?Nodules A Fib DM H/O Hodgkin's Lymphoma H/O Endometrial Ca Stasis changes of lege PAD Fatty Liver on ultrasound continue Propranolol Methimazole 20mg BID FT4 2.06, FT3, 4.2 TSI, pending TPO 239 Continue to monitor TFT closely as IV contrast could make the hyperthyroidism worse Will F/u Problem List - Problems (1) Atrial fibrillation with RVR Code(s): I48.91 - UNSPECIFIED ATRIAL FIBRILLATION (2) Hyperthyroidism Code(s): E05.90 - THYROTOXICOSIS, UNSP WITHOUT THYROTOXIC CRISIS OR STORM (3) H/O malignant neoplasm of endometrium Code(s): Z85.42 - PERSONAL HISTORY OF MALIGNANT NEOPLASM OF OTH PRT UTERUS (4) Hodgkin lymphoma Code(s): C81.90 - HODGKIN LYMPHOMA, UNSPECIFIED, UNSPECIFIED SITE Qualifiers: Hodgkin lymphoma type: unspecified type Lymphoma site: unspecified region Qualified Code(s): C81.90 - Hodgkin lymphoma, unspecified, unspecified site (5) Type 2 diabetes mellitus Code(s): E11.9 - TYPE 2 DIABETES MELLITUS WITHOUT COMPLICATIONS Qualifiers: Diabetes mellitus complication status: with neurologic complications Diabetes mellitus complication detail: with polyneuropathy
--- NOTE | 2017-05-16 15:45 | PN ---
Progress Note, Physician History of Present Illness: "The patient is a 65 year old white female with a significant PMH of Afib, CHF ( low normal LVEF), asthma, hypertension, hyperlipidemia, diabetes, pulmonary hypertension, COPD, coronary artery diease, Hodgkin's lymphoma s/p chemotherapy and radiation, endometrial cancer s/p chemotherapy and radiation, diabetic neuropathy, spinal stenosis, chronic back pain, and carpal tunnel syndrome ( wrists) who presents to the emergency department sent in by Dr. Santo with worsening abdominal pain for a couple of weeks. Pt states that the pain is constant, localized to RLQ, non-radiating. Endorses nausea after eating with a few episodes of emesis, nonbloody. Pt reports constipation for several days, denies diarrhea. Reports subjective fevers as well. The patient states she has not seen her PCP since October due to a shooting pain down her legs from her known compression fxs that prevented her from leaving home. She also notes she has stopped taking all her medications as of January because she was unable to get refills. The patient denies chest pain, shortness of breath, headache and dizziness. Denies dysuria, frequency, urgency and hematuria. Allergies: Penicillins, Ibuprofen Past surgical history: Appendectomy, hysterectomy, femur bypass (left leg) Social history: No reported cigarette, drug, or alcohol use. 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 Hansa Bee PCP: NORMAN Castillo" - Current Medication List Current Medications: Active Medications Aspirin (Ecotrin -) 81 mg PO DAILY [facility] Last Admin: 05/16/17 10:51 Dose: 81 mg Atorvastatin Calcium (Lipitor -) 10 mg PO HS [facility] Last Admin: 05/15/17 21:37 Dose: 10 mg Bacitracin (Bacitracin -) 1 applic TP DAILY [facility] Last Admin: 05/16/17 10:51 Dose: 1 applic Bupropion HCl (Wellbutrin Xl -) 150 mg PO DAILY [facility] Last Admin: 05/16/17 10:52 Dose: 150 mg Cyclobenzaprine HCl (Flexeril -) 10 mg PO TID [facility] Last Admin: 05/16/17 06:38 Dose: 10 mg Docusate Sodium (Colace -) 100 mg PO BID PRN PRN Reason: CONSTIPATION Enoxaparin Sodium (Lovenox -) 100 mg SQ BID [facility] Last Admin: 05/16/17 10:50 Dose: 100 mg Gabapentin (Neurontin -) 300 mg PO BID [facility] Last Admin: 05/16/17 10:54 Dose: Not Given Magnesium Oxide (Mag-Ox -) 400 mg PO Q2D@1000 [facility] Last Admin: 05/15/17 10:08 Dose: 400 mg Magnesium Oxide (Mag-Ox -) 400 mg PO Q2D@2200 [facility] Last Admin: 05/15/17 21:37 Dose: 400 mg Methimazole (Tapazole -) 20 mg PO BID [facility] Last Admin: 05/16/17 10:50 Dose: 20 mg Metoprolol Tartrate (Lopressor Injection -) 2.5 mg IVPUSH Q4H PRN PRN Reason: HYPERTENSION Last Admin: 05/14/17 10:24 Dose: 2.5 mg Multi-Ingredient Lotion (Eucerin (Small Jar) -) 1 applic TP BID [facility] Last Admin: 05/16/17 10:51 Dose: Not Given Nystatin (Mycostatin Cream -) 1 applic TP BID [facility] Last Admin: 05/16/17 10:52 Dose: 1 applic Propranolol HCl (Inderal -) 80 mg PO TID [facility] Senna (Senna -) 2 tab PO HS PRN PRN Reason: CONSTIPATION Tramadol HCl (Ultram -) 50 mg PO Q8H PRN PRN Reason: PAIN - Objective Vital Signs: Vital Signs Temperature 98.3 F 05/16/17 14:00 Pulse Rate 120 H 05/16/17 14:00 Respiratory Rate 17 05/16/17 14:00 Blood Pressure 111/52 05/16/17 14:00 O2 Sat by Pulse Oximetry (%) 96 05/15/17 21:00 Eyes: Yes: WNL, Conjunctiva Clear, EOM Intact HENT: Yes: WNL, Atraumatic, Normocephalic Neck: Yes: WNL, Supple, Trachea Midline Cardiovascular: Yes: Pulse Irregular, S1, S2 Respiratory: Yes: WNL, Regular, CTA Bilaterally Gastrointestinal: Yes: WNL, Normal Bowel Sounds Genitourinary: Yes: WNL Musculoskeletal: Yes: WNL Extremities: Yes: WNL Edema: Yes Integumentary: Yes: WNL Neurological: Yes: WNL, Alert, Oriented ...Motor Strength: WNL Psychiatric: Yes: WNL Labs: CBC, BMP 05/16/17 05:05 05/16/17 05:05 INR, PTT INR 1.26 (0.82-1.09) H 05/11/17 10:40 Assessment/Plan - Problems (1) Atrial fibrillation with RVR Assessment/Plan: Increased propranolol to 80 mg q8h; f/u HR and BP. ECHO: low-normal LVEF. Start ACEI or ARB if BP allows. Code(s): I48.91 - UNSPECIFIED ATRIAL FIBRILLATION (2) Intractable back pain Code(s): M54.9 - DORSALGIA, UNSPECIFIED (3) PAD (peripheral artery disease) Assessment/Plan: F/u with vascular surgeon; wound management. Code(s): I73.9 - PERIPHERAL VASCULAR DISEASE, UNSPECIFIED (4) Anemia Code(s): D64.9 - ANEMIA, UNSPECIFIED Qualifiers: Other causes of anemia: chronic disease, neoplastic (5) Hodgkin lymphoma Assessment/Plan: f/u with hem/oncologist. Code(s): C81.90 - HODGKIN LYMPHOMA, UNSPECIFIED, UNSPECIFIED SITE Qualifiers: Hodgkin lymphoma type: unspecified type Lymphoma site: unspecified region Qualified Code(s): C81.90 - Hodgkin lymphoma, unspecified, unspecified site (6) Pulmonary hypertension Code(s): I27.2 - OTHER SECONDARY PULMONARY HYPERTENSION * DO NOT USE * (7) Type 2 diabetes mellitus Code(s): E11.9 - TYPE 2 DIABETES MELLITUS WITHOUT COMPLICATIONS Qualifiers: Diabetes mellitus complication status: with neurologic complications Diabetes mellitus complication detail: with polyneuropathy (8) Hyperthyroidism Code(s): E05.90 - THYROTOXICOSIS, UNSP WITHOUT THYROTOXIC CRISIS OR STORM (9) Chronic combined systolic and diastolic CHF (congestive heart failure) Code(s): I50.42 - CHRONIC COMBINED SYSTOLIC AND DIASTOLIC HRT FAIL
--- NOTE | 2017-05-16 17:48 | PN ---
Physical Exam: SUBJECTIVE: Patient seen and examined. No acute events overnight. Pt refused nystatin and eucerin creams because "they give her rashes." She endorses LE pain that is better than yesterday, and she denies other subjective complaints. OBJECTIVE: Vital Signs Period Temp Pulse Resp BP Sys/Peguero Pulse Ox Last 24 Hr 98.2 F-99.1 F 106-120 17-18 98-119/52-68 96 GENERAL: Patient lying in bed, awake, alert, and fully oriented, in NAD HEENT: NC, AT NECK: Supple. LUNGS: CTAB, no wheezing or rales HEART: normal rate, irregularly irregular, systolic murmur ABDOMEN: Soft, non tender , not distended, normoactive bowel sounds, no guarding , no rebound, no masses MUSCULOSKELETAL: b/l severe LE tenderness, pitting peripheral edema, lower extremity superficial ulcers with minimal drainage, foul smelling, dry cracked skin, onychomycosis NEUROLOGICAL: Cranial nerves II-XII intact. Normal speech. Gait not observed. Laboratory Results - last 24 hr 05/16/17 05/16/17 05:05 05:05 WBC 4.6 RBC 2.90 L Hgb 7.9 L Hct 25.2 L MCV 87.0 MCH 27.4 MCHC 31.4 L RDW 16.2 H Plt Count 183 MPV 8.9 Neutrophils % 59.9 Lymphocytes % 22.9 Monocytes % 9.4 Eosinophils % 7.5 H Basophils % 0.3 Sodium 140 Potassium 3.9 Chloride 104 Carbon Dioxide 29 D Anion Gap 7 L BUN 16 Creatinine 1.0 Creat Clearance w eGFR 55.14 Random Glucose 83 Calcium 8.2 L Total Bilirubin 0.7 AST 10 L D ALT 11 L Alkaline Phosphatase 69 Total Protein 5.6 L Albumin 2.6 L Free T4 2.06 H D Active Medications Generic Name Dose Route Start Last Admin Trade Name Freq PRN Reason Stop Dose Admin Apixaban 5 mg 05/16/17 22:00 Eliquis - PO BID CRISTOFER Aspirin 81 mg 05/11/17 16:30 05/16/17 10:51 Ecotrin - PO 81 mg DAILY CRISTOFER Administration Atorvastatin Calcium 10 mg 05/11/17 22:00 05/15/17 21:37 Lipitor - PO 10 mg HS CRISTOFER Administration Bacitracin 1 applic 05/12/17 12:30 05/16/17 10:51 Bacitracin - TP 1 applic DAILY CRISTOFER Administration Bupropion HCl 150 mg 05/11/17 16:30 05/16/17 10:52 Wellbutrin Xl - PO 150 mg DAILY CRISTOFER Administration Cyclobenzaprine HCl 10 mg 05/11/17 23:45 05/16/17 16:23 Flexeril - PO 10 mg TID CRISTOFER Administration Docusate Sodium 100 mg 05/11/17 16:46 Colace - PO BID PRN CONSTIPATION Gabapentin 300 mg 05/15/17 10:00 05/16/17 10:54 Neurontin - PO Not Given BID CRISTOFER Magnesium Oxide 400 mg 05/13/17 10:00 05/15/17 10:08 Mag-Ox - PO 400 mg Q2D@1000 CRISTOFER Administration Magnesium Oxide 400 mg 05/11/17 22:00 05/15/17 21:37 Mag-Ox - PO 400 mg Q2D@2200 CRISTOFER Administration Methimazole 20 mg 05/11/17 22:00 05/16/17 10:50 Tapazole - PO 20 mg BID CRISTOFER Administration Metoprolol Tartrate 2.5 mg 05/11/17 16:32 05/14/17 10:24 Lopressor Injection - IVPUSH 2.5 mg Q4H PRN Administration HYPERTENSION Multi-Ingredient Lotion 1 applic 05/13/17 22:00 05/16/17 10:51 Eucerin (Small Jar) - TP Not Given BID CRISTOFER Nystatin 1 applic 05/13/17 22:00 05/16/17 10:52 Mycostatin Cream - TP 1 applic BID CRISTOFER Administration Propranolol HCl 80 mg 05/16/17 14:00 05/16/17 16:22 Inderal - PO 80 mg TID CRISTOFER Administration Senna 2 tab 05/11/17 16:46 Senna - PO HS PRN CONSTIPATION Tramadol HCl 50 mg 05/15/17 09:02 Ultram - PO Q8H PRN PAIN ASSESSMENT/PLAN: 66F w/ hx of asthma, HTN, HLD, NIDDM, pulmonary hypertension, COPD, CAD, Hodgkin s lymphoma (Dx in 2013 s/p chemo and radiation until 2014) and endometrial CA s /p chemotherapy (last 08/2015)and radiation (last 10/2015) with metastasis, diabetic neuropathy, spinal stenosis, chronic back pain with compression fracture to L1 and L3, and carpal tunnel syndrome who was sent to ED by Dr. Santo for further evaluation of abdominal pain. # Atrial fibrillation with RVR -HR around 105-120 overnight -Propanolol increased to 80mg TID -IV Metoprolol 2.5 mg Q4H PRN -CHADSVASC Score-4 -AC changed from lovenox to eliquis, risks and benefits discussed with patient who agreed # Hyperthyroidism- possibly could be in thyrotoxicosis -Free T4- 3.81--> 2.56 , Free T3 8.2---> 4.2 -Could have been aggravated by the use of IV contrast. -continue Methimazole 20mg PO BID -won't do thyroid US as inpatient, so will do as outpt -thyroid peroxidase antibody: 239, elevated -thyroid stimulating immunoglobulin: Pending -RAIU scan as outpt # B/L lower extremity venous stasis -wound dressing daily, as per Dr. Camarillo -Has allergies to lotion. Application of Eucerin in the foot area. -Podiatry consult, recs appreciated: local wound care, leg elevation, f/u in wound care upon D/C # Fungal infection in right inguinal region -Nystatin TP # Hodgkins lymphoma and endometrial CA with mets s/p chemo and radiation -Management as per oncology -new 3cm mass anterior to abdominal aorta to be evaluated with PET scan as outpt, possibly lymph node # Hypertension- controlled -BP of 105-120s/60s overnight -continue propranolol -Low salt diet # H/O Diabetes Mellitus -A1c of 5.1 # Normocytic anemia -Hb-7.9, baseline around 9-10. -Iron work up done in the past -No active bleeding at this time -FOBT negative # Chronic low back pain/neuropathy -neuro on board, recs appreciated: start gabapentin and tramadol # FEN/ppx -Not on IV fluids -Electrolytes wnl -Sodium controlled diet -For DVT: eliqus -For GI: Not indicated # Code Status: Full code -Ismael Simpson MD PGY1 Visit type - Emergency Visit Emergency Visit: Yes ED Registration Date: 05/11/17 Care time: The patient presented to the Emergency Department on the above date and was hospitalized for further evaluation of their emergent condition. - New Patient This patient is new to me today: No - Critical Care Critical Care patient: No
--- NOTE | 2017-05-16 18:16 | PN ---
Teaching Attending Note Name of Resident: Ismael Simpson ATTENDING PHYSICIAN STATEMENT I saw and evaluated the patient. I reviewed the resident's note and discussed the case with the resident. I agree with the resident's findings and plan as documented. SUBJECTIVE: No fever or chills, has no abd pain or SOB, no palpitation . pain in LE OBJECTIVE: NAD CV: irreg irreg Lungs : CTAB ABD: SOFT, nt, nd , NL bs eXT: 1+ PITTING EDEMA WITH CHRONIC ERYTHEMA AND HYPERPIGMENTATION , THICKED SKIN ON DORSAL FEET . 1X1 CM OPEN LESION WITH THICK WHITISH DISCHARGE ON LATERAL r LEG ASSESSMENT AND PLAN: 66 y/o lady with 65 y Afib, CHF , asthma, hypertension, HLP, DM, pulmonary hypertension, COPD, CAD, Hodgkin's lymphoma s/p chemotherapy and radiation, endometrial cancer s/p chemotherapy and radiation, who presented with Abd pain, and was found to have Afib with RVR 1- Abd pain, due to constipation . resolevd - cont bowel regimen , hima and colace. add miralax 2- A fib with RVR: - cont propranolol , but increase dose to 80 TID. BP can tolerate - off cardizem - switch lovenox to Eliquis , pharmacy called and confirmed that eliquis is covered. s/e discussed 3- Hyperthyroidism: - Increase graham of propranolol - cont methimazole - uptake scan as out pt 4- HTN: holding norvasc to give room for HR control with propranolol . 6- h/o Hodgkin's : now with enlarged abd mass anterior to aorta compared to before . 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 HLOC
[2017-05-16] MEDS: APIXABAN 5 MG TABLET PO SCH (21:55)
[2017-05-16] MEDS: ATORVASTATIN CA 10 MG TABLET (FP) PO SCH (21:56)
[2017-05-17] MEDS ORDERED: ACETAMINOPHEN 325 MG TABLET (FP) PO ONE (00:18)
[2017-05-17] MEDS: CYCLOBENZAPRINE HCL 10 MG TABLET (FP) PO SCH ×3 (05:26→22:01)
[2017-05-17] MEDS: PROPRANOLOL HCL 40 MG TABLET PO SCH ×3 (05:26→22:06)
[2017-05-17 07:21] LABS: BASO % 0.2 % (0-2.0); EOS % 7.4 % (0-4.5); HEMATOCRIT 26.1 % (32.4-45.2); HEMOGLOBIN 8.2 GM/dL (10.7-15.3); LYMPH % 24.4 % (8-40); MCH 27.3 pg (25.7-33.7); MCHC 31.6 g/dl (32.0-36.0); MEAN CELL VOLUME 86.5 fl (80-96); MONO % 9.7 % (3.8-10.2); NEUT % 58.3 % (42.8-82.8); PLATELET COUNT 182 K/MM3 (134-434); RBC 3.02 M/mm3 (3.60-5.2); RDW 16.3 % (11.6-15.6); WHITE BLOOD COUNT 5.4 K/mm3 (4.0-10.0)
[2017-05-17 07:26] LABS: ALBUMIN 2.7 g/dl (3.4-5.0); ANION GAP 6 (8-16); BLOOD UREA NITROGEN 19 mg/dL (7-18); CALCIUM 8.1 mg/dL (8.5-10.1); CHLORIDE 104 mmol/L (98-107); CO2 28 mmol/L (21-32); GLUCOSE,RANDOM 81 mg/dL (74-106); POTASSIUM 4.1 mmol/L (3.5-5.1); SODIUM 138 mmol/L (136-145)
[2017-05-17 07:31] LABS: ALK PHOS 78 U/L (45-117); BILIRUBIN,TOTAL 0.5 mg/dL (0.2-1.0); CREATININE 1.1 mg/dL (0.55-1.02); SGOT/AST 13 U/L (15-37); SGPT/ALT 12 U/L (12-78); TOT PROT 5.8 g/dl (6.4-8.2)
[2017-05-17] MEDS ORDERED: PT OWN MED DRAWER 7, Y5N ONE (09:22)
[2017-05-17] MEDS: BACITRACIN 15 GM TUBE TOPICAL OINTMENT TP SCH (09:57)
[2017-05-17] MEDS: APIXABAN 5 MG TABLET PO SCH ×2 (09:57→22:04)
[2017-05-17] MEDS: ASPIRIN COATED 81 MG TABLET.EC PO SCH (09:57)
[2017-05-17] MEDS: METHIMAZOLE 10 MG TABLET (FP) PO SCH ×2 (09:57→22:03)
[2017-05-17] MEDS: NYSTATIN 100,000 UNIT/GM TOPICAL CREAM 15 GM TUBE TP SCH ×2 (09:58→22:04)
[2017-05-17] MEDS: POLYETHYLENE GLYCOL 3350 119 GM BTL PO SCH (09:58)
[2017-05-17] MEDS: GABAPENTIN 300 MG CAPSULE (FP) PO SCH ×2 (09:58→22:01)
[2017-05-17] MEDS: MINERAL OIL/PETROLAT/WATER TOPICAL CREAM 113 GM JAR TP SCH ×2 (09:58→22:07)
[2017-05-17] MEDS: MAGNESIUM OXIDE 400 MG TABLET (FP) PO SCH ×2 (09:58→22:08)
--- NOTE | 2017-05-17 13:52 | PN ---
Teaching Attending Note Name of Resident: Ismael Simpson ATTENDING PHYSICIAN STATEMENT I saw and evaluated the patient. I reviewed the resident's note and discussed the case with the resident. I agree with the resident's findings and plan as documented. SUBJECTIVE: No fever or chills . no SOB or CP . has no palpitations . has chronic pain in legs OBJECTIVE: NAD CV: irreg irreg Lungs : CTAB ABD: SOFT, NT, ND , NL bs EXT: 1+ pitting edema with chronic erythema and hyperpigmentation , thick skin over feet. small 1x1 cm skin abration on R lateral leg . ASSESSMENT AND PLAN: 66 y/o lady with 65 y Afib, CHF , asthma, hypertension, HLP, DM, pulmonary hypertension, COPD, CAD, Hodgkin's lymphoma s/p chemotherapy and radiation, endometrial cancer s/p chemotherapy and radiation, who presented with Abd pain, and was found to have Afib with RVR 1- Abd pain, due to constipation .resolved - cont bowel regimen , hima and colace and miralax 2- A fib with RVR: - cont propranolol , but increase dose to 100 TID. tele with persistent tachy - if needed we can add cardizem for rate control - Eliquis for stroke prevention 3- Hyperthyroidism: - Increase graham of propranolol as above - cont methimazole - uptake scan as out pt 4- HTN: holding norvasc to give room for HR control with propranolol . 6- h/o Hodgkin's : now with enlarged abd mass anterior to aorta compared to before . 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 - pain control Dispo : HLOC . anticipate dc over weakened. doing poorly withPT. SW updated to start looking for SNF bed
--- NOTE | 2017-05-17 17:49 | PN ---
Physical Exam: SUBJECTIVE: Patient seen and examined No acute events overnight. Pt endorses usual leg pain, denies shortness of breath, chest pain, palpitations, abdominal pain, n/v/d/c, and dysuria. OBJECTIVE: Vital Signs Period Temp Pulse Resp BP Sys/Peguero Pulse Ox Last 24 Hr 97.9 F-98.7 F 93-115 17-20 94-115/57-75 96-96 GENERAL: Patient sitting in bed, awake, alert, and fully oriented, in NAD HEENT: NC, AT NECK: Supple. LUNGS: CTAB, no wheezing or rales HEART: irregularly irregular, systolic murmur ABDOMEN: Soft, non tender , not distended, normoactive bowel sounds, no guarding , no rebound, no masses MUSCULOSKELETAL: b/l severe LE tenderness, pitting peripheral edema, lower extremity superficial ulcers with minimal drainage, foul smelling, dry cracked skin, onychomycosis NEUROLOGICAL: Cranial nerves II-XII intact. Normal speech. Laboratory Results - last 24 hr 05/16/17 05/17/17 05/17/17 05:05 05:05 05:05 WBC 5.4 RBC 3.02 L Hgb 8.2 L Hct 26.1 L MCV 86.5 MCH 27.3 MCHC 31.6 L RDW 16.3 H Plt Count 182 MPV 9.0 Neutrophils % 58.3 Lymphocytes % 24.4 Monocytes % 9.7 Eosinophils % 7.4 H Basophils % 0.2 Sodium 138 Potassium 4.1 Chloride 104 Carbon Dioxide 28 Anion Gap 6 L BUN 19 H Creatinine 1.1 H Creat Clearance w eGFR 49.39 Random Glucose 81 Calcium 8.1 L Total Bilirubin 0.5 D AST 13 L D ALT 12 Alkaline Phosphatase 78 Total Protein 5.8 L Albumin 2.7 L Free T3 2.5 Blood Type Antibody Screen 05/17/17 05:45 WBC RBC Hgb Hct MCV MCH MCHC RDW Plt Count MPV Neutrophils % Lymphocytes % Monocytes % Eosinophils % Basophils % Sodium Potassium Chloride Carbon Dioxide Anion Gap BUN Creatinine Creat Clearance w eGFR Random Glucose Calcium Total Bilirubin AST ALT Alkaline Phosphatase Total Protein Albumin Free T3 Blood Type O POSITIVE Antibody Screen Negative Active Medications Generic Name Dose Route Start Last Admin Trade Name Freq PRN Reason Stop Dose Admin Acetaminophen 1,000 mg 05/17/17 11:03 Tylenol - PO Q6H PRN FEVER OR PAIN Apixaban 5 mg 05/16/17 22:00 05/17/17 09:57 Eliquis - PO 5 mg BID [facility] Administration Aspirin 81 mg 05/11/17 16:30 05/17/17 09:57 Ecotrin - PO 81 mg DAILY [facility] Administration Atorvastatin Calcium 10 mg 05/11/17 22:00 05/16/17 21:56 Lipitor - PO 10 mg HS [facility] Administration Bacitracin 1 applic 05/12/17 12:30 05/17/17 09:57 Bacitracin - TP 1 applic DAILY [facility] Administration Bupropion HCl 150 mg 05/11/17 16:30 05/17/17 09:58 Wellbutrin Xl - PO 150 mg DAILY [facility] Administration Cyclobenzaprine HCl 10 mg 05/11/17 23:45 05/17/17 13:54 Flexeril - PO 10 mg TID [facility] Administration Docusate Sodium 100 mg 05/11/17 16:46 Colace - PO BID PRN CONSTIPATION Gabapentin 300 mg 05/15/17 10:00 05/17/17 09:58 Neurontin - PO 300 mg BID [facility] Administration Magnesium Oxide 400 mg 05/13/17 10:00 05/17/17 09:58 Mag-Ox - PO 400 mg Q2D@1000 [facility] Administration Magnesium Oxide 400 mg 05/11/17 22:00 05/15/17 21:37 Mag-Ox - PO 400 mg Q2D@2200 [facility] Administration Methimazole 20 mg 05/11/17 22:00 05/17/17 09:57 Tapazole - PO 20 mg BID [facility] Administration Metoprolol Tartrate 2.5 mg 05/11/17 16:32 05/14/17 10:24 Lopressor Injection - IVPUSH 2.5 mg Q4H PRN Administration HYPERTENSION Multi-Ingredient Lotion 1 applic 05/13/17 22:00 05/17/17 09:58 Eucerin (Small Jar) - TP Not Given BID [facility] Nystatin 1 applic 05/13/17 22:00 05/17/17 09:58 Mycostatin Cream - TP Not Given BID [facility] Polyethylene Glycol 17 gm 05/17/17 10:00 05/17/17 09:58 Miralax (For Daily Use) - PO Not Given DAILY [facility] Propranolol HCl 100 mg 05/17/17 14:00 05/17/17 13:55 Inderal - PO 100 mg TID [facility] Administration Senna 2 tab 05/11/17 16:46 Senna - PO HS PRN CONSTIPATION Tramadol HCl 50 mg 05/15/17 09:02 Ultram - PO Q8H PRN PAIN ASSESSMENT/PLAN: 66F w/ hx of asthma, HTN, HLD, NIDDM, pulmonary hypertension, COPD, CAD, Hodgkin s lymphoma (Dx in 2013 s/p chemo and radiation until 2014) and endometrial CA s /p chemotherapy (last 08/2015)and radiation (last 10/2015) with metastasis, diabetic neuropathy, spinal stenosis, chronic back pain with compression fracture to L1 and L3, and carpal tunnel syndrome who was sent to ED by Dr. Santo for further evaluation of abdominal pain. # Atrial fibrillation with RVR -HR around 100-115 overnight -Propanolol increased to 100mg TID -IV Metoprolol 2.5 mg Q4H PRN -CHADSVASC Score-4 -continue eliquis # Hyperthyroidism- possibly could be in thyrotoxicosis -Free T4- 3.81--> 2.56 , Free T3 8.2---> 4.2 -Could have been aggravated by the use of IV contrast. -continue Methimazole 20mg PO BID -won't do thyroid US as inpatient, so will do as outpt -thyroid peroxidase antibody: 239, elevated -thyroid stimulating immunoglobulin: Pending -RAIU scan as outpt # B/L lower extremity venous stasis -wound dressing daily, as per Dr. Camarillo -Has allergies to lotion. Application of Eucerin in the foot area. -Podiatry consult, recs appreciated: local wound care, leg elevation, f/u in wound care upon D/C # Fungal infection in right inguinal region -Nystatin TP # Hodgkins lymphoma and endometrial CA with mets s/p chemo and radiation -Management as per oncology -new 3cm mass anterior to abdominal aorta to be evaluated with PET scan as outpt, possibly lymph node # Hypertension- controlled -BP of 95-115/60-75 overnight -continue propranolol -Low salt diet # H/O Diabetes Mellitus -A1c of 5.1 # Normocytic anemia -Hb-8.2, baseline around 9-10. -Iron work up done in the past -No active bleeding at this time -FOBT negative # Chronic low back pain/neuropathy -neuro on board, recs appreciated: start gabapentin and tramadol # FEN/ppx -Not on IV fluids -Electrolytes wnl -Sodium controlled diet -For DVT: eliquis -For GI: Not indicated # Code Status: Full code #Dispo: -pt refusing PT. Will need DARLYN. -Ismael Simpson MD PGY1 Visit type - Emergency Visit Emergency Visit: Yes ED Registration Date: 05/11/17 Care time: The patient presented to the Emergency Department on the above date and was hospitalized for further evaluation of their emergent condition. - New Patient This patient is new to me today: No - Critical Care Critical Care patient: No
[2017-05-17] MEDS: ACETAMINOPHEN 500 MG TABLET (FP) PO PRN (22:01)
[2017-05-17] MEDS: ATORVASTATIN CA 10 MG TABLET (FP) PO SCH (22:03)
[2017-05-18] MEDS ORDERED: PT OWN MED DRAWER 7, Y5N ONE (05:41)
[2017-05-18] MEDS: CYCLOBENZAPRINE HCL 10 MG TABLET (FP) PO SCH ×3 (05:48→23:04)
[2017-05-18] MEDS: PROPRANOLOL HCL 40 MG TABLET PO SCH ×3 (05:48→23:04)
[2017-05-18 08:33] LABS: BASO % 0.3 % (0-2.0); EOS % 7.4 % (0-4.5); HEMATOCRIT 29.4 % (32.4-45.2); HEMOGLOBIN 9.1 GM/dL (10.7-15.3); LYMPH % 18.6 % (8-40); MCH 26.9 pg (25.7-33.7); MCHC 30.9 g/dl (32.0-36.0); MEAN CELL VOLUME 87.1 fl (80-96); MEAN PLT VOLUME 8.5 fl (7.5-11.1); MONO % 6.4 % (3.8-10.2); NEUT % 67.3 % (42.8-82.8); PLATELET COUNT 242 K/MM3 (134-434); RBC 3.37 M/mm3 (3.60-5.2); RDW 16.2 % (11.6-15.6); WHITE BLOOD COUNT 6.3 K/mm3 (4.0-10.0)
[2017-05-18 09:18] LABS: ANION GAP 9 (8-16); BLOOD UREA NITROGEN 15 mg/dL (7-18); CALCIUM 9.1 mg/dL (8.5-10.1); CHLORIDE 102 mmol/L (98-107); CO2 29 mmol/L (21-32); GLUCOSE,RANDOM 90 mg/dL (74-106); POTASSIUM 4.3 mmol/L (3.5-5.1); SODIUM 140 mmol/L (136-145)
[2017-05-18] MEDS: METHIMAZOLE 10 MG TABLET (FP) PO SCH ×2 (09:36→23:05)
[2017-05-18] MEDS: APIXABAN 5 MG TABLET PO SCH ×2 (09:36→23:03)
[2017-05-18] MEDS: GABAPENTIN 300 MG CAPSULE (FP) PO SCH ×2 (09:36→23:05)
[2017-05-18] MEDS: BACITRACIN 15 GM TUBE TOPICAL OINTMENT TP SCH (09:36)
[2017-05-18] MEDS: ASPIRIN COATED 81 MG TABLET.EC PO SCH (09:36)
[2017-05-18] MEDS: POLYETHYLENE GLYCOL 3350 119 GM BTL PO SCH (10:21)
--- NOTE | 2017-05-18 13:59 | PN ---
Progress Note, Physician Chief Complaint: Pt A&Ox33; sitting up at bedside. Chornic bilateral ankle pain. She worries about her legs, and wants to know if she will have to wrap them for the rest of her life; the wounds continue to weep "if I don't wrap them correctly". History of Present Illness: "The patient is a 65 year old white female with a significant PMH of Afib, CHF ( low normal LVEF), asthma, hypertension, hyperlipidemia, diabetes, pulmonary hypertension, COPD, coronary artery diease, Hodgkin's lymphoma s/p chemotherapy and radiation, endometrial cancer s/p chemotherapy and radiation, diabetic neuropathy, spinal stenosis, chronic back pain, and carpal tunnel syndrome ( wrists) who presents to the emergency department sent in by Dr. Santo with worsening abdominal pain for a couple of weeks. Pt states that the pain is constant, localized to RLQ, non-radiating. Endorses nausea after eating with a few episodes of emesis, nonbloody. Pt reports constipation for several days, denies diarrhea. Reports subjective fevers as well. The patient states she has not seen her PCP since October due to a shooting pain down her legs from her known compression fxs that prevented her from leaving home. She also notes she has stopped taking all her medications as of January because she was unable to get refills. The patient denies chest pain, shortness of breath, headache and dizziness. Denies dysuria, frequency, urgency and hematuria. Allergies: Penicillins, Ibuprofen Past surgical history: Appendectomy, hysterectomy, femur bypass (left leg) Social history: No reported cigarette, drug, or alcohol use. 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 Hansa Bee PCP: NORMAN Castillo" - Current Medication List Current Medications: Active Medications Acetaminophen (Tylenol -) 1,000 mg PO Q6H PRN PRN Reason: FEVER OR PAIN Last Admin: 05/17/17 22:01 Dose: 1,000 mg Apixaban (Eliquis -) 5 mg PO BID [facility] Last Admin: 05/18/17 09:36 Dose: 5 mg Aspirin (Ecotrin -) 81 mg PO DAILY [facility] Last Admin: 05/18/17 09:36 Dose: 81 mg Atorvastatin Calcium (Lipitor -) 10 mg PO HS [facility] Last Admin: 05/17/17 22:03 Dose: 10 mg Bacitracin (Bacitracin -) 1 applic TP DAILY [facility] Last Admin: 05/18/17 09:36 Dose: 1 applic Bupropion HCl (Wellbutrin Xl -) 150 mg PO DAILY [facility] Last Admin: 05/18/17 09:39 Dose: 150 mg Cyclobenzaprine HCl (Flexeril -) 10 mg PO TID [facility] Last Admin: 05/18/17 05:48 Dose: 10 mg Diltiazem HCl (Cardizem Cd -) 120 mg PO DAILY [facility] Docusate Sodium (Colace -) 100 mg PO BID PRN PRN Reason: CONSTIPATION Gabapentin (Neurontin -) 300 mg PO BID [facility] Last Admin: 05/18/17 09:36 Dose: Not Given Magnesium Oxide (Mag-Ox -) 400 mg PO Q2D@1000 [facility] Last Admin: 05/17/17 09:58 Dose: 400 mg Magnesium Oxide (Mag-Ox -) 400 mg PO Q2D@2200 [facility] Last Admin: 05/17/17 22:08 Dose: Not Given Methimazole (Tapazole -) 20 mg PO BID [facility] Last Admin: 05/18/17 09:36 Dose: 20 mg Metoprolol Tartrate (Lopressor Injection -) 2.5 mg IVPUSH Q4H PRN PRN Reason: HYPERTENSION Last Admin: 05/14/17 10:24 Dose: 2.5 mg Multi-Ingredient Lotion (Eucerin (Small Jar) -) 1 applic TP BID [facility] Last Admin: 05/17/17 22:07 Dose: Not Given Nystatin (Mycostatin Cream -) 1 applic TP BID [facility] Last Admin: 05/17/17 22:04 Dose: Not Given Polyethylene Glycol (Miralax (For Daily Use) -) 17 gm PO DAILY [facility] Last Admin: 05/17/17 09:58 Dose: Not Given Propranolol HCl (Inderal -) 100 mg PO TID [facility] Last Admin: 05/18/17 05:48 Dose: 100 mg Senna (Senna -) 2 tab PO HS PRN PRN Reason: CONSTIPATION Tramadol HCl (Ultram -) 50 mg PO Q8H PRN PRN Reason: PAIN - Objective Vital Signs: Vital Signs Temperature 97.7 F 05/18/17 10:00 Pulse Rate 116 H 05/18/17 10:00 Respiratory Rate 20 05/18/17 10:00 Blood Pressure 122/59 05/18/17 10:00 O2 Sat by Pulse Oximetry (%) 96 05/18/17 09:00 Constitutional: Yes: Anxious Eyes: Yes: WNL HENT: Yes: WNL Neck: Yes: WNL Cardiovascular: Yes: Pulse Irregular Respiratory: Yes: Diminished Gastrointestinal: Yes: Soft ...Rectal Exam: Yes: Deferred Genitourinary: Yes: Anuria Breast(s): Yes: WNL Musculoskeletal: Yes: Muscle Weakness Extremities: Yes: Cool Edema: Yes Edema: LLE: Trace, RLE: Trace Peripheral Pulses WNL: No Peripheral Pulses: Left Doralis Pedis: 1+, Right Dorsalis Pedis: 1+ Integumentary: Yes: Skin Tear, Venous Stasis Changes Wound/Incision: Yes: Draining Neurological: Yes: Alert, Oriented, Weakness Psychiatric: Yes: Alert, Oriented Labs: CBC, BMP 05/18/17 07:45 05/18/17 07:45 INR, PTT INR 1.26 (0.82-1.09) H 05/11/17 10:40 Abnormal Lab Results 05/18/17 07:45 RBC 3.37 L Hgb 9.1 L D Hct 29.4 L MCHC 30.9 L RDW 16.2 H Eosinophils % 7.4 H Problem List - Problems (1) Atrial fibrillation with RVR Assessment/Plan: Now on propranolol 100 mg tid and diltiazem CD 120 mg daily; f/u HR and BP. Pain management. On NOAC (apixaban) for anticoagulation. F/u magnesium level; keep Mg level 2.0-2.3; K 4.0-4.5; and PO4 2.5-3.5. Code(s): I48.91 - UNSPECIFIED ATRIAL FIBRILLATION (2) Intractable back pain Code(s): M54.9 - DORSALGIA, UNSPECIFIED (3) PAD (peripheral artery disease) Assessment/Plan: F/u with vascular surgeon; wound management. Physical therapy. Code(s): I73.9 - PERIPHERAL VASCULAR DISEASE, UNSPECIFIED (4) Anemia Code(s): D64.9 - ANEMIA, UNSPECIFIED Qualifiers: Other causes of anemia: chronic disease, neoplastic (5) Hodgkin lymphoma Assessment/Plan: f/u with hem/oncologist. Code(s): C81.90 - HODGKIN LYMPHOMA, UNSPECIFIED, UNSPECIFIED SITE Qualifiers: Hodgkin lymphoma type: unspecified type Lymphoma site: unspecified region Qualified Code(s): C81.90 - Hodgkin lymphoma, unspecified, unspecified site (6) Pulmonary hypertension Code(s): I27.2 - OTHER SECONDARY PULMONARY HYPERTENSION * DO NOT USE * (7) Type 2 diabetes mellitus Assessment/Plan: start ACEI or ARB for HTN, renal [id number], low-normal LVEF. Code(s): E11.9 - TYPE 2 DIABETES MELLITUS WITHOUT COMPLICATIONS Qualifiers: Diabetes mellitus complication status: with neurologic complications Diabetes mellitus complication detail: with polyneuropathy (8) Hyperthyroidism Assessment/Plan: On methimazole and propranolol. Code(s): E05.90 - THYROTOXICOSIS, UNSP WITHOUT THYROTOXIC CRISIS OR STORM (9) Chronic combined systolic and diastolic CHF (congestive heart failure) Assessment/Plan: On propranolol. Add ACEI or ARB. F/u BUN/Cr, electrolytes, Is and Os, daily weight. Code(s): I50.42 - CHRONIC COMBINED SYSTOLIC AND DIASTOLIC HRT FAIL
--- NOTE | 2017-05-18 14:00 | PN ---
Progress Note, Physician Chief Complaint: Pt A&Ox33; sitting up at bedside, but feels her legs are to weak to stand on. History of Present Illness: "The patient is a 65 year old white female with a significant PMH of Afib, CHF ( low normal LVEF), asthma, hypertension, hyperlipidemia, diabetes, pulmonary hypertension, COPD, coronary artery diease, Hodgkin's lymphoma s/p chemotherapy and radiation, endometrial cancer s/p chemotherapy and radiation, diabetic neuropathy, spinal stenosis, chronic back pain, and carpal tunnel syndrome ( wrists) who presents to the emergency department sent in by Dr. Santo with worsening abdominal pain for a couple of weeks. Pt states that the pain is constant, localized to RLQ, non-radiating. Endorses nausea after eating with a few episodes of emesis, nonbloody. Pt reports constipation for several days, denies diarrhea. Reports subjective fevers as well. The patient states she has not seen her PCP since October due to a shooting pain down her legs from her known compression fxs that prevented her from leaving home. She also notes she has stopped taking all her medications as of January because she was unable to get refills. The patient denies chest pain, shortness of breath, headache and dizziness. Denies dysuria, frequency, urgency and hematuria. Allergies: Penicillins, Ibuprofen Past surgical history: Appendectomy, hysterectomy, femur bypass (left leg) Social history: No reported cigarette, drug, or alcohol use. 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 Hansa Bee PCP: NORMAN Castillo" - Current Medication List Current Medications: Active Medications Acetaminophen (Tylenol -) 1,000 mg PO Q6H PRN PRN Reason: FEVER OR PAIN Last Admin: 05/17/17 22:01 Dose: 1,000 mg Apixaban (Eliquis -) 5 mg PO BID [facility] Last Admin: 05/18/17 09:36 Dose: 5 mg Aspirin (Ecotrin -) 81 mg PO DAILY [facility] Last Admin: 05/18/17 09:36 Dose: 81 mg Atorvastatin Calcium (Lipitor -) 10 mg PO HS [facility] Last Admin: 05/17/17 22:03 Dose: 10 mg Bacitracin (Bacitracin -) 1 applic TP DAILY [facility] Last Admin: 05/18/17 09:36 Dose: 1 applic Bupropion HCl (Wellbutrin Xl -) 150 mg PO DAILY [facility] Last Admin: 05/18/17 09:39 Dose: 150 mg Cyclobenzaprine HCl (Flexeril -) 10 mg PO TID [facility] Last Admin: 05/18/17 05:48 Dose: 10 mg Diltiazem HCl (Cardizem Cd -) 120 mg PO DAILY [facility] Docusate Sodium (Colace -) 100 mg PO BID PRN PRN Reason: CONSTIPATION Gabapentin (Neurontin -) 300 mg PO BID [facility] Last Admin: 05/18/17 09:36 Dose: Not Given Magnesium Oxide (Mag-Ox -) 400 mg PO Q2D@1000 [facility] Last Admin: 05/17/17 09:58 Dose: 400 mg Magnesium Oxide (Mag-Ox -) 400 mg PO Q2D@2200 [facility] Last Admin: 05/17/17 22:08 Dose: Not Given Methimazole (Tapazole -) 20 mg PO BID [facility] Last Admin: 05/18/17 09:36 Dose: 20 mg Metoprolol Tartrate (Lopressor Injection -) 2.5 mg IVPUSH Q4H PRN PRN Reason: HYPERTENSION Last Admin: 05/14/17 10:24 Dose: 2.5 mg Multi-Ingredient Lotion (Eucerin (Small Jar) -) 1 applic TP BID [facility] Last Admin: 05/17/17 22:07 Dose: Not Given Nystatin (Mycostatin Cream -) 1 applic TP BID [facility] Last Admin: 05/17/17 22:04 Dose: Not Given Polyethylene Glycol (Miralax (For Daily Use) -) 17 gm PO DAILY [facility] Last Admin: 05/17/17 09:58 Dose: Not Given Propranolol HCl (Inderal -) 100 mg PO TID [facility] Last Admin: 05/18/17 05:48 Dose: 100 mg Senna (Senna -) 2 tab PO HS PRN PRN Reason: CONSTIPATION Tramadol HCl (Ultram -) 50 mg PO Q8H PRN PRN Reason: PAIN - Objective Vital Signs: Vital Signs Temperature 97.7 F 05/18/17 10:00 Pulse Rate 116 H 05/18/17 10:00 Respiratory Rate 20 05/18/17 10:00 Blood Pressure 122/59 05/18/17 10:00 O2 Sat by Pulse Oximetry (%) 96 05/18/17 09:00 Constitutional: Yes: Calm Eyes: Yes: WNL HENT: Yes: WNL Neck: Yes: WNL Cardiovascular: Yes: Pulse Irregular, S1 (varies in intensity) Respiratory: Yes: Diminished Gastrointestinal: Yes: Soft ...Rectal Exam: Yes: Deferred Genitourinary: No: Anuria Breast(s): Yes: WNL Musculoskeletal: Yes: Muscle Pain, Muscle Weakness Extremities: Yes: Cool Edema: Yes Edema: LLE: Trace, RLE: Trace Peripheral Pulses WNL: No Peripheral Pulses: Left Doralis Pedis: 1+, Right Dorsalis Pedis: 1+ Integumentary: Yes: Venous Stasis Changes Wound/Incision: Yes: Draining (dressings presently dry), Bleeding Neurological: Yes: Alert, Weakness Psychiatric: Yes: Alert, Oriented Labs: CBC, BMP 05/18/17 07:45 05/18/17 07:45 INR, PTT INR 1.26 (0.82-1.09) H 05/11/17 10:40 Problem List - Problems (1) Atrial fibrillation with RVR Assessment/Plan: Increased propranolol to 100 mg tid; f/u HR and BP. ECHO: low-normal LVEF. Start ACEI or ARB if BP allows. On apixaban for anticoagulation. Code(s): I48.91 - UNSPECIFIED ATRIAL FIBRILLATION (2) Intractable back pain Code(s): M54.9 - DORSALGIA, UNSPECIFIED (3) PAD (peripheral artery disease) Assessment/Plan: F/u with vascular surgeon; wound management. Code(s): I73.9 - PERIPHERAL VASCULAR DISEASE, UNSPECIFIED (4) Anemia Code(s): D64.9 - ANEMIA, UNSPECIFIED Qualifiers: Other causes of anemia: chronic disease, neoplastic (5) Hodgkin lymphoma Assessment/Plan: f/u with hem/oncologist. Code(s): C81.90 - HODGKIN LYMPHOMA, UNSPECIFIED, UNSPECIFIED SITE Qualifiers: Hodgkin lymphoma type: unspecified type Lymphoma site: unspecified region Qualified Code(s): C81.90 - Hodgkin lymphoma, unspecified, unspecified site (6) Pulmonary hypertension Code(s): I27.2 - OTHER SECONDARY PULMONARY HYPERTENSION * DO NOT USE * (7) Type 2 diabetes mellitus Assessment/Plan: start ACEI or ARB, if BP allows, for HTN, renal protection, low-normal LVEF. Code(s): E11.9 - TYPE 2 DIABETES MELLITUS WITHOUT COMPLICATIONS Qualifiers: Diabetes mellitus complication status: with neurologic complications Diabetes mellitus complication detail: with polyneuropathy (8) Hyperthyroidism Code(s): E05.90 - THYROTOXICOSIS, UNSP WITHOUT THYROTOXIC CRISIS OR STORM (9) Chronic combined systolic and diastolic CHF (congestive heart failure) Assessment/Plan: On propranolol. Add ACEI or ARB if BP permits. F/u BUN/Cr, electrolytes, Is and Os, daily weight. Code(s): I50.42 - CHRONIC COMBINED SYSTOLIC AND DIASTOLIC HRT FAIL
[2017-05-18 16:26] LABS: MAGNESIUM 2.1 mg/dL (1.8-2.4)
--- NOTE | 2017-05-18 19:20 | PN ---
Teaching Attending Note Name of Resident: Ismael Simpson ATTENDING PHYSICIAN STATEMENT I saw and evaluated the patient. I reviewed the resident's note and discussed the case with the resident. I agree with the resident's findings and plan as documented. SUBJECTIVE: No fever or chills, has no CP . pain in feet OBJECTIVE: NAD CV: irreg irreg Lungs: CTAB EXT: 1+ pitting edema with chronic erythema and hyperpigmentation , thick skin over feet. wound was not examined today ASSESSMENT AND PLAN: 66 y/o lady with 65 y Afib, CHF , asthma, hypertension, HLP, DM, pulmonary hypertension, COPD, CAD, Hodgkin's lymphoma s/p chemotherapy and radiation, endometrial cancer s/p chemotherapy and radiation, who presented with Abd pain, and was found to have Afib with RVR 1- Abd pain, due to constipation .resolved - cont bowel regimen 2- A fib with RVR: - cont propranolol 100 TID - added cardizem this am - monitor BP - Eliquis for stroke prevention 3- Hyperthyroidism: - propranolol - cont methimazole - uptake scan as out pt 4- HTN: holding norvasc to give room for HR control with propranolol and cardizem . 6- h/o Hodgkin's : now with enlarged abd mass anterior to aorta compared to before . 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 - pain control Dispo : [facility] . rehab placement , anticipate dc over weekend
--- NOTE | 2017-05-18 20:22 | PN ---
Physical Exam: SUBJECTIVE: Patient seen and examined No acute events overnight. Pt endorses usual leg pain, denies shortness of breath, chest pain, palpitations, abdominal pain, n/v/d/c, and dysuria. OBJECTIVE: Vital Signs Period Temp Pulse Resp BP Sys/Peguero Pulse Ox Last 24 Hr 97.5 F-98.5 F 109-117 20-20 97-128/59-66 96 GENERAL: Patient sitting in bed, awake, alert, and fully oriented, in NAD HEENT: NC, AT NECK: Supple. LUNGS: CTAB, no wheezing or rales HEART: irregularly irregular, systolic murmur ABDOMEN: Soft, non tender , not distended, normoactive bowel sounds, no guarding , no rebound, no masses MUSCULOSKELETAL: b/l severe LE tenderness, pitting peripheral edema, foul smelling, dry cracked skin, onychomycosis NEUROLOGICAL: Cranial nerves II-XII intact. Normal speech. Laboratory Results - last 24 hr 05/18/17 05/18/17 05/18/17 07:45 07:45 07:45 WBC 6.3 RBC 3.37 L Hgb 9.1 L D Hct 29.4 L MCV 87.1 MCH 26.9 MCHC 30.9 L RDW 16.2 H Plt Count 242 D MPV 8.5 Neutrophils % 67.3 Lymphocytes % 18.6 D Monocytes % 6.4 Eosinophils % 7.4 H Basophils % 0.3 Sodium 140 Potassium 4.3 Chloride 102 Carbon Dioxide 29 Anion Gap 9 BUN 15 D Creatinine 1.0 Random Glucose 90 Calcium 9.1 Magnesium 2.1 Cancelled Active Medications Generic Name Dose Route Start Last Admin Trade Name Nanette PRN Reason Stop Dose Admin Acetaminophen 1,000 mg 05/17/17 11:03 05/17/17 22:01 Tylenol - PO 1,000 mg Q6H PRN Administration FEVER OR PAIN Apixaban 5 mg 05/16/17 22:00 05/18/17 09:36 Eliquis - PO 5 mg BID [facility] Administration Aspirin 81 mg 05/11/17 16:30 05/18/17 09:36 Ecotrin - PO 81 mg DAILY [facility] Administration Atorvastatin Calcium 10 mg 05/11/17 22:00 05/17/17 22:03 Lipitor - PO 10 mg HS [facility] Administration Bacitracin 1 applic 05/12/17 12:30 05/18/17 09:36 Bacitracin - TP 1 applic DAILY [facility] Administration Bupropion HCl 150 mg 05/11/17 16:30 05/18/17 09:39 Wellbutrin Xl - PO 150 mg DAILY [facility] Administration Cyclobenzaprine HCl 10 mg 05/11/17 23:45 05/18/17 14:03 Flexeril - PO 10 mg TID [facility] Administration Diltiazem HCl 120 mg 05/18/17 13:45 05/18/17 15:17 Cardizem Cd - PO 120 mg DAILY [facility] Administration Docusate Sodium 100 mg 05/11/17 16:46 Colace - PO BID PRN CONSTIPATION Gabapentin 300 mg 05/15/17 10:00 05/18/17 09:36 Neurontin - PO Not Given BID [facility] Magnesium Oxide 400 mg 05/13/17 10:00 05/17/17 09:58 Mag-Ox - PO 400 mg Q2D@1000 [facility] Administration Magnesium Oxide 400 mg 05/11/17 22:00 05/17/17 22:08 Mag-Ox - PO Not Given Q2D@2200 [facility] Methimazole 20 mg 05/11/17 22:00 05/18/17 09:36 Tapazole - PO 20 mg BID [facility] Administration Metoprolol Tartrate 2.5 mg 05/11/17 16:32 05/14/17 10:24 Lopressor Injection - IVPUSH 2.5 mg Q4H PRN Administration HYPERTENSION Multi-Ingredient Lotion 1 applic 05/13/17 22:00 05/17/17 22:07 Eucerin (Small Jar) - TP Not Given BID [facility] Nystatin 1 applic 05/13/17 22:00 05/17/17 22:04 Mycostatin Cream - TP Not Given BID [facility] Polyethylene Glycol 17 gm 05/17/17 10:00 05/18/17 10:21 Miralax (For Daily Use) - PO Not Given DAILY [facility] Propranolol HCl 100 mg 05/17/17 14:00 05/18/17 14:02 Inderal - PO 100 mg TID [facility] Administration Senna 2 tab 05/11/17 16:46 Senna - PO HS PRN CONSTIPATION Tramadol HCl 50 mg 05/15/17 09:02 Ultram - PO Q8H PRN PAIN ASSESSMENT/PLAN: 66F w/ hx of asthma, HTN, HLD, NIDDM, pulmonary hypertension, COPD, CAD, Hodgkin s lymphoma (Dx in 2013 s/p chemo and radiation until 2014) and endometrial CA s /p chemotherapy (last 08/2015)and radiation (last 10/2015) with metastasis, diabetic neuropathy, spinal stenosis, chronic back pain with compression fracture to L1 and L3, and carpal tunnel syndrome who was sent to ED by Dr. Santo for further evaluation of abdominal pain. # Atrial fibrillation with RVR -HR around 95-115 overnight -continue propanolol 100mg TID -started cardizem 120mg -IV Metoprolol 2.5 mg Q4H PRN -CHADSVASC Score-4 -continue eliquis # Hyperthyroidism -continue Methimazole 20mg PO BID -won't do thyroid US as inpatient, so will do as outpt -thyroid peroxidase antibody: 239, elevated -thyroid stimulating immunoglobulin: Pending -RAIU scan as outpt # B/L lower extremity venous stasis -wound dressing daily, as per Dr. Camarillo -Has allergies to lotion. Application of Eucerin in the foot area. -Podiatry consult, recs appreciated: local wound care, leg elevation, f/u in wound care upon D/C # Fungal infection in right inguinal region -Nystatin TP # Hodgkins lymphoma and endometrial CA with mets s/p chemo and radiation -Management as per oncology -new 3cm mass anterior to abdominal aorta to be evaluated with PET scan as outpt, possibly lymph node # Hypertension- controlled -BP of 105-130/60-65 overnight -continue propranolol -Low salt diet # H/O Diabetes Mellitus -A1c of 5.1 # Normocytic anemia -at baseline # Chronic low back pain/neuropathy -continue gabapentin and tramadol # FEN/ppx -Not on IV fluids -Electrolytes wnl -Sodium controlled diet -For DVT: eliquis -For GI: Not indicated # Code Status: Full code #Dispo: -Will need [facility]. Case discussed with attending, Dr. Harris. -Ismael Simpson MD PGY1 Visit type - Emergency Visit Emergency Visit: Yes ED Registration Date: 05/11/17 Care time: The patient presented to the Emergency Department on the above date and was hospitalized for further evaluation of their emergent condition. - New Patient This patient is new to me today: No - Critical Care Critical Care patient: No
[2017-05-18] MEDS: MINERAL OIL/PETROLAT/WATER TOPICAL CREAM 113 GM JAR TP SCH (23:03)
[2017-05-18] MEDS: NYSTATIN 100,000 UNIT/GM TOPICAL CREAM 15 GM TUBE TP SCH (23:03)
[2017-05-18] MEDS: traMADol HCL 50 MG TABLET PO PRN (23:05)
[2017-05-18] MEDS: ATORVASTATIN CA 10 MG TABLET (FP) PO SCH (23:05)
[2017-05-18] MEDS: ACETAMINOPHEN 500 MG TABLET (FP) PO PRN (23:06)
[2017-05-19] MEDS: CYCLOBENZAPRINE HCL 10 MG TABLET (FP) PO SCH ×3 (06:48→23:12)
[2017-05-19] MEDS: PROPRANOLOL HCL 40 MG TABLET PO SCH ×3 (06:48→23:13)
[2017-05-19 07:26] LABS: HEMATOCRIT 27.4 % (32.4-45.2); HEMOGLOBIN 8.6 GM/dL (10.7-15.3); MCH 27.2 pg (25.7-33.7); MCHC 31.2 g/dl (32.0-36.0); MEAN CELL VOLUME 87.2 fl (80-96); MEAN PLT VOLUME 8.7 fl (7.5-11.1); PLATELET COUNT 248 K/MM3 (134-434); RBC 3.15 M/mm3 (3.60-5.2); RDW 15.9 % (11.6-15.6); WHITE BLOOD COUNT 6.6 K/mm3 (4.0-10.0)
[2017-05-19 07:39] LABS: ANION GAP 11 (8-16); BLOOD UREA NITROGEN 18 mg/dL (7-18); CALCIUM 8.7 mg/dL (8.5-10.1); CHLORIDE 102 mmol/L (98-107); CO2 27 mmol/L (21-32); CREATININE 1.3 mg/dL (0.55-1.02); GLUCOSE,RANDOM 82 mg/dL (74-106); POTASSIUM 4.3 mmol/L (3.5-5.1); SODIUM 140 mmol/L (136-145)
[2017-05-19] MEDS ORDERED: PT OWN MED DRAWER 7, Y5N ONE (10:48)
--- NOTE | 2017-05-19 10:50 | EKG ---
Test Reason : Blood Pressure : / mmHG Vent. Rate : 090 BPM Atrial Rate : 102 BPM P-R Int : 000 ms QRS Dur : 090 ms QT Int : 380 ms P-R-T Axes : 000 016 044 degrees QTc Int : 464 ms ATRIAL FIBRILLATION ABNORMAL ECG WHEN COMPARED WITH ECG OF 11-MAY-2017 09:37, VENT. RATE HAS DECREASED BY 78 BPM CLINICAL CORRELATION IS RECOMMENDED Confirmed by JOSI BROWN, STORM ([id number]) on 05/19/2017 10:49:34 AM Referred By: Benjamin SANDOVAL Confirmed By:STORM PRATER MD
[2017-05-19] MEDS: GABAPENTIN 300 MG CAPSULE (FP) PO SCH ×2 (11:27→23:11)
[2017-05-19] MEDS: ASPIRIN COATED 81 MG TABLET.EC PO SCH (11:28)
[2017-05-19] MEDS: MAGNESIUM OXIDE 400 MG TABLET (FP) PO SCH ×2 (11:28→23:13)
[2017-05-19] MEDS: METHIMAZOLE 10 MG TABLET (FP) PO SCH ×2 (11:28→23:12)
[2017-05-19] MEDS: APIXABAN 5 MG TABLET PO SCH ×2 (11:28→23:11)
[2017-05-19] MEDS: POLYETHYLENE GLYCOL 3350 119 GM BTL PO SCH (11:30)
--- NOTE | 2017-05-19 12:36 | PN ---
Progress Note, Physician History of Present Illness: seen and examined today in nad. no overnight events. no new complaints. - Current Medication List Current Medications: Active Medications Acetaminophen (Tylenol -) 1,000 mg PO Q6H PRN PRN Reason: FEVER OR PAIN Last Admin: 05/18/17 23:06 Dose: 1,000 mg Apixaban (Eliquis -) 5 mg PO BID [facility] Last Admin: 05/19/17 11:28 Dose: 5 mg Aspirin (Ecotrin -) 81 mg PO DAILY [facility] Last Admin: 05/19/17 11:28 Dose: 81 mg Atorvastatin Calcium (Lipitor -) 10 mg PO HS [facility] Last Admin: 05/18/17 23:05 Dose: 10 mg Bacitracin (Bacitracin -) 1 applic TP DAILY [facility] Last Admin: 05/18/17 09:36 Dose: 1 applic Bupropion HCl (Wellbutrin Xl -) 150 mg PO DAILY [facility] Last Admin: 05/19/17 11:29 Dose: 150 mg Cyclobenzaprine HCl (Flexeril -) 10 mg PO TID [facility] Last Admin: 05/19/17 06:48 Dose: 10 mg Diltiazem HCl (Cardizem Cd -) 120 mg PO DAILY [facility] Last Admin: 05/19/17 11:28 Dose: 120 mg Docusate Sodium (Colace -) 100 mg PO BID PRN PRN Reason: CONSTIPATION Gabapentin (Neurontin -) 300 mg PO BID [facility] Last Admin: 05/19/17 11:27 Dose: 300 mg Magnesium Oxide (Mag-Ox -) 400 mg PO Q2D@1000 [facility] Last Admin: 05/19/17 11:28 Dose: 400 mg Magnesium Oxide (Mag-Ox -) 400 mg PO Q2D@2200 [facility] Last Admin: 05/17/17 22:08 Dose: Not Given Methimazole (Tapazole -) 20 mg PO BID [facility] Last Admin: 05/19/17 11:28 Dose: 20 mg Metoprolol Tartrate (Lopressor Injection -) 2.5 mg IVPUSH Q4H PRN PRN Reason: HYPERTENSION Last Admin: 05/14/17 10:24 Dose: 2.5 mg Multi-Ingredient Lotion (Eucerin (Small Jar) -) 1 applic TP BID [facility] Last Admin: 05/18/17 23:03 Dose: Not Given Nystatin (Mycostatin Cream -) 1 applic TP BID [facility] Last Admin: 05/18/17 23:03 Dose: Not Given Polyethylene Glycol (Miralax (For Daily Use) -) 17 gm PO DAILY [facility] Last Admin: 05/19/17 11:30 Dose: 17 gm Propranolol HCl (Inderal -) 100 mg PO TID [facility] Last Admin: 05/19/17 06:48 Dose: 100 mg Senna (Senna -) 2 tab PO HS PRN PRN Reason: CONSTIPATION Tramadol HCl (Ultram -) 50 mg PO Q8H PRN PRN Reason: PAIN Last Admin: 05/18/17 23:05 Dose: 50 mg - Objective Vital Signs: Vital Signs Temperature 98 F 05/19/17 10:00 Pulse Rate 98 H 05/19/17 10:00 Respiratory Rate 20 05/19/17 10:00 Blood Pressure 90/49 05/19/17 10:00 O2 Sat by Pulse Oximetry (%) 96 05/18/17 09:00 Constitutional: Yes: No Distress, Calm Eyes: Yes: Conjunctiva Clear, EOM Intact HENT: Yes: Atraumatic, Normocephalic Neck: Yes: Supple, Trachea Midline Cardiovascular: Yes: Pulse Irregular, S1, S2. No: Regular Rate and Rhythm, Bradycardia, Tachycardia, Bruit, JVD, Gallop, Murmur, Rub, S3, S4, Varicosities Respiratory: Yes: Regular, Diminished. No: Rales, Rhonchi, Wheezes Gastrointestinal: Yes: Normal Bowel Sounds, Soft. No: Distention, Tenderness Musculoskeletal: Yes: WNL Extremities: Yes: WNL Edema: Yes Edema: LLE: Trace, RLE: Trace Peripheral Pulses WNL: Yes Peripheral Pulses: Left Doralis Pedis: 2+, Right Dorsalis Pedis: 2+ Integumentary: Yes: WNL Neurological: Yes: Alert, Oriented Psychiatric: Yes: Alert, Oriented Labs: CBC, BMP 05/19/17 05:05 05/19/17 05:05 INR, PTT INR 1.26 (0.82-1.09) H 05/11/17 10:40 - ....Imaging Chest X-ray: Report Reviewed, Image Reviewed EKG: Report Reviewed, Image Reviewed Other: Report Reviewed, Image Reviewed (tele-Afib, HR adequately controlled) Assessment/Plan 65 year old woman h/o Afib, CHF (low normal LVEF), asthma, hypertension, hyperlipidemia, diabetes, pulmonary hypertension, COPD, coronary artery diease, Hodgkin's lymphoma s/p chemotherapy and radiation, endometrial cancer s/p chemotherapy and radiation, diabetic neuropathy, spinal stenosis, chronic back pain, and carpal tunnel syndrome admitted with abdominal pain. Problem List Atrial fibrillation with RVR -HR adequately controlled overnight -cont propranolol 100 mg tid and diltiazem CD 120 mg daily -monitor on tele until discharge -cont eliquis -on methimazole PAD (peripheral artery disease) F/u with vascular surgeon; wound management. Pulmonary hypertension -outpatient f/up Chronic combined systolic and diastolic CHF (congestive heart failure) -On propranolol for hyperthyroid -plan to Add ACEI or ARB if BP tolerates in future -monitor F/u BUN/Cr, electrolytes, Is and Os, daily weight.
[2017-05-19] MEDS: BACITRACIN 15 GM TUBE TOPICAL OINTMENT TP SCH (14:07)
--- NOTE | 2017-05-19 14:09 | PN ---
Teaching Attending Note Name of Resident: Abran Chapman ATTENDING PHYSICIAN STATEMENT I saw and evaluated the patient. I reviewed the resident's note and discussed the case with the resident. I agree with the resident's findings and plan as documented. SUBJECTIVE: No fever or chills, has no palpitations and Cp. OBJECTIVE: NAD CV: irreg irreg Lungs: CTAB EXT: 1+ pitting edema with chronic erythema and hyperpigmentation , thick skin over feet. wound was not examined today ASSESSMENT AND PLAN: 66 y/o lady with 65 y Afib, CHF , asthma, hypertension, HLP, DM, pulmonary hypertension, COPD, CAD, Hodgkin's lymphoma s/p chemotherapy and radiation, endometrial cancer s/p chemotherapy and radiation, who presented with Abd pain, and was found to have Afib with RVR 1- Abd pain, due to constipation .resolved - cont bowel regimen 2- A fib with RVR: HR improved , in 90s all night on monitor - cont propranolol 100 TID - cont cardizem 120 mg daily - monitor BP -Cont Eliquis 3- Hyperthyroidism: - cont propranolol - cont methimazole - uptake scan as out pt 4- HTN: holding norvasc to give room for HR control with propranolol and cardizem . 6- h/o Hodgkin's : now with enlarged abd mass anterior to aorta compared to before . 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 - pain control Dispo: pt refuses to go to [facility]. CM updated
[2017-05-19] MEDS: NYSTATIN 100,000 UNIT/GM TOPICAL CREAM 15 GM TUBE TP SCH ×2 (17:00→23:13)
--- NOTE | 2017-05-19 17:22 | PN ---
Physical Exam: SUBJECTIVE: Patient seen and examined No acute events overnight. Pt endorses usual leg pain, denies shortness of breath, chest pain, palpitations, abdominal pain, n/v/d/c, and dysuria. OBJECTIVE: Vital Signs Period Temp Pulse Resp BP Sys/Peguero Pulse Ox Last 24 Hr 98 F-98.3 F 68-110 18-22 90-116/36-60 GENERAL: Patient sitting in bed, awake, alert, and fully oriented, in NAD HEENT: NC, AT NECK: Supple. LUNGS: CTAB, no wheezing or rales HEART: normal rate, irregularly irregular, systolic murmur ABDOMEN: Soft, non tender , not distended, normoactive bowel sounds, no guarding , no rebound, no masses MUSCULOSKELETAL: b/l severe LE tenderness, pitting peripheral edema, foul smelling, dry cracked skin, onychomycosis NEUROLOGICAL: Cranial nerves II-XII intact. Normal speech. Laboratory Results - last 24 hr 05/19/17 05/19/17 05:05 05:05 WBC 6.6 RBC 3.15 L Hgb 8.6 L Hct 27.4 L MCV 87.2 MCH 27.2 MCHC 31.2 L RDW 15.9 H Plt Count 248 MPV 8.7 Sodium 140 Potassium 4.3 Chloride 102 Carbon Dioxide 27 Anion Gap 11 BUN 18 Creatinine 1.3 H D Random Glucose 82 Calcium 8.7 Active Medications Generic Name Dose Route Start Last Admin Trade Name Freq PRN Reason Stop Dose Admin Acetaminophen 1,000 mg 05/17/17 11:03 05/18/17 23:06 Tylenol - PO 1,000 mg Q6H PRN Administration FEVER OR PAIN Apixaban 5 mg 05/16/17 22:00 05/19/17 11:28 Eliquis - PO 5 mg BID [facility] Administration Aspirin 81 mg 05/11/17 16:30 05/19/17 11:28 Ecotrin - PO 81 mg DAILY [facility] Administration Atorvastatin Calcium 10 mg 05/11/17 22:00 05/18/17 23:05 Lipitor - PO 10 mg HS [facility] Administration Bacitracin 1 applic 05/12/17 12:30 05/19/17 14:07 Bacitracin - TP 1 applic DAILY [facility] Administration Bupropion HCl 150 mg 05/11/17 16:30 05/19/17 11:29 Wellbutrin Xl - PO 150 mg DAILY [facility] Administration Cyclobenzaprine HCl 10 mg 05/11/17 23:45 05/19/17 14:06 Flexeril - PO 10 mg TID [facility] Administration Diltiazem HCl 120 mg 05/18/17 13:45 05/19/17 11:28 Cardizem Cd - PO 120 mg DAILY [facility] Administration Docusate Sodium 100 mg 05/11/17 16:46 Colace - PO BID PRN CONSTIPATION Gabapentin 300 mg 05/15/17 10:00 05/19/17 11:27 Neurontin - PO 300 mg BID [facility] Administration Magnesium Oxide 400 mg 05/13/17 10:00 05/19/17 11:28 Mag-Ox - PO 400 mg Q2D@1000 [facility] Administration Magnesium Oxide 400 mg 05/11/17 22:00 05/17/17 22:08 Mag-Ox - PO Not Given Q2D@2200 [facility] Methimazole 20 mg 05/11/17 22:00 05/19/17 11:28 Tapazole - PO 20 mg BID [facility] Administration Metoprolol Tartrate 2.5 mg 05/11/17 16:32 05/14/17 10:24 Lopressor Injection - IVPUSH 2.5 mg Q4H PRN Administration HYPERTENSION Multi-Ingredient Lotion 1 applic 05/13/17 22:00 05/18/17 23:03 Eucerin (Small Jar) - TP Not Given BID [facility] Nystatin 1 applic 05/13/17 22:00 05/18/17 23:03 Mycostatin Cream - TP Not Given BID [facility] Polyethylene Glycol 17 gm 05/17/17 10:00 05/19/17 11:30 Miralax (For Daily Use) - PO 17 gm DAILY [facility] Administration Propranolol HCl 100 mg 05/17/17 14:00 05/19/17 06:48 Inderal - PO 100 mg TID [facility] Administration Senna 2 tab 05/11/17 16:46 Senna - PO HS PRN CONSTIPATION Tramadol HCl 50 mg 05/15/17 09:02 05/18/17 23:05 Ultram - PO 50 mg Q8H PRN Administration PAIN ASSESSMENT/PLAN: 66F w/ hx of asthma, HTN, HLD, NIDDM, pulmonary hypertension, COPD, CAD, Hodgkin s lymphoma (Dx in 2013 s/p chemo and radiation until 2014) and endometrial CA s /p chemotherapy (last 08/2015)and radiation (last 10/2015) with metastasis, diabetic neuropathy, spinal stenosis, chronic back pain with compression fracture to L1 and L3, and carpal tunnel syndrome who was sent to ED by Dr. Santo for further evaluation of abdominal pain. # Atrial fibrillation with RVR -HR in 90s overnight -continue propanolol 100mg TID -continue cardizem 120mg -IV Metoprolol 2.5 mg Q4H PRN -CHADSVASC Score-4 -continue eliquis # Hyperthyroidism -continue Methimazole 20mg PO BID -won't do thyroid US as inpatient, so will do as outpt -thyroid peroxidase antibody: 239, elevated -thyroid stimulating immunoglobulin: Pending -RAIU scan as outpt # B/L lower extremity venous stasis -wound dressing daily, as per Dr. Camarillo -Has allergies to lotion. Application of Eucerin in the foot area. -Podiatry consult, recs appreciated: local wound care, leg elevation, f/u in wound care upon D/C # Fungal infection in right inguinal region -Nystatin TP # Hodgkins lymphoma and endometrial CA with mets s/p chemo and radiation -Management as per oncology -new 3cm mass anterior to abdominal aorta to be evaluated with PET scan as outpt, possibly lymph node # Hypertension- controlled -BP of 95-115/36-60 overnight -continue propranolol -Low salt diet # H/O Diabetes Mellitus -A1c of 5.1 # Normocytic anemia -at baseline # Chronic low back pain/neuropathy -continue gabapentin and tramadol # FEN/ppx -Not on IV fluids -Electrolytes wnl -Sodium controlled diet -For DVT: eliquis -For GI: Not indicated # Code Status: Full code #Dispo: -awaiting SNF placement Case discussed with attending, Dr. Harris. -Ismael Simpson MD PGY1 Visit type - Emergency Visit Emergency Visit: Yes ED Registration Date: 05/11/17 Care time: The patient presented to the Emergency Department on the above date and was hospitalized for further evaluation of their emergent condition. - New Patient This patient is new to me today: No - Critical Care Critical Care patient: No
[2017-05-19] MEDS: MINERAL OIL/PETROLAT/WATER TOPICAL CREAM 113 GM JAR TP SCH ×2 (18:44→23:13)
[2017-05-19] MEDS: ACETAMINOPHEN 500 MG TABLET (FP) PO PRN (23:11)
[2017-05-19] MEDS: ATORVASTATIN CA 10 MG TABLET (FP) PO SCH (23:12)
[2017-05-19] MEDS: traMADol HCL 50 MG TABLET PO PRN (23:12)
[2017-05-20 06:43] LABS: HEMATOCRIT 26.5 % (32.4-45.2); HEMOGLOBIN 8.3 GM/dL (10.7-15.3); MCH 27.2 pg (25.7-33.7); MCHC 31.2 g/dl (32.0-36.0); MEAN PLT VOLUME 8.7 fl (7.5-11.1); PLATELET COUNT 268 K/MM3 (134-434); RBC 3.05 M/mm3 (3.60-5.2); RDW 16.2 % (11.6-15.6); WHITE BLOOD COUNT 6.7 K/mm3 (4.0-10.0)
[2017-05-20 07:02] LABS: CHLORIDE 100 mmol/L (98-107); POTASSIUM 4.1 mmol/L (3.5-5.1); SODIUM 136 mmol/L (136-145)
[2017-05-20] MEDS: CYCLOBENZAPRINE HCL 10 MG TABLET (FP) PO SCH ×2 (07:05→13:53)
[2017-05-20] MEDS: PROPRANOLOL HCL 40 MG TABLET PO SCH ×2 (07:06→13:54)
[2017-05-20 07:09] LABS: ANION GAP 8 (8-16); BLOOD UREA NITROGEN 21 mg/dL (7-18); CALCIUM 8.3 mg/dL (8.5-10.1); CO2 28 mmol/L (21-32); CREATININE 1.4 mg/dL (0.55-1.02); GLUCOSE,RANDOM 86 mg/dL (74-106)
--- NOTE | 2017-05-20 10:19 | PN ---
Progress Note (short form) - Note Progress Note: No new complaints in bed In NAD No palpitations Vital Signs Period Temp Pulse Resp BP Sys/Peguero Pulse Ox Last 24 Hr 8.7 F 82-96 20-22 109-124/54-58 95 PE: Awake, alert Neck: Supple, No JVD HEENT: PERRL Eomi Lungs: CTA CVS: S1S2 Abd: Benign EXt: +Edema, stasis changes CMP Sodium 136 mmol/L (136-145) 05/20/17 05:05 Potassium 4.1 mmol/L (3.5-5.1) 05/20/17 05:05 Chloride 100 mmol/L (98-107) 05/20/17 05:05 Carbon Dioxide 28 mmol/L (21-32) 05/20/17 05:05 Anion Gap 8 (8-16) 05/20/17 05:05 BUN 21 mg/dL (7-18) H 05/20/17 05:05 Creatinine 1.4 mg/dL (0.55-1.02) H 05/20/17 05:05 Creat Clearance w eGFR 49.39 (>60) 05/17/17 05:05 POC Glucometer 112 UNITS (80-120) 05/13/17 06:42 Random Glucose 86 mg/dL (74-106) 05/20/17 05:05 Hemoglobin A1c % 5.1 % (4.8-6.0) D 05/12/17 05:48 Lactic Acid 1.4 mmol/L (0.4-2.0) 05/11/17 12:22 Calcium 8.3 mg/dL (8.5-10.1) L 05/20/17 05:05 Phosphorus 3.9 mg/dL (2.5-4.9) 05/13/17 05:45 Magnesium 2.1 mg/dL (1.8-2.4) 05/18/17 07:45 Total Bilirubin 0.5 mg/dL (0.2-1.0) D 05/17/17 05:05 AST 13 U/L (15-37) L D 05/17/17 05:05 ALT 12 U/L (12-78) 05/17/17 05:05 Alkaline Phosphatase 78 U/L (45-117) 05/17/17 05:05 LD Total 145 U/L (84-246) D 05/12/17 05:48 Creatine Kinase 45 IU/L (26-192) 05/11/17 09:58 Troponin I 0.02 ng/ml (0.00-0.05) 05/11/17 21:40 B-Natriuretic Peptide 6276.89 pg/ml (5-125) H 05/11/17 09:58 Total Protein 5.8 g/dl (6.4-8.2) L 05/17/17 05:05 Albumin 2.7 g/dl (3.4-5.0) L 05/17/17 05:05 Triglycerides 94 mg/dL (35-160) D 05/12/17 05:48 Cholesterol 76 mg/dL (50-200) D 05/12/17 05:48 Total LDL Cholesterol 33 mg/dL (5-100) 05/12/17 05:48 HDL Cholesterol 38 mg/dL (40-60) L 05/12/17 05:48 Lipase 86 U/L (73-393) 05/11/17 10:40 CA 125 Antigen 36.1 U/mL (0.0-38.1) 05/12/17 05:48 TSH < 0.01 uIU/ml (0.358-3.74) L D 05/11/17 10:40 Free T4 2.06 ng/dl (0.76-1.46) H D 05/16/17 05:05 Free T3 2.5 pg/ml (2.0-4.4) 05/16/17 05:05 Current Medications Generic Name Dose Route Start Last Admin Trade Name Nanette PRN Reason Stop Dose Admin Acetaminophen 1,000 mg 05/17/17 11:03 05/19/17 23:11 Tylenol - PO 1,000 mg Q6H PRN Administration FEVER OR PAIN Apixaban 5 mg 05/16/17 22:00 05/19/17 23:11 Eliquis - PO 5 mg BID [facility] Administration Aspirin 81 mg 05/11/17 16:30 05/19/17 11:28 Ecotrin - PO 81 mg DAILY [facility] Administration Atorvastatin Calcium 10 mg 05/11/17 22:00 05/19/17 23:12 Lipitor - PO 10 mg HS [facility] Administration Bacitracin 1 applic 05/12/17 12:30 05/19/17 14:07 Bacitracin - TP 1 applic DAILY [facility] Administration Bupropion HCl 150 mg 05/11/17 16:30 05/19/17 11:29 Wellbutrin Xl - PO 150 mg DAILY [facility] Administration Cyclobenzaprine HCl 10 mg 05/11/17 23:45 05/20/17 07:05 Flexeril - PO 10 mg TID [facility] Administration Diltiazem HCl 120 mg 05/18/17 13:45 05/19/17 11:28 Cardizem Cd - PO 120 mg DAILY [facility] Administration Docusate Sodium 100 mg 05/11/17 16:46 Colace - PO BID PRN CONSTIPATION Gabapentin 300 mg 05/15/17 10:00 05/19/17 23:11 Neurontin - PO 300 mg BID [facility] Administration Magnesium Oxide 400 mg 05/13/17 10:00 05/19/17 11:28 Mag-Ox - PO 400 mg Q2D@1000 [facility] Administration Magnesium Oxide 400 mg 05/11/17 22:00 05/19/17 23:13 Mag-Ox - PO 400 mg Q2D@2200 [facility] Administration Methimazole 20 mg 05/11/17 22:00 05/19/17 23:12 Tapazole - PO 20 mg BID [facility] Administration Metoprolol Tartrate 2.5 mg 05/11/17 16:32 05/14/17 10:24 Lopressor Injection - IVPUSH 2.5 mg Q4H PRN Administration HYPERTENSION Multi-Ingredient Lotion 1 applic 05/13/17 22:00 05/19/17 23:13 Eucerin (Small Jar) - TP 1 applic BID [facility] Administration Nystatin 1 applic 05/13/17 22:00 05/19/17 23:13 Mycostatin Cream - TP 1 applic BID [facility] Administration Polyethylene Glycol 17 gm 05/17/17 10:00 05/19/17 11:30 Miralax (For Daily Use) - PO 17 gm DAILY [facility] Administration Propranolol HCl 100 mg 05/17/17 14:00 05/20/17 07:06 Inderal - PO 100 mg TID [facility] Administration Senna 2 tab 05/11/17 16:46 Senna - PO HS PRN CONSTIPATION Tramadol HCl 50 mg 05/15/17 09:02 05/19/17 23:12 Ultram - PO 50 mg Q8H PRN Administration PAIN AP; Hyperthyroidism: improving, FT4 2.06 H/O Goiter ?Nodules A Fib DM H/O Hodgkin's Lymphoma H/O Endometrial Ca Stasis changes of lege PAD Fatty Liver on ultrasound continue Propranolol Methimazole 20mg BID FT4 2.06, FT3, 4.2 TSI still pending, TPO 239 Continue to monitor TFT. RPt TFT tomorrow or if pt is transferred to rehab it should be done there. Adjust Methimazole dose as necessary. Will F/u Problem List - Problems (1) Atrial fibrillation with RVR Code(s): I48.91 - UNSPECIFIED ATRIAL FIBRILLATION (2) Hyperthyroidism Code(s): E05.90 - THYROTOXICOSIS, UNSP WITHOUT THYROTOXIC CRISIS OR STORM (3) H/O malignant neoplasm of endometrium Code(s): Z85.42 - PERSONAL HISTORY OF MALIGNANT NEOPLASM OF OTH PRT UTERUS (4) Hodgkin lymphoma Code(s): C81.90 - HODGKIN LYMPHOMA, UNSPECIFIED, UNSPECIFIED SITE Qualifiers: Hodgkin lymphoma type: unspecified type Lymphoma site: unspecified region Qualified Code(s): C81.90 - Hodgkin lymphoma, unspecified, unspecified site (5) Type 2 diabetes mellitus Code(s): E11.9 - TYPE 2 DIABETES MELLITUS WITHOUT COMPLICATIONS Qualifiers: Diabetes mellitus complication status: with neurologic complications Diabetes mellitus complication detail: with polyneuropathy
[2017-05-20] MEDS: APIXABAN 5 MG TABLET PO SCH (10:40)
[2017-05-20] MEDS: METHIMAZOLE 10 MG TABLET (FP) PO SCH (10:40)
[2017-05-20] MEDS: GABAPENTIN 300 MG CAPSULE (FP) PO SCH (10:40)
[2017-05-20] MEDS: ASPIRIN COATED 81 MG TABLET.EC PO SCH (10:40)
[2017-05-20] MEDS: POLYETHYLENE GLYCOL 3350 119 GM BTL PO SCH (10:42)
[2017-05-20] MEDS ORDERED: PT OWN MED DRAWER 7, Y5N ONE ×2 (10:42→13:46)
--- NOTE | 2017-05-20 11:28 | PN ---
Progress Note, Physician History of Present Illness: seen and examined today in nad. no overnight events. no new complaints. - Current Medication List Current Medications: Active Medications Acetaminophen (Tylenol -) 1,000 mg PO Q6H PRN PRN Reason: FEVER OR PAIN Last Admin: 05/19/17 23:11 Dose: 1,000 mg Apixaban (Eliquis -) 5 mg PO BID [facility] Last Admin: 05/20/17 10:40 Dose: 5 mg Aspirin (Ecotrin -) 81 mg PO DAILY [facility] Last Admin: 05/20/17 10:40 Dose: 81 mg Atorvastatin Calcium (Lipitor -) 10 mg PO HS [facility] Last Admin: 05/19/17 23:12 Dose: 10 mg Bacitracin (Bacitracin -) 1 applic TP DAILY [facility] Last Admin: 05/19/17 14:07 Dose: 1 applic Bupropion HCl (Wellbutrin Xl -) 150 mg PO DAILY [facility] Last Admin: 05/20/17 10:42 Dose: 150 mg Cyclobenzaprine HCl (Flexeril -) 10 mg PO TID [facility] Last Admin: 05/20/17 07:05 Dose: 10 mg Diltiazem HCl (Cardizem Cd -) 120 mg PO DAILY [facility] Last Admin: 05/20/17 10:40 Dose: 120 mg Docusate Sodium (Colace -) 100 mg PO BID PRN PRN Reason: CONSTIPATION Gabapentin (Neurontin -) 300 mg PO BID [facility] Last Admin: 05/20/17 10:40 Dose: 300 mg Magnesium Oxide (Mag-Ox -) 400 mg PO Q2D@1000 [facility] Last Admin: 05/19/17 11:28 Dose: 400 mg Magnesium Oxide (Mag-Ox -) 400 mg PO Q2D@2200 [facility] Last Admin: 05/19/17 23:13 Dose: 400 mg Methimazole (Tapazole -) 20 mg PO BID [facility] Last Admin: 05/20/17 10:40 Dose: 20 mg Metoprolol Tartrate (Lopressor Injection -) 2.5 mg IVPUSH Q4H PRN PRN Reason: HYPERTENSION Last Admin: 05/14/17 10:24 Dose: 2.5 mg Multi-Ingredient Lotion (Eucerin (Small Jar) -) 1 applic TP BID [facility] Last Admin: 05/19/17 23:13 Dose: 1 applic Nystatin (Mycostatin Cream -) 1 applic TP BID [facility] Last Admin: 05/19/17 23:13 Dose: 1 applic Polyethylene Glycol (Miralax (For Daily Use) -) 17 gm PO DAILY [facility] Last Admin: 05/20/17 10:42 Dose: Not Given Propranolol HCl (Inderal -) 100 mg PO TID [facility] Last Admin: 05/20/17 07:06 Dose: 100 mg Senna (Senna -) 2 tab PO HS PRN PRN Reason: CONSTIPATION - Objective Vital Signs: Vital Signs Temperature 8.7 F L 05/19/17 18:00 Pulse Rate 91 H 05/20/17 06:00 Respiratory Rate 22 05/20/17 06:00 Blood Pressure 111/54 05/20/17 06:00 O2 Sat by Pulse Oximetry (%) 95 05/19/17 21:00 Constitutional: Yes: No Distress, Calm Eyes: Yes: Conjunctiva Clear, EOM Intact, PERRL HENT: Yes: Atraumatic, Normocephalic Neck: Yes: Supple, Trachea Midline Cardiovascular: Yes: Pulse Irregular, S1, S2. No: Regular Rate and Rhythm, Bradycardia, Tachycardia, Bruit, JVD, Gallop, Murmur, Rub, S3, S4, Varicosities Respiratory: Yes: Regular, CTA Bilaterally. No: Rales, Rhonchi, SOB, Wheezes Gastrointestinal: Yes: Normal Bowel Sounds, Soft. No: Distention, Tenderness Musculoskeletal: Yes: WNL Extremities: Yes: WNL, Erythema Edema: LLE: Trace, RLE: Trace Peripheral Pulses WNL: Yes Peripheral Pulses: Left Doralis Pedis: 2+, Right Dorsalis Pedis: 2+ Integumentary: Yes: WNL Neurological: Yes: Alert, Oriented Psychiatric: Yes: Alert, Oriented Labs: CBC, BMP 05/20/17 05:05 05/20/17 05:05 INR, PTT INR 1.26 (0.82-1.09) H 05/11/17 10:40 - ....Imaging Chest X-ray: Report Reviewed, Image Reviewed EKG: Report Reviewed, Image Reviewed Other: Report Reviewed, Image Reviewed (tele-AFib, HR controlled) Assessment/Plan 65 year old woman h/o Afib, CHF (low normal LVEF), asthma, hypertension, hyperlipidemia, diabetes, pulmonary hypertension, COPD, coronary artery diease, Hodgkin's lymphoma s/p chemotherapy and radiation, endometrial cancer s/p chemotherapy and radiation, diabetic neuropathy, spinal stenosis, chronic back pain, and carpal tunnel syndrome admitted with abdominal pain. Problem List Atrial fibrillation with RVR -HR adequately controlled -cont propranolol 100 mg tid and diltiazem CD 120 mg daily -monitor on tele until discharge -cont eliquis -on methimazole as per endo PAD (peripheral artery disease) F/u with vascular surgeon; wound management. Pulmonary hypertension -outpatient f/up Chronic combined systolic and diastolic CHF (congestive heart failure) -On propranolol for hyperthyroid -plan to Add ACEI or ARB if BP tolerates in future -monitor F/u BUN/Cr, electrolytes, Is and Os, daily weight.
[2017-05-20 11:58] VITALS: BP 98/45; PULSE 95; TEMP 98.2
[2017-05-20] MEDS: NYSTATIN 100,000 UNIT/GM TOPICAL CREAM 15 GM TUBE TP SCH (13:54)
[2017-05-20] MEDS: BACITRACIN 15 GM TUBE TOPICAL OINTMENT TP SCH (13:54)
[2017-05-20] MEDS: MINERAL OIL/PETROLAT/WATER TOPICAL CREAM 113 GM JAR TP SCH (13:54)
--- NOTE | 2017-05-20 14:53 | PN ---
Progress Note (short form) - Note Progress Note: Subjective: no fever or chills , no CP . Objective: Vital Signs: Last Vital Signs Temp Pulse Resp BP Pulse Ox 98.2 F 95 H 22 98/45 98 05/20/17 10:00 05/20/17 10:00 05/20/17 10:00 05/20/17 10:00 05/20/17 10:00 Laboratory Results - last 24 hr 05/20/17 05/20/17 05:05 05:05 WBC 6.7 RBC 3.05 L Hgb 8.3 L Hct 26.5 L MCV 87.0 MCH 27.2 MCHC 31.2 L RDW 16.2 H Plt Count 268 MPV 8.7 Sodium 136 Potassium 4.1 Chloride 100 Carbon Dioxide 28 Anion Gap 8 BUN 21 H Creatinine 1.4 H Random Glucose 86 Calcium 8.3 L Physical Exam: NAD CV: irreg irreg Lungs: CTAB EXT: 1+ pitting edema with chronic erythema and hyperpigmentation , thick skin over feet. wound was not examined today ASSESSMENT AND PLAN: 66 y/o lady with 65 y Afib, CHF , asthma, hypertension, HLP, DM, pulmonary hypertension, COPD, CAD, Hodgkin's lymphoma s/p chemotherapy and radiation, endometrial cancer s/p chemotherapy and radiation, who presented with Abd pain, and was found to have Afib with RVR 1- Abd pain, due to constipation.resolved - cont bowel regimen 2- A fib with RVR: HR improved , in 80s all night on monitor - cont propranolol 100 TID - cont cardizem 120 mg daily - monitor BP -Cont Eliquis 3- Hyperthyroidism: - cont propranolol - cont methimazole - repeat TFTS as out pt 4- HTN: propranolol and cardizem . 6- h/o Hodgkin's : now with enlarged abd mass anterior to aorta compared to before . 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 - pain control Dispo: DC to CT . agreed to [facility] Visit type - Emergency Visit Emergency Visit: Yes ED Registration Date: 05/11/17 Care time: The patient presented to the Emergency Department on the above date and was hospitalized for further evaluation of their emergent condition. - New Patient This patient is new to me today: No - Critical Care Critical Care patient: No
[2017-05-21 10:07] LABS: THYROID STIM IMMUNOGLOBULIN 523 % (0-139)
--- NOTE | 2017-05-25 14:58 | DS ---
Physical Exam: SUBJECTIVE: Patient seen and examined No acute events overnight. Pt endorses usual leg pain, denies shortness of breath, chest pain, palpitations, abdominal pain, n/v/d/c, and dysuria. OBJECTIVE: Vital Signs Temperature 98.2 F 05/20/17 10:00 Pulse Rate 95 H 05/20/17 10:00 Respiratory Rate 22 05/20/17 10:00 Blood Pressure 98/45 05/20/17 10:00 O2 Sat by Pulse Oximetry (%) 98 05/20/17 10:00 PHYSICAL EXAM GENERAL: Patient sitting in bed, awake, alert, and fully oriented, in NAD HEENT: NC, AT NECK: Supple. LUNGS: CTAB, no wheezing or rales HEART: normal rate, irregularly irregular, systolic murmur ABDOMEN: Soft, non tender , not distended, normoactive bowel sounds, no guarding , no rebound, no masses MUSCULOSKELETAL: b/l severe LE tenderness, pitting peripheral edema, foul smelling, dry cracked skin, onychomycosis NEUROLOGICAL: Cranial nerves II-XII intact. Normal speech. LABS Laboratory Tests 05/11/17 05/11/17 05/11/17 09:58 10:27 10:40 WBC RBC Hgb Hct MCV MCH MCHC RDW Plt Count MPV Absolute Neuts (auto) Absolute Lymphs (auto) Absolute Monos (auto) Absolute Eos (auto) Absolute Basos (auto) Neutrophils % Lymphocytes % Monocytes % Eosinophils % Basophils % ESR PT with INR INR PTT (Actin FS) 31.8 Sodium Potassium Chloride Carbon Dioxide Anion Gap BUN Creatinine Creat Clearance w eGFR POC Glucometer Random Glucose Hemoglobin A1c % Lactic Acid Calcium Phosphorus Magnesium Total Bilirubin AST ALT Alkaline Phosphatase LD Total Creatine Kinase 45 Troponin I 0.02 B-Natriuretic Peptide 6276.89 H Total Protein Albumin Triglycerides Cholesterol Total LDL Cholesterol HDL Cholesterol Lipase CA 125 Antigen TSH Free T4 Free T3 Thyroid Stim Immunoglob Stool Occult Blood Thyroid Peroxidase Ab Blood Type O POSITIVE Antibody Screen Negative 05/11/17 05/11/17 05/11/17 10:40 10:40 10:40 WBC 6.2 RBC 3.47 L Hgb 9.4 L Hct 30.3 L MCV 87.4 MCH 27.2 MCHC 31.1 L RDW 15.9 H Plt Count 215 MPV 8.8 Absolute Neuts (auto) 4.5 L Absolute Lymphs (auto) 1.1 L Absolute Monos (auto) 0.5 L Absolute Eos (auto) 0.1 Absolute Basos (auto) 0.0 L Neutrophils % 71.5 Lymphocytes % 17.7 Monocytes % 8.0 Eosinophils % 2.3 Basophils % 0.5 ESR PT with INR 14.20 H INR 1.26 H PTT (Actin FS) Sodium 138 Potassium 4.5 Chloride 103 Carbon Dioxide 24 Anion Gap 11 BUN 15 Creatinine 0.9 D Creat Clearance w eGFR > 60 POC Glucometer Random Glucose 103 Hemoglobin A1c % Lactic Acid Calcium 9.1 Phosphorus Magnesium Total Bilirubin 0.7 D AST 12 L D ALT 14 Alkaline Phosphatase 96 LD Total Creatine Kinase Troponin I B-Natriuretic Peptide Total Protein 6.9 Albumin 3.2 L Triglycerides Cholesterol Total LDL Cholesterol HDL Cholesterol Lipase 86 CA 125 Antigen TSH < 0.01 L D Free T4 Free T3 Thyroid Stim Immunoglob Stool Occult Blood Thyroid Peroxidase Ab Blood Type Antibody Screen 05/11/17 05/11/17 05/11/17 12:22 13:47 14:15 WBC RBC Hgb Hct MCV MCH MCHC RDW Plt Count MPV Absolute Neuts (auto) Absolute Lymphs (auto) Absolute Monos (auto) Absolute Eos (auto) Absolute Basos (auto) Neutrophils % Lymphocytes % Monocytes % Eosinophils % Basophils % ESR PT with INR INR PTT (Actin FS) Sodium Potassium Chloride Carbon Dioxide Anion Gap BUN Creatinine Creat Clearance w eGFR POC Glucometer Random Glucose Hemoglobin A1c % Lactic Acid 1.4 Calcium Phosphorus Magnesium Total Bilirubin AST ALT Alkaline Phosphatase LD Total Creatine Kinase Troponin I B-Natriuretic Peptide Total Protein Albumin Triglycerides Cholesterol Total LDL Cholesterol HDL Cholesterol Lipase CA 125 Antigen TSH Free T4 3.81 H Free T3 8.2 H Thyroid Stim Immunoglob Stool Occult Blood Thyroid Peroxidase Ab Blood Type Antibody Screen 05/11/17 05/11/17 05/12/17 21:40 23:23 05:30 WBC RBC Hgb Hct MCV MCH MCHC RDW Plt Count MPV Absolute Neuts (auto) Absolute Lymphs (auto) Absolute Monos (auto) Absolute Eos (auto) Absolute Basos (auto) Neutrophils % Lymphocytes % Monocytes % Eosinophils % Basophils % ESR PT with INR INR PTT (Actin FS) Sodium Potassium Chloride Carbon Dioxide Anion Gap BUN Creatinine Creat Clearance w eGFR POC Glucometer 102 95 Random Glucose Hemoglobin A1c % Lactic Acid Calcium Phosphorus Magnesium Total Bilirubin AST ALT Alkaline Phosphatase LD Total Creatine Kinase Troponin I 0.02 B-Natriuretic Peptide Total Protein Albumin Triglycerides Cholesterol Total LDL Cholesterol HDL Cholesterol Lipase CA 125 Antigen TSH Free T4 Free T3 Thyroid Stim Immunoglob Stool Occult Blood Thyroid Peroxidase Ab Blood Type Antibody Screen 05/12/17 05/12/17 05/12/17 05:48 05:48 05:48 WBC 6.7 RBC 3.09 L Hgb 8.4 L D Hct 27.1 L MCV 87.8 MCH 27.3 MCHC 31.2 L RDW 15.9 H Plt Count 197 MPV 8.8 Absolute Neuts (auto) Absolute Lymphs (auto) Absolute Monos (auto) Absolute Eos (auto) Absolute Basos (auto) Neutrophils % 64.1 Lymphocytes % 23.0 D Monocytes % 9.7 Eosinophils % 2.8 Basophils % 0.4 ESR PT with INR INR PTT (Actin FS) Sodium 140 Potassium 3.9 Chloride 106 Carbon Dioxide 26 Anion Gap 8 BUN 17 Creatinine 1.0 Creat Clearance w eGFR 55.14 POC Glucometer Random Glucose 72 L D Hemoglobin A1c % 5.1 D Lactic Acid Calcium 8.8 Phosphorus 3.9 D Magnesium 1.8 Total Bilirubin 0.8 AST 10 L ALT 12 Alkaline Phosphatase 82 LD Total 145 D Creatine Kinase Troponin I B-Natriuretic Peptide Total Protein 5.9 L Albumin 2.8 L Triglycerides 94 D Cholesterol 76 D Total LDL Cholesterol 33 HDL Cholesterol 38 L Lipase CA 125 Antigen TSH Free T4 Free T3 Thyroid Stim Immunoglob Stool Occult Blood Thyroid Peroxidase Ab Blood Type Antibody Screen 05/12/17 05/12/17 05/12/17 05:48 05:48 11:55 WBC RBC Hgb Hct MCV MCH MCHC RDW Plt Count MPV Absolute Neuts (auto) Absolute Lymphs (auto) Absolute Monos (auto) Absolute Eos (auto) Absolute Basos (auto) Neutrophils % Lymphocytes % Monocytes % Eosinophils % Basophils % ESR 70 H PT with INR INR PTT (Actin FS) Sodium Potassium Chloride Carbon Dioxide Anion Gap BUN Creatinine Creat Clearance w eGFR POC Glucometer 121 Random Glucose Hemoglobin A1c % Lactic Acid Calcium Phosphorus Magnesium Total Bilirubin AST ALT Alkaline Phosphatase LD Total Creatine Kinase Troponin I B-Natriuretic Peptide Total Protein Albumin Triglycerides Cholesterol Total LDL Cholesterol HDL Cholesterol Lipase CA 125 Antigen 36.1 TSH Free T4 Free T3 Thyroid Stim Immunoglob Stool Occult Blood Thyroid Peroxidase Ab Blood Type Antibody Screen 05/12/17 05/12/17 05/13/17 17:45 22:00 05:45 WBC RBC Hgb Hct MCV MCH MCHC RDW Plt Count MPV Absolute Neuts (auto) Absolute Lymphs (auto) Absolute Monos (auto) Absolute Eos (auto) Absolute Basos (auto) Neutrophils % Lymphocytes % Monocytes % Eosinophils % Basophils % ESR PT with INR INR PTT (Actin FS) Sodium 140 Potassium 4.0 Chloride 106 Carbon Dioxide 27 Anion Gap 7 L BUN 19 H Creatinine 0.9 Creat Clearance w eGFR > 60 POC Glucometer 98 110 Random Glucose 89 D Hemoglobin A1c % Lactic Acid Calcium 8.4 L Phosphorus 3.9 Magnesium 1.8 Total Bilirubin 0.6 D AST 8 L ALT 11 L Alkaline Phosphatase 76 LD Total Creatine Kinase Troponin I B-Natriuretic Peptide Total Protein 5.7 L Albumin 2.7 L Triglycerides Cholesterol Total LDL Cholesterol HDL Cholesterol Lipase CA 125 Antigen TSH Free T4 2.56 H D Free T3 Thyroid Stim Immunoglob Stool Occult Blood Thyroid Peroxidase Ab Blood Type Antibody Screen 05/13/17 05/13/17 05/13/17 05:45 05:45 06:42 WBC 6.2 RBC 3.03 L Hgb 8.2 L Hct 26.6 L MCV 87.8 MCH 27.2 MCHC 30.9 L RDW 15.9 H Plt Count 181 MPV 9.0 Absolute Neuts (auto) Absolute Lymphs (auto) Absolute Monos (auto) Absolute Eos (auto) Absolute Basos (auto) Neutrophils % 61.3 Lymphocytes % 22.5 Monocytes % 10.7 H Eosinophils % 4.5 Basophils % 1.0 ESR PT with INR INR PTT (Actin FS) Sodium Potassium Chloride Carbon Dioxide Anion Gap BUN Creatinine Creat Clearance w eGFR POC Glucometer 112 Random Glucose Hemoglobin A1c % Lactic Acid Calcium Phosphorus Magnesium Total Bilirubin AST ALT Alkaline Phosphatase LD Total Creatine Kinase Troponin I B-Natriuretic Peptide Total Protein Albumin Triglycerides Cholesterol Total LDL Cholesterol HDL Cholesterol Lipase CA 125 Antigen TSH Free T4 Free T3 4.2 Thyroid Stim Immunoglob Stool Occult Blood Thyroid Peroxidase Ab Blood Type Antibody Screen 05/13/17 05/14/17 05/14/17 15:00 05:45 05:45 WBC 5.7 RBC 3.22 L Hgb 8.8 L Hct 27.9 L MCV 86.7 MCH 27.4 MCHC 31.6 L RDW 16.4 H Plt Count 192 MPV 8.8 Absolute Neuts (auto) Absolute Lymphs (auto) Absolute Monos (auto) Absolute Eos (auto) Absolute Basos (auto) Neutrophils % Lymphocytes % Monocytes % Eosinophils % Basophils % ESR PT with INR INR PTT (Actin FS) Sodium Potassium Chloride Carbon Dioxide Anion Gap BUN Creatinine Creat Clearance w eGFR POC Glucometer Random Glucose Hemoglobin A1c % Lactic Acid Calcium Phosphorus Magnesium Total Bilirubin AST ALT Alkaline Phosphatase LD Total Creatine Kinase Troponin I B-Natriuretic Peptide Total Protein Albumin Triglycerides Cholesterol Total LDL Cholesterol HDL Cholesterol Lipase CA 125 Antigen TSH Free T4 Free T3 Thyroid Stim Immunoglob 523 H Stool Occult Blood Negative Thyroid Peroxidase Ab 239 H Blood Type Antibody Screen 05/14/17 05/15/17 05/15/17 05:45 06:40 06:40 WBC 5.0 RBC 2.99 L Hgb 8.4 L Hct 26.0 L MCV 87.0 MCH 28.2 MCHC 32.4 RDW 16.0 H Plt Count 212 MPV 9.1 Absolute Neuts (auto) Absolute Lymphs (auto) Absolute Monos (auto) Absolute Eos (auto) Absolute Basos (auto) Neutrophils % Lymphocytes % Monocytes % Eosinophils % Basophils % ESR PT with INR INR PTT (Actin FS) Sodium 140 140 Potassium 4.1 4.0 Chloride 104 104 Carbon Dioxide 26 24 Anion Gap 10 12 BUN 17 17 Creatinine 0.9 1.0 Creat Clearance w eGFR > 60 POC Glucometer Random Glucose 83 80 Hemoglobin A1c % Lactic Acid Calcium 8.7 8.9 Phosphorus Magnesium 1.9 Total Bilirubin 0.7 AST 7 L ALT 12 Alkaline Phosphatase 81 LD Total Creatine Kinase Troponin I B-Natriuretic Peptide Total Protein 6.1 L Albumin 2.9 L Triglycerides Cholesterol Total LDL Cholesterol HDL Cholesterol Lipase CA 125 Antigen TSH Free T4 Free T3 Thyroid Stim Immunoglob Stool Occult Blood Thyroid Peroxidase Ab Blood Type Antibody Screen 05/16/17 05/16/17 05/16/17 05:05 05:05 05:05 WBC 4.6 RBC 2.90 L Hgb 7.9 L Hct 25.2 L MCV 87.0 MCH 27.4 MCHC 31.4 L RDW 16.2 H Plt Count 183 MPV 8.9 Absolute Neuts (auto) Absolute Lymphs (auto) Absolute Monos (auto) Absolute Eos (auto) Absolute Basos (auto) Neutrophils % 59.9 Lymphocytes % 22.9 Monocytes % 9.4 Eosinophils % 7.5 H Basophils % 0.3 ESR PT with INR INR PTT (Actin FS) Sodium 140 Potassium 3.9 Chloride 104 Carbon Dioxide 29 D Anion Gap 7 L BUN 16 Creatinine 1.0 Creat Clearance w eGFR 55.14 POC Glucometer Random Glucose 83 Hemoglobin A1c % Lactic Acid Calcium 8.2 L Phosphorus Magnesium Total Bilirubin 0.7 AST 10 L D ALT 11 L Alkaline Phosphatase 69 LD Total Creatine Kinase Troponin I B-Natriuretic Peptide Total Protein 5.6 L Albumin 2.6 L Triglycerides Cholesterol Total LDL Cholesterol HDL Cholesterol Lipase CA 125 Antigen TSH Free T4 2.06 H D Free T3 2.5 Thyroid Stim Immunoglob Stool Occult Blood Thyroid Peroxidase Ab Blood Type Antibody Screen 05/17/17 05/17/17 05/17/17 05:05 05:05 05:45 WBC 5.4 RBC 3.02 L Hgb 8.2 L Hct 26.1 L MCV 86.5 MCH 27.3 MCHC 31.6 L RDW 16.3 H Plt Count 182 MPV 9.0 Absolute Neuts (auto) Absolute Lymphs (auto) Absolute Monos (auto) Absolute Eos (auto) Absolute Basos (auto) Neutrophils % 58.3 Lymphocytes % 24.4 Monocytes % 9.7 Eosinophils % 7.4 H Basophils % 0.2 ESR PT with INR INR PTT (Actin FS) Sodium 138 Potassium 4.1 Chloride 104 Carbon Dioxide 28 Anion Gap 6 L BUN 19 H Creatinine 1.1 H Creat Clearance w eGFR 49.39 POC Glucometer Random Glucose 81 Hemoglobin A1c % Lactic Acid Calcium 8.1 L Phosphorus Magnesium Total Bilirubin 0.5 D AST 13 L D ALT 12 Alkaline Phosphatase 78 LD Total Creatine Kinase Troponin I B-Natriuretic Peptide Total Protein 5.8 L Albumin 2.7 L Triglycerides Cholesterol Total LDL Cholesterol HDL Cholesterol Lipase CA 125 Antigen TSH Free T4 Free T3 Thyroid Stim Immunoglob Stool Occult Blood Thyroid Peroxidase Ab Blood Type O POSITIVE Antibody Screen Negative 05/18/17 05/18/17 05/18/17 07:45 07:45 07:45 WBC 6.3 RBC 3.37 L Hgb 9.1 L D Hct 29.4 L MCV 87.1 MCH 26.9 MCHC 30.9 L RDW 16.2 H Plt Count 242 D MPV 8.5 Absolute Neuts (auto) Absolute Lymphs (auto) Absolute Monos (auto) Absolute Eos (auto) Absolute Basos (auto) Neutrophils % 67.3 Lymphocytes % 18.6 D Monocytes % 6.4 Eosinophils % 7.4 H Basophils % 0.3 ESR PT with INR INR PTT (Actin FS) Sodium 140 Potassium 4.3 Chloride 102 Carbon Dioxide 29 Anion Gap 9 BUN 15 D Creatinine 1.0 Creat Clearance w eGFR POC Glucometer Random Glucose 90 Hemoglobin A1c % Lactic Acid Calcium 9.1 Phosphorus Magnesium 2.1 Cancelled Total Bilirubin AST ALT Alkaline Phosphatase LD Total Creatine Kinase Troponin I B-Natriuretic Peptide Total Protein Albumin Triglycerides Cholesterol Total LDL Cholesterol HDL Cholesterol Lipase CA 125 Antigen TSH Free T4 Free T3 Thyroid Stim Immunoglob Stool Occult Blood Thyroid Peroxidase Ab Blood Type Antibody Screen 05/19/17 05/19/17 05/20/17 05:05 05:05 05:05 WBC 6.6 RBC 3.15 L Hgb 8.6 L Hct 27.4 L MCV 87.2 MCH 27.2 MCHC 31.2 L RDW 15.9 H Plt Count 248 MPV 8.7 Absolute Neuts (auto) Absolute Lymphs (auto) Absolute Monos (auto) Absolute Eos (auto) Absolute Basos (auto) Neutrophils % Lymphocytes % Monocytes % Eosinophils % Basophils % ESR PT with INR INR PTT (Actin FS) Sodium 140 136 Potassium 4.3 4.1 Chloride 102 100 Carbon Dioxide 27 28 Anion Gap 11 8 BUN 18 21 H Creatinine 1.3 H D 1.4 H Creat Clearance w eGFR POC Glucometer Random Glucose 82 86 Hemoglobin A1c % Lactic Acid Calcium 8.7 8.3 L Phosphorus Magnesium Total Bilirubin AST ALT Alkaline Phosphatase LD Total Creatine Kinase Troponin I B-Natriuretic Peptide Total Protein Albumin Triglycerides Cholesterol Total LDL Cholesterol HDL Cholesterol Lipase CA 125 Antigen TSH Free T4 Free T3 Thyroid Stim Immunoglob Stool Occult Blood Thyroid Peroxidase Ab Blood Type Antibody Screen 05/20/17 05:05 WBC 6.7 RBC 3.05 L Hgb 8.3 L Hct 26.5 L MCV 87.0 MCH 27.2 MCHC 31.2 L RDW 16.2 H Plt Count 268 MPV 8.7 Absolute Neuts (auto) Absolute Lymphs (auto) Absolute Monos (auto) Absolute Eos (auto) Absolute Basos (auto) Neutrophils % Lymphocytes % Monocytes % Eosinophils % Basophils % ESR PT with INR INR PTT (Actin FS) Sodium Potassium Chloride Carbon Dioxide Anion Gap BUN Creatinine Creat Clearance w eGFR POC Glucometer Random Glucose Hemoglobin A1c % Lactic Acid Calcium Phosphorus Magnesium Total Bilirubin AST ALT Alkaline Phosphatase LD Total Creatine Kinase Troponin I B-Natriuretic Peptide Total Protein Albumin Triglycerides Cholesterol Total LDL Cholesterol HDL Cholesterol Lipase CA 125 Antigen TSH Free T4 Free T3 Thyroid Stim Immunoglob Stool Occult Blood Thyroid Peroxidase Ab Blood Type Antibody Screen CT abd/pelvis: Sequential axial images were obtained from the domes of the diaphragms through the symphysis pubis following the administration of intravenous contrast material. Evaluation of the lung bases demonstrates a small right pleural effusion with atelectatic changes of the right lower lobe. The left lung bases clear. The liver is normal in size. It is hypodense in texture consistent with diffuse fatty infiltration. No mass lesions identified within the liver. The spleen is enlarged measuring 14.1 cm in craniocaudad dimension. There are gallstones within a slightly thickened gallbladder. The pancreas, adrenal glands and kidneys demonstrate no significant abnormalities. There are bilateral renal cysts present. There is a hypodense mass anterior to the lower abdominal aorta. The mass measures 2.6 x 2.3 x 3.3 cm. The mass had been identified on prior studies and has increased in size since the last exam of 09/19. This could represent an enlarged lymph node. The less likely possibility that the mass is related to the aorta and may represent a pseudoaneurysm cannot be excluded. There is no evidence of contrast enhancement within the mass, however. A follow-up MRI, both prior to and following intravenous contrast material, may be helpful to make this differentiation. There is no evidence of pneumoperitoneum, bowel obstruction or intra-abdominal abscess. Examination of the pelvis demonstrates no evidence of pelvic masses, fluid collections or lymphadenopathy. The uterus has been removed. There is no evidence of acute bony pathology. There is a compression fracture of L1 and grade 1 spondylolisthesis at L4-5 and L5-S1. IMPRESSION: 1. Small right pleural effusion and basilar atelectasis. 2. Diffuse fatty infiltration of the liver and splenomegaly. 3. Cholelithiasis and with slightly thickened gallbladder. 4. Hypodense mass anterior to the lower abdominal aorta that may represent an enlarged lymph node. The mass has increased in size since 09/19/2016. 5. No acute pathology within the abdomen or pelvis. Please see above discussion. HOSPITAL COURSE: Date of Admission:05/11/17 Date of Discharge: 05/25/17 66F w/ hx of asthma, HTN, HLD, NIDDM, pulmonary hypertension, COPD, CAD, Hodgkin s lymphoma (Dx in 2013 s/p chemo and radiation until 2014) and endometrial CA s /p chemotherapy (last 08/2015)and radiation (last 10/2015) with metastasis, diabetic neuropathy, spinal stenosis, chronic back pain with compression fracture to L1 and L3, and carpal tunnel syndrome who was sent to ED by Dr. Santo for further evaluation of abdominal pain, and was found to have atrial fibrillation with RVR and thyrotoxicosis. Her a-fib was treated with propranolol and cardizem until the rate decreased to within normal limits, and she was anti-coagulated with eliquis. Her thyrotoxicosis was treated with methimazole. Her thyroid peroxidase antibody was elevated at 239, so pt instructed to obtain thyroid US and RAIU scan as outpt. On pt's CT scan, a new 3cm mass anterior to the abdominal aorta was found which can possibly be a lymph node, so pt instructed to be evaluated with PET scan as outpt. Today, pt is hemodynamically stable, without subjective complaints, and is ready for discharge to SNF. Pt told to f/u with her PCP, oncology, endocrinology , and cardiology. -Ismael Simpson MD PGY1 Minutes to complete discharge: 35 Discharge Summary Reason For Visit: ATRIAL FIBRILLATION W/RAPID VENTRICULAR RESPONSE Condition: Improved - Instructions Diet, Activity, Other Instructions: You presented with abdominal pain, nausea, and vomiting, and you were found to have thyrotoxicosis (high thyroid) and atrial fibrillation with a rapid ventricular rate. You were treated with beta blockers, cardizem, methimazole, and pain control, and your heart rate was reduced to within normal limits. You were found to have thyroid hormone abnormalities, and so you were seen by endocrinology. You were also seen by neurology who started you on gabapentin and tramadol for your chronic back pain and neuropathy. Medications: Continue taking all of your previous medications except for: 1. Take propranolol 100mg, one tablet in the morning, one in the afternoon, and one in the evening. 2. Take methimazole 20mg, one tablet in the morning and one tablet in the evening 3. Take cardizem 120mg, one tablet every day 4. Take gabapentin 300mg, one tablet in the morning and one tablet at night. 5. Take tramadol 50mg every 8 hours as needed for your chronic back pain 6. Eliquis is a new med, a blood thinner to protect you from a stroke with the irregular rhythm you have Follow-ups: 1. Follow up with your PCP, Dr. Castillo, within one week. 2. Follow up with endocrinology, Dr. Hernandez, in two weeks. He will likely perform a thyroid ultrasound and radio-iodine uptake scan to fully evaluate your thyroid pathology. 3. Follow up with cardiology, Dr. Claros in two weeks for your atrial fibrillation. 4. Follow up with vascular, Dr. Camarillo, for wound care of your lower extremities. 5. Follow up with podiatry, Dr. Davila, within two weeks. 6. Follow up with oncology, Dr. Saldivar, or with your own central supply worker for your history of lymphoma . You were found to have increased size of mass anterior to your abdominal aorta, possibly a lymph node, which should be evaluated with a PET scan. 7- Blood thinners, as discussed before, can increase your risk for bleeding. Please report any bleeding with stool, urine, gum,..etc to your doctor. Avoid falls and head trauma If you develop any concerning symptoms such as fevers, chills, chest pain, or shortness of breath, please return to the ED. Referrals: Juan Jose Alexander MD [Staff Physician] - 3 Weeks Kyra Castillo [Primary Care Provider] - 1 Week Juan Nye MD [Staff Physician] - 1 Week Ilda Saldivar MD [Staff Physician] - 2 Weeks David Weeks MD [Staff Physician] - 2 Weeks Gama Camarillo MD [Staff Physician] - 1 Week [facility]position: [facility] - Home Medications Comprehensive Discharge Medication List: Ambulatory Orders Pantoprazole Sodium [Protonix -] 40 mg PO DAILY #30 tablet.ec 02/23/14 Aspirin [Aspirin EC] 81 mg PO DAILY #30 tablet. 04/23/14 Magnesium Oxide 800 mg PO BID 05/24/15 Cyclobenzaprine HCl [Flexeril -] 10 mg PO TID PRN #0 07/29/15 Atorvastatin Ca [Lipitor] 10 mg PO HS 09/26/16 Bupropion HCl [Wellbutrin Xl -] 150 mg PO DAILY #30 tab 10/02/16 Pramipexole Dihydrochloride [Mirapex -] 0.25 mg PO BID #60 tablet 10/02/16 Acetaminophen [Tylenol .Extra-Strength -] 1,000 mg PO Q6H PRN tablet 05/19/17 Apixaban [Eliquis -] 5 mg PO BID tablet 05/19/17 Bacitracin - [Bacitracin Topical Ointment -] 1 applic TP DAILY tube 05/19/17 Diltiazem Cd [Cardizem Cd -] 120 mg PO DAILY cap.cd.24h 05/19/17 Docusate Sodium [Colace -] 100 mg PO BID PRN capsule 05/19/17 Gabapentin [Neurontin -] 300 mg PO BID capsule 05/19/17 Methimazole [Tapazole -] 20 mg PO BID tablet 05/19/17 Mineral Oil/Petrolat,Wht/Water [Eucerin (Small Jar) -] 1 applic TP BID jar Nystatin Cream [Mycostatin Cream -] 1 applic TP BID applic 05/19/17 Polyethylene Glycol 3350 [Miralax 119 gm Btl -] 17 gm PO DAILY bottle 05/19/17 Propranolol HCl [Inderal -] 100 mg PO TID tablet 05/19/17 Sennosides [Senna -] 2 tab PO HS PRN tablet 05/19/17 Tramadol HCl [Ultram -] 50 mg PO Q8H PRN #30 tablet MDD 150 05/19/17 This patient is new to me today: No Emergency Visit: Yes ED Registration Date: 05/11/17 Care time: The patient presented to the Emergency Department on the above date and was hospitalized for further evaluation of their emergent condition. Critical Care patient: No - Discharge Referral Referred to [facility] No
== END 2017-05-20 14:40 | DRG 201 ==
LOC: JER 09:19 → JERBED 14:36 → J4W 21:02
PROVIDERS: ADMIT Internal Medicine; ATTEND Internal Medicine
DX: I48.91 Unspecified atrial fibrillation (principal); K59.00 Constipation, unspecified; E05.90 Thyrotoxicosis, unspecified without thyrotoxic crisis or storm; C81.90 Hodgkin lymphoma, unspecified, unspecified site; D64.9 Anemia, unspecified; M48.56XA Collapsed vertebra, not elsewhere classified, lumbar region, initial encounter for fracture; E11.40 Type 2 diabetes mellitus with diabetic neuropathy, unspecified; I73.9 Peripheral vascular disease, unspecified; I27.20 Pulmonary hypertension, unspecified; K76.0 Fatty (change of) liver, not elsewhere classified; M43.17 Spondylolisthesis, lumbosacral region; I11.0 Hypertensive heart disease with heart failure; I50.42 Chronic combined systolic (congestive) and diastolic (congestive) heart failure; I25.10 Atherosclerotic heart disease of native coronary artery without angina pectoris; E78.5 Hyperlipidemia, unspecified; Z87.891 Personal history of nicotine dependence; J45.909 Unspecified asthma, uncomplicated; J44.9 Chronic obstructive pulmonary disease, unspecified; R00.0 Tachycardia, unspecified
CPT/HCPCS: 36415; 71010-TC; 74177-TC; 76705-TC; 80048; 80053; 80061; 82272; 82550; 83036; 83605; 83615; 83690; 83721; 83735; 83880; 84100; 84439; 84443; 84445; 84481; 84484; 85025; 85027; 85610; 85651; 85730; 86304; 86376; 86850; 86900; 86901; 87040; 93005; 93010; 93306-TC; 93970-TC; 97161-GP; 99285-25